=== PATIENT | female | born 1945 | race Caucasian/White ===

== ENCOUNTER 2021-02-27 12:56 | Inpatient (IN) | payer MEDICARE, OTHER, SELFPAY ==
[2021-02-27] VITALS (8 sets, daily range): BP systolic 103–145; BP diastolic 57–72; PULSE 82–118; RESP 15–20; TEMP 36.3; O2SAT 97–100; BMI 23.6
--- NOTE | 2021-02-27 14:06 | XRR_ITS ---
PROCEDURE INFORMATION: Exam: XR Chest Exam date and time: 02/27/2021 2:06 PM Age: 75 years old Clinical indication: Shortness of breath; Additional info: Weakness/sob TECHNIQUE: Imaging protocol: XR of the chest. Views: 1 view. COMPARISON: No relevant prior studies available. FINDINGS: Lungs: Unremarkable. No consolidation. Pleural spaces: Unremarkable. No pleural effusion. No pneumothorax. Heart/Mediastinum: Unremarkable. No cardiomegaly. Bones/joints: Suture anchor in the left humeral head consistent with rotator cuff repair. XR/XR chest 1V portable [id number] IMPRESSION: No acute findings.
--- NOTE | 2021-02-27 14:09 | ECG_ITS ---
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 Measurements Intervals [place] Rate: 110 P: 37 CT: 147 QRS: 69 QRSD: 99 T: 47 QT: 328 QTc: 444 Interpretive Statements SINUS TACHYCARDIA LOW QRS VOLTAGE IN PRECORDIAL LEADS [QRS DEFLECTION < 1.0 mV IN CHEST LEADS] NONSPECIFIC T-WAVE ABNORMALITY No previous ECG available for comparison Electronically Signed On 02-27-2021 18:05:35 CDT by Diamond Duffy M.D. [id number]
--- NOTE | 2021-02-27 14:10 | ED_ITS ---
HPI - Female Genitourinary General: Chief complaint: Urogenital-Female Stated complaint: N/V Time Seen by Provider: 02/27/21 13:43 Source: patient and family (daughter) Mode of arrival: wheelchair History of Present Illness: HPI Narrative: 75 yo f p/w one week of symptoms. It started with loss of appetite last Sunday and then she developed nausea, vomiting, and diarrhea. She's had generalized weakness, intermittent confusion and troubles with concentration. She went to PCP on Sunday and was found to have UTI. She was put on ciprofloxacin and took 5 doses without improvement. Her rapid COVID was negative at that time. Daughter reports she's familiar with c diff and it does NOT smell or look like c diff. She denies recent abx beyond the ciprofloxacin since Sun. She does have a history of colon cancer. Associated symptoms: Reports abdominal pain and nausea; Deny headache(s) or syncope Review of Systems General: Reports: 10 or more systems reviewed and unremarkable except in HPI and below Const: Reports: body aches, change in appetite, fatigue and malaise; Denies: fever(s) Eyes: Denies: change in vision or blurry vision ENMT: Denies: throat pain Card: Reports: lightheadedness; Denies: chest pain, palpitations, edema, swelling of feet/ankles or syncope Resp: Denies: dyspnea or productive cough GI: Reports: abdominal pain, nausea, vomiting, diarrhea, GI cramping, change in stool character and mucus in stool; Denies: hematemesis, coffee ground emesis, rectal pain or hematochezia : Denies: difficulty voiding, dysuria, urinary frequency or urinary urgency Skin/Breast: Denies: rash or erythema Neuro: Reports: weakness in extremities, dizziness and confusion (intermittent, not currently); Denies: headache(s), Slurred speech present or involuntary movements Endo: Denies: polyuria All/Imm: Denies: throat swelling or tongue swelling Physical Exam Const: COMMON NORMALS: no limitations and alert EXAM LIMITATIONS: no altered mental status GENERAL APPEARANCE: cooperative, well developed, in distress (mild, holding emesis basin), ill appearing and frail appearing NUTRITIONAL APPEARANCE: thin ORIENTATION/CONSCIOUSNESS: Yes awake, Yes oriented to person, Yes oriented to place and Yes oriented to time; not confused HENMT: COMMON NORMALS: normocephalic, atraumatic and external ears normal HEAD & SCALP: normal to inspection, normocephalic and atraumatic EXTERNAL EAR: Yes external ears normal MOUTH: lip normal; no muffled voice Eye: COMMON NORMALS: EOMs intact bilaterally and conjunctivae normal GENERAL EYE: appearance normal, both eyes and all related structures CONJUNCTIVA: Yes conjunctivae normal Neck/C-Spine: COMMON NORMALS: no JVD GENERAL: Yes normal visual inspection and Yes trachea midline Chest: COMMONS NORMALS: normal inspection of the chest Resp: COMMON NORMALS: normal respiratory effort, No use of accessory muscles and clear to auscultation bilaterally EFFORT & INSPECTION: Yes able to speak in complete sentences and Yes symmetric chest movement AUSCULTATION: clear to auscultation bilaterally Cardio: COMMON NORMALS: no JVD and regular rhythm RATE: tachycardic RHYTHM: regular rhythm PERIPHERAL PULSES: radial pulses present GI: COMMON NORMALS: Soft to palpation INSPECTION: Yes normal to inspection PALPATION: Yes Soft to palpation, Yes Tenderness to palpation present (GI) Details: LLQ, RLQ and other (suprapubic) and No Guarding due to palpation present (GI) PERCUSSION: dullness to percussion RECTAL EXAM: deferred Back/Pelvis: COMMON NORMALS: thoraco-lumbar ROM normal Extremity: COMMON NORMALS: normal to inspection GENERAL: Yes normal exam except as noted Neuro: COMMON NORMALS: moves all extremities, no focal motor deficits and no sensory deficits noted SENSORIUM/ORIENTATION: Yes alert, Yes oriented to person, Yes oriented to place and Yes oriented to time Psych: COMMON NORMALS: mental status grossly normal, Normal thought process present, cooperative, normal affect and speech normal SPEECH: Yes normal speech THOUGHT PROCESS: Normal thought process present Skin: COMMON NORMALS: no rashes or lesions noted, turgor normal and no jaundice GENERAL SKIN EXAM: no rashes or lesions noted and turgor normal Course ED course: 1645: Patient has DKA. Insulin drip protocol started. Given total of 2L of NS. Lipase elevated. Patient has had weight loss (abnormal) for last 5 months. Patient hasn't had colonoscopy for 15 years and hx of colon cancer. CT abd/pelv w/ contrast pending. Discussed with Dr Amaro to admit as long as CT abd/pelv doesn't show anything precluding admission to this facility. 1730: CT findings: ascending and proximal transverse colitis + 3.5 right sided adrenal nodule. Patient results discussed with Dr Amaro. Consider urgent colonoscopy. He has suggested stool studies and empiric cipro/flagyl until further eval of colitis can be done. Vital Signs: Vital signs: Vital Signs Temperature 97.4 F L 02/27/21 13:18 Pulse Rate 109 H 02/27/21 15:37 Respiratory Rate 15 02/27/21 15:37 Blood Pressure 116/57 02/27/21 15:37 Pulse Oximetry 100 02/27/21 15:37 MDM - Female MDM Narrative: Medical decision making narrative: ddx: infectious or inflammatory gastroenteritis, diverticulitis, focal colitis, UTI, medication side effect, dehydration, renal failure, electrolyte abnormalities, colon cancer, partial obstruction, cipro side effects could be complicating situation, other. Discussed with family. Will proceed with IVF, labs, UA, CT abd/pelv, ekg, cxr, COVID PCR. Lab Data: Labs: Lab Results 02/27/21 02/27/21 02/27/21 Range/Units 14:05 14:19 14:19 WBC 15.5 H (4.0-10.0) 10^3/ uL RBC 5.13 (4.1-5.3) 10^6/u L Hgb 16.0 H (11.5-15.3) g/dL Hct 52.0 H (37.0-47.0) % MCV 101.4 H (81-99) fL MCH 31.2 (28.0-34.0) pg MCHC 30.8 (30.0-36.0) g/dL RDW 14.6 (12.1-15.1) % Plt Count 253 (130-400) 10^3/c mm MPV 11.1 H (7.4-10.4) fL Neut % (Auto) 82.1 % Lymph % (Auto) 9.5 % [place] % (Auto) 6.2 % Eos % (Auto) 0.0 % Baso % (Auto) 0.3 % Neut # (Auto) 12.77 H (1.8-7.7) 10^3/u L Lymph # (Auto) 1.5 (0.8-4.8) 10^3/u L [place] # (Auto) 1.0 H (0.2-0.9) 10^3/u L Eos # (Auto) 0.0 (0.0-0.8) 10^3/u L Baso # (Auto) 0.0 (0.0-0.1) 10^3/u L Nucleated RBC % (a uto) 0 % Nucleated RBCs # 0.0 /100WBC Specimen Type Sample Site Nikolai Test VBG pH (7.32-7.42) VBG pCO2 (41-51) mmHg VBG pO2 (25-40) mmHg VBG HCO3 (24-28) mmol/L VBG Base Excess (-3.0-3.0) mmol/ L VBG Hematocrit (37-47) % O2 Delivery Device Python Java Developer ID Sodium (136-145) mmol/L Potassium (3.5-5.1) mmol/L Chloride (98-107) mmol/L Carbon Dioxide (22-29) mmol/L Anion Gap (5-19) BUN (8-23) mg/dL Creatinine (0.5-0.9) mg/dL GFR Calculation Glucose (65-115) mg/dL POC Glucose (70-110) mg/dL Calculated Osmolal ity (285-295) mOsm/k g Calcium (8.5-10.5) mg/dL Magnesium 2.3 (1.7-2.3) mg/dL Total Bilirubin (0.15-1.2) mg/dL AST (0-32) U/L ALT (0-33) U/L Alkaline Phosphata se (35-105) IU/L Troponin T Baselin e (0-10) ng/L Troponin T 120 Min velma (0-10) ng/L Delta Troponin T (0-10) ABS# NT-Pro-B Natriuret Pep 154 (0-450) pg/mL Total Protein (6.6-8.7) g/dL Albumin (3.5-5.2) g/dL Globulin (1.3-4.6) g/dL Lipase 467 H (13-60) U/L Urine Color Yellow (Yellow) Urine Appearance Clear (CLEAR) Urine pH 5 (5-7) Ur Specific Gravit y 1.015 (1.005-1.030) Urine Protein Neg (Negative) Urine Glucose (UA) 4+ H (Normal) Urine Ketones 2+ H (Negative) Urine Blood Neg (Negative) Urine Nitrate Negative (Negative) Urine Bilirubin Neg (Negative) Urine Urobilinogen Norm (Negative) mg/dL Ur Leukocyte Nilsa ase Negative (Negative) 02/27/21 02/27/21 02/27/21 Range/Units 14:19 14:19 15:26 WBC (4.0-10.0) 10^3/ uL RBC (4.1-5.3) 10^6/u L Hgb (11.5-15.3) g/dL Hct (37.0-47.0) % MCV (81-99) fL MCH (28.0-34.0) pg MCHC (30.0-36.0) g/dL RDW (12.1-15.1) % Plt Count (130-400) 10^3/c mm MPV (7.4-10.4) fL Neut % (Auto) % Lymph % (Auto) % [place] % (Auto) % Eos % (Auto) % Baso % (Auto) % Neut # (Auto) (1.8-7.7) 10^3/u L Lymph # (Auto) (0.8-4.8) 10^3/u L [place] # (Auto) (0.2-0.9) 10^3/u L Eos # (Auto) (0.0-0.8) 10^3/u L Baso # (Auto) (0.0-0.1) 10^3/u L Nucleated RBC % (a uto) % Nucleated RBCs # /100WBC Specimen Type Sample Site Nikolai Test VBG pH (7.32-7.42) VBG pCO2 (41-51) mmHg VBG pO2 (25-40) mmHg VBG HCO3 (24-28) mmol/L VBG Base Excess (-3.0-3.0) mmol/ L VBG Hematocrit (37-47) % O2 Delivery Device Python Java Developer ID Sodium 125 L (136-145) mmol/L Potassium 4.9 (3.5-5.1) mmol/L Chloride 89 L (98-107) mmol/L Carbon Dioxide 8 L* (22-29) mmol/L Anion Gap 32.9 H (5-19) BUN 42 H (8-23) mg/dL Creatinine 1.1 H (0.5-0.9) mg/dL GFR Calculation Not Reportable Glucose 539 H* (65-115) mg/dL POC Glucose 488 H (70-110) mg/dL Calculated Osmolal ity 295 (285-295) mOsm/k g Calcium 9.9 (8.5-10.5) mg/dL Magnesium (1.7-2.3) mg/dL Total Bilirubin 0.4 (0.15-1.2) mg/dL AST 7 (0-32) U/L ALT 10 (0-33) U/L Alkaline Phosphata se 65 (35-105) IU/L Troponin T Baselin e 20 H (0-10) ng/L Troponin T 120 Min velma (0-10) ng/L Delta Troponin T (0-10) ABS# NT-Pro-B Natriuret Pep (0-450) pg/mL Total Protein 6.9 (6.6-8.7) g/dL Albumin 3.6 (3.5-5.2) g/dL Globulin 3.3 (1.3-4.6) g/dL Lipase (13-60) U/L Urine Color (Yellow) Urine Appearance (CLEAR) Urine pH (5-7) Ur Specific Gravit y (1.005-1.030) Urine Protein (Negative) Urine Glucose (UA) (Normal) Urine Ketones (Negative) Urine Blood (Negative) Urine Nitrate (Negative) Urine Bilirubin (Negative) Urine Urobilinogen (Negative) mg/dL Ur Leukocyte Nilsa ase (Negative) 02/27/21 02/27/21 Range/Units 15:54 17:00 WBC (4.0-10.0) 10^3/ uL RBC (4.1-5.3) 10^6/u L Hgb (11.5-15.3) g/dL Hct (37.0-47.0) % MCV (81-99) fL MCH (28.0-34.0) pg MCHC (30.0-36.0) g/dL RDW (12.1-15.1) % Plt Count (130-400) 10^3/c mm MPV (7.4-10.4) fL Neut % (Auto) % Lymph % (Auto) % [place] % (Auto) % Eos % (Auto) % Baso % (Auto) % Neut # (Auto) (1.8-7.7) 10^3/u L Lymph # (Auto) (0.8-4.8) 10^3/u L [place] # (Auto) (0.2-0.9) 10^3/u L Eos # (Auto) (0.0-0.8) 10^3/u L Baso # (Auto) (0.0-0.1) 10^3/u L Nucleated RBC % (a uto) % Nucleated RBCs # /100WBC Specimen Type Venous Sample Site Venous Nikolai Test N/a VBG pH 7.12 L* (7.32-7.42) VBG pCO2 33.2 L (41-51) mmHg VBG pO2 46.2 H (25-40) mmHg VBG HCO3 10.7 L (24-28) mmol/L VBG Base Excess -17.6 L (-3.0-3.0) mmol/ L VBG Hematocrit 41.6 (37-47) % O2 Delivery Device N/funeral greeter ID Amh Sodium (136-145) mmol/L Potassium (3.5-5.1) mmol/L Chloride (98-107) mmol/L Carbon Dioxide (22-29) mmol/L Anion Gap (5-19) BUN (8-23) mg/dL Creatinine (0.5-0.9) mg/dL GFR Calculation Glucose (65-115) mg/dL POC Glucose (70-110) mg/dL Calculated Osmolal ity (285-295) mOsm/k g Calcium (8.5-10.5) mg/dL Magnesium (1.7-2.3) mg/dL Total Bilirubin (0.15-1.2) mg/dL AST (0-32) U/L ALT (0-33) U/L Alkaline Phosphata se (35-105) IU/L Troponin T Baselin e (0-10) ng/L Troponin T 120 Min velma 19.35 H (0-10) ng/L Delta Troponin T -0.65 L (0-10) ABS# NT-Pro-B Natriuret Pep (0-450) pg/mL Total Protein (6.6-8.7) g/dL Albumin (3.5-5.2) g/dL Globulin (1.3-4.6) g/dL Lipase (13-60) U/L Urine Color (Yellow) Urine Appearance (CLEAR) Urine pH (5-7) Ur Specific Gravit y (1.005-1.030) Urine Protein (Negative) Urine Glucose (UA) (Normal) Urine Ketones (Negative) Urine Blood (Negative) Urine Nitrate (Negative) Urine Bilirubin (Negative) Urine Urobilinogen (Negative) mg/dL Ur Leukocyte Nilsa ase (Negative) Discharge Plan Discharge Patient Disposition: Admitted As Inpatient Clinical Impression: Nausea vomiting and diarrhea, Elevated lipase, Abnormal loss of weight, Colitis DKA, type 2 Qualifiers: Diabetes mellitus complication detail: without coma Qualified Code(s): E11.10 - Type 2 diabetes mellitus with ketoacidosis without coma Condition: Stable Coding Level of Care Code ED Education Paraprofessional for g Fwd Exam Comprehensive
[2021-02-27 14:29] LABS: Add Urine Microscopic? NO; Charge for UA Resulting for Rev
[2021-02-27 14:39] LABS: Bilirubin Urine Neg (Negative); Blood Urine Neg (Negative); Glucose Urine UA 4+ (Normal); Ketones Urine 2+ (Negative); Leukocyte Esterase Urine Negative (Negative); Nitrate Urine Negative (Negative); Protein Urine Neg (Negative); Specific Gravity, Urine 1.015 (1.005-1.030); Urine Appearance Clear (CLEAR); Urine Color Yellow (Yellow); Urobilinogen Urine Norm (Negative); pH Urine 5 (5-7)
--- NOTE | 2021-02-27 14:41 | CTR_ITS ---
PROCEDURE INFORMATION: Exam: CT Abdomen And Pelvis With Contrast Exam date and time: 02/27/2021 2:41 PM Age: 75 years old Clinical indication: Nausea and vomiting; Abdominal pain; Generalized; Prior surgery; Surgery date: 6+ months; Surgery type: Hyst, colon resection; Patient HX: HX of colon CA C/O abd pain w n/v/d x 1 week; Additional info: Abd pain, n/v/d, one week TECHNIQUE: Imaging protocol: Computed tomography of the abdomen and pelvis with contrast. Radiation optimization: All CT scans at this facility use at least one of these dose optimization techniques: automated exposure control; mA and/or kV adjustment per patient size (includes targeted exams where dose is matched to clinical indication); or iterative reconstruction. Contrast material: VISI 320; Contrast volume: 95 ml; Contrast route: INTRAVENOUS (IV); COMPARISON: CR (CHEST, ) 02/27/2021 2:18 PM RADIATION DOSE METRICS: Total DLP (mGy-cm): 1060.45 FINDINGS: Liver: Normal. No mass. Gallbladder and bile ducts: Normal. No calcified stones. No ductal dilation. Pancreas: Normal. No ductal dilation. Spleen: Normal. No splenomegaly. Adrenal glands: There is a 3.5 cm right adrenal nodule which is considered indeterminate on this single post-contrast phase study. Kidneys and ureters: Scattered simple cysts in the kidneys. Stomach and bowel: Colonic wall thickening with hyperemia and pericolonic stranding of the cecum/ascending colon and proximal aspect of the transverse colon. Appendix: No evidence of appendicitis. Intraperitoneal space: Unremarkable. No free air. No significant fluid collection. Vasculature: Unremarkable. No abdominal aortic aneurysm. Lymph nodes: Unremarkable. No enlarged lymph nodes. Urinary bladder: Unremarkable as visualized. Reproductive: Hysterectomy changes. Bones/joints: Generalized osseous demineralization. No acute fracture. 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 Soft tissues: Small fat containing bilateral inguinal hernias. CT/CT abdomen pelvis w con* [id number] IMPRESSION: 1. Colonic wall thickening with hyperemia and pericolonic inflammation surrounding the cecum/ascending colon and proximal transverse colon suggestive of colitis. 2. Indeterminate 3.5 cm right adrenal nodule. This can be further evaluated with dedicated adrenal protocol CT/MRI. COMMENTS: Consistent with the [employer] [employer]'s Incidental Findings Committee white paper (J Am Palmer Radiol 2018): Any incidental renal lesion less than 1 cm or classified as too small to characterize, or any incidental cystic renal lesion characterized as simple-appearing, is likely benign. No follow-up imaging is recommended for these lesions per consensus recommendations based on imaging criteria. Radiation Dose CTDIVOL = (mGy): DLP = 1060.45 (mGy-cm)
[2021-02-27 14:45] LABS: Basophils % 0.3 %; Lymphocytes # 1.5 10^3/uL (0.8-4.8); Lymphocytes % 9.5 %; Mean Corpuscular HGB Conc 30.8 g/dL (30.0-36.0); Mean Corpuscular Hemoglobin 31.2 pg (28.0-34.0); Mean Corpuscular Volume 101.4 fL (81-99); Mean Platelet Volume 11.1 fL (7.4-10.4); Monocytes % 6.2 %; Neutrophils # 12.77 10^3/uL (1.8-7.7); Neutrophils % 82.1 %; Nucleated Red Blood Cells % 0 %; Platelet Count 253 10^3/cmm (130-400); Red Blood Count 5.13 10^6/uL (4.1-5.3); Red Cell Distribution Width 14.6 % (12.1-15.1); White Blood Count 15.5 10^3/uL (4.0-10.0)
[2021-02-27] MEDS: sodium chloride 0.9% 1,000 ML 999 ML IV ×2 (14:48→17:55)
[2021-02-27] MEDS: ondansetron 2 mg/ML SDV 2 mL 4 MG IVP (14:50)
[2021-02-27] MEDS: fentaNYL 50 mcg/mL INJ 2mL IVP (14:51)
[2021-02-27 15:07] LABS: Troponin(5th) Baseline 20 ng/L (0-10)
[2021-02-27 15:16] LABS: Magnesium 2.3 mg/dL (1.7-2.3); NT Pro B Type Natriuretic Pept 154 pg/mL (0-450)
[2021-02-27 15:28] LABS: Lipase 467 U/L (13-60)
[2021-02-27 15:31] LABS: Glucose Point of Care 488 mg/dL (70-110)
[2021-02-27 16:05] LABS: Alanine Aminotransferase 10 U/L (0-33); Albumin Level 3.6 g/dL (3.5-5.2); Alkaline Phosphatase 65 IU/L (35-105); Anion Gap 32.9 (5-19); Aspartate Amino Transferase 7 U/L (0-32); Blood Urea Nitrogen 42 mg/dL (8-23); Calcium 9.9 mg/dL (8.5-10.5); Chloride 89 mmol/L (98-107); Globulin 3.3 g/dL (1.3-4.6); Osmolality Calculated 295 mOsm/kg (285-295); Potassium 4.9 mmol/L (3.5-5.1); Sodium 125 mmol/L (136-145); Total Bilirubin 0.4 mg/dL (0.15-1.2); Total Protein 6.9 g/dL (6.6-8.7)
[2021-02-27 16:20] LABS: Carbon Dioxide 8 mmol/L (22-29); Glucose 539 mg/dL (65-115)
[2021-02-27 16:21] LABS: Troponin 5 2HR 19.35 ng/L (0-10)
[2021-02-27 16:44] LABS: Troponin 5 2HR Delta -0.65 ABS# (0-10)
[2021-02-27] MEDS: iodixanol 320 mg/mL 100mL Btl IV (16:51)
[2021-02-27 17:11] LABS: Base Excess VBG -17.6 mmol/L (-3.0-3.0); Blood Gas Operator Identificat AMH; HCO3 VBG 10.7 mmol/L (24-28); PCO2 VBG 33.2 mmHg (41-51); PO2 VBG 46.2 mmHg (25-40); Venous Blood Gas Hematocrit 41.6 % (37-47); pH VBG 7.12 (7.32-7.42)
[2021-02-27 17:12] LABS: Blood Gas Sample Site VENOUS; Blood Gas Sample Type VENOUS
--- NOTE | 2021-02-27 17:49 | W.ED.FEMALGU ---
HPI - Female Genitourinary General: Chief complaint: Urogenital-Female Stated complaint: N/V Time Seen by Provider: 02/27/21 13:43 Source: patient and family (daughter) Mode of arrival: wheelchair History of Present Illness: HPI Narrative: Patient presents in a wheelchair with daughter reporting nausea and vomiting. [facility] ED PFSH: Medical History (Updated 03/25/21 @ 09:46 by Gianni Berg MD) History of colon cancer Hyperlipidemia Hypertension Urinary retention Surgical History (Updated 03/25/21 @ 09:46 by Gianni Berg MD) H/O: hysterectomy S/P colon resection Family History Mother , at age 87 Heart attack Father , at age 86 Cancer prostate Social History Alcohol intake: never Marital status: Current occupational status: retired History of recent travel: No Course Vital Signs: Vital signs: Vital Signs Temperature 97.0 F L 03/03/21 16:00 Pulse Rate 100 03/03/21 16:00 Respiratory Rate 18 03/03/21 16:00 Blood Pressure 120/76 03/03/21 16:00 Pulse Oximetry 94 03/03/21 16:00 MDM - Female Lab Data: Labs: Lab Results 02/27/21 02/27/21 02/27/21 Range/Units 14:05 14:19 14:19 WBC 15.5 H (4.0-10.0) 10^3/ uL RBC 5.13 (4.1-5.3) 10^6/u L Hgb 16.0 H (11.5-15.3) g/dL Hct 52.0 H (37.0-47.0) % MCV 101.4 H (81-99) fL MCH 31.2 (28.0-34.0) pg MCHC 30.8 (30.0-36.0) g/dL RDW 14.6 (12.1-15.1) % Plt Count 253 (130-400) 10^3/c mm MPV 11.1 H (7.4-10.4) fL Neut % (Auto) 82.1 % Lymph % (Auto) 9.5 % Walker % (Auto) 6.2 % Eos % (Auto) 0.0 % Baso % (Auto) 0.3 % Neut # (Auto) 12.77 H (1.8-7.7) 10^3/u L Lymph # (Auto) 1.5 (0.8-4.8) 10^3/u L Walker # (Auto) 1.0 H (0.2-0.9) 10^3/u L Eos # (Auto) 0.0 (0.0-0.8) 10^3/u L Baso # (Auto) 0.0 (0.0-0.1) 10^3/u L Nucleated RBC % (a uto) 0 % Nucleated RBCs # 0.0 /100WBC Specimen Type Sample Site Nikolai Test VBG pH (7.32-7.42) VBG pCO2 (41-51) mmHg VBG pO2 (25-40) mmHg VBG HCO3 (24-28) mmol/L VBG Base Excess (-3.0-3.0) mmol/ L VBG Hematocrit (37-47) % O2 Delivery Device Bander And Cellophaner Machine Helper ID Sodium (136-145) mmol/L Potassium (3.5-5.1) mmol/L Chloride (98-107) mmol/L Carbon Dioxide (22-29) mmol/L Anion Gap (5-19) BUN (8-23) mg/dL Creatinine (0.5-0.9) mg/dL GFR Calculation Glucose (65-115) mg/dL POC Glucose (70-110) mg/dL Calculated Osmolal ity (285-295) mOsm/k g Calcium (8.5-10.5) mg/dL Magnesium 2.3 (1.7-2.3) mg/dL Total Bilirubin (0.15-1.2) mg/dL AST (0-32) U/L ALT (0-33) U/L Alkaline Phosphata se (35-105) IU/L Troponin T Baselin e (0-10) ng/L Troponin T 120 Min [place] (0-10) ng/L Delta Troponin T (0-10) ABS# NT-Pro-B Natriuret Pep 154 (0-450) pg/mL Total Protein (6.6-8.7) g/dL Albumin (3.5-5.2) g/dL Globulin (1.3-4.6) g/dL Lipase 467 H (13-60) U/L Urine Color Yellow (Yellow) Urine Appearance Clear (CLEAR) Urine pH 5 (5-7) Ur Specific Gravit y 1.015 (1.005-1.030) Urine Protein Neg (Negative) Urine Glucose (UA) 4+ H (Normal) Urine Ketones 2+ H (Negative) Urine Blood Neg (Negative) Urine Nitrate Negative (Negative) Urine Bilirubin Neg (Negative) Urine Urobilinogen Norm (Negative) mg/dL Ur Leukocyte Nilsa ase Negative (Negative) Serum Ketones (Negative) Nasal/Oral COVID-1 9 PCR 02/27/21 02/27/21 02/27/21 Range/Units 14:19 14:19 14:19 WBC (4.0-10.0) 10^3/ uL RBC (4.1-5.3) 10^6/u L Hgb (11.5-15.3) g/dL Hct (37.0-47.0) % MCV (81-99) fL MCH (28.0-34.0) pg MCHC (30.0-36.0) g/dL RDW (12.1-15.1) % Plt Count (130-400) 10^3/c mm MPV (7.4-10.4) fL Neut % (Auto) % Lymph % (Auto) % Walker % (Auto) % Eos % (Auto) % Baso % (Auto) % Neut # (Auto) (1.8-7.7) 10^3/u L Lymph # (Auto) (0.8-4.8) 10^3/u L Walker # (Auto) (0.2-0.9) 10^3/u L Eos # (Auto) (0.0-0.8) 10^3/u L Baso # (Auto) (0.0-0.1) 10^3/u L Nucleated RBC % (a uto) % Nucleated RBCs # /100WBC Specimen Type Sample Site Nikolai Test VBG pH (7.32-7.42) VBG pCO2 (41-51) mmHg VBG pO2 (25-40) mmHg VBG HCO3 (24-28) mmol/L VBG Base Excess (-3.0-3.0) mmol/ L VBG Hematocrit (37-47) % O2 Delivery Device Bander And Cellophaner Machine Helper ID Sodium 125 L (136-145) mmol/L Potassium 4.9 (3.5-5.1) mmol/L Chloride 89 L (98-107) mmol/L Carbon Dioxide 8 L* (22-29) mmol/L Anion Gap 32.9 H (5-19) BUN 42 H (8-23) mg/dL Creatinine 1.1 H (0.5-0.9) mg/dL GFR Calculation Not Reportable Glucose 539 H* (65-115) mg/dL POC Glucose (70-110) mg/dL Calculated Osmolal ity 295 (285-295) mOsm/k g Calcium 9.9 (8.5-10.5) mg/dL Magnesium (1.7-2.3) mg/dL Total Bilirubin 0.4 (0.15-1.2) mg/dL AST 7 (0-32) U/L ALT 10 (0-33) U/L Alkaline Phosphata se 65 (35-105) IU/L Troponin T Baselin e 20 H (0-10) ng/L Troponin T 120 Min [place] (0-10) ng/L Delta Troponin T (0-10) ABS# NT-Pro-B Natriuret Pep (0-450) pg/mL Total Protein 6.9 (6.6-8.7) g/dL Albumin 3.6 (3.5-5.2) g/dL Globulin 3.3 (1.3-4.6) g/dL Lipase (13-60) U/L Urine Color (Yellow) Urine Appearance (CLEAR) Urine pH (5-7) Ur Specific Gravit y (1.005-1.030) Urine Protein (Negative) Urine Glucose (UA) (Normal) Urine Ketones (Negative) Urine Blood (Negative) Urine Nitrate (Negative) Urine Bilirubin (Negative) Urine Urobilinogen (Negative) mg/dL Ur Leukocyte Nilsa ase (Negative) Serum Ketones Positive H (Negative) Nasal/Oral COVID-1 9 PCR 02/27/21 02/27/21 02/27/21 Range/Units 14:58 15:26 15:54 WBC (4.0-10.0) 10^3/ uL RBC (4.1-5.3) 10^6/u L Hgb (11.5-15.3) g/dL Hct (37.0-47.0) % MCV (81-99) fL MCH (28.0-34.0) pg MCHC (30.0-36.0) g/dL RDW (12.1-15.1) % Plt Count (130-400) 10^3/c mm MPV (7.4-10.4) fL Neut % (Auto) % Lymph % (Auto) % Walker % (Auto) % Eos % (Auto) % Baso % (Auto) % Neut # (Auto) (1.8-7.7) 10^3/u L Lymph # (Auto) (0.8-4.8) 10^3/u L Walker # (Auto) (0.2-0.9) 10^3/u L Eos # (Auto) (0.0-0.8) 10^3/u L Baso # (Auto) (0.0-0.1) 10^3/u L Nucleated RBC % (a uto) % Nucleated RBCs # /100WBC Specimen Type Sample Site Nikolai Test VBG pH (7.32-7.42) VBG pCO2 (41-51) mmHg VBG pO2 (25-40) mmHg VBG HCO3 (24-28) mmol/L VBG Base Excess (-3.0-3.0) mmol/ L VBG Hematocrit (37-47) % O2 Delivery Device Bander And Cellophaner Machine Helper ID Sodium (136-145) mmol/L Potassium (3.5-5.1) mmol/L Chloride (98-107) mmol/L Carbon Dioxide (22-29) mmol/L Anion Gap (5-19) BUN (8-23) mg/dL Creatinine (0.5-0.9) mg/dL GFR Calculation Glucose (65-115) mg/dL POC Glucose 488 H (70-110) mg/dL Calculated Osmolal ity (285-295) mOsm/k g Calcium (8.5-10.5) mg/dL Magnesium (1.7-2.3) mg/dL Total Bilirubin (0.15-1.2) mg/dL AST (0-32) U/L ALT (0-33) U/L Alkaline Phosphata se (35-105) IU/L Troponin T Baselin e (0-10) ng/L Troponin T 120 Min [place] 19.35 H (0-10) ng/L Delta Troponin T -0.65 L (0-10) ABS# NT-Pro-B Natriuret Pep (0-450) pg/mL Total Protein (6.6-8.7) g/dL Albumin (3.5-5.2) g/dL Globulin (1.3-4.6) g/dL Lipase (13-60) U/L Urine Color (Yellow) Urine Appearance (CLEAR) Urine pH (5-7) Ur Specific Gravit y (1.005-1.030) Urine Protein (Negative) Urine Glucose (UA) (Normal) Urine Ketones (Negative) Urine Blood (Negative) Urine Nitrate (Negative) Urine Bilirubin (Negative) Urine Urobilinogen (Negative) mg/dL Ur Leukocyte Nilsa ase (Negative) Serum Ketones (Negative) Nasal/Oral COVID-1 9 PCR Not detected 02/27/21 02/27/21 02/27/21 Range/Units 17:00 18:19 20:26 WBC (4.0-10.0) 10^3/ uL RBC (4.1-5.3) 10^6/u L Hgb (11.5-15.3) g/dL Hct (37.0-47.0) % MCV (81-99) fL MCH (28.0-34.0) pg MCHC (30.0-36.0) g/dL RDW (12.1-15.1) % Plt Count (130-400) 10^3/c mm MPV (7.4-10.4) fL Neut % (Auto) % Lymph % (Auto) % Walker % (Auto) % Eos % (Auto) % Baso % (Auto) % Neut # (Auto) (1.8-7.7) 10^3/u L Lymph # (Auto) (0.8-4.8) 10^3/u L Walker # (Auto) (0.2-0.9) 10^3/u L Eos # (Auto) (0.0-0.8) 10^3/u L Baso # (Auto) (0.0-0.1) 10^3/u L Nucleated RBC % (a uto) % Nucleated RBCs # /100WBC Specimen Type Venous Sample Site Venous Nikolai Test N/a VBG pH 7.12 L* (7.32-7.42) VBG pCO2 33.2 L (41-51) mmHg VBG pO2 46.2 H (25-40) mmHg VBG HCO3 10.7 L (24-28) mmol/L VBG Base Excess -17.6 L (-3.0-3.0) mmol/ L VBG Hematocrit 41.6 (37-47) % O2 Delivery Device N/oil well directional surveyor ID Amh Sodium (136-145) mmol/L Potassium (3.5-5.1) mmol/L Chloride (98-107) mmol/L Carbon Dioxide (22-29) mmol/L Anion Gap (5-19) BUN (8-23) mg/dL Creatinine (0.5-0.9) mg/dL GFR Calculation Glucose (65-115) mg/dL POC Glucose 369 H 353 H (70-110) mg/dL Calculated Osmolal ity (285-295) mOsm/k g Calcium (8.5-10.5) mg/dL Magnesium (1.7-2.3) mg/dL Total Bilirubin (0.15-1.2) mg/dL AST (0-32) U/L ALT (0-33) U/L Alkaline Phosphata se (35-105) IU/L Troponin T Baselin e (0-10) ng/L Troponin T 120 Min [place] (0-10) ng/L Delta Troponin T (0-10) ABS# NT-Pro-B Natriuret Pep (0-450) pg/mL Total Protein (6.6-8.7) g/dL Albumin (3.5-5.2) g/dL Globulin (1.3-4.6) g/dL Lipase (13-60) U/L Urine Color (Yellow) Urine Appearance (CLEAR) Urine pH (5-7) Ur Specific Gravit y (1.005-1.030) Urine Protein (Negative) Urine Glucose (UA) (Normal) Urine Ketones (Negative) Urine Blood (Negative) Urine Nitrate (Negative) Urine Bilirubin (Negative) Urine Urobilinogen (Negative) mg/dL Ur Leukocyte Nilsa ase (Negative) Serum Ketones (Negative) Nasal/Oral COVID-1 9 PCR 07/25/21 Range/Units 23:33 WBC (4.0-10.0) 10^3/ uL RBC (4.1-5.3) 10^6/u L Hgb (11.5-15.3) g/dL Hct (37.0-47.0) % MCV (81-99) fL MCH (28.0-34.0) pg MCHC (30.0-36.0) g/dL RDW (12.1-15.1) % Plt Count (130-400) 10^3/c mm MPV (7.4-10.4) fL Neut % (Auto) % Lymph % (Auto) % Walker % (Auto) % Eos % (Auto) % Baso % (Auto) % Neut # (Auto) (1.8-7.7) 10^3/u L Lymph # (Auto) (0.8-4.8) 10^3/u L Walker # (Auto) (0.2-0.9) 10^3/u L Eos # (Auto) (0.0-0.8) 10^3/u L Baso # (Auto) (0.0-0.1) 10^3/u L Nucleated RBC % (a uto) % Nucleated RBCs # /100WBC Specimen Type Sample Site Nikolai Test VBG pH (7.32-7.42) VBG pCO2 (41-51) mmHg VBG pO2 (25-40) mmHg VBG HCO3 (24-28) mmol/L VBG Base Excess (-3.0-3.0) mmol/ L VBG Hematocrit (37-47) % O2 Delivery Device Bander And Cellophaner Machine Helper ID Sodium (136-145) mmol/L Potassium (3.5-5.1) mmol/L Chloride (98-107) mmol/L Carbon Dioxide (22-29) mmol/L Anion Gap (5-19) BUN (8-23) mg/dL Creatinine (0.5-0.9) mg/dL GFR Calculation Glucose (65-115) mg/dL POC Glucose 131 H (70-110) mg/dL Calculated Osmolal ity (285-295) mOsm/k g Calcium (8.5-10.5) mg/dL Magnesium (1.7-2.3) mg/dL Total Bilirubin (0.15-1.2) mg/dL AST (0-32) U/L ALT (0-33) U/L Alkaline Phosphata se (35-105) IU/L Troponin T Baselin e (0-10) ng/L Troponin T 120 Min [place] (0-10) ng/L Delta Troponin T (0-10) ABS# NT-Pro-B Natriuret Pep (0-450) pg/mL Total Protein (6.6-8.7) g/dL Albumin (3.5-5.2) g/dL Globulin (1.3-4.6) g/dL Lipase (13-60) U/L Urine Color (Yellow) Urine Appearance (CLEAR) Urine pH (5-7) Ur Specific Gravit y (1.005-1.030) Urine Protein (Negative) Urine Glucose (UA) (Normal) Urine Ketones (Negative) Urine Blood (Negative) Urine Nitrate (Negative) Urine Bilirubin (Negative) Urine Urobilinogen (Negative) mg/dL Ur Leukocyte Nilsa ase (Negative) Serum Ketones (Negative) Nasal/Oral COVID-1 9 PCR Discharge Plan Discharge Patient Disposition: Admitted As Inpatient Admit Provider: Ruddy Amaro Clinical Impression: Nausea vomiting and diarrhea, Elevated lipase, Abnormal loss of weight, Colitis DKA, type 2 Qualifiers: Diabetes mellitus complication detail: without coma Qualified Code(s): E11.10 - Type 2 diabetes mellitus with ketoacidosis without coma Condition: Stable Discharge Diet: Diabetic Discharge Activity: Increase activity as tolerated Coding Level of Care Code ED Flower Arranger for Trina Concepcion
[2021-02-27] MEDS: lactated ringers 1,000 ML 30 ML IV (18:11)
[2021-02-27 18:26] LABS: Glucose Point of Care 369 mg/dL (70-110)
[2021-02-27] MEDS: insulin regular-human 250 UNIT in sodium chloride 0.9% 250 ML 11 UNIT IV (18:46)
[2021-02-27 19:56] LABS: Ketone (Acetest) Serum Positive (Negative)
[2021-02-27 20:36] LABS: Glucose Point of Care 353 mg/dL (70-110)
[2021-02-27] MEDS: metroNIDAZOLE IV 500 MG/100 ML PREMIX 100 MG IV (23:17)
[2021-02-27 23:39] LABS: Glucose Point of Care 131 mg/dL (70-110)
[2021-02-28] VITALS (49 sets, daily range): BP systolic 103–175; BP diastolic 55–108; PULSE 78–117; RESP 0–25; TEMP 36.2–37.2; O2SAT 92–98
[2021-02-28] MEDS: dextrose 5%-sod chloride 0.45% 1,000 ML 125 ML IV ×2 (00:14→08:34)
[2021-02-28] MEDS: ciprofloxacin 400 MG/200 ML PREMIX 200 MG IV ×3 (00:36→18:23)
--- NOTE | 2021-02-28 00:57 | PC.NURSE ---
arrived from ED, AO x4, no c/o at this time, glucose 154, no insulin drip going,follows commands, answers questions
--- NOTE | 2021-02-28 01:06 | PC.NURSE ---
Insulin drip requested from Rx
[2021-02-28 01:38] LABS: Glucose Point of Care 151 mg/dL (70-110)
[2021-02-28] MEDS: insulin regular-human 250 UNIT in sodium chloride 0.9% 250 ML 11 UNIT IV (01:38)
[2021-02-28 02:02] LABS: Anion Gap 20.3 (5-19); Blood Urea Nitrogen 39 mg/dL (8-23); Carbon Dioxide 15 mmol/L (22-29); Chloride 108 mmol/L (98-107); Creatinine Clr Calc Pharmacy 49.7059; Glucose 170 mg/dL (65-115); Magnesium 1.9 mg/dL (1.7-2.3); Osmolality Calculated 301 mOsm/kg (285-295); Potassium 4.3 mmol/L (3.5-5.1); Sodium 139 mmol/L (136-145)
[2021-02-28 02:03] LABS: Glucose Point of Care 198 mg/dL (70-110)
[2021-02-28 03:09] LABS: Glucose Point of Care 182 mg/dL (70-110)
[2021-02-28] MEDS: metroNIDAZOLE IV 500 MG/100 ML PREMIX 100 MG IV ×3 (04:02→20:53)
--- NOTE | 2021-02-28 04:02 | PM.HP ---
Providers/Chief Complaint Admitting Physician: Ruddy Amaro Primary Care Provider: Jasmina Moreno DO Chief Complaint: N/V History of Present Illness Karina Ceballos is a 75 year old female With a past medical history significant for hypertension, hyperlipidemia, diabetes mellitus and colon cancer presented to the hospital with nausea, vomiting and diarrhea. Patient was recently diagnosed with urinary tract infection of which she completed 5 day course of ciprofloxacin. She continued to have abdominal discomfort.Laboratory workup on arrival showed a WBC of 18.5, hemoglobin of 16.0, hematocrit of 52.0 and a platelet count of 253. Sodium 125, potassium 4.9, chloride 89, bicarb 8, BUN 42 and a creatinine of 1.1. Glucose of 539. AST of 7, ALT of 10 and alkaline phosphatase of 65. Troponin T baseline of 20. Lipase of 467. Urinalysis showed 2+ ketones, negative for leukocyte esterase or nitrates. Serum ketones were positive. COVID-[address] abdomen pelvis was performed which showed colonic wall thickening with hyperemia and pericolonic inflammation surrounding the cecum/ascending colon and proximal transverse colon suggesting colitis. Indeterminate 3.5 cm right adrenal nodule was incidentally noted. Patient was started on insulin drip on DKA protocol. Review of Systems General: Reports: ROS unobtainable due to mental status Medications/Allergies Home Medications Medication Instructions Recorded Confirmed Last Taken Type allopurinol 300 mg PO DAILY 02/27/21 02/27/21 02/26/21 History ciprofloxacin HCl 500 mg PO BID 02/27/21 02/27/21 02/27/21 History glipizide 10 mg PO BID 02/27/21 02/27/21 02/27/21 History lisinopril 20 mg PO DAILY 02/27/21 02/27/21 02/27/21 History lovastatin 10 mg PO DAILY 02/27/21 02/27/21 02/27/21 History metformin 1,000 mg PO BID 02/27/21 02/27/21 02/27/21 History prochlorperazine maleate 5 mg PO Q6H PRN 02/27/21 02/27/21 02/27/21 History Allergies Allergy/AdvReac Type Severity Reaction Status Date / Time codeine Allergy ALGY-Anaphy Verified 02/27/21 13:18 laxis hydromorphone [From Dilaudid] Allergy ALGY-Anaphy Verified 02/27/21 13:18 laxis morphine Allergy ALGY-Anaphy Verified 02/27/21 13:18 laxis Vitals/I&O/Wt Last Vital Signs Temp 98.1 F 02/28/21 00:59 Pulse 87 02/28/21 05:30 Resp 14 02/28/21 05:30 BP 113/58 02/28/21 05:30 Pulse Ox 96 02/28/21 05:30 02/27/21 02/27/21 02/28/21 14:59 22:59 06:59 Intake Total 1000 / 1000 189.574 / 1189.574 Balance 1000 / 1000 189.574 / 1189.574 Weight last 48 hrs Weight 58.513 kg Physical Exam Narrative: EXAM NARRATIVE: Alert, awake, however and abdominal pain at the time of my evaluation. HEENT -grossly unremarkable new line CVS -regular rate rhythm Chest -clear to auscultation bilaterally abdomen- generalized tenderness Extremities + edema Data : 02/27/21 14:19 02/28/21 00:50 A&P Assessment and plan (1) Nausea vomiting and diarrhea: Zofran p.r.n. C diff sent IV fluids Procalcitonin a.m. Status: Acute (2) Colitis: Continue ciprofloxacin 400 mg IV b.i.d. Flagyl 500 mg IV q.8 Status: Acute (3) DKA, type 2: Insulin drip per protocol Q.1 hour blood sugar checks Q 6 hr bmp NPO Status: Acute Qualifiers: Diabetes mellitus complication detail: without coma Qualified Code(s): E11.10 - Type 2 diabetes mellitus with ketoacidosis without coma (4) Elevated lipase: no evidence of pancreatitis on radiographic imaging patient is NPO Can repeat lipase in a.m. Status: Acute Attestations Medical Necessity Statement*: Anticipate over 2 midnights stay in hospital for evaluation treatment of DKA, nausea vomiting, colitis on IV antibiotics Time Spent in Patient Care: Greater than 35 minutes (>than 50% of time spent in counselling and/or direct pt care on unit). Coding Level of Care Code Acute Director Of Human Resources for [facility] Fwd Diagnoses Nausea vomiting and diarrhea R11.2; R19.7 Colitis K52.9 DKA, type 2 E11.10 Diabetes mellitus complication detail: without coma Elevated lipase R74.8
[2021-02-28 04:09] LABS: Glucose Point of Care 203 mg/dL (70-110)
[2021-02-28 06:12] LABS: Glucose Point of Care 143 mg/dL (70-110)
[2021-02-28 07:31] LABS: Glucose Point of Care 128 mg/dL (70-110)
[2021-02-28 07:50] LABS: Blood Urea Nitrogen 33 mg/dL (8-23); Calcium 8.9 mg/dL (8.5-10.5); Carbon Dioxide 16 mmol/L (22-29); Chloride 110 mmol/L (98-107); Creatinine Clr Calc Pharmacy 49.7059; Glucose 122 mg/dL (65-115); Osmolality Calculated 293 mOsm/kg (285-295); Sodium 137 mmol/L (136-145)
[2021-02-28 07:52] LABS: Anion Gap 14.9 (5-19); Potassium 3.9 mmol/L (3.5-5.1)
[2021-02-28 08:43] LABS: Glucose Point of Care 120 mg/dL (70-110)
--- NOTE | 2021-02-28 09:00 | PM.PN ---
Subjective Subjective: Interval history: Karina reports she still has some nausea. A little bit of global abdominal discomfort. Recent history of UTI for which she was taking Cipro prior to admission. Medications: Reviewed: Yes Vitals/I&O/Wt Last Vital Signs Temp 98.9 F 02/28/21 08:00 Pulse 92 02/28/21 08:30 Resp 14 02/28/21 08:30 BP 148/70 02/28/21 08:30 Pulse Ox 97 02/28/21 06:30 02/27/21 02/28/21 02/28/21 22:59 06:59 14:59 Intake Total 1000 / 1000 207.124 / 5101.770 3755.667 / 2506.667 Balance 1000 / 1000 207.124 / 9691.922 8368.667 / 2506.667 Weight last 48 hrs Weight 58.513 kg Physical Exam Narrative: EXAM NARRATIVE: General exam no apparent distress Neck is supple no lymphadenopathy or thyromegaly Cardiovascular regular rate and rhythm without murmur Lungs clear Abdomen some generalized tenderness. Positive bowel sounds Extremities no cyanosis clubbing or edema Data : 02/27/21 14:19 02/28/21 07:25 A&P Assessment and plan (1) DKA, type 2: Insulin drip instituted on admission Anion gap is now closed Changes since his sliding scale insulin Clear liquid, consistent carb diet Status: Acute Qualifiers: Diabetes mellitus complication detail: without coma Qualified Code(s): E11.10 - Type 2 diabetes mellitus with ketoacidosis without coma (2) Colitis: Cipro, Flagyl Check C. difficile, stool culture CT demonstrated colitis, right side. Status: Acute (3) Elevated lipase: Repeat lipase today, order on blood in lab. Status: Acute Additional A&P Information Indeterminate right adrenal nodule. Consider follow-up as outpatient. Hypertension Hyperlipidemia History of gout Heparin for DVT prophylaxis Full code Covid PCR was obtained, and pending Possible transfer out of ICU later today. Attestations Medical Necessity Statement*: Needs continued hospital stay, for treatment of colitis with IV antibiotics, as well as completion of treatment of DKA. Coding Level of Care Code Acute High School Academic Coach for [facility] Fw Diagnoses DKA, type 2 E11.10 Diabetes mellitus complication detail: without coma Colitis K52.9 Elevated lipase R74.8
[2021-02-28 09:23] LABS: Glucose Point of Care 114 mg/dL (70-110)
[2021-02-28] MEDS: heparin 5,000 unit/mL INJ 1 mL 5000 UNIT SUBCUT ×2 (09:28→20:50)
[2021-02-28] MEDS: sodium chloride 0.9% 1,000 ML 100 ML IV (09:29)
[2021-02-28] MEDS: insulin glargine 100 units/1 mL 10 UNIT SUBCUT (09:56)
[2021-02-28 11:17] LABS: Lipase 177 U/L (13-60)
[2021-02-28 12:16] LABS: Glucose Point of Care 156 mg/dL (70-110)
[2021-02-28 13:20] LABS: Blood Urea Nitrogen 26 mg/dL (8-23); Calcium 8.7 mg/dL (8.5-10.5); Carbon Dioxide 12 mmol/L (22-29); Chloride 106 mmol/L (98-107); Creatinine Clr Calc Pharmacy 49.7059; Glucose 173 mg/dL (65-115); Osmolality Calculated 283 mOsm/kg (285-295); Sodium 132 mmol/L (136-145)
[2021-02-28 13:28] LABS: Anion Gap 18.2 (5-19); Potassium 4.2 mmol/L (3.5-5.1)
--- NOTE | 2021-02-28 13:42 | PC.CHAP ---
Pastoral Care Encounter/Spiritual Assessment Type of Contact [] Declined unhairing machine operator visit [] Patient/Family/Request visit [] Outpatient visit []x Follow-up visit [] Physician referral [] Code/Alert [] Routine visit [] Staff referral [] Actively dying [x] Patient sleeping [] Family support [] [] Out of room [] Palliative care [] [] Receiving care in room [] Pre-surgical visit [] Trauma [] Long length of stay [] ICU visit [] Other: Relational/Emotional Strength [] Patient feels connected with others/family/visitors/staff [] Distress [] Loneliness/isolation [] Abandonment Spirituality of Patient [] Person of Amanda [] Attends Rastafari of their Amanda [] Believes in Prayer [] Reads Bible or Church materials [] There are Spiritual issues to be addressed Scientific Database Curator Interventions [] Prayer [] Active listening [] Non-anxious presence [] Spiritual/emotional support [] Crisis/trauma care [] Spiritual counseling [] Bereavement support [] Provided bereavement packet [] Provided Bible/devotional materials [] Provided toy/stuffed animal, coloring book to patient or family member [] Provided Communion [] Anointing/[place] [] Salvation [] Completed spiritual assessment [] Other: Impact on Illness or Injury [] Angry [] Fearful [] Anxious [] Often cries [] Exhaustion [] Unable to work [] Unable to attend lutheran [] Unable to walk/stand [] Unable to read [] Unable to drive [] Unable to eat/drink [] Unable to sleep [] Unable to be with family [] Patient intubated [] Other: Summary Time spent with patient
[2021-02-28 14:03] LABS: Coronavirus Test Green County Not Detected
--- NOTE | 2021-02-28 15:17 | PC.NURSE ---
Patients hands and arms shake when getting on commode. Patient states that this is new to her and is due to weakness. Patient has difficulty standing up when getting on the commode.
[2021-02-28 17:06] LABS: Glucose Point of Care 184 mg/dL (70-110)
[2021-02-28] MEDS: calcium carbonate 500 mg Chew Tablet PO (17:22)
--- NOTE | 2021-02-28 18:12 | PC.NURSE ---
Patient stated that she has heartburn all day long. Rated it as a 8 out of 10 after eating dinner. Patient did receive prn calcium carbonate prior to getting dinner tray.
[2021-02-28 18:41] LABS: Blood Urea Nitrogen 25 mg/dL (8-23); Carbon Dioxide 13 mmol/L (22-29); Chloride 107 mmol/L (98-107); Creatinine Clr Calc Pharmacy 49.7059; Glucose 229 mg/dL (65-115); Osmolality Calculated 294 mOsm/kg (285-295); Sodium 136 mmol/L (136-145)
[2021-02-28 18:49] LABS: Anion Gap 20.2 (5-19); Potassium 4.2 mmol/L (3.5-5.1)
[2021-02-28 20:28] LABS: Glucose Point of Care 256 mg/dL (70-110)
[2021-02-28] MEDS: dextrose 5%-sod chloride 0.9% 1,000 ML 100 ML IV (20:38)
[2021-02-28] MEDS: insulin regular-human 250 UNIT in sodium chloride 0.9% 250 ML 6.06 UNIT IV (20:43)
[2021-02-28 21:39] LABS: Glucose Point of Care 250 mg/dL (70-110)
[2021-02-28 22:41] LABS: Glucose Point of Care 198 mg/dL (70-110)
[2021-02-28 23:43] LABS: Glucose Point of Care 143 mg/dL (70-110)
[2021-03-01] VITALS (43 sets, daily range): BP systolic 121–184; BP diastolic 72–113; PULSE 70–106; RESP 14–29; TEMP 36.6–37.1; O2SAT 93–99
[2021-03-01 00:34] LABS: Anion Gap 10.2 (5-19); Blood Urea Nitrogen 19 mg/dL (8-23); Calcium 8.8 mg/dL (8.5-10.5); Carbon Dioxide 19 mmol/L (22-29); Chloride 113 mmol/L (98-107); Creatinine Clr Calc Pharmacy 49.7059; Glucose 174 mg/dL (65-115); Osmolality Calculated 294 mOsm/kg (285-295); Potassium 3.2 mmol/L (3.5-5.1); Sodium 139 mmol/L (136-145)
[2021-03-01 00:48] LABS: Glucose Point of Care 141 mg/dL (70-110)
[2021-03-01 02:33] LABS: Glucose Point of Care 106 mg/dL (70-110)
--- NOTE | 2021-03-01 03:27 | PC.NURSE ---
Dr. Amaya notified of anion gap being closed and glucose 108 at 0230, v.o. for 4 units novolog subq now, then start Mod ss scale with breakfast turn off insulin drip and D5 1/2 NS one hour after one time insulin
[2021-03-01 03:54] LABS: Glucose Point of Care 119 mg/dL (70-110)
[2021-03-01 04:40] LABS: Basophils % 0.2 %; Hematocrit 45.2 % (37.0-47.0); Lymphocytes # 1.7 10^3/uL (0.8-4.8); Lymphocytes % 14.8 %; Mean Corpuscular Hemoglobin 30.2 pg (28.0-34.0); Mean Corpuscular Volume 97.4 fL (81-99); Mean Platelet Volume 10.5 fL (7.4-10.4); Monocytes # 1.4 10^3/uL (0.2-0.9); Neutrophils # 8.22 10^3/uL (1.8-7.7); Neutrophils % 72.5 %; Nucleated Red Blood Cells % 0 %; Platelet Count 177 10^3/cmm (130-400); Red Blood Count 4.64 10^6/uL (4.1-5.3); Red Cell Distribution Width 14.5 % (12.1-15.1); White Blood Count 11.3 10^3/uL (4.0-10.0)
[2021-03-01] MEDS: ciprofloxacin 400 MG/200 ML PREMIX 200 MG IV ×2 (06:03→19:18)
[2021-03-01] MEDS: metroNIDAZOLE IV 500 MG/100 ML PREMIX 100 MG IV ×3 (06:03→20:34)
[2021-03-01 06:04] LABS: Glucose Point of Care 133 mg/dL (70-110)
[2021-03-01 06:31] LABS: Glucose Point of Care 101 mg/dL (70-110)
[2021-03-01 07:54] LABS: Magnesium 1.7 mg/dL (1.7-2.3)
[2021-03-01] MEDS: ondansetron 2 mg/ML SDV 2 mL 4 MG IVP (08:02)
--- NOTE | 2021-03-01 08:02 | XR_ITS ---
WS: [id number] XR abdomen 1V* 26420 REASON FOR EXAM: pain FINDINGS: No free air or retroperitoneal air. Bowel gas pattern is unremarkable. No urinary tract calculi are identified. No mass identified. XR/XR abdomen 1V* 51202 IMPRESSION: No acute abdominal abnormality.
[2021-03-01 08:13] LABS: Glucose Point of Care 152 mg/dL (70-110)
[2021-03-01] MEDS: insulin glargine 100 units/1 mL 10 UNIT SUBCUT ×2 (08:31→21:06)
--- NOTE | 2021-03-01 08:31 | PC.NURSE ---
Hard documented Lantus. Was unable to scan 0800 Lantus 10 units. Mar prompted that the Lantus dose was the 2100 dose.
[2021-03-01] MEDS: heparin 5,000 unit/mL INJ 1 mL 5000 UNIT SUBCUT ×2 (08:51→20:34)
[2021-03-01] MEDS: calcium carbonate 500 mg Chew Tablet PO ×2 (08:58→17:53)
[2021-03-01] MEDS: potassium chloride ER 20 mEq Tablet 40 MEQ PO ×2 (08:58→11:40)
--- NOTE | 2021-03-01 10:09 | PC.CHAP ---
Pastoral Care Encounter/Spiritual Assessment Type of Contact [] Declined business development professional visit [] Patient/Family/Request visit [] Outpatient visit [] Follow-up visit [] Physician referral [] Code/Alert [x] Routine visit [] Staff referral [] Actively dying [] Patient sleeping [] Family support [] [] Out of room [] Palliative care [] [x] Receiving care in room [] Pre-surgical visit [] Trauma [] Long length of stay [x] ICU visit [] Other: Relational/Emotional Strength [] Patient feels connected with others/family/visitors/staff [] Distress [] Loneliness/isolation [] Abandonment Spirituality of Patient [] Person of Amanda [] Attends Gnosticism of their Amanda [] Believes in Prayer [] Reads Bible or Latter-Day materials [] There are Spiritual issues to be addressed International Trade Manager Interventions [x] Prayer [] Active listening [] Non-anxious presence [] Spiritual/emotional support [] Crisis/trauma care [] Spiritual counseling [] Bereavement support [] Provided bereavement packet [] Provided Bible/devotional materials [] Provided toy/stuffed animal, coloring book to patient or family member [] Provided Communion [] Anointing/[place] [] Salvation [x] Completed spiritual assessment [] Other: Impact on Illness or Injury [] Angry [] Fearful [] Anxious [] Often cries [] Exhaustion [] Unable to work [] Unable to attend yarsanism [] Unable to walk/stand [] Unable to read [] Unable to drive [] Unable to eat/drink [] Unable to sleep [] Unable to be with family [] Patient intubated [] Other: Summary Time spent with patient
[2021-03-01 11:21] LABS: Glucose Point of Care 159 mg/dL (70-110)
--- NOTE | 2021-03-01 13:41 | P.PN_ITS ---
Subjective Subjective: Interval history: Karina reports she feels a little bit better. Had some nausea this morning. Abdomen still hurts some. Having some reflux according to daughter. Medications: Reviewed: Yes Vitals/I&O/Wt Last Vital Signs Temp 98.3 F 03/01/21 12:30 Pulse 85 03/01/21 12:30 Resp 20 H 03/01/21 12:30 BP 137/75 03/01/21 12:30 Pulse Ox 96 03/01/21 12:30 02/28/21 03/01/21 03/01/21 22:59 06:59 14:59 Intake Total 413.938 / 3654.855 871.381 / 4526.236 418 / 418 Balance 413.938 / 3654.855 871.381 / 4526.236 418 / 418 Physical Exam Narrative: EXAM NARRATIVE: General exam no apparent distress Neck is supple no lymphadenopathy or thyromegaly Cardiovascular regular rate and rhythm without murmur Lungs clear Abdomen some generalized tenderness. Positive bowel sounds Extremities no cyanosis clubbing or edema Data : 03/01/21 04:25 03/01/21 00:00 A&P Assessment and plan (1) DKA, type 2: Insulin drip instituted on admission Anion gap is now closed again Changed to long-acting insulin, sliding scale Advance diet to full liquid Status: Acute Qualifiers: Diabetes mellitus complication detail: without coma Qualified Code(s): E11.10 - Type 2 diabetes mellitus with ketoacidosis without coma (2) Colitis: Continue Cipro, Flagyl Await check C. difficile, stool culture CT demonstrated colitis, right side. Discussed with patient and daughter follow-up with colonoscopy, as well as follow-up of adrenal abnormality Repeat abdominal x-ray this morning demonstrated no free air, no evidence of obstruction Status: Acute (3) Elevated lipase: Repeat lipase was improved. No evidence for acute pancreatitis. Status: Acute Additional A&P Information Indeterminate right adrenal nodule. Consider follow-up as outpatient. GERD. Start Protonix. Hypokalemia, supplement Hypertension Hyperlipidemia History of gout Heparin for DVT prophylaxis Full code Covid PCR was obtained, and negative Transfer out of ICU Attestations Medical Necessity Statement*: Needs continued hospitalization secondary to close monitoring for recurrence of DKA, treatment of colitis. Coding Level of Care Code Acute Arts Manager for [facility] Diagnoses DKA, type 2 E11.10 Diabetes mellitus complication detail: without coma Colitis K52.9 Elevated lipase R74.8
[2021-03-01 17:42] LABS: Glucose Point of Care 220 mg/dL (70-110)
[2021-03-01] MEDS: pantoprazole DR 40 mg Tablet PO (17:53)
[2021-03-01 20:17] LABS: Glucose Point of Care 293 mg/dL (70-110)
[2021-03-02] VITALS (25 sets, daily range): BP systolic 97–179; BP diastolic 54–104; PULSE 75–113; RESP 14–29; TEMP 36.8–36.9; O2SAT 88–98
[2021-03-02 05:23] LABS: Basophils % 0.2 %; Hematocrit 43.4 % (37.0-47.0); Hemoglobin 13.7 g/dL (11.5-15.3); Lymphocytes # 1.5 10^3/uL (0.8-4.8); Lymphocytes % 16.8 %; Mean Corpuscular HGB Conc 31.6 g/dL (30.0-36.0); Mean Platelet Volume 11.2 fL (7.4-10.4); Monocytes # 1.1 10^3/uL (0.2-0.9); Monocytes % 12.8 %; Neutrophils # 6.14 10^3/uL (1.8-7.7); Neutrophils % 69.7 %; Nucleated Red Blood Cells % 0 %; Platelet Count 147 10^3/cmm (130-400); Red Blood Count 4.57 10^6/uL (4.1-5.3); Red Cell Distribution Width 14.7 % (12.1-15.1); White Blood Count 8.8 10^3/uL (4.0-10.0)
[2021-03-02] MEDS: metroNIDAZOLE IV 500 MG/100 ML PREMIX 100 MG IV ×3 (05:51→22:09)
[2021-03-02 05:52] LABS: Blood Urea Nitrogen 19 mg/dL (8-23); Calcium 9.1 mg/dL (8.5-10.5); Carbon Dioxide 21 mmol/L (22-29); Chloride 113 mmol/L (98-107); Glucose 267 mg/dL (65-115); Osmolality Calculated 300 mOsm/kg (285-295); Sodium 139 mmol/L (136-145)
[2021-03-02 05:55] LABS: Anion Gap 9.6 (5-19); Creatinine Clr Calc Pharmacy 49.7059; Potassium 4.6 mmol/L (3.5-5.1)
[2021-03-02] MEDS: ciprofloxacin 400 MG/200 ML PREMIX 200 MG IV ×2 (06:51→17:28)
--- NOTE | 2021-03-02 07:32 | PC.NURSE ---
recd. sleeping. awakened easily. knows place and president. not year or month. oriented to such. no c/o.
--- NOTE | 2021-03-02 09:10 | PC.CHAP ---
Pastoral Care Encounter/Spiritual Assessment Type of Contact [] Declined adjunct professor of english visit [] Patient/Family/Request visit [] Outpatient visit [] Follow-up visit [] Physician referral [] Code/Alert [x] Routine visit [] Staff referral [] Actively dying [] Patient sleeping [] Family support [] [] Out of room [] Palliative care [] [x] Receiving care in room [] Pre-surgical visit [] Trauma [] Long length of stay [x] ICU visit [] Other: Relational/Emotional Strength [] Patient feels connected with others/family/visitors/staff [] Distress [] Loneliness/isolation [] Abandonment Spirituality of Patient [] Person of Amanda [] Attends Episcopalian of their Amanda [] Believes in Prayer [] Reads Bible or Church materials [] There are Spiritual issues to be addressed Diesel Trailer Mechanic Interventions [x] Prayer [] Active listening [] Non-anxious presence [] Spiritual/emotional support [] Crisis/trauma care [] Spiritual counseling [] Bereavement support [] Provided bereavement packet [] Provided Bible/devotional materials [] Provided toy/stuffed animal, coloring book to patient or family member [] Provided Communion [] Anointing/Edwards [] Salvation [x] Completed spiritual assessment [] Other: Impact on Illness or Injury [] Angry [] Fearful [] Anxious [] Often cries [] Exhaustion [] Unable to work [] Unable to attend jew [] Unable to walk/stand [] Unable to read [] Unable to drive [] Unable to eat/drink [] Unable to sleep [] Unable to be with family [] Patient intubated [] Other: Summary Time spent with patient
[2021-03-02 09:29] LABS: Glucose Point of Care 229 mg/dL (70-110)
[2021-03-02] MEDS: pantoprazole DR 40 mg Tablet PO ×2 (09:45→17:28)
[2021-03-02] MEDS: heparin 5,000 unit/mL INJ 1 mL 5000 UNIT SUBCUT ×2 (09:45→22:21)
[2021-03-02 11:31] LABS: Glucose Point of Care 354 mg/dL (70-110)
[2021-03-02 11:31] LABS: Glucose Point of Care 367 mg/dL (70-110)
--- NOTE | 2021-03-02 12:00 | P.PN_ITS ---
Subjective Subjective: Interval history: Karina reports that she feels a little better. Some heartburn. Abdomen still hurts a little bit but she is hungry. Medications: Reviewed: Yes Vitals/I&O/Wt Last Vital Signs Temp 98.3 F 03/01/21 18:00 Pulse 113 H 03/02/21 10:00 Resp 17 03/02/21 10:00 BP 108/75 03/02/21 10:00 Pulse Ox 88 L 03/02/21 10:00 03/01/21 03/02/21 03/02/21 22:59 06:59 14:59 Intake Total 418 / 936 760 / 760 Output Total 700 / 700 150 / 850 300 / 300 Balance -282 / 236 -150 / 86 460 / 460 Physical Exam Narrative: EXAM NARRATIVE: General exam no apparent distress Neck is supple no lymphadenopathy or thyromegaly Cardiovascular regular rate and rhythm without murmur Lungs clear Abdomen some generalized tenderness. Positive bowel sounds Extremities no cyanosis clubbing or edema Data : 03/02/21 04:40 03/02/21 04:40 A&P Assessment and plan (1) DKA, type 2: Insulin drip instituted on admission Anion gap is now closed again Increase Lantus, sliding scale. 20 units of Lantus now Advance diet further Status: Acute Qualifiers: Diabetes mellitus complication detail: without coma Qualified Code(s): E11.10 - Type 2 diabetes mellitus with ketoacidosis without coma (2) Colitis: Continue Cipro, Flagyl Await check C. difficile, stool culture CT demonstrated colitis, right side. Discussed with patient and daughter follow-up with colonoscopy, as well as follow-up of adrenal abnormality Repeat abdominal x-ray on 03/01 demonstrated no free air, no evidence of obstru ction Status: Acute (3) Elevated lipase: Repeat lipase was improved. No evidence for acute pancreatitis. Status: Acute Additional A&P Information Indeterminate right adrenal nodule. Consider follow-up as outpatient. GERD. Start Protonix. Hypokalemia, supplement Hypertension Hyperlipidemia History of gout Heparin for DVT prophylaxis Full code Covid PCR was obtained, and negative Transfer out of ICU Attestations Medical Necessity Statement*: Needs continued hospitalization for IV antibiotics secondary to colitis. Coding Level of Care Code Acute [employer] for [facility] Diagnoses DKA, type 2 E11.10 Diabetes mellitus complication detail: without coma Colitis K52.9 Elevated lipase R74.8
[2021-03-02] MEDS: insulin glargine 100 units/1 mL 20 UNIT SUBCUT ×2 (12:42→22:20)
--- NOTE | 2021-03-02 13:08 | PC.NURSE ---
up to side of bed with much assist. some dyspnea. heart rate one teens, full liq dt in.
--- NOTE | 2021-03-02 13:10 | PC.NURSE ---
up to wheel chair with edward warner. states she is in bed most of time at home, but when on floor stated nails dirty because she had been working in garden. appears to be afraid she is going to fall.
[2021-03-02] MEDS: allopurinol 300 mg Tablet PO (13:30)
[2021-03-02 17:16] LABS: Glucose Point of Care 225 mg/dL (70-110)
[2021-03-02 20:36] LABS: Glucose Point of Care 208 mg/dL (70-110)
[2021-03-02] MEDS: tamsulosin 0.4 mg Capsule PO (22:16)
[2021-03-03 00:05] VITALS: BP 134/69; PULSE 90; RESP 18; TEMP 36.7; O2SAT 95
[2021-03-03] MEDS: ondansetron 2 mg/ML SDV 2 mL 4 MG IVP (00:15)
[2021-03-03 03:35] VITALS: BP 102/63; PULSE 107; RESP 16; TEMP 36.7; O2SAT 94
[2021-03-03] MEDS: metroNIDAZOLE IV 500 MG/100 ML PREMIX 100 MG IV (04:25)
[2021-03-03 06:00] VITALS: PULSE 102
[2021-03-03] MEDS: ciprofloxacin 400 MG/200 ML PREMIX 200 MG IV (06:02)
[2021-03-03 06:08] LABS: Anion Gap 9.1 (5-19); Blood Urea Nitrogen 20 mg/dL (8-23); Calcium 8.7 mg/dL (8.5-10.5); Carbon Dioxide 22 mmol/L (22-29); Chloride 110 mmol/L (98-107); Glucose 158 mg/dL (65-115); Osmolality Calculated 290 mOsm/kg (285-295); Potassium 4.1 mmol/L (3.5-5.1); Sodium 137 mmol/L (136-145)
[2021-03-03 06:09] LABS: Creatinine Clr Calc Pharmacy 49.7059
[2021-03-03 06:41] LABS: Glucose Point of Care 153 mg/dL (70-110)
[2021-03-03 08:00] VITALS: BP 106/69; PULSE 101; RESP 16; TEMP 35.8; O2SAT 94
[2021-03-03] MEDS: allopurinol 300 mg Tablet PO (08:03)
[2021-03-03] MEDS: heparin 5,000 unit/mL INJ 1 mL 5000 UNIT SUBCUT (08:04)
[2021-03-03] MEDS: pantoprazole DR 40 mg Tablet PO (08:04)
[2021-03-03 10:27] LABS: Glucose Point of Care 259 mg/dL (70-110)
[2021-03-03 12:00] VITALS: BP 106/69; PULSE 99; RESP 16; TEMP 36.6; O2SAT 94
--- NOTE | 2021-03-03 15:08 | P.DS_ITS ---
Discharge Providers Date of Admission: 02/28/21 00:00 Date of Discharge: March 03, 2021 Attending Provider at Admission: Ruddy Amaro Attending Provider at Discharge: Nathaniel Alberto MD Primary Care Provider: Jasmina Moreno DO Diagnoses at Discharge Discharge Diagnosis (1) DKA, type 2: Status: Acute Qualifiers: Diabetes mellitus complication detail: without coma Qualified Code(s): E11.10 - Type 2 diabetes mellitus with ketoacidosis without coma (2) Colitis: Status: Acute (3) Elevated lipase: Status: Acute Reason for Visit Reason for Visit: N/V Hospital Course Hospital Course Karina presented to the hospital with nausea and vomiting as well as diarrhea. She was found to be in DKA. CT abdomen pelvis demonstrated likely right-sided colitis. She was placed on Cipro and Flagyl. Insulin drip was started. Lipase was also slightly high, but CT scan demonstrated no evidence of pancreatitis. With this treatment anion gap eventually subsided. Stool culture and C. difficile toxin were not able to be obtained as patient had no further diarrhea. On 03/02 it was noticed that she had some retention of urine as well so Varghese was placed. 900 cc of urine drained. She was placed on Flomax. No evidence of UTI was present on admission. By 03/03 she was doing better, and it was thought she could transition to home with home health and home physical therapy. Anion gap was closed, blood sugars under fair control. She will follow-up with her primary care provider. Varghese will be left in at discharge, and she will follow- up with urology in 1 week. She will get some lab work and follow-up with her primary. I will also defer to her primary care provider an incidental finding of a 3.5 cm right adrenal nodule. This could be further evaluated with CT, MRI dedicated adrenal protocol in the near future. I also discussed with the patien t that a colonoscopy could be considered in 4 to 6 weeks after she recovers from her episode of colitis. Physical Exam Narrative: EXAM NARRATIVE: General exam no apparent distress Neck is supple no lymphadenopathy or thyromegaly Cardiovascular regular rate and rhythm without murmur Lungs clear Abdomen is soft positive bowel sounds without tenderness Extremities no cyanosis clubbing or edema Urinary Catheter Management^: Varghese: Cath Placed During This Visit: yes Reason for Continuing Indwelling Catheter: Acute Urinary Retention or Obstruction Urinary Catheter Date of Insertion: 03/02/21 Urinary Catheter Time of Insertion: 15:02 Discharge Data Data Completed and Pending: Completed Studies During Hospitalization Category Date Time Status CT abdomen pelvis w con* [id number] Stat Cat Scan 02/27/21 14:41 Completed XR abdomen 1V* [id number] Routine Exams 03/01/21 08:02 Completed XR chest 1V patrice ble [id number] Urgent Exams 02/27/21 14:06 Completed Pending at discharge Category Date Time Status Clostridioides Di fficile PCR Routin e Lab 02/27/21 21:06 Ordered Enteric Bacterial Panel by PCR Rout ine Lab 02/27/21 21:06 Ordered Labs from last 24 hours 03/03/21 03/03/21 03/03/21 10:14 06:34 05:33 Sodium 137 Potassium 4.1 Chloride 110 H Carbon Dioxide 22 Anion Gap 9.1 BUN 20 Creatinine 0.4 L GFR Calculation Not Reportable Glucose 158 H POC Glucose 259 H 153 H Calculated Osmolal ity 290 Calcium 8.7 03/02/21 03/02/21 20:26 17:13 Sodium Potassium Chloride Carbon Dioxide Anion Gap BUN Creatinine GFR Calculation Glucose POC Glucose 208 H 225 H Calculated Osmolal ity Calcium Vitals: Last Vital Signs Temp 97.8 F 03/03/21 12:00 Pulse 99 03/03/21 12:00 Resp 16 03/03/21 12:00 BP 106/69 03/03/21 12:00 Pulse Ox 94 03/03/21 12:00 Discharge Plan Discharge Patient Disposition: Home Health Service Condition: Stable Prescriptions: New pantoprazole 40 mg Tablet,Delayed Release (Dr/Ec) 40 mg PO BID Qty: 60 RF: 0 insulin aspart U-100 [Novolog Flexpen U-100 Insulin] 100 unit/mL (3 mL) insulin pen 8 unit SUBCUT TID Qty: 15 RF: 0 tamsulosin 0.4 mg Capsule 0.4 mg PO BEDTIME Qty: 30 RF: 0 nystatin 100,000 unit/mL Suspension 500,000 unit PO QID Qty: 200 RF: 0 ciprofloxacin HCl [Cipro] 500 mg tablet 500 mg PO BID Qty: 10 RF: 0 Lantus Solostar U-100 Insulin 100 unit/mL (3 mL) insulin pen 20 unit SUBCUT QPM Qty: 15 RF: 0 metronidazole [Flagyl] 500 mg tablet 500 mg PO TID Qty: 15 RF: 0 Continued prochlorperazine maleate 5 mg tablet 5 mg PO Q6H PRN (Reason: NAUSEA/VOMITING) RF: 0 allopurinol 300 mg tablet 300 mg PO DAILY RF: 0 lovastatin 20 mg tablet 10 mg PO DAILY RF: 0 Discontinued lisinopril 20 mg tablet 20 mg PO DAILY RF: 0 glipizide 10 mg tablet 10 mg PO BID RF: 0 ciprofloxacin HCl 500 mg tablet 500 mg PO BID RF: 0 metformin 1,000 mg tablet 1,000 mg PO BID RF: 0 Discharge Orders: Discharge Order (Routine); Ordered 03/03/21 Ordered By: Nathaniel Alberto Referrals: Gianni Berg MD [Physician] - 7-10 days (Urinary retention, patient sent home with Varghese) Jasmina Moreno DO [Primary Care Provider] - 4-7 days (CBC and BMP on follow-up. Consider colonoscopy 4 to 6 weeks) Discharge Diet: Diabetic Discharge Activity: Increase activity as tolerated Patient Instructions: Opioid Safety Activity Restrictions/Additional Instructions: Take all medicine as prescribed Check your blood sugar before meals and at bedtime and report to your primary care provider Return for any concerns Please discharge patient with Vargehse. Discharge Attestations Time Spent in Discharge Care*: greater than 30 min Quality Metrics Clinical Quality Measures During this hospital stay, did patient experience: None Coding Level of Care Code Acute [facility] note Diagnoses DKA, type 2 E11.10 Diabetes mellitus complication detail: without coma Colitis K52.9 Elevated lipase R74.8
[2021-03-03 16:00] VITALS: BP 120/76; PULSE 100; RESP 18; TEMP 36.1; O2SAT 94
[2021-03-03 16:48] LABS: Glucose Point of Care 242 mg/dL (70-110)
== END 2021-03-03 17:48 | disposition home health service (06) | DRG 639 ==
LOC: ER 17:01 → ICU 02-28 00:02 → MEDSURG 03-02 12:59
PROVIDERS: Family Medicine; Hospitalist; Nurse Practitioner Family; Admitting Provider Internal Medicine; Emergency Provider Emergency Medicine; PCP Family Medicine; Visit Provider Internal Medicine
DX: E11.10 Type 2 diabetes mellitus with ketoacidosis without coma (principal); K52.9 Noninfective gastroenteritis and colitis, unspecified; I10 Essential (primary) hypertension; E78.5 Hyperlipidemia, unspecified; Z85.038 Personal history of other malignant neoplasm of large intestine; Z87.440 Personal history of urinary (tract) infections; E27.9 Disorder of adrenal gland, unspecified; M10.9 Gout, unspecified; K21.9 Gastro-esophageal reflux disease without esophagitis; E87.6 Hypokalemia; R33.9 Retention of urine, unspecified
CPT/HCPCS: 36415; 36416; 51702; 71045; 74018; 74177; 80048; 80053; 81003; 82009; 82803; 82962; 83690; 83735; 83880; 84484; 85025; 87635; 93005; 96361; 96372; 96374; 96375; 97110; 97116; 97161; 99285; J0744; J1644; J1815 ×2; J2405; J3010; J7030; J7050; J7799; Q9967; S0030

== ENCOUNTER 2021-03-07 13:14 | Emergency (ER) | payer MEDICARE, OTHER, SELFPAY ==
[2021-03-07 14:30] VITALS: BP 112/64; PULSE 69; RESP 17; TEMP 37; O2SAT 98; BMI 23.6
[2021-03-07 14:42] LABS: Glucose Point of Care 341 mg/dL (70-110)
[2021-03-07 17:06] LABS: Basophils # 0.1 10^3/uL (0.0-0.1); Basophils % 0.6 %; Eosinophils # 0.1 10^3/uL (0.0-0.8); Eosinophils % 0.5 %; Hematocrit 47.1 % (37.0-47.0); Lymphocytes # 1.8 10^3/uL (0.8-4.8); Lymphocytes % 18.1 %; Mean Corpuscular HGB Conc 29.7 g/dL (30.0-36.0); Mean Corpuscular Hemoglobin 30.5 pg (28.0-34.0); Mean Corpuscular Volume 102.6 fL (81-99); Mean Platelet Volume 11.2 fL (7.4-10.4); Monocytes # 1.1 10^3/uL (0.2-0.9); Monocytes % 11.4 %; Neutrophils # 6.54 10^3/uL (1.8-7.7); Nucleated Red Blood Cells % 0 %; Platelet Count 204 10^3/cmm (130-400); Red Blood Count 4.59 10^6/uL (4.1-5.3); Red Cell Distribution Width 15.7 % (12.1-15.1); White Blood Count 9.8 10^3/uL (4.0-10.0)
[2021-03-07 17:14] LABS: ABG PCO2 32.8 mmHg (35-45); ABG PH Result 7.46 (7.35-7.45); Alveolar-Arterial Oxygen Gradi 3.9 mmHg (5-10); Arterial Blood Gas Hematocrit 42.4 % (37-47); Base Excess ABG 0.1 mmol/L (-2.0-2.0); Blood Gas Sample Site Brachial, right; Blood Gas Sample Type Arterial; Carboxyhemoglobin < 0.0 %THgb (0.4-20.1); HCO3 ABG 23.3 mmol/L (22-26); HGB O2 Sat 94.4 % (95-100); Ionized Calcium Level - ABG 1.3 mmol/L (1.1-1.4); Methemoglobin 0.9 % (0.4-1.5); Oxygen Device ROOM AIR; Oxygen Saturation ABG 95.1; PO2 ABG 78.7 mmHg (80.0-100.0); Potassium Level - ABG 4.1 mmol/L (3.5-5.0); Total Hemoglobin 13.8 g/dL (12-16)
[2021-03-07 17:24] LABS: Ketone (Acetest) Serum Negative (Negative)
[2021-03-07 18:09] LABS: Albumin Level 2.3 g/dL (3.5-5.2); Anion Gap 12.2 (5-19); Blood Urea Nitrogen 13 mg/dL (8-23); Calcium 8.8 mg/dL (8.5-10.5); Carbon Dioxide 21 mmol/L (22-29); Chloride 103 mmol/L (98-107); Creatinine Clr Calc Pharmacy 49.7059; Globulin 3.4 g/dL (1.3-4.6); Glucose 294 mg/dL (65-115); Osmolality Calculated 283 mOsm/kg (285-295); Potassium 5.2 mmol/L (3.5-5.1); Sodium 131 mmol/L (136-145); Total Bilirubin 0.5 mg/dL (0.15-1.2); Total Protein 5.7 g/dL (6.6-8.7)
[2021-03-07 18:19] LABS: Urine Color Straw (Yellow)
[2021-03-07 18:20] LABS: Bilirubin Urine Neg (Negative); Blood Urine 2+ (Negative); Glucose Urine UA 4+ (Normal); Ketones Urine Negative (Negative); Leukocyte Esterase Urine Trace (Negative); Nitrate Urine Negative (Negative); Protein Urine Neg (Negative); Specific Gravity, Urine 1.015 (1.005-1.030); Sulfosalicylic Acid Urine Negative (Negative); Urine Appearance Clear (CLEAR); Urobilinogen Urine Norm (Negative); pH Urine 5 (5-7)
[2021-03-07 18:21] LABS: Add Urine Microscopic? YES
[2021-03-07 18:22] LABS: RBC Urine 0-4 /hpf (0-2)
[2021-03-07 18:23] LABS: Bacteria Urine TRACE /hpf; Mucus Urine TRACE /hpf; Renal Epithelial Cells Urine N /hpf; Transitional Epi Cells Urine RARE /hpf; WBC Urine 0-4 /hpf (0-5)
[2021-03-07 18:25] LABS: Add Urine Culture? Yes
[2021-03-07 18:50] LABS: Alanine Aminotransferase 16 U/L (0-33); Aspartate Amino Transferase 34 U/L (0-32)
[2021-03-07 18:51] LABS: Alkaline Phosphatase 79 IU/L (35-105)
[2021-03-07 20:57] VITALS: BP 143/70; PULSE 89; RESP 18; O2SAT 99
--- NOTE | 2021-03-07 20:58 | W.ED.WEAKNES ---
HPI - Weakness General: Chief complaint: Weakness Stated complaint: High BS, Nausea, Tingly pain in arm and legs Time Seen by Provider: 03/07/21 20:58 History of Present Illness: HPI Narrative: 75-year-old female comes in today for concerns of weakness and swelling to bilateral lower extremities. Daughter was concerned that patient may be going back into DKA. On exam patient was alert and oriented and feeling better. Patient appeared in no acute distress. We discussed patient's blood sugars running elevated and she suggested the insulin to 10 units 3 times a day and her Lantus to 22 units at bedtime. She is also noted some increased swelling to the lower extremities. Patient does maintain a urinary catheter due to retention. Daughter states patient's appetite has improved and she seems to be doing better than that but she has had some abdominal discomfort today. No changes in stools. Review of Systems General: Reports: 10 or more systems reviewed and unremarkable except in HPI and below GI: Reports: abdominal pain Endo: Reports: other (Blood sugar elevated) [facility] ED PFSH: Medical History (Updated 03/07/21 @ 21:11 by BRADY Villasenor) History of colon cancer Hyperlipidemia Hypertension Physical Exam Const: COMMON NORMALS: no acute distress and patient oriented x3 GENERAL APPEARANCE: cooperative HENMT: COMMON NORMALS: normocephalic and Normal external nose present HEAD & SCALP: normal to inspection and normocephalic NOSE: Normal external nose present MOUTH: Normal oral and palatal mucosa present Eye: GENERAL EYE: appearance normal, both eyes and all related structures Neck/C-Spine: COMMON NORMALS: full ROM Chest: COMMONS NORMALS: normal inspection of the chest Resp: COMMON NORMALS: normal respiratory effort EFFORT & INSPECTION: Yes able to speak in complete sentences Cardio: COMMON NORMALS: regular rate and regular rhythm RATE: regular rate RHYTHM: regular rhythm GI: COMMON NORMALS: Soft to palpation and non-tender PALPATION: Yes Soft to palpation : COMMON NORMALS: Yes no CVA tenderness BLADDER/KIDNEY EXAM: Yes no CVA tenderness Back/Pelvis: COMMON NORMALS: no CVA tenderness and thoracic and lumbar spine normal to inspection Extremity: COMMON NORMALS: normal to inspection Neuro: COMMON NORMALS: patient oriented x3 and moves all extremities Psych: COMMON NORMALS: mental status grossly normal and cooperative Skin: COMMON NORMALS: no rashes or lesions noted GENERAL SKIN EXAM: no rashes or lesions noted Course Vital Signs: Vital signs: Vital Signs Temperature 98.6 F 03/07/21 14:30 Pulse Rate 89 03/07/21 20:57 Respiratory Rate 18 03/07/21 20:57 Blood Pressure 143/70 03/07/21 20:57 Pulse Oximetry 99 03/07/21 20:57 MDM - Weakness MDM Narrative: Medical decision making narrative: Patient was brought in for evaluation due to elevated blood sugar and weakness. On exam patient's abdomen was soft and nontender. Bowel sounds were present. Skin was warm and dry. No CVA tenderness. Vital signs were normal. Patient did have +2 pitting edema to the lower extremities from the knees down. Pulses were intact bilaterally. Differential diagnosis includes but not limited to CHF, DKA. Hyperglycemia. Laboratory values were remarkable for slightly elevated potassium at 5.2, blood glucose was 294, sodium was 134 uncorrected, white blood cell count was 9.8. Urinalysis was clear. Believe the patient is continue to recover from her bout of colitis and DKA. I recommended continuing care with the Cipro and Flagyl for the next 3 days. We will give her 1 dose of Lasix in the emergency room for the increased swelling in the lower extremities otherwise recommend elevation of her extremities. Patient was adjusted for her insulin to help with better control of her blood glucose. Patient and daughter both reported understanding and agreed to plan. Lab Data: Labs: Lab Results 03/07/21 03/07/21 03/07/21 Range/Units 14:28 16:48 16:48 WBC 9.8 (4.0-10.0) 10^3/ uL RBC 4.59 (4.1-5.3) 10^6/u L Hgb 14.0 (11.5-15.3) g/dL Hct 47.1 H (37.0-47.0) % MCV 102.6 H (81-99) fL MCH 30.5 (28.0-34.0) pg MCHC 29.7 L (30.0-36.0) g/dL RDW 15.7 H (12.1-15.1) % Plt Count 204 (130-400) 10^3/c mm MPV 11.2 H (7.4-10.4) fL Neut % (Auto) 67.0 % Lymph % (Auto) 18.1 % [place] % (Auto) 11.4 % Eos % (Auto) 0.5 % Baso % (Auto) 0.6 % Neut # (Auto) 6.54 (1.8-7.7) 10^3/u L Lymph # (Auto) 1.8 (0.8-4.8) 10^3/u L [place] # (Auto) 1.1 H (0.2-0.9) 10^3/u L Eos # (Auto) 0.1 (0.0-0.8) 10^3/u L Baso # (Auto) 0.1 (0.0-0.1) 10^3/u L Nucleated RBC % (a uto) 0 % Nucleated RBCs # 0.0 /100WBC Specimen Type Sample Site ABG pH (7.35-7.45) ABG pCO2 (35-45) mmHg ABG pO2 (80.0-100.0) mmH g ABG HCO3 (22-26) mmol/L ABG O2 Saturation ABG Base Excess (-2.0-2.0) mmol/ L Nikolai Test A-a O2 Gradient (5-10) mmHg Hematocrit (37-47) % Hgb O2 Saturation (95-100) % Carboxyhemoglobin (0.4-20.1) %THgb Methemoglobin (0.4-1.5) % Total Hemoglobin (12-16) g/dL Ionized Calcium (1.1-1.4) mmol/L O2 Delivery Device FiO2 % Business Functional Analyst ID Sodium 131 L (136-145) mmol/L Potassium 5.2 H (3.5-5.1) mmol/L Chloride 103 (98-107) mmol/L Carbon Dioxide 21 L (22-29) mmol/L Anion Gap 12.2 (5-19) BUN 13 (8-23) mg/dL Creatinine 0.4 L (0.5-0.9) mg/dL GFR Calculation Not Reportable Glucose 294 H (65-115) mg/dL POC Glucose 341 H (70-110) mg/dL Calculated Osmolal ity 283 L (285-295) mOsm/k g Calcium 8.8 (8.5-10.5) mg/dL Total Bilirubin 0.5 (0.15-1.2) mg/dL AST 34 H (0-32) U/L ALT 16 (0-33) U/L Alkaline Phosphata se 79 (35-105) IU/L Total Protein 5.7 L (6.6-8.7) g/dL Albumin 2.3 L (3.5-5.2) g/dL Globulin 3.4 (1.3-4.6) g/dL Urine Color (Yellow) Urine Appearance (CLEAR) Urine pH (5-7) Ur Specific Gravit y (1.005-1.030) Urine Protein (Negative) Urine Glucose (UA) (Normal) Urine Ketones (Negative) Urine Blood (Negative) Urine Nitrate (Negative) Urine Bilirubin (Negative) Prot Sulfosalicyli c Acd (Negative) Urine Urobilinogen (Negative) mg/dL Ur Leukocyte Nilsa ase (Negative) Urine RBC (0-2) /hpf Urine WBC (0-5) /hpf Ur Squamous Epith Cells (0-5) /hpf Ur Transition Epit h Cell /hpf Ur Renal Epithelia l Cell /hpf Amorphous Sediment Urine Bacteria (NONE) /hpf Urine Mucus /hpf Urine Yeast /hpf Serum Ketones (Negative) 03/07/21 03/07/21 03/07/21 Range/Units 16:48 16:55 17:00 WBC (4.0-10.0) 10^3/ uL RBC (4.1-5.3) 10^6/u L Hgb (11.5-15.3) g/dL Hct (37.0-47.0) % MCV (81-99) fL MCH (28.0-34.0) pg MCHC (30.0-36.0) g/dL RDW (12.1-15.1) % Plt Count (130-400) 10^3/c mm MPV (7.4-10.4) fL Neut % (Auto) % Lymph % (Auto) % [place] % (Auto) % Eos % (Auto) % Baso % (Auto) % Neut # (Auto) (1.8-7.7) 10^3/u L Lymph # (Auto) (0.8-4.8) 10^3/u L [place] # (Auto) (0.2-0.9) 10^3/u L Eos # (Auto) (0.0-0.8) 10^3/u L Baso # (Auto) (0.0-0.1) 10^3/u L Nucleated RBC % (a uto) % Nucleated RBCs # /100WBC Specimen Type Arterial Sample Site Brachial, right ABG pH 7.46 H (7.35-7.45) ABG pCO2 32.8 L (35-45) mmHg ABG pO2 78.7 L (80.0-100.0) mmH g ABG HCO3 23.3 (22-26) mmol/L ABG O2 Saturation 95.1 ABG Base Excess 0.1 (-2.0-2.0) mmol/ L Nikolai Test N/a A-a O2 Gradient 3.9 L (5-10) mmHg Hematocrit 42.4 (37-47) % Hgb O2 Saturation 94.4 L (95-100) % Carboxyhemoglobin < 0.0 L (0.4-20.1) %THgb Methemoglobin 0.9 (0.4-1.5) % Total Hemoglobin 13.8 (12-16) g/dL Ionized Calcium 1.3 (1.1-1.4) mmol/L O2 Delivery Device Room air FiO2 21.0 % Business Functional Analyst ID Rieri Sodium 134.0 (136-145) mmol/L Potassium 4.1 (3.5-5.1) mmol/L Chloride (98-107) mmol/L Carbon Dioxide (22-29) mmol/L Anion Gap (5-19) BUN (8-23) mg/dL Creatinine (0.5-0.9) mg/dL GFR Calculation Glucose 334.0 H (65-115) mg/dL POC Glucose (70-110) mg/dL Calculated Osmolal ity (285-295) mOsm/k g Calcium (8.5-10.5) mg/dL Total Bilirubin (0.15-1.2) mg/dL AST (0-32) U/L ALT (0-33) U/L Alkaline Phosphata se (35-105) IU/L Total Protein (6.6-8.7) g/dL Albumin (3.5-5.2) g/dL Globulin (1.3-4.6) g/dL Urine Color Straw (Yellow) Urine Appearance Clear (CLEAR) Urine pH 5 (5-7) Ur Specific Gravit y 1.015 (1.005-1.030) Urine Protein Neg (Negative) Urine Glucose (UA) 4+ H (Normal) Urine Ketones Negative (Negative) Urine Blood 2+ H (Negative) Urine Nitrate Negative (Negative) Urine Bilirubin Neg (Negative) Prot Sulfosalicyli c Acd Negative (Negative) Urine Urobilinogen Norm (Negative) mg/dL Ur Leukocyte Nilsa ase Trace H (Negative) Urine RBC 0-4 H (0-2) /hpf Urine WBC 0-4 H (0-5) /hpf Ur Squamous Epith Cells None (0-5) /hpf Ur Transition Epit h Cell Rare /hpf Ur Renal Epithelia l Cell N /hpf Amorphous Sediment Not Reportable Urine Bacteria Trace (NONE) /hpf Urine Mucus Trace /hpf Urine Yeast 3+ H /hpf Serum Ketones Negative (Negative) Discharge Plan Discharge Patient Disposition: Home Clinical Impression: Edema, peripheral, Hyperglycemia, unspecified Condition: Stable Prescriptions: No Action prochlorperazine maleate 5 mg tablet 5 mg PO Q6H PRN (Reason: NAUSEA/VOMITING) RF: 0 allopurinol 300 mg tablet 300 mg PO DAILY RF: 0 lovastatin 20 mg tablet 20 mg PO DAILY RF: 0 nystatin 100,000 unit/mL Suspension 500,000 unit PO QID Qty: 200 RF: 0 tamsulosin 0.4 mg Capsule 0.4 mg PO BEDTIME Qty: 30 RF: 0 pantoprazole 40 mg Tablet,Delayed Release (Dr/Ec) 40 mg PO BID Qty: 60 RF: 0 ciprofloxacin HCl [Cipro] 500 mg tablet 500 mg PO BID Qty: 10 RF: 0 metronidazole [Flagyl] 500 mg tablet 500 mg PO TID Qty: 15 RF: 0 Novolog Flexpen U-100 Insulin 100 unit/mL (3 mL) insulin pen 8 unit SUBCUT TID RF: 0 Lantus Solostar U-100 Insulin 100 unit/mL (3 mL) insulin pen 22 unit SUBCUT BEDTIME RF: 0 Discharge Orders: Discharge ED (Routine); Ordered 03/07/21 Ordered By: Thaddeus Houston Referrals: Jasmina Moreno DO [Primary Care Provider] - Discharge Diet: Usual diet Discharge Activity: Increase activity as tolerated Patient Instructions: Leg Edema (ED), Opioid Safety Activity Restrictions/Additional Instructions: Continue with routine medication. Activity as tolerated. Elevate extremities as much as possible when sitting. Adjust NovoLog to 10 units 3 times a day, and Lantus to 25 units every a.m. Monitor blood sugar. Follow-up with primary care for further instruction. Return to the emergency room for high fever or worsening symptoms. Coding Level of Care Code ED Donation Worker for [facility]
[2021-03-07 21:24] LABS: Glucose Point of Care 344 mg/dL (70-110)
[2021-03-07] MEDS: FUROsemide 40 mg Tablet PO (21:34)
== END 2021-03-07 21:48 | disposition home or self-care (01) ==
PROVIDERS: Physician Assistant; Emergency Provider Nurse Practitioner Family; PCP Family Medicine
DX: R60.0 Localized edema (principal); R73.9 Hyperglycemia, unspecified; Z79.4 Long term (current) use of insulin; E78.5 Hyperlipidemia, unspecified; I10 Essential (primary) hypertension; Z85.038 Personal history of other malignant neoplasm of large intestine
CPT/HCPCS: 36416; 36600; 80051; 80053; 81001; 82009; 82330; 82805; 82962; 85025; 87086; 96372; 99283; J1815

== ENCOUNTER → 2021-03-25 09:20 | Outpatient (BNVA) | payer MEDICARE, OTHER, SELFPAY | PROVIDERS: PCP Family Medicine; Visit Provider Urology | DX: R33.9 Retention of urine, unspecified (principal); R35.8 Other polyuria | CPT/HCPCS: 81003 ==

== ENCOUNTER → 2021-05-20 09:23 | Outpatient (BNVA) | payer MEDICARE, OTHER, SELFPAY | PROVIDERS: PCP Family Medicine; Referring Provider Family Medicine; Visit Provider Internal Medicine | DX: E11.10 Type 2 diabetes mellitus with ketoacidosis without coma (principal); Z79.4 Long term (current) use of insulin; Z87.891 Personal history of nicotine dependence | CPT/HCPCS: 36415; 83519; 83525; 86337; 99204 ==

== ENCOUNTER 2021-05-20 10:36 | Outpatient (CLI) | payer MEDICARE, OTHER, SELFPAY | END 2021-05-20 10:37 | disposition home or self-care (01) | PROVIDERS: PCP Family Medicine; Visit Provider Internal Medicine | DX: E11.10 Type 2 diabetes mellitus with ketoacidosis without coma (principal) | CPT/HCPCS: 36415; 83519; 83525; 86337 ==

== ENCOUNTER → 2021-05-27 09:51 | Outpatient (BNVA) | payer MEDICARE, OTHER, SELFPAY | PROVIDERS: PCP Family Medicine; Visit Provider Surgery | DX: Z11.52 Encounter for screening for COVID-19 (principal); Z20.822 Contact with and (suspected) exposure to COVID-19 | CPT/HCPCS: 87635 ==

== ENCOUNTER 2021-06-01 09:03 | Day surgery (SDC) | payer MEDICARE, OTHER, SELFPAY ==
[2021-05-26 13:40] VITALS: BMI 25.7
--- NOTE | 2021-06-01 09:29 | P.ANESASSM_ITS ---
Pre-Anesthetic Assessment Pre-Anesthetic Assessment: Height/Weight: Height 1.6 m Weight 65.771 kg Proposed Procedure: Operation Date: 06/01/21 10:30 Proposed Procedures p Colonoscopy 73502 Z85.038(Not Applicable) - Carlos Arita MD Was Beta Aristeo taken within 24 hours: N/A Was Clonidine taken within 24 hours: N/A Social: Social History: No alcohol and No tobacco Exam: Pre-Anes Outpt Exam: alert, oriented x 3, clear to auscultation bilaterally and regular rate & rhythm Airway: Submandibular: WNL Cervical ROM: WNL MP: 2 Dentition: False GI: GI: GERD Comments: colitis Metabolic: Metabolic: DM and Hyperlipidemia Neuropsych: Neuropsych: TIA Anesthetic Plan: ASA status: 3 Anesthesia: MAC Risk of > 500 ml blood loss (7ml/kg in children): No PFSH Anesthesia 2 PFSH: Medical History History of colon cancer Hyperlipidemia Hypertension Urinary retention Surgical History H/O: hysterectomy S/P colon resection Family History Mother , at age 87 Heart attack Father , at age 86 Cancer prostate Social History Smoking and tobacco status: former smoker Quit status (tobacco): has quit using tobacco Second hand smoke exposure: No Smoking risk assessment/counseling performed?: Yes Alcohol intake: never Desire information about alcohol rehabilitation?: No Counseling given: Yes Desire information about substance/drug rehabilitation?: No Counseling given: Yes Adopted: No Caregiver/support person: Yes Lives independently: Yes Household members: spouse Housing: House Marital status: Highest education level completed: Some College, No Degree service: No Current occupational status: retired History of recent travel: No Data Anesthesia Cardiac Studies: No Data to Display
[2021-06-01] MEDS: sodium chloride 0.9% 1,000 ML 30 ML IV (10:10)
--- NOTE | 2021-06-01 10:30 | P.HP_ITS ---
Same Day Surgery H&P Indication for Procedure/HPI DATE OF PROCEDURE: June 01, 2021 CHIEF COMPLAINT/INDICATIONFOR SURGICAL PROCEDURE: I am here for PREOP DIAGNOSIS: Abnormal weight loss and history of colon cancer PLANNED PROCEDRUE: Operation Date: 06/01/21 10:30 Proposed Procedures p Colonoscopy 80840 Z85.038(Not Applicable) - Carlos Arita MD 04/14/2021 This is a pleasant 75 years old female patient presents to my practice with history of abnormal weight loss and also gives history of colon cancer. Patient had sigmoid colon cancer about 10 years ago and she did receive chemotherapy. She denies bleeding per rectum and last colonoscopy was done about 5 to 6 years ago per her description and was reported as normal, she patient reports change in bowel habits in the form of chronic diarrhea without obvious explanation. Patient was recently hospitalized with history of nausea and vomiting in addition to diarrhea. And was diagnosed with diabetic ketoacidosis. At that time undergone a CT scan of the abdomen and pelvis that showed; 1. Colonic wall thickening with hyperemia and pericolonic inflammation surrounding the cecum/ascending colon and proximal transverse colon suggestive of colitis. 2. Indeterminate 3.5 cm right adrenal nodule. This can be further evaluated with dedicated adrenal protocol CT/MRI. Interim history 06/01/2021. Patient comes today for diagnostic colonoscopy ROS All systems have been reviewed negative except as per the above or per problem Medications/Allergies* Home Medications Medication Instructions Recorded Confirmed Type allopurinol 300 mg PO DAILY 02/27/21 06/01/21 History lovastatin 20 mg PO DAILY 02/27/21 06/01/21 History aspirin 81 mg tablet,delayed 81 mg PO DAILY 05/20/21 06/01/21 History release Allergies/Adverse Reactions Allergy/AdvReac Type Severity Reaction Status Date / Time codeine Allergy ALGY-Anaphy Verified 06/01/21 10:31 laxis hydromorphone [From Dilaudid] Allergy ALGY-Anaphy Verified 06/01/21 10:31 laxis morphine Allergy ALGY-Anaphy Verified 06/01/21 10:31 laxis Current Medications: Generic Name Dose Route Start Last Admin Trade Name Freq PRN Reason Stop Dose Admin Sodium Chloride 1,000 mls @ 30 mls/hr 06/01/21 10:00 06/01/21 10:10 Sodium Chloride 0.9% IV 30 mls/hr .Q24H ANN Administration Pertinent History/Comorbid Conditions* Medical History (Updated 04/16/21 @ 08:44 by Carlos Arita MD) History of colon cancer Hyperlipidemia Hypertension Urinary retention Surgical History (Updated 03/25/21 @ 09:46 by Gianni Berg MD) H/O: hysterectomy S/P colon resection Family History (Updated 03/16/21 @ 13:06 by Grace Joe LPN) Father, at age 86 Mother, at age 87 Heart attack Mother Cancer Father prostate Social History Smoking and tobacco status: former smoker Quit status (tobacco): has quit using tobacco Second hand smoke exposure: No Smoking risk assessment/counseling performed?: Yes Alcohol intake: never Desire information about alcohol rehabilitation?: No Counseling given: Yes Desire information about substance/drug rehabilitation?: No Counseling given: Yes Adopted: No Caregiver/support person: Yes Lives independently: Yes Household members: spouse Housing: House Marital status: Highest education level completed: Some College, No Degree service: No Current occupational status: retired History of recent travel: No Pertinent Exam Findings alert, oriented x 3, clear to auscultation bilaterally, regular rate & rhythm and procedure specific exam findings (Abdominal examination nontender nondistended soft) Recommendations Surgery/Procedure today (Colonoscopy with possible biopsy) Other Plans: Plan of care; After thorough history and physical examination and reviewing the chart, plan to perform diagnostic colonoscopy. I discussed with the patient in details the risks,benefits,alternatives and indications.The risk of aspiration, bleeding, soft tissue injury, perforation of the colon and other potential concomitant complications were explained to the patient in details,also the potential need for Laproscoy/Laparotomy to repair any related complications including but not limited to colectomy and or Closotomy.The patient understood this well and did agree to proceed. Rationale was carefully and clearly discussed with the patient.Appropriate informed consent have been reviewed and signed All questions have been answered and all concerns have been addressed to patie nt's satisfaction. Verbal and written Instructions were given to the patient for colonoscopy prep Coding Level of Care Code Acute Professional Development Instructor for Trina Concepcion
[2021-06-01 13:01] VITALS: BP 122/65; PULSE 82; RESP 18; TEMP 36.6; O2SAT 100
[2021-06-01 13:08] LABS: Basophils % 0.3 %; Eosinophils % 0.3 %; Hematocrit 36.1 % (37.0-47.0); Hemoglobin 11.2 g/dL (11.5-15.3); Lymphocytes # 2.6 10^3/uL (0.8-4.8); Lymphocytes % 22.3 %; Mean Corpuscular Hemoglobin 31.2 pg (28.0-34.0); Mean Corpuscular Volume 100.6 fl (81-99); Mean Platelet Volume 10.9 fL (7.4-10.4); Monocytes # 0.7 10^3/uL (0.2-0.9); Monocytes % 6.1 %; Neutrophils # 8.23 10^3/uL (1.8-7.7); Neutrophils % 70.7 %; Nucleated Red Blood Cells % 0 %; Platelet Count 207 10^3/cmm (130-400); Red Blood Count 3.59 10^6/uL (4.1-5.3); Red Cell Distribution Width 13.2 % (12.1-15.1); White Blood Count 11.6 10^3/uL (4.0-10.0)
[2021-06-01 13:12] LABS: Glucose Point of Care 177 mg/dL (70-110)
--- NOTE | 2021-06-01 13:29 | P.PCN_ITS ---
Documented by User: Thaddeus Ballard Jr DIABETES CLINICAL MANAGER 06/01/21 13:30 PACU note Post-Anesthesia Exam: awake and vital signs stable Disposition: admitted (Pt with GI bleed)
--- NOTE | 2021-06-01 13:29 | PM.PACU ---
Documented by User: Thaddeus Ballard Jr WOODWORKER HELPER 06/01/21 13:30 PACU note Post-Anesthesia Exam: awake and vital signs stable Disposition: admitted (Pt with GI bleed)
[2021-06-01 13:31] LABS: INR 1.11 (0.8-1.2)
[2021-06-01 13:32] LABS: Fibrinogen 364 mg/dL (174-498); Partial Thromboplastin Time 33.6 SECONDS (23.9-36.7)
[2021-06-01 13:35] VITALS: BP 115/65; PULSE 84; RESP 18; O2SAT 92
[2021-06-01 13:41] LABS: Alanine Aminotransferase 11 U/L (0-33); Albumin Level 3.3 g/dL (3.5-5.2); Alkaline Phosphatase 55 IU/L (35-105); Anion Gap 11.3 (5-19); Aspartate Amino Transferase 16 U/L (0-32); Blood Urea Nitrogen 17 mg/dL (8-23); Calcium 9.3 mg/dL (8.5-10.5); Carbon Dioxide 23 mmol/L (22-29); Chloride 107 mmol/L (98-107); Globulin 2.9 g/dL (1.3-4.6); Glucose 179 mg/dL (65-115); Osmolality Calculated 290 mOsm/kg (285-295); Potassium 4.3 mmol/L (3.5-5.1); Sodium 137 mmol/L (136-145); Total Bilirubin 0.9 mg/dL (0.15-1.2); Total Protein 6.2 g/dL (6.6-8.7)
[2021-06-01 13:43] LABS: Platelet Count 207 10^3/cmm (130-400)
--- NOTE | 2021-06-01 13:54 | PC.NURSE ---
Patient transferred to ER for further evaluation and treatment of GI bleed. IV 22g right forearm intact/patent. Patient a/o x4, report given to Nico MARINELLI.
== END 2021-06-01 13:46 ==
PROVIDERS: PCP Family Medicine; Visit Provider Surgery
PROC: 0DJD8ZZ Inspection of Lower Intestinal Tract, Via Natural or Artificial Opening Endoscopic (ICD-10-PCS; CPT 45378; principal; 2021-06-01 10:30)
DX: R63.4 Abnormal weight loss (principal); Z68.25 Body mass index [BMI] 25.0-25.9, adult; Z85.038 Personal history of other malignant neoplasm of large intestine; Z92.21 Personal history of antineoplastic chemotherapy; E78.5 Hyperlipidemia, unspecified; I10 Essential (primary) hypertension; Z87.891 Personal history of nicotine dependence; Z90.49 Acquired absence of other specified parts of digestive tract; Z82.49 Family history of ischemic heart disease and other diseases of the circulatory system; K57.31 Diverticulosis of large intestine without perforation or abscess with bleeding
CPT/HCPCS: 36416; 45330; 80053; 82962; 85025; 85049; 85384; 85610; 85730; 96360; 96361; J2370; J2704; J7030

== ENCOUNTER 2021-06-01 13:42 | Inpatient (IN) | payer MEDICARE, OTHER, SELFPAY ==
[2021-06-01 13:45] VITALS: BP 120/59; PULSE 95; RESP 18; TEMP 36.7; O2SAT 100; BMI 24.7
--- NOTE | 2021-06-01 13:51 | ED_ITS ---
HPI - GI Bleed General: Chief complaint: GI Bleed Stated complaint: rectal bleeding Time Seen by Provider: 06/01/21 13:48 History of Present Illness: HPI Narrative: 75-year-old female with a history of colon cancer and distal colitis started having GI bleeding at 1 AM this morning. She has had bright red blood per rectum about once per hour since then. Patient is not on any blood thinners beyond aspirin 81 mg daily. Patient had not had a colonoscopy in about 5 or 6 years and so was scheduled for a colonoscopy today. Dr. Ballard started the colonoscopy but was unable to get beyond the sigmoid region due to poor visibility because of bright red blood and also due to difficult anatomy. The patient was going to be direct admitted to the hospital for new onset of active GI bleeding but there were no beds available. Additionally, the patient had another bowel movement with bright red blood. Therefore patient was moved to the emergency department for evaluation and possible resuscitation and in anticipation that the patient will require admission. Dr. Ballard is available for consultation as needed. The patient does not have any abdominal pain. She does feel weak. Her hemoglobin today was 11.4 whereas it had typically been around 13 previously. The patient has no contraindications to tranexamic acid so this will be started in the emergency department. Coags and type and screen have already been performed. Associated symptoms: Denies abdominal pain, chills, easy bruising, fever(s), headache(s), nausea, rash, syncope or vomiting Review of Systems General: Reports: 10 or more systems reviewed and unremarkable except in HPI and below Const: Reports: fatigue and other (recent hx of weight loss); Denies: fever(s), chills or body aches Eyes: Denies: change in vision ENMT: Denies: throat pain Card: Denies: chest pain, edema or syncope Resp: Denies: dyspnea or productive cough GI: Reports: diarrhea and GI cramping; Denies: abdominal pain, nausea, vomiting, hematemesis or coffee ground emesis : Denies: flank pain, dysuria or urinary frequency Musc: Denies: neck pain, back pain, extremity pain or extremity swelling Skin/Breast: Denies: rash or erythema Neuro: Denies: headache(s), numbness in extremities, weakness in extremities, lack of coordination or difficulty walking Tee/Lymph: Denies: easy bruising, easy bleeding, petechiae or purpura PFSH ED PFSH: Medical History History of colon cancer Hyperlipidemia Hypertension Urinary retention Surgical History H/O: hysterectomy S/P colon resection Family History Mother , at age 87 Heart attack Father , at age 86 Cancer prostate Social History Smoking and tobacco status: former smoker Quit status (tobacco): has quit using tobacco Second hand smoke exposure: No Smoking risk assessment/counseling performed?: Yes Alcohol intake: never Desire information about alcohol rehabilitation?: No Counseling given: Yes Desire information about substance/drug rehabilitation?: No Counseling given: Yes Adopted: No Caregiver/support person: Yes Lives independently: Yes Household members: spouse Housing: House Marital status: Highest education level completed: Some College, No Degree service: No Current occupational status: retired History of recent travel: No Physical Exam Const: COMMON NORMALS: no limitations, alert and well nourished EXAM LIMITATIONS: no altered mental status GENERAL APPEARANCE: cooperative and well developed ORIENTATION/CONSCIOUSNESS: Yes awake; not confused HENMT: COMMON NORMALS: normocephalic, atraumatic, external ears normal and Normal external nose present HEAD & SCALP: normal to inspection, normocephalic and atraumatic FACE & SINUS: face symmetric NOSE: Normal e xternal nose present EXTERNAL EAR: Yes external ears normal MOUTH: lip normal; no muffled voice Eye: COMMON NORMALS: EOMs intact bilaterally and conjunctivae normal GENERAL EYE: appearance normal, both eyes and all related structures CONJUNCTIVA: Yes conjunctivae normal Neck/C-Spine: COMMON NORMALS: no JVD GENERAL: Yes normal visual inspection and Yes trachea midline Resp: COMMON NORMALS: normal respiratory effort, No use of accessory muscles and clear to auscultation bilaterally EFFORT & INSPECTION: Yes able to speak in complete sentences and Yes symmetric chest movement AUSCULTATION: clear to auscultation bilaterally Cardio: COMMON NORMALS: no JVD and regular rhythm RATE: Other (borderline tachycardia) RHYTHM: regular rhythm PERIPHERAL PULSES: radial pulses present GI: COMMON NORMALS: Soft to palpation and non-tender INSPECTION: Yes normal to inspection PALPATION: Yes Soft to palpation, No Tenderness to palpation present (GI) and No Guarding due to palpation present (GI) RECTAL EXAM: visual inspection abnormal (there is scant dried blood at anus) Back/Pelvis: COMMON NORMALS: thoraco-lumbar ROM normal Extremity: COMMON NORMALS: normal to inspection GENERAL: Yes normal exam except as noted Neuro: COMMON NORMALS: moves all extremities, no focal motor deficits and no sensory deficits noted SENSORIUM/ORIENTATION: Yes alert Psych: COMMON NORMALS: mental status grossly normal, Normal thought process present, cooperative, normal affect and speech normal SPEECH: Yes normal speech THOUGHT PROCESS: Normal thought process present Skin: COMMON NORMALS: no rashes or lesions noted, turgor normal and no jaundice GENERAL SKIN EXAM: no rashes or lesions noted and turgor normal Course Vital Signs: Vital signs: Vital Signs Temperature 98.0 F 06/01/21 13:45 Pulse Rate 72 06/01/21 14:57 Respiratory Rate 16 06/01/21 14:57 Blood Pressure 105/61 06/01/21 14:57 Pulse Oximetry 98 06/01/21 14:57 MDM - GI Bleed MDM Narrative: Medical decision making narrative: 75 yo f with acute BRBPR and a hx of colon cancer. She isn't anticoagulated. TXA will be given. Patient's hgb will be trended. Patient may require transfusion, will crossmatch 2 units as precautions. Currently borderline tachycardia and weak but otherwise asymptomatic. Colitis unlikely given absence of pain on exam. UPDATE: 1555: Patient has not had any BMs in the ER. Patient's hgb dropped less than 1g/dL on the 3pm H/H. This would suggest that the bleeding has stabilized, especially since she had IVF which could further dilute the H/H. I have placed consult to Dr Benton to discuss admission. Dr Benton has agreed to admit as the bleeding seems to have stabilized. She has requested CT abd/pelv w/ iv and oral contrast for further evauation and will admit with gen surg consultation as indicated. Lab Data: Labs: Lab Results 06/01/21 06/01/21 12:45 15:17 Hgb 10.6 g/dL L g/dL (11.5-15.3) Hct 34.1 % L % (37.0-47.0) Blood Type B Positive Rho(D) Type Positive Antibody Screen Negative Crossmatch See Detail Discharge Plan Discharge Patient Disposition: Admitted As Inpatient Clinical Impression: Acute lower gastrointestinal bleeding Condition: Stable Coding Level of Care Code ED Inspector Tool for Trina Concepcion Exam Comprehensive
[2021-06-01 14:57] VITALS: BP 105/61; PULSE 72; RESP 16; O2SAT 98
[2021-06-01 15:23] LABS: Hematocrit 34.1 % (37.0-47.0); Hemoglobin 10.6 g/dL (11.5-15.3)
--- NOTE | 2021-06-01 16:04 | PC.PHAR ---
pt states her daughter brittney takes care of her medications-pt states she takes care of her own insulin-pts daughter states the pt no longer takes glipizide,lisinopril or metformin-notes are made in the pharmacy comments
--- NOTE | 2021-06-01 16:42 | CTR_ITS ---
PROCEDURE INFORMATION: Exam: CT Abdomen And Pelvis With Contrast Exam date and time: 06/01/2021 4:42 PM Age: 75 years old Clinical indication: Other: Rectal bleeding; Abdominal pain; Localized; Lower; Prior surgery; Surgery type: Gb, appy, colon, hyst; Additional info: Lgib, HX of colonic malignancy; Recent colitis on CT TECHNIQUE: Imaging protocol: Computed tomography of the abdomen and pelvis with contrast. Total images: 228 Radiation optimization: All CT scans at this facility use at least one of these dose optimization techniques: automated exposure control; mA and/or kV adjustment per patient size (includes targeted exams where dose is matched to clinical indication); or iterative reconstruction. Contrast material: OMNI 300; Contrast volume: 95 ml; Contrast route: INTRAVENOUS (IV); Other contrast: Oral, OMNI 300, 25; COMPARISON: CT abdomen pelvis w con* [id number] 02/27/2021 4:37 PM RADIATION DOSE METRICS: Total DLP (mGy-cm): 1163.75 FINDINGS: Lungs: Limited assessment of the lung bases fails to reveal evidence for active cardiopulmonary process. Liver: No visible hepatic mass or cystic structure. Gallbladder and bile ducts: Unremarkable. No cholelithiasis. No visible intra or extrahepatic biliary ectasia. Pancreas: Assessment the pancreas reveals a 8.8 mm cyst midbody. No visible pancreatic ductal ectasia. No visible solid mass. Spleen: Spleen unremarkable. Adrenal glands: Again note of a right adrenal mass dimensions today 34 mm x 30 mm x 31 mm. No interval change since last evaluation. Left adrenal gland unremarkable. Kidneys and ureters: No hydronephrosis or perinephric fluid. No visible nephrolithiasis. Bilateral simple renal cortical cysts stable. No follow-up recommended. No visible ureterolithiasis bilaterally. Stomach and bowel: Extensive diverticulosis coli, primarily the sigmoid colon, but without visible evidence of acute diverticulitis. Nonobstructive bowel pattern. No visible adynamic or reactive ileus. Appendix: Status post appendectomy. Intraperitoneal space: No visible pneumoperitoneum or intraperitoneal ascites. Vasculature: Portal vein patent. The abdominal aorta is nonaneurysmal. Moderate arterial sclerotic disease. Lymph nodes: No current visible evidence of active mesenteric or retroperitoneal lymphadenopathy. No visible evidence of mesenteric lymphadenitis or active mesenteritis/panniculitis. Urinary bladder: Urinary bladder unremarkable. Reproductive: Status post hysterectomy. Bones/joints: No visible active or acute osseous pathology. Soft tissues: Bilateral small inguinal hernias containing fat only. CT/CT abdomen pelvis w con* [id number] IMPRESSION: 1. Currently no visible evidence for acute abdominal or pelvic pathologic process. 2. Again note of a stable right adrenal mass. Non-emergent adrenal CT is recommended. Non-emergent chemical shift MRI (CS-MR) may be considered. (Reference: Horace). 3. Extensive diverticulosis coli without evidence for acute diverticulitis. 4. Assessment pancreas reveals an 8.8 mm cyst at the midbody. Reimaging every 2 years for 10 years is recommended. (Reference: Torres, 2017). 5. Other nonurgent, nonemergent, chronic, postoperative, and age related findings as detailed in text above. REFERENCES: 1. Torres MAGUIRE, et al. Management of Incidental Pancreatic Cysts: A White Paper of the ACR Incidental Findings Committee. J Am Palmer Radiol. 2017;14(7):911-923. 2. Horace WEBER, et al. Management of Incidental Adrenal Masses: A White Paper of the ACR Incidental Findings Committee. J Am Palmer Radiol. 2017;14(8):3833-0990. Radiation Dose CTDIVOL = (mGy): DLP = 1163.75 (mGy-cm)
--- NOTE | 2021-06-01 17:19 | PC.NURSE ---
Per Dr. Verma, pts Blood Transfusion orders are on hold at this time until further notice.
--- NOTE | 2021-06-01 18:01 | P.HP_ITS ---
Providers/Chief Complaint Primary Care Provider: Jasmina Moreno DO Chief Complaint: rectal bleeding History of Present Illness Karina Ceballos is a 75 year old female with past medical history of diabetes mellitus with recent DKA on May 20, hypertension, hyperlipidemia, history of colon cancer presented to the outpatient GI lab today for diagnostic colonoscopy due to unintentional weight loss in the recent months. She follows with Dr. Nolasco as outpatient. She stated that she has been having bloody diarrhea that started last night and she has been going to the bathroom every 1 hour. This morning colonoscopy was performed and there was mariaa hematochezia noted. The procedure was aborted at the flex sig level due to blood in the colon. Stat CBC CMP was done along with 2 units type and cross and patient was sent to the ER for further work-up and admission to medicine with Dr. Arita on consult. Patient remained in the ER for a few hours while her hemoglobin was being monitored. Her baseline hemoglobin is 13 she dropped to 11 today and subsequently to 10 within few hours. She did not have any more bloody bowel movements while her stay in the ER. She was also given tranexamic acid x1 by ER physician. Her vitals have been stable while in the hospital today. Hospitalist was called for admission for lower GI bleed. Most recently in February she did have a CT abdomen pelvis which showed colonic wall thickening with hyperemia and pericolic inflammation surrounding cecum and ascending colon and proximal transverse colon suggestive of colitis. Indeterminate 2.5 cm right adrenal nodule also found. When seen by medicine hospitalist today patient is resting comfortably in bed. She has not had any more bloody bowel movements. She tells me she has had unintentional weight loss in the recent months. She came in for colonoscopy today but was unable to complete it. She feels well when seen. Denies eating out at restaurant recently. Has been on bowel prep. Does eat runny eggs, drinks well water[place] Daughter present at bedside who is an RN. Denies chest pain, sob, abdominal pain, any other symptoms at this time. Chart review for diabetes: She recently saw endocrinology in May 20. Patient is on Lantus 25 to 30 units daily along with 10 units of Humalog 3 times daily with meals. She has been advised to cut down her Humalog in half if she skips a meal. And she did have recent diabetic ketoacidosis. Patient has had hypoglycemic episodes as well. Review of Systems General: Reports: 10 or more systems reviewed and unremarkable except in HPI and below Medications/Allergies Home Medications Medication Instructions Recorded Confirmed Last Taken Type allopurinol 300 mg PO BEDTIME 02/27/21 06/01/21 2 Days Ago History ~05/30/21 lovastatin 20 mg PO BEDTIME 02/27/21 06/01/21 2 Days Ago History ~05/30/21 pantoprazole 40 mg PO BID #60 tab 03/03/21 06/01/21 2 Days Ago Rx ~05/30/21 tamsulosin 0.4 mg PO BEDTIME #30 cap 03/03/21 06/01/21 2 Days Ago Rx ~05/30/21 aspirin 81 mg tablet,delayed 81 mg PO QAM 05/20/21 06/01/21 2 Days Ago History release ~05/30/21 Humalog KwikPen Insulin 10 - 15 unit SUBCUT TID 06/01/21 06/01/21 Unknown History furosemide 20 mg PO DAILY PRN 06/01/21 06/01/21 Unknown History insulin glargine [Lantus Solostar 25 - 30 unit SUBCUT BEDTIME 06/01/21 06/01/21 05/31/21 History U-100 Insulin] 12.5 units naproxen sodium [Aleve] 440 mg PO Q12H PRN 06/01/21 06/01/21 Unknown History tramadol [Ultram] 50 - 100 mg PO Q6H PRN 06/01/21 06/01/21 Unknown History Allergies Allergy/AdvReac Type Severity Reaction Status Date / Time codeine Allergy ALGY-Anaphy Verified 06/01/21 13:47 laxis hydromorphone [From Dilaudid] Allergy ALGY-Anaphy Verified 06/01/21 13:47 laxis morphine Allergy ALGY-Anaphy Verified 06/01/21 13:47 laxis PFSH Acute 2 PFSH: Medical History (Updated 06/01/21 @ 18:08 by Rosalia Benton MD) History of colon cancer Hyperlipidemia Hypertension Urinary retention Surgical History H/O: hysterectomy S/P colon resection Family History Mother , at age 87 Heart attack Father , at age 86 Cancer prostate Social History Smoking and tobacco status: former smoker Quit status (tobacco): has quit using tobacco Second hand smoke exposure: No Smoking risk assessment/counseling performed?: Yes Alcohol intake: never Desire information about alcohol rehabilitation?: No Counseling given: Yes Desire information about substance/drug rehabilitation?: No Counseling given: Yes Adopted: No Caregiver/support person: Yes Lives independently: Yes Household members: spouse Housing: House Marital status: Highest education level completed: Some College, No Degree service: No Current occupational status: retired History of recent travel: No Vitals/I&O/Wt Last Vital Signs Temp 98.0 F 06/01/21 13:45 Pulse 72 06/01/21 14:57 Resp 16 06/01/21 14:57 BP 105/61 06/01/21 14:57 Pulse Ox 98 06/01/21 14:57 Weight last 48 hrs Weight 63.503 kg Physical Exam Narrative: EXAM NARRATIVE: General: Alert oriented x3, patient seen laying in bed appearing comfortable HEENT: Normocephalic, atraumatic, EOMI, breathing breathing room air Cardio: Regular rate rhythm, normal S1-S2, no murmurs rubs gallops, Respiratory: Good bilateral air entry, no wheezes no rhonchi appreciated GI: Abdomen soft, nontender, nondistended, bowel sounds +, rectal exam deferred. There is evidence of hematochezia. Surgeon did not appreciate any hemorrhoids or diverticuli on flex sig today. Scant dried blood seen at the anus. Behavior: Appropriate and cooperative Extremities: Pulses 2+, no edema, no cyanosis Data : 06/01/21 18:36 A&P Assessment and plan (1) Acute lower gastrointestinal bleeding: Status: Acute (2) History of colon cancer: Status: Acute (3) DKA, type 2: Status: Acute Qualifiers: Diabetes mellitus complication detail: without coma Qualified Code(s): E11.10 - Type 2 diabetes mellitus with ketoacidosis without coma Additional A&P Information #Acute lower GI bleed, history of colon cancer Plan is to admit the patient We will check H&H every 6 hours Due to history of colitis we will check sed rate CRP lactoferrin. For bloody diarrhea/hematochezia we will check stool for ova parasite, bacterial culture. We will hold off on antibiotics We will check procalcitonin General surgery consulted. Dr. [facility] Once able to mostly colonoscopy will be performed. Patient will be kept n.p.o. except meds and ice chips I will hold her home medications at this point. Hold aspirin, lovastatin, naproxen sodium. We will continue pantoprazole IV We will hold diuretic Lasix due to potentially soft blood pressures We will check CT abdomen pelvis with contrast. Type and cross 3 units in case of need of transfusion. Yet has confirmed with blood bank. Threshold to transfuse hemoglobin less than 7. Will check B12 folate as MCV is high. #Diabetes: Patient is n.p.o., will not put premeal insulin. Have not started lantus either since patient hasnt eaten all day and has been on bowel prep for last few days. She was a bit hypoglycemic. I will hold off on lantus. Will cover with sliding scale for tonight. Will check q6 hours. #Hypertension: We will hold Lasix. It seems patient is not on any medications for hypertension at this time. Will monitor blood pressures Fluids: Normal saline 100 cc/h Electrolyte: Replete as needed Nutrition: N.p.o. for now Activity: Out of bed to chair as tolerated DVT prophylaxis: We will use SCDs. We will avoid pharmacological prophylaxis due to active bleed. Attestations Medical Necessity Statement*: Requires greater than 48 hours inpatient stay Coding Level of Care Code Acute Cutter Tender for [facility] Diagnoses Acute lower gastrointestinal bleeding K92.2 History of colon cancer Z85.038 DKA, type 2 E11.10 Diabetes mellitus complication detail: without coma
--- NOTE | 2021-06-01 18:24 | PC.NURSE ---
Hayder called to floor, given to ISIS Alvarado.
[2021-06-01 18:53] LABS: Hematocrit 33.8 % (37.0-47.0); Hemoglobin 10.3 g/dL (11.5-15.3)
[2021-06-01] MEDS: iohexol 300 mg/mL 100 mL Btl IV (18:55)
[2021-06-01] MEDS: iohexol 300 mg/mL 50 mL Btl PO (18:56)
[2021-06-01 19:35] LABS: C Reactive Protein 2.7 mg/L (0.0-4.9); Folate Level 15.2 ng/mL (4.8-37.3)
[2021-06-01 19:36] LABS: Vitamin B12 159 pg/mL (232-1245)
--- NOTE | 2021-06-01 19:41 | PC.NURSE ---
ADMIT NOTE Received to floor from ER. Is alert and oriented. Pleasant. Denies pain or discomfort. Says she was doing prep for Colonoscopy when started passing bright red stools. Abdomen is soft. Had a spot of minimal tenderness in RLQ. NPO except ice chips. IV fluids at 75ml/hr rate. Up to bathroom with assist and did pass dark clots. Urine mixed with stool. Denies any dizziness when up. Says is just a little weak. Oriented to room. Call light in reach. Daughter at bedside.
[2021-06-01 19:51] VITALS: BMI 24.7
[2021-06-01 20:00] VITALS: BP 100/60; PULSE 79; RESP 18; TEMP 36.8; O2SAT 97
[2021-06-01 20:29] VITALS: RESP 18
[2021-06-01 21:20] LABS: Glucose Point of Care 173 mg/dL (70-110)
[2021-06-01] MEDS: insulin lispro 100 unit/1 mL SUBCUT (21:45)
[2021-06-01] MEDS: pantoprazole 40 mg SDV IVP (21:59)
[2021-06-01] MEDS: sodium chloride 0.9% 1,000 ML 75 ML IV (22:48)
[2021-06-01 23:46] LABS: Hematocrit 29.4 % (37.0-47.0)
[2021-06-02] VITALS (7 sets, daily range): BP systolic 100–120; BP diastolic 52–72; PULSE 70–87; RESP 15–19; TEMP 36.4–37.1; O2SAT 95–97
--- NOTE | 2021-06-02 05:46 | PC.NURSE ---
SHIFT SUMMARY Has rested well tonight without c/o. IV fluids infusing without difficulty. As of this time has had one more bloody stool that was red liquid. Mixes with urine even when trying to keep separate for specimens. Remains NPO except ice chips. No c/o nausea. Last Hmg was 9.0. Waiting result of morning one. Cont with q6h H/H draws
[2021-06-02 06:00] LABS: Basophils % 0.1 %; Eosinophils # 0.1 10^3/uL (0.0-0.8); Eosinophils % 0.9 %; Hematocrit 28.3 % (37.0-47.0); Hemoglobin 8.6 g/dL (11.5-15.3); Lymphocytes # 2.8 10^3/uL (0.8-4.8); Lymphocytes % 37.3 %; Mean Corpuscular HGB Conc 30.4 g/dL (30.0-36.0); Mean Corpuscular Hemoglobin 30.9 pg (28.0-34.0); Mean Corpuscular Volume 101.8 fl (81-99); Mean Platelet Volume 10.9 fL (7.4-10.4); Monocytes # 0.6 10^3/uL (0.2-0.9); Monocytes % 8.4 %; Nucleated Red Blood Cells % 0 %; Platelet Count 170 10^3/cmm (130-400); Red Blood Count 2.78 10^6/uL (4.1-5.3); Red Cell Distribution Width 13.2 % (12.1-15.1); White Blood Count 7.5 10^3/uL (4.0-10.0)
[2021-06-02 06:29] LABS: Procalcitonin 0.05 ng/mL (0-0.5)
[2021-06-02 06:36] LABS: Glucose Point of Care 139 mg/dL (70-110)
[2021-06-02 06:57] LABS: Alanine Aminotransferase 9 U/L (0-33); Albumin Level 3.1 g/dL (3.5-5.2); Alkaline Phosphatase 45 IU/L (35-105); Anion Gap 11.3 (5-19); Aspartate Amino Transferase 13 U/L (0-32); Blood Urea Nitrogen 20 mg/dL (8-23); Calcium 9.2 mg/dL (8.5-10.5); Carbon Dioxide 22 mmol/L (22-29); Chloride 110 mmol/L (98-107); Globulin 2.2 g/dL (1.3-4.6); Glucose 110 mg/dL (65-115); Magnesium 1.7 mg/dL (1.7-2.3); Osmolality Calculated 291 mOsm/kg (285-295); Phosphorus 3.2 mg/dL (2.5-4.5); Potassium 4.3 mmol/L (3.5-5.1); Sodium 139 mmol/L (136-145); Thyroid Stimulating Hormone 0.82 uIU/mL (0.27-4.20); Total Bilirubin 0.8 mg/dL (0.15-1.2); Total Protein 5.3 g/dL (6.6-8.7)
[2021-06-02] MEDS: sodium chloride 0.9% 1,000 ML 75 ML IV ×2 (08:25→20:36)
[2021-06-02] MEDS: pantoprazole 40 mg SDV IVP ×2 (08:42→17:26)
--- NOTE | 2021-06-02 10:59 | PC.CHAP ---
Pastoral Care Encounter/Spiritual Assessment Type of Contact [] Declined truck sales representative visit [] Patient/Family/Request visit [] Outpatient visit [] Follow-up visit [] Physician referral [] Code/Alert [x] Routine visit [] Staff referral [] Actively dying [] Patient sleeping [] Family support [] [] Out of room [] Palliative care [] [] Receiving care in room [] Pre-surgical visit [] Trauma [x] Long length of stay [] ICU visit [] Other: Relational/Emotional Strength [x] Patient feels connected with others/family/visitors/staff [] Distress [] Loneliness/isolation [] Abandonment Spirituality of Patient [x] Person of Amanda [] Attends Adventism of their Amanda [x] Believes in Prayer [] Reads Bible or Samaritan materials [] There are Spiritual issues to be addressed Placement Specialist Interventions [x] Prayer [x] Active listening [x] Non-anxious presence [x] Spiritual/emotional support [] Crisis/trauma care [x] Spiritual counseling [] Bereavement support [] Provided bereavement packet [] Provided Bible/devotional materials [] Provided toy/stuffed animal, coloring book to patient or family member [] Provided Communion [] Anointing/[place] [] Salvation [x] Completed spiritual assessment [] Other: Impact on Illness or Injury [] Angry [x] Fearful [] Anxious [] Often cries [] Exhaustion [x] Unable to work [] Unable to attend taoist [] Unable to walk/stand [] Unable to read [] Unable to drive [] Unable to eat/drink [] Unable to sleep [] Unable to be with family [] Patient intubated [] Other: Summary wants to home +1 was there to help help make decisions about her health negative respouns, wants waiting on doctors report about her health Time spent with patient
--- NOTE | 2021-06-02 12:08 | P.PN_ITS ---
Subjective Subjective: Interval history: Seen this morning. Patient is in very good spirits. She states she feels well. She had 1 bloody bowel movement last night and had another one around 5 this a.m. The bowel movement at 5 in the morning had no blood in it. However she did notice blood when she wiped. She is no longer having abdominal cramping. She is hungry and would like to eat. He moglobin has dropped to 8.6. CT scan was reviewed. Vitals/I&O/Wt Last Vital Signs Temp 98.0 F 06/02/21 07:26 Pulse 87 06/02/21 07:26 Resp 17 06/02/21 07:26 BP 109/52 06/02/21 07:26 Pulse Ox 97 06/02/21 07:26 06/01/21 06/02/21 06/02/21 22:59 06:59 14:59 Intake Total 721.25 / 721.25 Output Total 250 / 250 Balance -250 / -250 721.25 / 721.25 Weight last 48 hrs Weight 63.503 kg Weight 63.503 kg Physical Exam Narrative: EXAM NARRATIVE: General: Alert oriented x3, patient seen laying in bed appearing comfortable HEENT: Normocephalic, atraumatic, EOMI, breathing breathing room air Cardio: Regular rate rhythm, normal S1-S2, no murmurs rubs gallops, Respiratory: Good bilateral air entry, no wheezes no rhonchi appreciated GI: Abdomen soft, nontender, nondistended, bowel sounds +, Behavior: Appropriate and cooperative Extremities: no edema, no cyanosis Data : 06/02/21 05:46 06/02/21 05:46 A&P Assessment and plan (1) Acute lower gastrointestinal bleeding: Status: Acute (2) History of colon cancer: Status: Acute (3) DKA, type 2: Status: Acute Qualifiers: Diabetes mellitus complication detail: without coma Qualified Code(s): E11.10 - Type 2 diabetes mellitus with ketoacidosis without coma Additional A&P Information #Acute lower GI bleed, history of colon cancer most likely etiology diverticular bleed. Hemoglobin 8.6 today. Continue to check H&H every 6 hours. Due to history of colitis we will check sed rate CRP lactoferrin. For bloody diarrhea/hematochezia we will check stool for ova parasite, bacterial culture. Sample has not been obtained yet. We will hold off on antibiotics Procalcitonin negative. General surgery consulted. Dr. Arita will follow the patient while inpatient. Correction to my history physical note. There were several diverticuli noted in the sigmoid colon. We will advance patient to clear liquids today. I will hold her home medications at this point. Hold aspirin, lovastatin, naproxen sodium. We will continue pantoprazole IV Continue to hold Lasix. CT abdomen pelvis reviewed. No gross pathology noted. Threshold to transfuse hemoglobin less than 7. Will check B12 folate as MCV is high. Patient not tachycardic and vitals are stable. We will hold off on transfusing her yet. If hemoglobin continues to drop by noon today I will give her [address] Melton this morning and he is on board with the plan. Further recommendations to follow from him. #Diabetes: Patient is n.p.o., will not put premeal insulin. Lantus was not started admission due to patient being n.p.o. Not the clear liquids are sta rting we will cover her with sliding scale for now. We will be cautious with starting Lantus due to patient's history of hypoglycemic episodes. Her blood sugar has been stable without Lantus or Humalog so far. #Hypertension: We will hold Lasix. It seems patient is not on any medications for hypertension at this time. Will monitor blood pressures Fluids: Normal saline 100 cc/h Electrolyte: Replete as needed Nutrition: Start clear liquids. Activity: Out of bed to chair as tolerated DVT prophylaxis: We will use SCDs. We will avoid pharmacological prophylaxis due to active bleed. I updated the daughter in person today. was also present at bedside and updated. Attestations Medical Necessity Statement*: Needs continuous monitoring in hospital for another 24 hours. Hemoglobin not stable. Time Spent in Patient Care: 16 - 35 minutes Coding Level of Care Code Acute Software Engineering Project Manager for [facility] Diagnoses Acute lower gastrointestinal bleeding K92.2 History of colon cancer Z85.038 DKA, type 2 E11.10 Diabetes mellitus complication detail: without coma
[2021-06-02 12:15] LABS: Glucose Point of Care 125 mg/dL (70-110)
[2021-06-02 13:05] LABS: Hematocrit 27.5 % (37.0-47.0); Hemoglobin 8.3 g/dL (11.5-15.3)
--- NOTE | 2021-06-02 13:32 | PM.PN ---
Subjective Subjective: Interval history: Overall patient feels well. Less bloody bowel movement. Adequate urine output and stable vital signs Medications: Reviewed: Yes Vitals/I&O/Wt Last Vital Signs Temp 97.6 F 06/02/21 12:00 Pulse 80 06/02/21 12:00 Resp 17 06/02/21 12:00 BP 115/72 06/02/21 12:00 Pulse Ox 96 06/02/21 12:00 06/01/21 06/02/21 06/02/21 22:59 06:59 14:59 Intake Total 721.25 / 721.25 Output Total 250 / 250 Balance -250 / -250 721.25 / 721.25 Weight last 48 hrs Weight 140 lb Weight 140 lb Physical Exam Narrative: EXAM NARRATIVE: Patient is conscious alert oriented X3 BMI 25 Head and neck examination PERRLA no masses no cervical lymphadenopathy no jaundice Abdomen nontender nondistended soft no organomegaly guarding or rigidity/no signs of peritonitis Data : 06/02/21 11:45 06/02/21 05:46 A&P Assessment and plan (1) Acute lower gastrointestinal bleeding: Assessment 75 years old female patient status post flex sigmoidoscopy 06/02/2021 with history of acute lower GI bleeding, patient was found to have sigmoid colon diverticulosis. CT scan of the abdomen and pelvis was done and showed Extensive diverticulosis coli without evidence for acute diverticulitis. Plan of care I did discuss over the phone with Nazia patient's daughter and in the presence of nursing staff Christiano, with the current status for Ms. Ceballos and the findings on the CT scan of the abdomen and pelvis. From surgical standpoint of view I do not see a ortiz to repeat or attempt to perform a colonoscopy, most likely the patient had a lower GI bleed from one of the diverticulosis. And most likely the colonoscopy will not be able to past narrowed Colon. Particularly in the light of the CT scan of the abdomen and pelvis with my personal interpretation of the images and the extensive nature of the diverticuli of the sigmoid colon. As I do not see any neoplastic component on the current study. Continue the patient on telemetry Clear liquid diet for now Repeat H&H and blood transfusion per protocol Likely the patient would benefit from barium enema down the road. Assurance and education All questions have been answered and all concerns have been addressed to patient's satisfaction. Status: Acute Attestations Medical Necessity Statement*: Per admitting service Time Spent in Patient Care: 16 - 35 minutes (>than 50% of time spent in counselling and/or direct pt care on unit). Coding Level of Care Code Acute Retail Service Technician for [facility] Diagnoses Acute lower gastrointestinal bleeding K92.2
[2021-06-02 18:01] LABS: Glucose Point of Care 201 mg/dL (70-110)
[2021-06-02] MEDS: insulin lispro 100 unit/1 mL SUBCUT ×2 (18:23→20:36)
[2021-06-02] MEDS: insulin glargine 100 units/1 mL 20 UNIT SUBCUT (20:36)
[2021-06-02 21:30] LABS: Glucose Point of Care 311 mg/dL (70-110)
[2021-06-02 23:48] LABS: Add Urine Microscopic? YES; Bilirubin Urine Neg (Negative); Blood Urine 3+ (Negative); Glucose Urine UA 4+ (Normal); Ketones Urine Negative (Negative); Leukocyte Esterase Urine Negative (Negative); Nitrate Urine Negative (Negative); Protein Urine Neg (Negative); Urine Appearance Clear (CLEAR); Urine Color Yellow (Yellow); Urobilinogen Urine Norm (Negative); pH Urine 5 (5-7)
[2021-06-02 23:49] LABS: RBC Urine 0-4 /hpf (0-2); WBC Urine 0-4 /hpf (0-5)
[2021-06-02 23:50] LABS: Add Urine Culture? No; Bacteria Urine TRACE /hpf
[2021-06-03] VITALS (12 sets, daily range): BP systolic 110–144; BP diastolic 57–70; PULSE 74–103; RESP 16–18; TEMP 36.6–37.3; O2SAT 95–100
--- NOTE | 2021-06-03 | CT_ITS ---
WS: [id number] CT ANGIOGRAM CEREBRAL AND CAROTID ARTERIES HISTORY: POSSIBLE STROKE SLURRED SPEECH TECHNIQUE: CT angiogram is performed of the carotid and cerebral arteries. During arterial injection imaging is obtained from the skull vertex to the aortic arch in 1.25 mm imaging. Coronal and sagittal reformats are submitted. Additional multi planar reformats of the carotid and cerebral arteries are submitted, MIP imaging also reviewed. NASCET criteria utilized. [facility] at least one of these dose optimization techniques: automated exposure control; mA and/or kV adjust ment per patient size (includes targeted exams where dose is matched to clinical indication); or iter ative reconstruction. CONTRAST: Omnipaque 350; 95 mL IV. DLP: 2093.19 mGy-cm. COMPARISON: None available. Carotid Angiogram: Right carotid: Common carotid artery: Arises normally from the innominate artery. No significant plaque or stenosis. Internal carotid artery: Moderate calcified plaque at the bifurcation. Less than 50% stenosis ICA. He katrin calcified plaque at the origin of the external carotid artery. External carotid artery: Moderate stenosis due to calcified plaque. Left carotid: Common carotid artery: Mild intimal thickening. No stenosis. Internal carotid artery: Mild calcified plaque and intimal thickening at the bifurcation. No high-gra de stenosis. External carotid artery: Patent. Right vertebral artery: Unremarkable. Left vertebral artery: Unremarkable. Arises normally from the subclavian artery. Subclavian arteries: Intimal thickening and calcified plaque at the origin of the LEFT subclavian. Le ss than 50% narrowing. Moderate stenosis of 70% involving the proximal RIGHT subclavian artery. Upper thorax: Normal. Thyroid gland: Normal. Osseous structures: Unremarkable. CEREBRAL ANGIOGRAM: Intracranial vertebral arteries: Normal with no significant atherosclerosis. Basilar artery: Proximal fenestration. No high-grade stenosis or occlusion. Intracranial Internal carotid arteries: Mild calcified plaque through the cavernous sinuses and supra clinoid carotid arteries. Bilateral stenoses near 50%. Middle cerebral arteries: Mild narrowing of the proximal RIGHT M1 segment but no thrombus or occlusio n. Anterior cerebral arteries and ACOM: Normal. Posterior cerebral arteries and PCOM's: Normal. Dural venous sinuses are normally enhancing. Mastoid air cells: Normal. Paranasal sinuses: Normal. Calvarium: Normal. CT/CT angio headneck* [id number] IMPRESSION: 1. Less than 50% stenosis bilateral cervical carotid arteries. 2. Mild stenosis proximal RIGHT M1 segment. 3. 50% stenosis intracranial carotid arteries to the cavernous sinuses. 4. Proximal RIGHT subclavian artery stenosis 70%.
[2021-06-03 05:48] LABS: Glucose Point of Care 196 mg/dL (70-110)
[2021-06-03 06:56] LABS: Glucose Point of Care 192 mg/dL (70-110)
[2021-06-03] MEDS: insulin lispro 100 unit/1 mL SUBCUT (08:04)
[2021-06-03] MEDS: pantoprazole 40 mg SDV IVP ×2 (08:04→17:58)
[2021-06-03 10:20] LABS: Basophils % 0.1 %; Eosinophils % 0.3 %; Hematocrit 23.8 % (37.0-47.0); Hemoglobin 7.3 g/dL (11.5-15.3); Lymphocytes % 27.1 %; Mean Corpuscular HGB Conc 30.7 g/dL (30.0-36.0); Mean Corpuscular Hemoglobin 31.2 pg (28.0-34.0); Mean Corpuscular Volume 101.7 fl (81-99); Monocytes # 0.6 10^3/uL (0.2-0.9); Monocytes % 7.6 %; Neutrophils # 4.64 10^3/uL (1.8-7.7); Neutrophils % 64.6 %; Nucleated Red Blood Cells % 0 %; Platelet Count 150 10^3/cmm (130-400); Red Blood Count 2.34 10^6/uL (4.1-5.3); Red Cell Distribution Width 13.1 % (12.1-15.1); White Blood Count 7.2 10^3/uL (4.0-10.0)
[2021-06-03 10:39] LABS: Anion Gap 11.8 (5-19); Blood Urea Nitrogen 14 mg/dL (8-23); Calcium 8.8 mg/dL (8.5-10.5); Carbon Dioxide 21 mmol/L (22-29); Chloride 112 mmol/L (98-107); Glucose 226 mg/dL (65-115); Osmolality Calculated 300 mOsm/kg (285-295); Potassium 3.8 mmol/L (3.5-5.1); Sodium 141 mmol/L (136-145)
[2021-06-03 11:04] LABS: Glucose Point of Care 247 mg/dL (70-110)
--- NOTE | 2021-06-03 11:21 | CT_ITS ---
WS: [id number] CT HEAD NONCONTRAST HISTORY: Stroke like s/s TECHNIQUE: Contiguous axial imaging performed through the brain in 2.5 mm imaging. Bone and soft tiss ue windows. Sagittal and coronal reformats reviewed. All CT scans at [facility] use at least one of these dose optimization techniques: automated exposure control; mA and/or kV adjustment per pa tient size (includes targeted exams where dose is matched to clinical indication); or iterative recon struction. DLP: 916.88 mGy.cm COMPARISON: None available. No acute intracranial hemorrhage, midline shift or mass effect. Review. Areas of decreased attenuation periventricular white matter chronic ischemic disease. Lacuna r infarct in the anterior limb of the RIGHT internal capsule. Ventricles: Normal size with no hydrocephalus. Paranasal sinuses: As visualized are clear. Mastoid air cells: Well pneumatized. Calvarium and scalp: Skull is intact with no soft tissue edema or swelling. CT/CT head wo con* [id number] IMPRESSION: 1. No acute intracranial hemorrhage or edema. 2. 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
--- NOTE | 2021-06-03 11:44 | PC.NURSE ---
Lab called to report two units of packed red blood cells was ready. This nurse went in to explain the blood transfusion to the patient and at bedside. Patient stated understanding. At time of explanation of blood transfusion, patient's speech was WNL and patient was holding a news paper. Upon leaving the room to get the consent signed by the patient, patient stated her right fingers were starting to go numb. Returned after obtaining the blood consent and patient went to sign it. Patient looked confused upon trying to sign the consent. Patient's right hand was drooping while trying to sign the consent. This nurse then did a NIH assessment on the patient. Score was 4, with the deficits being in the right finger to nose test, and patient was slurring some words. Stroke alert was called and while the alert was being done, patient's deficits slowly resolved on their own. Patient began to feel her fingers again and her speech cleared up, Patient's finger to nose test improved as well.
[2021-06-03] MEDS: iodixanol 320 mg/mL 100mL Btl IV (12:03)
[2021-06-03] MEDS: sodium chloride 0.9% 100 mL Bag 50 ML IV (12:26)
[2021-06-03 13:31] LABS: Glucose Point of Care 218 mg/dL (70-110)
--- NOTE | 2021-06-03 14:30 | P.PN_ITS ---
Subjective Subjective: Interval history: Seen and examined this morning. Patient had 4 large bloody bowel movements overnight. Patient had ordered hemoglobin hematocrit every 6 hours since yesterday. I order was somehow canceled through the system and I was not notified about it. We did not have any hemoglobin on her since yesterday 12 noon. This morning when seen stat CBC was ordered. He moglobin was 7.3. She was given order to transfuse 2 units of packed RBC. Vitals were stable. As nurse went to get consent for blood transfusion patient developed slurred speech and numbness in her right hand pinky finger. She appeared slightly confused. Stroke alert was called I went to bedside with the patient right away. NIH done by nurse prior to my arrival was 4. When I saw the patient NIH was 1. Patient symptoms had return back to normal except slight slurring of speech. Stat head CT was done which did not show any bleed or evidence of ischemia, stat CTA head and neck was also done which did not show any active embolus. Case was discussed with neurologist on-call over the phone who reviewed the image. Patient is not a candidate for TPA or aspirin at this time due to her active lower GI bleed. Symptoms have also resolved. After I got back to the room patient's and the patient stated that she has had similar episodes like these at home as well with the most recent one being 5 or 6 weeks ago. She has never had a work-up done for this. When we seen patient speech had normalized. I also called [facility], [facility], [facility] and [facility] and I was told they do not have a bed on [facility] available. Surgery has recommended to transfer the patient to a higher level of care so that she can have an enteroscopy or possible IR angioembolization if she continues to bleed. I also discussed the possibility of transferring her to an ICU bed at the above hospitals but I was told she does not meet criteria at this time. Currently 2 units of blood are being transfused we will check postinfusion CBC. Medications: Reviewed: Yes Vitals/I&O/Wt Last Vital Signs Temp 98.4 F 06/03/21 12:20 Pulse 87 06/03/21 13:15 Resp 16 06/03/21 13:15 BP 110/57 06/03/21 13:15 Pulse Ox 100 10/29/21 10:34 06/02/21 06/03/21 06/03/21 22:59 06:59 14:59 Intake Total 1273.75 / 1995.00 120 / 120 Output Total 200 / 800 500 / 1300 Balance 1073.75 / 1195.00 -500 / 695.00 120 / 120 Weight last 48 hrs Weight 63.503 kg Physical Exam Narrative: EXAM NARRATIVE: General: Alert oriented x3, patient seen laying in bed appearing comfortable HEENT: Normocephalic, atraumatic, EOMI, breathing breathing room air Cardio: Regular rate rhythm, normal S1-S2, no murmurs rubs gallops, Respiratory: Good bilateral air entry, no wheezes no rhonchi appreciated GI: Abdomen soft, nontender, nondistended, bowel sounds +, Behavior: Appropriate and cooperative Extremities: no edema, no cyanosis Neuro: Cranial nerves II to XII intact, [id number] normal, [id number] normal, mild lower extremity weakness bilaterally which seems to be at her baseline. Patient is appearing sharp alert and talking. No longer having that slight slurred speech. Blood sugar also checked 212. Completely normal physical exam Data : 06/03/21 15:08 06/03/21 09:52 Micro: Microbiology 06/02/21 19:07 Stool Lactoferrin - Final Stool - Stool Aspirate A&P Assessment and plan (1) Acute lower gastrointestinal bleeding: Status: Acute (2) History of colon cancer: Status: Acute (3) DKA, type 2: Status: Acute Qualifiers: Diabetes mellitus complication detail: without coma Qualified Code(s): E11.10 - Type 2 diabetes mellitus with ketoacidosis without coma Additional A&P Information #Acute lower GI bleed, history of colon cancer most likely etiology diverticular bleed. Hemoglobin 8.6 today. Continue to check H&H every 6 hours. Due to history of colitis we will check sed rate CRP lactoferrin. For bloody diarrhea/hematochezia we will check stool for ova parasite, bacterial culture. Sample has not been obtained yet. We will hold off on antibiotics Procalcitonin negative. General surgery consulted. Dr. Arita will follow the patient while inpa tient. Correction to my history physical note. There were several diverticuli noted in the sigmoid colon. I will hold her home medications at this point. Hold aspirin, lovastatin, naproxen sodium. We will continue pantoprazole IV Continue to hold Lasix. CT abdomen pelvis reviewed. No gross pathology noted. Threshold to transfuse hemoglobin less than 7. Will check B12 folate as MCV is high. Patient not tachycardic and vitals are stable. Continues to have bloody bowel movements. Will transfuse 2 units and check H&H status post transfusion. We will continue to keep the patient n.p.o. I also called [facility], [facility], [facility] and I was told they do not have a bed on [facility] available. Surgery has recommended to transfer the patient to a higher level of care so that she can have an enteroscopy or possible IR angioembolization if she continues to bleed. I also discussed the possibility of transferring her to an ICU bed at the above hospitals but I was told she does not meet criteria at this time. Dr. Melton updated. #Slurred speech As nurse went to get consent for blood transfusion patient developed slurred s peech and numbness in her right hand pinky finger. She appeared slightly confused. Stroke alert was called I went to bedside with the patient right away. NIH done by nurse prior to my arrival was 4. When I saw the patient NIH was 1. Patient symptoms had return back to normal except slight slurring of speech. Stat head CT was done which did not show any bleed or evidence of ischemia, stat CTA head and neck was also done which did not show any active embolus. Case was discussed with neurologist on-call over the phone who reviewed the image. Patient is not a candidate for TPA or aspirin at this time due to her active lower GI bleed. Symptoms have also resolved. After I got back to the room patient's and the patient stated that she has had similar episodes like these at home as well with the most recent one being 5 or 6 weeks ago. She has never had a work-up done for this. When we seen patient speech had normalized. Dr. Elizabeth has recommended neurology follow-up outpatient after discharge. I also discussed with her the possibility of doing an MRI brain but it was not recommended at this time. 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 #Diabetes: Patient is n.p.o., will not put premeal insulin. Lantus was not started admission due to patient being n.p.o. Not the clear liquids are starting we will cover her with sliding scale for now. We will be cautious with starting Lantus due to patient's history of hypoglycemic episodes. Her blood sugar has been stable without Lantus or Humalog so far. #Hypertension: We will hold Lasix. It seems patient is not on any medications for hypertension at this time. Will monitor blood pressures Fluids: Normal saline 100 cc/h Electrolyte: Replete as needed Nutrition: N.p.o. Activity: Out of bed to chair as tolerated DVT prophylaxis: We will use SCDs. We will avoid pharmacological prophylaxis due to active bleed. I updated the daughter in person today. was also present at bedside and updated. Attestations Medical Necessity Statement*: active lower GI bleed. needs > 48 hours inpt stay Time Spent in Patient Care: Greater than 35 minutes (>than 50% of time spent in counselling and/or direct pt care on unit) . Coding Level of Care Code Acute Pallet Rectifier for Trina Concepcion Diagnoses Acute lower gastrointestinal bleeding K92.2 History of colon cancer Z85.038 DKA, type 2 E11.10 Diabetes mellitus complication detail: without coma
[2021-06-03 15:18] LABS: Hematocrit 27.4 % (37.0-47.0); Hemoglobin 8.7 g/dL (11.5-15.3)
--- NOTE | 2021-06-03 15:59 | P.PN_ITS ---
Subjective Subjective: Interval history: Patient overall shows stable clinical picture yet she did have some changes today that led to stroke alert. And patient undergone a CT scan of the head that showed no acute intracranial hemorrhage or edema, only chronic changes of ischemia. And a CTA neck showed below: 1. Less than 50% stenosis bilateral cervical carotid arteries. 2. Mild stenosis proximal RIGHT M1 segment. 3. 50% stenosis intracranial carotid arteries to the cavernous sinuses. 4. Proximal RIGHT subclavian artery stenosis 70%. Yet patient continues to have some episodes of bleeding per rectum not as aggressive as she had and 2 units of packed RBCs have been transfused, last hemoglobin checked was 8.7 at 1508 today Vitals/I&O/Wt Last Vital Signs Temp 99.2 F 06/03/21 15:52 Pulse 79 06/03/21 15:52 Resp 18 06/03/21 15:52 BP 112/61 06/03/21 15:52 Pulse Ox 96 06/03/21 15:52 06/03/21 06/03/21 06/03/21 06:59 14:59 22:59 Intake Total 420 / 420 Output Total 500 / 1300 Balance -500 / 695.00 420 / 420 Weight last 48 hrs Weight 140 lb Physical Exam Narrative: EXAM NARRATIVE: Patient is conscious alert oriented X3 no apparent distress BMI 25 Head and neck examination PERRLA no masses no cervical lymphadenopathy no jaundice Abdomen nontender nondistended soft no organomegaly guarding or rigidity/no signs of peritonitis Data : 06/03/21 15:08 06/03/21 09:52 Micro: Microbiology 06/02/21 19:07 Stool Lactoferrin - Final Stool - Stool Aspirate A&P Assessment and plan (1) Acute lower gastrointestinal bleeding: Assessment 75 years old female patient status post flex sigmoidoscopy 06/02/2021 with history of acute lower GI bleeding, patient was found to have sigmoid colon diverticulosis. CT scan of the abdomen and pelvis was done and showed Extensive diverticulosis coli without evidence for acute diverticulitis. The acute episode of hematochezia started at the GI lab before taking the patient back for endoscopy Plan of care At this point since the patient continues to have episodes of hematochezia I would recommend that the patient would benefit from a completion colonoscopy yet using an enteroscopy with a smaller diameter to reach the proximal part of the colon which unfortunately we do not carry it in our facility, also the patient would benefit from diagnostic EGD. Angioembolization would be a potential option if patient continues to bleed which again is not available in this facility. Dr. Benton have been working to transfer the patient to a facility for higher care, yet she is not successful at the moment. Meanwhile will Continue the patient on telemetry We will keep the patient n.p.o. for now Repeat H&H and blood transfusion per protocol I did update Ms. Mandujano patient's daughter and she did express her interest to be transferred to [place] if possible. Assurance and education All questions have been answered and all concerns have been addressed to patient's satisfaction. Status: Acute Attestations Medical Necessity Statement*: Per admitting service Time Spent in Patient Care: 16 - 35 minutes (>than 50% of time spent in counselling and/or direct pt care on unit) . Coding Level of Care Code Acute Supervisor [employer] for Trina Concepcion Diagnoses Acute lower gastrointestinal bleeding K92.2
[2021-06-03 17:10] LABS: Glucose Point of Care 189 mg/dL (70-110)
[2021-06-03] MEDS: sodium chloride 0.9% 1,000 ML 75 ML IV ×2 (17:58→23:04)
[2021-06-03 20:54] LABS: Glucose Point of Care 183 mg/dL (70-110)
[2021-06-03 21:57] LABS: Hematocrit 26.5 % (37.0-47.0); Hemoglobin 8.5 g/dL (11.5-15.3)
[2021-06-04] VITALS: BP 120/56; PULSE 89; RESP 18; TEMP 36.9; O2SAT 98
[2021-06-04 04:00] VITALS: BP 117/67; PULSE 76; RESP 17; TEMP 36.9; O2SAT 97
[2021-06-04 05:22] LABS: Basophils % 0.2 %; Eosinophils # 0.1 10^3/uL (0.0-0.8); Hematocrit 26.3 % (37.0-47.0); Hemoglobin 8.4 g/dL (11.5-15.3); Lymphocytes # 2.3 10^3/uL (0.8-4.8); Lymphocytes % 39.8 %; Mean Corpuscular HGB Conc 31.9 g/dL (30.0-36.0); Mean Corpuscular Hemoglobin 31.5 pg (28.0-34.0); Mean Corpuscular Volume 98.5 fl (81-99); Mean Platelet Volume 11.2 fL (7.4-10.4); Monocytes # 0.7 10^3/uL (0.2-0.9); Monocytes % 11.4 %; Neutrophils # 2.76 10^3/uL (1.8-7.7); Neutrophils % 47.4 %; Nucleated Red Blood Cells % 0 %; Platelet Count 129 10^3/cmm (130-400); Red Blood Count 2.67 10^6/uL (4.1-5.3); Red Cell Distribution Width 14.2 % (12.1-15.1); White Blood Count 5.8 10^3/uL (4.0-10.0)
[2021-06-04 05:44] LABS: Anion Gap 10.6 (5-19); Blood Urea Nitrogen 11 mg/dL (8-23); Calcium 8.7 mg/dL (8.5-10.5); Carbon Dioxide 21 mmol/L (22-29); Chloride 112 mmol/L (98-107); Glucose 153 mg/dL (65-115); Osmolality Calculated 292 mOsm/kg (285-295); Potassium 3.6 mmol/L (3.5-5.1); Sodium 140 mmol/L (136-145)
[2021-06-04 05:47] VITALS: PULSE 68
[2021-06-04 06:46] LABS: Glucose Point of Care 175 mg/dL (70-110)
[2021-06-04 07:59] VITALS: BP 118/70; PULSE 78; RESP 16; TEMP 36.7; O2SAT 98
[2021-06-04] MEDS: insulin lispro 100 unit/1 mL SUBCUT (08:10)
[2021-06-04] MEDS: pantoprazole 40 mg SDV IVP (08:21)
[2021-06-04] MEDS: sodium chloride 0.9% 1,000 ML 75 ML IV (08:24)
[2021-06-04 10:17] LABS: Hematocrit 26.5 % (37.0-47.0); Hemoglobin 8.6 g/dL (11.5-15.3)
--- NOTE | 2021-06-04 10:38 | P.PN_ITS ---
Subjective Subjective: Interval history: Patient continues to be reasonably doing well and no more episodes of bleeding per rectum. Hemoglobin of 8.6 g/dL today otherwise no acute events overnight Medications: Reviewed: Yes Vitals/I&O/Wt Last Vital Signs Temp 98.1 F 06/04/21 07:59 Pulse 78 06/04/21 07:59 Resp 16 06/04/21 07:59 BP 118/70 06/04/21 07:59 Pulse Ox 98 06/04/21 07:59 06/03/21 06/04/21 06/04/21 22:59 06:59 14:59 Intake Total 502.5 / 1922.5 1000 / 1000 Output Total 650 / 650 240 / 890 Balance -650 / 770 262.5 / 1032.5 1000 / 1000 Physical Exam Narrative: EXAM NARRATIVE: Patient is conscious alert oriented X3 no apparent distress BMI 25 Head and neck examination PERRLA no masses no cervical lymphadenopathy no jaundice Abdomen nontender nondistended soft no organomegaly guarding or rigidity/no signs of peritonitis Data : 06/04/21 09:53 06/04/21 04:06 Micro: Microbiology 06/02/21 19:07 Parasite Antigen Panel - Final Stool - Stool Aspirate 06/02/21 19:07 Enteric Pathogens (PCR) - Final Stool - Stool Aspirate 06/02/21 19:07 Stool Lactoferrin - Final Stool - Stool Aspirate A&P Assessment and plan (1) Acute lower gastrointestinal bleeding: Assessment 75 years old female patient status post flex sigmoidoscopy 06/02/2021 with history of acute lower GI bleeding, patient was found to have sigmoid colon diverticulosis. CT scan of the abdomen and pelvis was done and showed Extensive diverticulosis coli without evidence for acute diverticulitis. The acute episode of hematochezia started at the GI lab before taking the patient back for endoscopy Plan of care We will start the patient slowly on clear liquid diet Observe for another 24 hours and check H&H every 8 or so If patient's performance continue to do well and stable without further episodes of bleeding, we can make the argument about potential discharge home tomorrow and follow-up with GI as an outpatient, if she develops another episode of bleeding she will be transferred to higher level of care for potential intervention. The plan of care has been discussed with the patient her spouse and her daughter and all agreed on that We will continue coordinating care with Dr. Serenity Assurance and education All questions have been answered and all concerns have been addressed to patient's satisfaction. Status: Acute Attestations Medical Necessity Statement*: Per admitting service Time Spent in Patient Care: (>than 50% of time spent in counselling and/or direct pt care on unit) . Coding Level of Care Code Acute Pneumatic Tool Operator for Sallyg Fwd Diagnoses Acute lower gastrointestinal bleeding K92.2
[2021-06-04 11:53] VITALS: BP 121/68; PULSE 67; RESP 14; TEMP 36.8; O2SAT 95
--- NOTE | 2021-06-04 11:56 | P.TS_ITS ---
Transfer Summary Providers Date of Admission: 06/01/21 18:13 Date of Discharge: 06/04/21 Attending Provider at Admission: Rosalia Benton MD Attending Provider at Transfer: Rosalia Benton MD Primary Care Provider: Jasmina Moreno DO Anticipated Date of Transfer: Anticipated date of transfer: 06/04/21 Receiving Facility & Provider: Receiving Provider: [Dr. Michelle] Receiving facility: [[facility] [place]] Diagnoses at Discharge Discharge Diagnosis (1) Acute lower gastrointestinal bleeding: Status: Acute Reason for Visit Reason for Visit: rectal bleeding Hospital Course Hospital Course Karina Ceballos is a 75 year old female with past medical history of diabetes mellitus with recent DKA on May 20, hypertension, hyperlipidemia, history of colon cancer presented to the outpatient GI lab today for diagnostic colonoscopy due to unintentional weight loss in the recent months. She follows with Dr. Nolasco as outpatient. She stated that she has been having bloody diarrhea that started last night and she has been going to the bathroom every 1 hour. This morning colonoscopy was performed and there was mariaa hematochezia noted. The procedure was aborted at the flex sig level due to blood in the colon. Stat CBC CMP was done along with 2 units type and cross and patient was sent to the ER for further work-up and admission to medicine with Dr. Arita on consult. Dipesh garcia remained in the ER for a few hours while her hemoglobin was being monitored. Her baseline hemoglobin is 13 she dropped to 11 today and subsequently to 10 within few hours. She did not have any more bloody bowel movements while her stay in the ER. She was also given tranexamic acid x1 by ER physician. Her vitals have been stable while in the hospital today. Hospitalist was called for admission for lower GI bleed. Most recently in February she did have a CT abdomen pelvis which showed colonic wall thickening with hyperemia and pericolic inflammation surrounding cecum and ascending colon and proximal transverse colon suggestive of colitis. Indeterminate 2.5 cm right adrenal nodule also found. When seen by medicine hospitalist today patient is resting comfortably in bed. She has not had any more bloody bowel movements. She tells me she has had unintentional weight loss in the recent months. She came in for colonoscopy today but was unable to complete it. She feels well when seen. Denies eating out at restaurant recently. Has been on bowel prep. Does eat runny eggs, drinks well water[place] Daughter present at bedside who is an RN. Denies chest pain, sob, abdominal pain, any other symptoms at this time. Chart review for diabetes: She recently saw endocrinology in May 20. Patient is on Lantus 25 to 30 units daily along with 10 units of Humalog 3 times daily with meals. She has been advised to cut down her Humalog in half if she skips a meal. And she did have recent diabetic ketoacidosis. Patient has had hypoglycemic episodes as well. Course: First night of admission patient did have bloody bowel movements which cleared by the morning. Stool was brown with no more blood. Diet was advanced to clear liquid diet and by the evening she was given a one-time GI soft diet. Overnight she started to have red bloody bowel movements again which increase in quantity. Patient was again made n.p.o. right away. Hemoglobin hematocrit was checked ev rotiz 6 hours. She was slowly dropping down. She was ordered 2 units packed RBC stat. Vitals were stable. As nurse went to get consent for blood transfusion patient developed slurred speech and numbness in her right hand pinky finger. She appeared slightly confused. Stroke alert was called I went to bedside with the patient right away. NIH done by nurse prior to my arrival was 4. When I saw the patient NIH was 1. Patient symptoms had return back to normal except slight slurring of speech. Stat head CT was done which did not show any bleed or evidence of ischemia, stat CTA head and neck was also done which did not show any active embolus. Case was discussed with neurologist on-call over the phone who reviewed the image. Patient is not a candidate for TPA or aspirin at this time due to her active lower GI bleed. Symptoms have also resolved. After I got back to the room patient's and the patient stated that she has had similar episodes like these at home as well with the most recent one being 5 or 6 weeks ago. She has never had a work-up done for this. When we seen patient speech had normalized. I discussed with neurology in detail. It does not appear that the patient had a stroke. Since she has had these episodes previously at home as well. 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 CTA head and neck showed a 70% stenosis in the carotid artery. After patient's GI bleed is taken care of she will need to follow-up with neurology outpatient to see if there is any further work-up required. I also discussed with neurologist if an MRI brain was needed and it was not recommended at this time. Patient had an unremarkable neurological exam. I have discussed this whole scenario with patient's daughter that she will have to take her for follow-up with neurology as an outpatient after GI bleed resolves. Patient was seen by general surgery. Her rectal bleeding has slowed down at this point but the hemoglobin is slowly decreasing once again. Patient will need to have an enteroscopy done With a smaller diameter to reach proximal part of the colon which unfortunately we do not carry in our facility. Patient was also benefit from a diagnostic EGD. If patient continues to bleed and embolization would be a potential option. This is also not available at our facility. Family was updated who expressed interest to be transferred to [place] if possible. [facility] was called. Case was discussed with hospitalist and warp coiler. They have accepted the patient for transfer. Patient will be transferred today in a very stable condition. During patient's entire admission here her vitals were always stable and she did not have a single episode of hypotension or tachycardia. Physical Exam Narrative: EXAM NARRATIVE: General: Alert oriented x3, patient seen laying in bed appearing comfortable HEENT: Normocephalic, atraumatic, EOMI, breathing breathing room air Cardio: Regular rate rhythm, normal S1-S2, no murmurs rubs gallops, Respiratory: Good bilateral air entry, no wheezes no rhonchi appreciated GI: Abdomen soft, nontender, nondistended, bowel sounds +, Behavior: Appropriate and cooperative Extremities: no edema, no cyanosis Neuro: Unremarkable TS Data Data Completed and Pending: Completed Studies During Hospitalization Category Date Time Status CT abdomen pelvis w con* [id number] Urge nt Cat Scan 06/01/21 16:[address] angio headneck * [id number] Rout ine Cat Scan 06/03/[address] head wo con* [id number] Stat Cat Scan 06/03/21 11:21 Completed Pending at discharge Category Date Time Status Leukocyte Reduced RBC Routine Lab 06/01/21 12:45 Results Type and Screen R outine Lab 06/01/21 12:45 Results Labs from last 24 hours 06/04/21 06/04/21 06/04/21 09:53 06:38 04:06 WBC RBC Hgb 8.6 L Hct 26.5 L MCV MCH MCHC RDW Plt Count MPV Neut % (Auto) Lymph % (Auto) [place] % (Auto) Eos % (Auto) Baso % (Auto) Neut # (Auto) Lymph # (Auto) [place] # (Auto) Eos # (Auto) Baso # (Auto) Nucleated RBC % (a uto) Nucleated RBCs # Sodium 140 Potassium 3.6 Chloride 112 H Carbon Dioxide 21 L Anion Gap 10.6 BUN 11 Creatinine 0.5 GFR Calculation Not Reportable Glucose 153 H POC Glucose 175 H Calculated Osmolal ity 292 Calcium 8.7 Blood Type Rho(D) Type Antibody Screen Crossmatch 06/04/21 06/03/21 06/03/21 04:06 21:50 20:48 WBC 5.8 RBC 2.67 L Hgb 8.4 L 8.5 L Hct 26.3 L 26.5 L MCV 98.5 MCH 31.5 MCHC 31.9 RDW 14.2 Plt Count 129 L MPV 11.2 H Neut % (Auto) 47.4 Lymph % (Auto) 39.8 [place] % (Auto) 11.4 Eos % (Auto) 1.0 Baso % (Auto) 0.2 Neut # (Auto) 2.76 Lymph # (Auto) 2.3 [place] # (Auto) 0.7 Eos # (Auto) 0.1 Baso # (Auto) 0.0 Nucleated RBC % (a uto) 0 Nucleated RBCs # 0.0 Sodium Potassium Chloride Carbon Dioxide Anion Gap BUN Creatinine GFR Calculation Glucose POC Glucose 183 H Calculated Osmolal ity Calcium Blood Type Rho(D) Type Antibody Screen Crossmatch 06/03/21 06/03/21 06/03/21 16:55 15:08 13:08 WBC RBC Hgb 8.7 L Hct 27.4 L MCV MCH MCHC RDW Plt Count MPV Neut % (Auto) Lymph % (Auto) [place] % (Auto) Eos % (Auto) Baso % (Auto) Neut # (Auto) Lymph # (Auto) [place] # (Auto) Eos # (Auto) Baso # (Auto) Nucleated RBC % (a uto) Nucleated RBCs # Sodium Potassium Chloride Carbon Dioxide Anion Gap BUN Creatinine GFR Calculation Glucose POC Glucose 189 H 218 H Calculated Osmolal ity Calcium Blood Type Rho(D) Type Antibody Screen Crossmatch 06/01/21 12:45 WBC RBC Hgb Hct MCV MCH MCHC RDW Plt Count MPV Neut % (Auto) Lymph % (Auto) [place] % (Auto) Eos % (Auto) Baso % (Auto) Neut # (Auto) Lymph # (Auto) [place] # (Auto) Eos # (Auto) Baso # (Auto) Nucleated RBC % (a uto) Nucleated RBCs # Sodium Potassium Chloride Carbon Dioxide Anion Gap BUN Creatinine GFR Calculation Glucose POC Glucose Calculated Osmolal ity Calcium Blood Type B Positive Rho(D) Type Positive Antibody Screen Negative Crossmatch See Detail Vitals: Last Vital Signs Temp 98.2 F 06/04/21 11:53 Pulse 67 06/04/21 11:53 Resp 14 06/04/21 11:53 BP 121/68 06/04/21 11:53 Pulse Ox 95 06/04/21 11:53 TS Medications Medications Home Medications allopurinol 300 mg PO BEDTIME 02/27/21 [History Confirmed 06/01/21] lovastatin 20 mg PO BEDTIME 02/27/21 [History Confirmed 06/01/21] pantoprazole 40 mg PO BID #60 tab 03/03/21 [Rx Confirmed 06/01/21] tamsulosin 0.4 mg PO BEDTIME #30 cap 03/03/21 [Rx Confirmed 06/01/21] aspirin 81 mg tablet,delayed release 81 mg PO QAM 05/20/21 [History Confirmed 06/01/21] Humalog KwikPen Insulin 10 - 15 unit SUBCUT TID 06/01/21 [History Confirmed 06/01/21] furosemide 20 mg PO DAILY PRN 06/01/21 [History Confirmed 06/01/21] insulin glargine [Lantus Solostar U-100 Insulin] 25 - 30 unit SUBCUT BEDTIME 06/01/21 [History Confirmed 06/01/21] naproxen sodium [Aleve] 440 mg PO Q12H PRN 06/01/21 [History Confirmed 06/01/21] tramadol [Ultram] 50 - 100 mg PO Q6H PRN 06/01/21 [History Confirmed 06/01/21] Active Medications Dextrose (Dextrose 50% Syringe 50 Ml) 25 ml IVP ONCE PRN; Protocol PRN Reason: hypoglycemia protocol Dextrose (Dextrose 50% Syringe 50 Ml) 50 ml IVP PRN PRN; Protocol PRN Reason: hypoglycemia protocol Dextrose (Dextrose 50% Syringe 50 Ml) 25 ml IVP ONCE PRN; Protocol PRN Reason: hypoglycemia protocol Dextrose (Dextrose 50% Syringe 50 Ml) 50 ml IVP PRN PRN; Protocol PRN Reason: hypoglycemia protocol Glucagon (Glucagon 1 Mg/Ml Inj 1 Ml) 1 mg IM ONCE PRN; Protocol PRN Reason: Adult Acute Hypoglycemia Prot. Glucagon (Glucagon 1 Mg/Ml Inj 1 Ml) 1 mg IM ONCE PRN; Protocol PRN Reason: Adult Acute Hypoglycemia Prot. Tranexamic Acid 1,000 mg/ (Sodium Chloride) 110 mls @ 330 mls/hr IV Q30M PRN PRN Reason: BLEEDING Sodium Chloride (Sodium Chloride 0.9%) 1,000 mls @ 75 mls/hr IV .[id number] REPLACED BY [facility] Last Admin: 06/04/21 08:24 Dose: 75 mls/hr Documented by: Dextrose (D5w) 500 mls @ 100 mls/hr IV ONCE PRN; Protocol PRN Reason: Adult Acute Hypoglycemia Prot Dextrose (D5w) 500 mls @ 100 mls/hr IV ONCE PRN; Protocol PRN Reason: Adult Acute Hypoglycemia Prot Insulin Glargine (Insulin Glargine 100 Units/1 Ml) 20 unit SUBCUT BEDTIME REPLACED BY [facility] Last Admin: 06/02/21 20:36 Dose: 20 unit Documented by: Insulin Human Lispro (Insulin Lispro 100 Unit/1 Ml) 0 unit SUBCUT WM&BEDTIME ANN; Protocol Last Admin: 06/04/21 08:10 Dose: 4 unit Documented by: Ondansetron HCl (Ondansetron 2 Mg/Ml Sdv 2 Ml) 4 mg IVP Q8H PRN PRN Reason: vomiting, or N/V if npo Pantoprazole Sodium (Pantoprazole 40 Mg Sdv) 40 mg IVP BID REPLACED BY [facility] Last Admin: 06/04/21 08:21 Dose: 40 mg Documented by: Discharge Plan Discharge Patient Disposition: Xfer Short-Term Hosp Condition: Stable Prescriptions: No Action aspirin [Adult Aspirin Regimen] 81 mg tablet,delayed release (DR/EC) 81 mg PO QAM RF: 0 allopurinol 300 mg tablet 300 mg PO BEDTIME RF: 0 lovastatin 20 mg tablet 20 mg PO BEDTIME RF: 0 tamsulosin 0.4 mg Capsule 0.4 mg PO BEDTIME Qty: 30 RF: 0 pantoprazole 40 mg Tablet,Delayed Release (Dr/Ec) 40 mg PO BID Qty: 60 RF: 0 tramadol [Ultram] 50 mg Tablet 50 - 100 mg PO Q6H PRN (Reason: Pain) RF: 0 Aleve 220 mg Tablet 440 mg PO Q12H PRN (Reason: Pain) RF: 0 furosemide 20 mg tablet 20 mg PO DAILY PRN (Reason: Edema) RF: 0 Humalog KwikPen Insulin 100 unit/mL insulin pen 10 - 15 unit SUBCUT TID RF: 0 Lantus Solostar U-100 Insulin 100 unit/mL (3 mL) insulin pen 25 - 30 unit SUBCUT BEDTIME RF: 0 Discharge Orders: Transfer Out of Facility (Order); Ordered 06/04/21 Ordered By: Rosalia Benton Referrals: Jasmina Moreno DO [Primary Care Provider] - Patient Instructions: Opioid Safety Transfer Attestations Time Spent in Transfer Care*: greater than 30 min Specific Discharge Activities: Specific discharge activities: educating patient, educating and/or supporting family/caregiver, discussing with pcp/other providers, documenting/other paperwork and evaluating patient/reviewing data Quality Metrics Clinical Quality Measures: During this hospital stay, did patient experience: None Coding Level of Care Code Acute Senior Enlisted Advisor for Trina Concepcion Diagnoses Acute lower gastrointestinal bleeding K92.2
[2021-06-04 11:58] LABS: Glucose Point of Care 111 mg/dL (70-110)
--- NOTE | 2021-06-04 13:25 | PC.SOCIAL ---
IMM Update: pg 2 of IMM updated and reviewed w/ patient and copy provided.
== END 2021-06-04 15:06 | disposition short-term general hospital (02) | DRG 379 ==
LOC: ER 16:45 → MEDSURG 18:15
PROVIDERS: Admitting Provider Internal Medicine; Emergency Provider Emergency Medicine; PCP Family Medicine; Visit Provider Internal Medicine
DX: K92.1 Melena (principal); K57.31 Diverticulosis of large intestine without perforation or abscess with bleeding; R63.4 Abnormal weight loss; R47.81 Slurred speech; R20.0 Anesthesia of skin; E78.5 Hyperlipidemia, unspecified; I10 Essential (primary) hypertension; I77.1 Stricture of artery; I65.23 Occlusion and stenosis of bilateral carotid arteries; R19.7 Diarrhea, unspecified; E11.9 Type 2 diabetes mellitus without complications; Z68.24 Body mass index [BMI] 24.0-24.9, adult; Z79.82 Long term (current) use of aspirin; Z79.4 Long term (current) use of insulin; Z85.038 Personal history of other malignant neoplasm of large intestine; Z90.49 Acquired absence of other specified parts of digestive tract; Z90.710 Acquired absence of both cervix and uterus; Z87.891 Personal history of nicotine dependence
CPT/HCPCS: 36415; 36416; 36430; 45330; 70450; 70496; 70498; 74177; 80048; 80053; 81001; 82607; 82746; 82962; 83630; 83735; 84100; 84145; 84443; 85014; 85018; 85025; 85049; 85384; 85610; 85730; 86140; 86850; 86900; 86920; 87506; 96360; 96361; 96372; 96374; 96375; 99285; C9113; J1815 ×2; J2370; J2704; J7030; P9016; Q9967

== ENCOUNTER → 2021-08-16 10:47 | Outpatient (BNVA) | payer MEDICARE, OTHER, SELFPAY | PROVIDERS: PCP Family Medicine; Visit Provider Internal Medicine | DX: E11.10 Type 2 diabetes mellitus with ketoacidosis without coma (principal); M81.0 Age-related osteoporosis without current pathological fracture; S72.90XA Unspecified fracture of unspecified femur, initial encounter for closed fracture; E21.3 Hyperparathyroidism, unspecified; K21.9 Gastro-esophageal reflux disease without esophagitis; Z87.891 Personal history of nicotine dependence; Z79.4 Long term (current) use of insulin; X58.XXXA Exposure to other specified factors, initial encounter | CPT/HCPCS: 82306; 82310; 83036; 83970; 84439; 84443; 99214 ==

== ENCOUNTER 2021-08-16 11:42 | Outpatient (CLI) | payer MEDICARE, OTHER, SELFPAY ==
[2021-08-16 13:12] LABS: Calcium 11.1 mg/dL (8.5-10.5)
[2021-08-16 13:18] LABS: 25 Hydroxy Vitamin D 20 ng/mL (30-100)
[2021-08-16 13:19] LABS: Parathyroid Hormone 46.5 pg/mL (15-65)
[2021-08-16 13:51] LABS: Free T4 Free Thyroxine 1.22 ng/dL (0.82-1.77)
[2021-08-16 14:06] LABS: Estmated Average Glucose 137; Hemoglobin A1C 6.4 % (4.0-6.0)
== END 2021-08-16 11:43 | disposition home or self-care (01) ==
LOC: LAB 11:50
PROVIDERS: PCP Family Medicine; Visit Provider Internal Medicine
DX: M81.0 Age-related osteoporosis without current pathological fracture (principal); E11.10 Type 2 diabetes mellitus with ketoacidosis without coma
CPT/HCPCS: 82306; 82310; 83036; 83970; 84439; 84443

== ENCOUNTER 2021-09-21 20:02 | Observation (INO) | payer MEDICARE, OTHER, SELFPAY ==
[2021-09-21 20:15] VITALS: BP 180/89; PULSE 90; RESP 18; TEMP 36.6; O2SAT 95; BMI 25.8
--- NOTE | 2021-09-21 20:32 | W.ED.AMS ---
HPI - Altered Mental Status General: Chief Complaint: Altered Mental Status Stated Complaint: very confused Time Seen by Provider: 09/21/21 20:32 Limitations: altered mental status History of Present Illness: Ms. Ceballos is a 76-year-old lady with significant past medical history of hypertension, hyperlipidemia, type 2 diabetes on insulin, and reported history of TIAs who presents emerged department due to altered mental status. As of yesterday the patient was at her baseline health without significant known changes however this morning she woke up with somewhat slurred and garbled speech. Initially symptoms were mild however is progressed throughout the day and now the patient has generalized confusion. She has had difficulty with ambulation and generalized weakness without known focality. Denies associated trauma or specific infectious symptoms. Intensity symptoms is moderate to severe. She has had similar episodes in past. No other specific known exacerbating, alleviating, or provoking factors identified. No recent changes in medication. History is provided by the patient's daughter at bedside as the patient has altered mental status and cannot provide meaningful history. Onset (ago): hour(s) Timing confirmed by: family member Severity: severe Consistency of symptoms: Getting Worse Context: history of similar presentation Associated symptoms: Reports no associated symptoms Review of Systems General: Reports: ROS unobtainable due to mental status (10 point review of systems was obtained from daughter and otherwise negativ) PFSH ED PFSH: Medical History (Updated 09/22/21 @ 01:14 by Nathaniel Alberto MD) Femur fracture right History of colon cancer Hyperlipidemia Hypertension Mini stroke Skin cancer Type 2 diabetes mellitus Urinary retention Surgical History H/O: hysterectomy S/P colon resection Family History Mother , at age 87 Heart attack Father , at age 86 Cancer prostate Social History Quit status (tobacco): has quit using tobacco Second hand smoke exposure: No Smoking risk assessment/counseling performed?: Yes Alcohol intake: never Desire information about alcohol rehabilitation?: No Counseling given: Yes Desire information about substance/drug rehabilitation?: No Counseling given: Yes Adopted: No Caregiver/support person: Yes Lives independently: Yes Household members: spouse Housing: House Marital status: Highest education level completed: Some College, No Degree service: No Current occupational status: retired History of recent travel: No Physical Exam Const: COMMON NORMALS: alert GENERAL APPEARANCE: well developed and ill appearing (Mildly, chronic) HENMT: COMMON NORMALS: normocephalic and atraumatic HEAD & SCALP: normocephalic and atraumatic Eye: COMMON NORMALS: conjunctivae normal CONJUNCTIVA: Yes conjunctivae normal SCLERA: sclerae normal Neck/C-Spine: COMMON NORMALS: supple and no meningeal signs GENERAL: Yes trachea midline Resp: COMMON NORMALS: normal respiratory effort and clear to auscultation bilaterally AUSCULTATION: clear to auscultation bilaterally Cardio: COMMON NORMALS: regular rate and regular rhythm RATE: regular rate RHYTHM: regular rhythm GI: COMMON NORMALS: Soft to palpation PALPATION: Yes Soft to palpation and No Tenderness to palpation present (GI) Extremity: GENERAL: Yes normal exam except as noted and No edema Neuro: COMMON NORMALS: moves all extremities SENSORIUM/ORIENTATION: Yes alert, Yes Orientation impaired and Yes somnolent MENINGEAL SIGNS: Yes no meningeal signs OTHER: The patient has no gross focal neurologic deficits however very limited testing. The patient cannot meaningfully participate in cranial nerve exam as she does not follow commands, she appears to comprehend the requests however unable to transition from comprehension to movements. No obvious facial droop or disturbance in EOMs. Psych: MEMORY/COGNITION: Yes memory grossly impaired and Yes cognition grossly impaired Course ED course: - Patient was seen and evaluated by me at bedside - Patient placed on cardiac monitors, IV access obtained - Initial evaluation notable for exam as above. Given onset of symptoms greater than 4.5 hours from ED presentation patient is not a candidate for TPA. - Labs notable for no leukocytosis. Metabolic panel without acute derangement to explain symptoms. ABG without evidence of hypercapnia. Urinalysis without evidence of urinary tract infection. - Imaging notable for no lobar consolidation on chest x-ray. CT head negative for intracranial hemorrhage or mass. CTA similar to prior without evidence of LVO. - Upon serial reexamination after treatment the patient was similar. She did become mildly agitated and was complaining bilateral hip pain which is chronic for the patient. 1 mg of Haldol and patient's baseline tramadol ordered. No evidence of rigidity or tremor. - Based on patient history, evaluation, labs, and imaging as interpreted the most likely cause of the patient's condition is encephalopathy of unclear etiology - The results of ED evaluation were discussed with the patient including plan for admission due to requirement for level of care not available if discharged to prevent significant worsening/deterioration. - Admitting service was contacted and Dr Alberto with the hospitalist service agreed to admit the patient - Patient was admitted without further deterioration or significant events. Note: Click bubbles or prepopulated avina in note writing are used for assistance with data collection and billing and are inherently more limited than narrative and other text portions of this note. Please use narrative for additional clinical history and defer to narrative/free test for any case of contradictory information. If information appears in only free text or click bubble it should be considered present or absent as reported. Please contact note sql report writer for clarifications of clinical information or contradictory information. MDM is a brief summary, contradictory or erroneous seeming information should be clarified and full note should be reviewed. Vital Signs: Vital signs: Vital Signs Temperature 97.4 F L 09/22/21 04:02 Pulse Rate 91 09/22/21 04:02 Respiratory Rate 18 09/22/21 04:02 Blood Pressure 171/83 09/22/21 04:02 Pulse Oximetry 93 09/22/21 04:02 MDM - Altered Mental Status Medical Decision Making 76-year-old lady presenting with acute alteration in mental status starting with wake-up symptoms. Patient is not a TPA candidate. No focality however patient is grossly encephalopathic which is markedly different from baseline per daughter's report. No obvious etiology identified on imaging or labs. Patient has had similar presentation previously. Will be admitted for further definitive management and further investigation. Medical Records I reviewed the patient's medical records. Lab Data I reviewed the patient's lab results. : 09/21/21 20:44 09/21/21 20:44 Radiology Impressions Chest X-Ray 09/21/21 20:47 IMPRESSION: No acute findings. Head CT 09/21/21 20:47 IMPRESSION: 1. Atrophy and chronic ischemic changes. 2. No acute intracranial finding. 3. No significant change compared with 06/03/2021. Head/Neck CTA 09/21/21 20:47 IMPRESSION: There is no major intracranial vascular occlusion. Findings not significantly changed from previous. IMPRESSION: No significant stenosis or occlusion in the carotid or vertebral arteries on either side of the neck. REFERENCES: NASCET CRITERIA. The degree of internal carotid artery stenosis is based on NASCET criteria. Normal is no stenosis. Mild is less than 50% stenosis. Moderate is 50-69% stenosis. Severe is 70% to 99% stenosis. Total occlusion is no detectable patent lumen. Laboratory Results WBC 7.5 10^3/uL (4.0-10.0) 09/21/21 20:44 RBC 4.07 10^6/uL (4.1-5.3) L 09/21/21 20:44 Hgb 11.7 g/dL (11.5-15.3) 09/21/21 20:44 Hct 38.9 % (37.0-47.0) 09/21/21 20:44 MCV 95.6 fl (81-99) 09/21/21 20:44 MCH 28.7 pg (28.0-34.0) 09/21/21 20:44 MCHC 30.1 g/dL (30.0-36.0) 09/21/21 20:44 RDW 14.9 % (12.1-15.1) 09/21/21 20:44 Plt Count 213 10^3/cmm (130-400) 09/21/21 20:44 MPV 11.2 fL (7.4-10.4) H 09/21/21 20:44 Neut % (Auto) 57.5 % 09/21/21 20:44 Lymph % (Auto) 29.9 % 09/21/21 20:44 [place] % (Auto) 9.9 % 09/21/21 20:44 Eos % (Auto) 2.3 % 09/21/21 20:44 Baso % (Auto) 0.3 % 09/21/21:44 Neut # (Auto) 4.29 10^3/uL (1.8-7.7) 09/21/21 20:44 Lymph # (Auto) 2.2 10^3/uL (0.8-4.8) 09/21/21 20:44 [place] # (Auto) 0.7 10^3/uL (0.2-0.9) 09/21/21 20:44 Eos # (Auto) 0.2 10^3/uL (0.0-0.8) 09/21/21 20:44 Baso # (Auto) 0.0 10^3/uL (0.0-0.1) 09/21/21 20:44 Nucleated RBC % (auto) 0 % 09/21/21 20: Nucleated RBCs # 0.0 /100WBC 09/21/21 20:44 ESR 25 mm/hr (0-15) H 09/21/21 20:44 Specimen Type Arterial 09/21/21 20:56 Sample Site Radial, left 09/21/21 20:56 ABG pH 7.44 (7.35-7.45) 09/21/21 20:56 ABG pCO2 37.4 mmHg (35-45) 09/21/21 20:56 ABG pO2 77.9 mmHg (80.0-100.0) L 09/21/21 20:56 ABG HCO3 25.5 mmol/L (22-26) 09/21/21 20: ABG Base Excess 1.4 mmol/L (-2.0-2.0) 09/21/21 20:56 Nikolai Test Pos 09/21/21 20:56 Hematocrit 35.9 % (37-47) L 09/21/21 20:56 O2 Delivery Device None 09/21/21 20:56 Calender Let Off Helper ID Hensa 09/21/21 20:56 Sodium 139 mmol/L (136-145) 09/21/21 20:44 Potassium 4.3 mmol/L (3.5-5.1) 09/21/21 20:44 Chloride 103 mmol/L (98-107) 09/21/21 20:44 Carbon Dioxide 26 mmol/L (22-29) 09/21/21 20:44 Anion Gap 14.3 (5-19) 09/21/21 20:44 BUN 16 mg/dL (8-23) 09/21/21 20:44 Creatinine 0.6 mg/dL (0.5-0.9) 09/21/21 20:44 GFR Calculation Not Reportable 09/21/21 20:44 Glucose 198 mg/dL (65-115) H 09/21/21 20:44 Calculated Osmolality 295 mOsm/kg (285-295) 09/21/21 20:44 Calcium 10.5 mg/dL (8.5-10.5) 09/21/21 20:44 Total Bilirubin 0.6 mg/dL (0.15-1.2) 09/21/21 20:44 AST 17 U/L (0-32) 09/21/21:44 ALT 15 U/L (0-33) 09/21/21:44 Alkaline Phosphatase 101 IU/L (35-105) 09/21/21:44 Troponin T Baseline 18 ng/L (0-10) H 09/21/21: Troponin T 120 Minute 18.39 ng/L (0-10) H 09/21/21 23:04 Delta Troponin T 0.39 ABS# (0-10) 09/21/21 23:04 C-Reactive Protein 3.0 mg/L (0.0-4.9) 09/21/21 23:04 NT-Pro-B Natriuret Pep 242 pg/mL (0-450) 09/21/21: Total Protein 7.5 g/dL (6.6-8.7) 09/21/21: Albumin 4.3 g/dL (3.5-5.2) 09/21/21: Globulin 3.2 g/dL (1.3-4.6) 09/21/21: Vitamin B12 202 pg/mL (232-1245) L 09/21/21 23:04 Procalcitonin 0.05 ng/mL (0-0.5) 09/21/21: TSH 2.40 uIU/mL (0.27-4.20) 09/21/21:44 Urine Color Colorless (Yellow) 09/21/21:45 Urine Appearance Clear (CLEAR) 09/21/21:45 Urine pH 7 (5-7) 09/21/21:45 Ur Specific Lee 1.005 (1.005-1.030) 09/21/21:45 Urine Protein 2+ (Negative) H 09/21/21:45 Urine Glucose (UA) 2+ (Normal) H 09/21/21:45 Urine Ketones 1+ (Negative) H 09/21/21:45 Urine Blood Neg (Negative) 02/16/22 22:45 Urine Nitrate Negative (Negative) 09/21/21 22:45 Urine Bilirubin Neg (Negative) 09/21/21 22:45 Urine Urobilinogen Norm mg/dL (Negative) 09/21/21 22:45 Ur Leukocyte Esterase Negative (Negative) 09/21/21 22:45 Urine RBC 0-4 /hpf (0-2) H 02 22:45 Urine WBC 0-4 /hpf (0-5) H 09/21/21 22:45 Ur Squamous Epith Cells 0-4 /hpf (0-5) H 09/21/21 22:45 Amorphous Sediment Not Reportable 09/21/21 22:45 Urine Bacteria Trace /hpf (NONE) 09/21/21 22:45 Urine Opiates Screen Negative ng/mL (Negative) 09/21/21 22:45 Ur Barbiturates Screen Negative ng/mL (Negative) 09/21/21 22:45 Ur Phencyclidine Scrn Negative ng/mL (Negative) 09/21/21 22:45 Ur Amphetamines Screen Negative ng/mL (Negative) 09/21/21 22:45 U Benzodiazepines Scrn Negative ng/mL (Negative) 09/21/21 22:45 Urine Cocaine Screen Negative ng/mL (Negative) 09/21/21 22:45 U Marijuana (THC) Screen Negative ng/mL (Negative) 09/21/21 22:45 Serum Ketones Negative (Negative) 09/21/21 20:44 SARS-CoV-2 Ag (Rapid) Negative (Negative) 09/21/21 22:45 EKG Data EKG 1: I personally reviewed and interpreted this EKG as follows: EKG interpretation date: 09/21/21 EKG interpretation time: 21:21 Interpretation: Twelve-lead EKG shows a regular rhythm at a rate of 76. CO interval 129, QRS 84, QTc 398 Normal axis Interpretation: Sinus rhythm. EKG 2: I personally reviewed and interpreted this EKG as follows: EKG interpretation date: 09/21/21 EKG interpretation time: 23:50 Interpretation: Twelve-lead EKG shows a regular rhythm at a rate of 90. CO interval 139, QRS duration 85, QTc 389. Normal axis. Interpretation: Sinus rhythm. Discharge Plan Discharge Patient Disposition: Placed in Observation Admit Provider: Nathaniel Alberto Clinical Impression: Altered mental status Coding Level of Care Code ED Contract Analyst for Chg Fwd Exam Comprehensive
--- NOTE | 2021-09-21 20:47 | CTR_ITS ---
PROCEDURE INFORMATION: Exam: CT Angiography Head With Contrast, Arteriography Exam date and time: 09/21/2021 8:47 PM Age: 76 years old Clinical indication: Speech disturbance; Patient HX: Stroke like symptoms, slurred speech, confusion TECHNIQUE: Imaging protocol: Computed tomography angiography of the head with contrast. Exam focused on the arteries. 3D rendering (Not supervised by radiologist): MIP and/or 3D reconstructed images were created by the technologist. Radiation optimization: All CT scans at this facility use at least one of these dose optimization techniques: automated exposure control; mA and/or kV adjustment per patient size (includes targeted exams where dose is matched to clinical indication); or iterative reconstruction. Contrast material: OMNI 350; Contrast volume: 74 ml; Contrast route: INTRAVENOUS (IV); COMPARISON: CT angio headneck* [id number] 06/03/2021 11:43 AM RADIATION DOSE METRICS: Total DLP (mGy-cm): 1429.63 FINDINGS: ANTERIOR CIRCULATION: Right internal carotid artery: There is atherosclerotic calcification and mild stenosis in the right cavernous carotid artery not significantly changed from previous. Right middle cerebral artery: There is mild narrowing of the right M1 middle cerebral artery not significantly changed. Right anterior cerebral artery: Unremarkable. No occlusion or significant stenosis. No aneurysm. Left internal carotid artery: There is atherosclerotic calcification and mild stenosis in the left cavernous carotid artery not significantly changed from previous. Left middle cerebral artery: Unremarkable. No occlusion or significant stenosis. No aneurysm. Left anterior cerebral artery: Unremarkable. No occlusion or significant stenosis. No aneurysm. POSTERIOR CIRCULATION: Right vertebral artery: Unremarkable. No occlusion or significant stenosis. No aneurysm. Left vertebral artery: Unremarkable. No occlusion or significant stenosis. No aneurysm. 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 Right posterior cerebral artery: Unremarkable. No occlusion or significant stenosis. No aneurysm. Left posterior cerebral artery: Unremarkable. No occlusion or significant stenosis. No aneurysm. Brain: No definite mass, mass effect, or midline shift. Cerebral ventricles: No ventriculomegaly. Bones/joints: Unremarkable. No acute fracture. Soft tissues: Unremarkable. PROCEDURE INFORMATION: Exam: CT Angiography Neck With Contrast Exam date and time: 09/21/2021 8:47 PM Age: 76 years old Clinical indication: Speech disturbance; Patient HX: Stroke like symptoms, slurred speech, confusion TECHNIQUE: Imaging protocol: Computed tomography angiography of the neck with contrast. 3D rendering (Not supervised by radiologist): MIP and/or 3D reconstructed images were created by the technologist. Radiation optimization: All CT scans at this facility use at least one of these dose optimization techniques: automated exposure control; mA and/or kV adjustment per patient size (includes targeted exams where dose is matched to clinical indication); or iterative reconstruction. Contrast material: OMNI 350; Contrast volume: 74 ml; Contrast route: INTRAVENOUS (IV); COMPARISON: CT angio headneck* [id number] 06/03/2021 11:43 AM RADIATION DOSE METRICS: Total DLP (mGy-cm): 1429.63 FINDINGS: Right common carotid artery: No stenosis. No dissection or occlusion. Right internal carotid artery: There is atherosclerotic plaque at the right carotid bifurcation with no significant stenosis in the right internal carotid artery is measured according to the NASCET criteria. Right external carotid artery: There is moderate stenosis at the origin of the right external carotid artery not changed from previous. Left common carotid artery: No stenosis. No dissection or occlusion. Left internal carotid artery: No stenosis of the extracranial segment. No dissection or occlusion. Left external carotid artery: There is some atherosclerotic calcification at the origin of the left external carotid artery with moderate stenosis not changed from previous. Right vertebral artery: No stenosis. No dissection or occlusion. Left vertebral artery: No stenosis. No dissection or occlusion. Soft tissues: Normal. No significant soft tissue swelling. Bones/joints: No acute fracture. CT/CT angio [facility]* [id number] IMPRESSION: There is no major intracranial vascular occlusion. Findings not significantly changed from previous. IMPRESSION: No significant stenosis or occlusion in the carotid or vertebral arteries on either side of the neck. REFERENCES: NASCET CRITERIA. The degree of internal carotid artery stenosis is based on NASCET criteria. Normal is no stenosis. Mild is less than 50% stenosis. Moderate is 50-69% stenosis. Severe is 70% to 99% stenosis. Total occlusion is no detectable patent lumen.
--- NOTE | 2021-09-21 20:47 | CTR_ITS ---
PROCEDURE INFORMATION: Exam: CT Head Without Contrast Exam date and time: 09/21/2021 8:47 PM Age: 76 years old Clinical indication: Speech disturbance; Patient HX: Stroke like symptoms, slurred speech, confusion TECHNIQUE: Imaging protocol: Computed tomography of the head without contrast. Radiation optimization: All CT scans at this facility use at least one of these dose optimization techniques: automated exposure control; mA and/or kV adjustment per patient size (includes targeted exams where dose is matched to clinical indication); or iterative reconstruction. COMPARISON: CT head wo con* [id number] 06/03/2021 11:40 AM RADIATION DOSE METRICS: Total DLP (mGy-cm): 1425.44 FINDINGS: Brain: There is moderate cortical atrophy. Low-density changes in the white matter are consistent with nonspecific small vessel chronic ischemic change. There is no intracranial mass, hemorrhage or edema. Cerebral ventricles: No ventriculomegaly. Paranasal sinuses: Visualized sinuses are unremarkable. No fluid levels. Mastoid air cells: Visualized mastoid air cells are well aerated. Bones/joints: Unremarkable. No acute fracture. Soft tissues: Unremarkable. CT/CT head wo con* [id number] IMPRESSION: 1. Atrophy and chronic ischemic changes. 2. No acute intracranial finding. 3. No significant change compared with 06/03/2021.
--- NOTE | 2021-09-21 20:47 | XRR_ITS ---
PROCEDURE INFORMATION: Exam: XR Chest Exam date and time: 09/21/2021 8:47 PM Age: 76 years old Clinical indication: Other: AMS TECHNIQUE: Imaging protocol: XR of the chest. Views: 1 view. COMPARISON: CR XR chest 1V portable [id number] 02/27/2021 2:18 PM FINDINGS: Lungs: Unremarkable. No consolidation. Pleural spaces: Unremarkable. No pleural effusion. No pneumothorax. Heart/Mediastinum: Unremarkable. No cardiomegaly. Bones/joints: Unremarkable. XR/XR chest 1V portable [id number] IMPRESSION: No acute findings.
--- NOTE | 2021-09-21 20:48 | ECG_ITS ---
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 Measurements Intervals [place] Rate: 76 P: -30 VT: 129 QRS: 123 QRSD: 84 T: 114 QT: 368 QTc: 414 Interpretive Statements SINUS RHYTHM POSSIBLE RIGHT VENTRICULAR HYPERTROPHY [SOME/ALL OF: PROMINENT R IN V1, LATE TRANSITION, RAD, BARI, SSS] Compared to ECG 02/27/2021 15:19:17 Sinus tachycardia no longer present T-wave abnormality no longer present Electronically Signed On 09-21-2021 21:19:37 AIRLINE PILOT by Diamond Duffy M.D. [id number]
--- NOTE | 2021-09-21 20:49 | PC.NURSE ---
patient received with AMS that was noted this morning by , daughter states getting worse as the day progresses. states was normal yesterday.
[2021-09-21 21:11] LABS: ABG PCO2 37.4 mmHg (35-45); ABG PH Result 7.44 (7.35-7.45); Arterial Blood Gas Hematocrit 35.9 % (37-47); Base Excess ABG 1.4 mmol/L (-2.0-2.0); Blood Gas Allen Test Pos; Blood Gas Sample Site Radial, left; Blood Gas Sample Type Arterial; HCO3 ABG 25.5 mmol/L (22-26); PO2 ABG 77.9 mmHg (80.0-100.0)
[2021-09-21 21:19] LABS: Basophils % 0.3 %; Eosinophils # 0.2 10^3/uL (0.0-0.8); Eosinophils % 2.3 %; Hematocrit 38.9 % (37.0-47.0); Hemoglobin 11.7 g/dL (11.5-15.3); Lymphocytes # 2.2 10^3/uL (0.8-4.8); Lymphocytes % 29.9 %; Mean Corpuscular HGB Conc 30.1 g/dL (30.0-36.0); Mean Corpuscular Hemoglobin 28.7 pg (28.0-34.0); Mean Corpuscular Volume 95.6 fl (81-99); Mean Platelet Volume 11.2 fL (7.4-10.4); Monocytes # 0.7 10^3/uL (0.2-0.9); Monocytes % 9.9 %; Neutrophils # 4.29 10^3/uL (1.8-7.7); Neutrophils % 57.5 %; Nucleated Red Blood Cells % 0 %; Platelet Count 213 10^3/cmm (130-400); Red Blood Count 4.07 10^6/uL (4.1-5.3); Red Cell Distribution Width 14.9 % (12.1-15.1); White Blood Count 7.5 10^3/uL (4.0-10.0)
[2021-09-21 21:24] LABS: Troponin(5th) Baseline 18 ng/L (0-10)
[2021-09-21 21:27] LABS: Ketone (Acetest) Serum Negative (Negative)
[2021-09-21 21:32] LABS: NT Pro B Type Natriuretic Pept 242 pg/mL (0-450); Procalcitonin 0.05 ng/mL (0-0.5)
[2021-09-21 21:44] LABS: Alanine Aminotransferase 15 U/L (0-33); Albumin Level 4.3 g/dL (3.5-5.2); Alkaline Phosphatase 101 IU/L (35-105); Anion Gap 14.3 (5-19); Aspartate Amino Transferase 17 U/L (0-32); Blood Urea Nitrogen 16 mg/dL (8-23); Calcium 10.5 mg/dL (8.5-10.5); Carbon Dioxide 26 mmol/L (22-29); Chloride 103 mmol/L (98-107); Globulin 3.2 g/dL (1.3-4.6); Glucose 198 mg/dL (65-115); Osmolality Calculated 295 mOsm/kg (285-295); Potassium 4.3 mmol/L (3.5-5.1); Sodium 139 mmol/L (136-145); Total Bilirubin 0.6 mg/dL (0.15-1.2); Total Protein 7.5 g/dL (6.6-8.7)
[2021-09-21] MEDS: iohexol 350 mg/mL 100 mL Btl IV (22:19)
--- NOTE | 2021-09-21 22:48 | ECG_ITS ---
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 Measurements Intervals [place] Rate: 90 P: 53 PA: 139 QRS: 61 QRSD: 85 T: 48 QT: 341 QTc: 418 Interpretive Statements SINUS RHYTHM Compared to ECG 09/21/2021 21:14:00 Atrial abnormality no longer present Electronically Signed On 09-22-2021 20:53:38 DATABASES COMPUTER CONSULTANT by Paul Brown M.D. [id number]
[2021-09-21] MEDS: TRAMadol 50 mg Tablet 100 MG PO (23:25)
[2021-09-21] MEDS: ondansetron 2 mg/ML SDV 2 mL 4 MG IVP (23:25)
[2021-09-21] MEDS: haloperidol inj 5 mg/mL INJ 1 mL 1 MG IVP (23:25)
[2021-09-21 23:33] LABS: Troponin 5 2HR 18.39 ng/L (0-10)
[2021-09-21 23:41] LABS: SARS Covid-2 Antigen Negative (Negative)
[2021-09-21 23:46] LABS: Troponin 5 2HR Delta 0.39 ABS# (0-10)
[2021-09-21 23:55] LABS: Add Urine Culture? No; Add Urine Microscopic? YES; Bacteria Urine TRACE /hpf; Bilirubin Urine Neg (Negative); Blood Urine Neg (Negative); Glucose Urine UA 2+ (Normal); Ketones Urine 1+ (Negative); Leukocyte Esterase Urine Negative (Negative); Nitrate Urine Negative (Negative); Protein Urine 2+ (Negative); RBC Urine 0-4 /hpf (0-2); Specific Gravity, Urine 1.005 (1.005-1.030); Squamous Epithelial Cell Urine 0-4 /hpf (0-5); Urine Appearance Clear (CLEAR); Urine Color Colorless (Yellow); Urobilinogen Urine Norm (Negative); WBC Urine 0-4 /hpf (0-5); pH Urine 7 (5-7)
--- NOTE | 2021-09-22 00:56 | P.HP_ITS ---
Providers/Chief Complaint Admitting Physician: Nathaniel Alberto MD Primary Care Provider: Jasmina Moreno DO Chief Complaint: very confused History of Present Illness Karina Ceballos is a 76 year old female who presents to the emergency department with confusion. Daughter reports confusion has been going on since around this morning, perhaps 7 or 8 AM. She reports it has been somewhat progressive since then. When she went to check on her at noon she reoriented to her. Now it is difficult for her to get an appropriate response. She said she could not see on several occasions, although she appears to. She fidgets constantly. She has no focal deficits although earlier in the day when daughter tried to walk her she seemed to walk more going to 1 side. She has not really noticed any facial droop. They really have not been any new medications. She had recurrent s lurred speech, and even a facial droop in May which was evaluated in [place] as well as here. She did not receive an MRI. CT head showed no acute changes. CTA of neck demonstrated moderate stenosis and no thrombus. I [place] she apparently received an EEG which was normal, and symptoms resolved. She is not on any sedative medication other than tramadol that she takes about 100 mg at night and rarely during the day. Daughter does not believe that she is taken any more of this than usual. She has had no fever, nausea, vomiting. Daughter has checked her blood sugar and has not been low. Review of Systems General: Reports: ROS unobtainable due to mental status (patient confused) Medications/Allergies Home Medications Medication Instructions Recorded Confirmed Last Taken Type allopurinol 300 mg tablet 300 mg PO BEDTIME 02/27/21 08/16/21 2 Days Ago History ~05/30/21 lovastatin 20 mg tablet 20 mg PO BEDTIME 02/27/21 08/16/21 2 Days Ago History ~05/30/21 pantoprazole 40 mg tablet,delayed 40 mg PO BID #60 tab 03/03/21 08/16/21 2 Days Ago Rx release ~05/30/21 tamsulosin 0.4 mg capsule 0.4 mg PO BEDTIME #30 cap 03/03/21 08/16/21 2 Days Ago Rx ~05/30/21 aspirin 81 mg tablet,delayed 81 mg PO QAM 05/20/21 08/16/21 2 Days Ago History release (Adult Aspirin Regimen) ~05/30/21 furosemide 20 mg tablet 20 mg PO DAILY PRN 06/01/21 08/16/21 Unknown History insulin glargine 100 unit/mL (3 25 - 30 unit SUBCUT BEDTIME 06/01/21 08/16/21 05/31/21 History mL) subcutaneous pen (Lantus 12.5 units Solostar U-100 Insulin) insulin lispro 100 unit/mL 10 - 15 unit SUBCUT TID 06/01/21 08/16/21 Unknown History subcutaneous pen (Humalog KwikPen (U-100) Insulin) naproxen sodium 220 mg tablet 440 mg PO Q12H PRN 06/01/21 08/16/21 Unknown History (Aleve) tramadol 50 mg tablet (Ultram) 50 - 100 mg PO Q6H PRN 06/01/21 08/16/21 Unknown History Allergies Allergy/AdvReac Type Severity Reaction Status Date / Time codeine Allergy ALGY-Anaphy Verified 08/16/21 10:56 laxis hydromorphone [From Dilaudid] Allergy ALGY-Anaphy Verified 08/16/21 10:56 laxis morphine Allergy ALGY-Anaphy Verified 08/16/21 10:56 laxis PFSH Acute PFSH: Medical History (Updated 09/22/21 @ 01:14 by Nathaniel Alberto MD) Femur fracture right History of colon cancer Hyperlipidemia Hypertension Mini stroke Skin cancer Type 2 diabetes mellitus Urinary retention Surgical History H/O: hysterectomy S/P colon resection Family History Mother , at age 87 Heart attack Father , at age 86 Cancer prostate Social History Quit status (tobacco): has quit using tobacco Second hand smoke exposure: No Smoking risk assessment/counseling performed?: Yes Alcohol intake: never Desire information about alcohol rehabilitation?: No Counseling given: Yes Desire information about substance/drug rehabilitation?: No Counseling given: Yes Adopted: No Caregiver/support person: Yes Lives independently: Yes Household members: spouse Housing: House Marital status: Highest education level completed: Some College, No Degree service: No Current occupational status: retired History of recent travel: No Vitals/I&O/Wt Last Vital Signs Temp 98 F 09/21/21 20:15 Pulse 90 09/21/21 20:15 Resp 18 09/21/21 20:15 BP 180/89 09/21/21 20:15 Pulse Ox 95 09/21/21 20:15 Weight last 48 hrs Weight 66.224 kg Physical Exam Narrative: General exam is a female, who appears to have difficulty getting comfortable. She shifts in bed constantly. When told open her eyes she will open them slightly, and occasionally try to respond where a few words are intelligible but speech is slurred. Neuro: See above. No specific focal deficits. HEENT: Pupils equally round. Oropharynx clear. Neck is supple no lymphadenopathy thyromegaly Cardiovascular regular rate and rhythm, no murmur Lungs clear no wheezing or crackles Abdomen is soft nontender positive bowel sounds. No obvious organomegaly. deferred Extremities no cyanosis clubbing or edema, cap refill brisk Skin no rash Data : 09/21/21 20:44 09/21/21 20:44 Micro: Microbiology 09/21/21 23:50 Blood Culture - Preliminary Blood SPECIMEN COLLECTED 09/21/21 23:55 Blood Culture - Preliminary Blood SPECIMEN COLLECTED Other data: CTA of neck demonstrates moderate stenosis, no occlusion or clot. 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 Chest x-ray no infiltrate Blood cultures were drawn EKG sinus rhythm, right axis deviation, no acute changes ABG pH 7.44, PCO2 37, PO2 78. Carbon monoxide level on review was undetectable LFTs normal Troponin XVIII with repeat of 18 Calcium 10.5 TSH normal Urinalysis negative Serum ketones negative Rapid Covid negative A&P Assessment and plan (1) Altered mental status: Patient significantly confused when she came in. Haldol called her somewhat. She did get a dose of tramadol as well. Etiology is difficult to determine currently. There is a possibility this is a CVA. She does have an abnormal appearance to her basilar artery. Aspirin given, statin MRI tomorrow If evidence of CVA consider addition of Plavix Allow permissive hypertension Hydration Other etiology considered. This could be a medication effect. Will hold tramadol. TSH and B12 have been checked. Carbon monoxide level undetectable. Monitor vital signs and further work-up as indicated. Check urine drug screen. Doubt polymyalgia rheumatica but will check CRP, sedimentation rate. We will also check ammonia level. Therapy consultations. Telemetry Check echo Status: Acute (2) Hyperparathyroidism: Calcium level upper limits of normal on laboratory. Doubt this is playing affect. Status: Acute (3) Hypertension: Allow permissive hypertension Status: Acute (4) Type 2 diabetes mellitus: Sliding scale insulin Status: Acute Plan Multiple other medical problems as outlined in past medical history Full code Lovenox for DVT prophylaxis Attestations Medical Necessity Statement*: Will need less than 2 midnight stay for evaluation and treatment of confusion, altered mental status, possible CVA at this point. Coding Level of Care Code Acute Waste Reclaimer for Trina Concepcion Diagnoses Altered mental status R41.82 Hyperparathyroidism E21.3 Hypertension I10 Type 2 diabetes mellitus E11.9
[2021-09-22] MEDS: aspirin 325 mg Tablet PO (01:09)
[2021-09-22] MEDS: atorvastatin 40 mg Tablet 80 MG PO (01:09)
[2021-09-22 01:19] LABS: Erythrocyte Sedimentation Rate 25 mm/hr (0-15)
[2021-09-22 01:40] LABS: Vitamin B12 202 pg/mL (232-1245)
[2021-09-22] MEDS: sodium chloride 0.9% 1,000 ML 100 ML IV ×3 (02:01→20:46)
[2021-09-22 02:13] LABS: Troponin 5 6HR 27.83 ng/L (0-10)
[2021-09-22 02:15] LABS: Troponin 5 6HR Delta 9.83 ng/L (0-12)
[2021-09-22 02:16] LABS: Ammonia 17 umol/L (11-51)
--- NOTE | 2021-09-22 02:48 | ECG_ITS ---
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 Measurements Intervals [place] Rate: 105 P: 60 ME: 155 QRS: 65 QRSD: 79 T: 56 QT: 344 QTc: 456 Interpretive Statements SINUS TACHYCARDIA MODERATE ST DEPRESSION [0.05+ mV ST DEPRESSION] Compared to ECG 09/21/2021 23:44:40 ST (T wave) deviation now present Sinus rhythm no longer present Electronically Signed On 09-22-2021 20:53:20 ADMINISTRATIVE ASSISTANT OFFICE MANAGER by Paul Brown M.D. [email or web address]
[2021-09-22] MEDS: enoxaparin 40 mg/0.4 mL Syringe SUBCUT (03:38)
[2021-09-22] MEDS: cyanocobalamin 1,000 mcg/mL SDV 1000 MCG IM (03:38)
[2021-09-22] MEDS: haloperidol inj 5 mg/mL INJ 1 mL 2 MG IM (03:58)
[2021-09-22 04:02] VITALS: BP 171/83; PULSE 91; RESP 18; TEMP 36.3; O2SAT 93
[2021-09-22 04:08] LABS: Amphetamines Screen Urine Negative (Negative); Barbiturates Screen Urine Negative (Negative); Benzodiazepines Screen Urine Negative (Negative); Cocaine Screen Urine Negative (Negative); Opiate Screen Urine Negative (Negative); PCP Screen Urine Negative (Negative); THC Screen Urine Negative (Negative)
[2021-09-22 06:17] LABS: Basophils % 0.1 %; Hematocrit 41.5 % (37.0-47.0); Hemoglobin 12.4 g/dL (11.5-15.3); Lymphocytes # 1.8 10^3/uL (0.8-4.8); Lymphocytes % 15.2 %; Mean Corpuscular HGB Conc 29.9 g/dL (30.0-36.0); Mean Corpuscular Hemoglobin 29.5 pg (28.0-34.0); Mean Corpuscular Volume 98.6 fl (81-99); Mean Platelet Volume 10.9 fL (7.4-10.4); Monocytes # 0.5 10^3/uL (0.2-0.9); Monocytes % 4.4 %; Neutrophils # 9.18 10^3/uL (1.8-7.7); Nucleated Red Blood Cells % 0 %; Platelet Count 204 10^3/cmm (130-400); Red Blood Count 4.21 10^6/uL (4.1-5.3); White Blood Count 11.5 10^3/uL (4.0-10.0)
[2021-09-22 06:30] LABS: Chol HDL Ratio 3.71 mg/dL (0.0-4.40); Cholesterol 204 mg/dL (0-200); HDL Cholesterol 55 mg/dL (60-100); LDL Cholesterol Calculated 127 mg/dL (50-129); LDL HDL Ratio 2.31 RATIO (0.00-3.22); Triglycerides 111 mg/dL (0-150)
[2021-09-22 06:47] LABS: Alanine Aminotransferase 14 U/L (0-33); Albumin Level 4.1 g/dL (3.5-5.2); Alkaline Phosphatase 102 IU/L (35-105); Anion Gap 20.4 (5-19); Aspartate Amino Transferase 19 U/L (0-32); Blood Urea Nitrogen 14 mg/dL (8-23); Calcium 10.3 mg/dL (8.5-10.5); Carbon Dioxide 19 mmol/L (22-29); Chloride 98 mmol/L (98-107); Globulin 3.4 g/dL (1.3-4.6); Glucose 270 mg/dL (65-115); Osmolality Calculated 286 mOsm/kg (285-295); Potassium 4.4 mmol/L (3.5-5.1); Sodium 133 mmol/L (136-145); Total Bilirubin 0.8 mg/dL (0.15-1.2); Total Protein 7.5 g/dL (6.6-8.7)
[2021-09-22 07:54] VITALS: BP 140/68; PULSE 102; RESP 15; O2SAT 94
[2021-09-22] MEDS: pantoprazole DR 40 mg Tablet PO (07:54)
[2021-09-22] MEDS: insulin lispro 100 unit/1 mL SUBCUT ×4 (08:05→21:11)
[2021-09-22 08:12] LABS: Glucose Point of Care 281 mg/dL (70-110)
[2021-09-22 08:32] VITALS: BP 140/68; PULSE 102; RESP 15
--- NOTE | 2021-09-22 08:48 | PC.PHAR ---
PT HAD LOVENOX 40MG/0.4 ML FILLED ON 08/05/21 X 14 DAYS, AND GLIPIZIDE 10MG BID ON 05/09/21 X 90 DAYS
--- NOTE | 2021-09-22 09:49 | XR_ITS ---
WS: [id number] KUB, AP supine portable, 09/22/2021 Clinical Data: Vomiting, worry for obstruction Comparison: KUB, 03/01/2021. Findings: No abnormal intraabdominal masses or calcifications are seen. There is no dilatated small bowel or ev idence of obstruction. There is fecal material in the rectum. There is contrast material filling the bladder from a CT of the head and neck. There are surgical cli ps in the left side of the abdomen. There is a right hip nail in good position. XR/XR KUB [id number] Impression: 1. Full bladder. 2. Fecal material in the rectum but no evidence of obstruction.
--- NOTE | 2021-09-22 10:15 | MRR_ITS ---
PROCEDURE INFORMATION: Exam: MR Head Without Contrast Exam date and time: 09/22/2021 10:15 AM Age: 76 years old Clinical indication: Altered mental status/memory loss; Additional info: CVA TECHNIQUE: Imaging protocol: MR of the head without contrast. COMPARISON: CT head wo con* [id number] 09/21/2021 10:14 PM FINDINGS: Limitations: Motion artifact on multiple sequences that can limit evaluation. Brain: Symmetric areas of decreased signal intensity in the right and left basal ganglia on the gradient echo sequence. Findings suggest mineral deposition. No acute intracranial hemorrhage. Two tiny areas of restricted diffusion in the villanueva matter of the anterior left frontal lobe and subcortical white matter of the posterior left frontal lobe. No cerebral edema. No mass effect. No midline shift. No intra-axial or extra-axial masses. No extra-axial fluid collections. Villanueva-white matter differentiation is unremarkable. Stable mild atrophy of the brain parenchyma. Multiple areas of increased signal intensity on T2 and FLAIR in the deep white matter, consistent with moderate microangiopathic change. Normal flow voids are present. Seventh and eighth cranial nerve complexes are unremarkable. No evidence for mesial temporal sclerosis. No evidence for Chiari 1 malformation. Cerebral ventricles: No hydrocephalus. Bones/joints: No acute fracture. Paranasal sinuses: Paranasal sinuses are clear. Mastoid air cells: Mastoid air cells are clear bilaterally. Orbital cavity: Globes and lenses, extraocular muscles, and optic nerves are intact bilaterally. No acute intraorbital abnormality. Soft tissues: No acute abnormality of the extracranial soft tissues. MR/MR head wo con* [id number] IMPRESSION: 1. Two tiny acute infarcts in the villanueva matter of the anterior left frontal lobe and subcortical white matter of the posterior left frontal lobe. No cerebral edema. No mass effect. No midline shift. 2. Stable mild atrophy of the brain parenchyma. 3. Moderate white matter microangiopathic change. 4. Incidental/nonacute findings are listed in the report.
--- NOTE | 2021-09-22 10:35 | PC.CHAP ---
Pastoral Care Encounter/Spiritual Assessment Type of Contact [] Declined munitions handler visit [] Patient/Family/Request visit [] Outpatient visit [] Follow-up visit [] Physician referral [] Code/Alert [] Routine visit [] Staff referral [] Actively dying [] Patient sleeping [] Family support [] [] Out of room [] Palliative care [] [] Receiving care in room [] Pre-surgical visit [] Trauma [] Long length of stay [] ICU visit [x] Other: staff care Relational/Emotional Strength [] Patient feels connected with others/family/visitors/staff [] Distress [] Loneliness/isolation [] Abandonment Spirituality of Patient [] Person of Amanda [] Attends Restorationist of their Amanda [] Believes in Prayer [] Reads Bible or Spiritism materials [] There are Spiritual issues to be addressed Yard Crane Operator Interventions [] Prayer [] Active listening [] Non-anxious presence [] Spiritual/emotional support [] Crisis/trauma care [] Spiritual counseling [] Bereavement support [] Provided bereavement packet [] Provided Bible/devotional materials [] Provided toy/stuffed animal, coloring book to patient or family member [] Provided Communion [] Anointing/[place] [] Salvation [] Completed spiritual assessment [] Other: Impact on Illness or Injury [] Angry [] Fearful [] Anxious [] Often cries [] Exhaustion [] Unable to work [] Unable to attend baptism [] Unable to walk/stand [] Unable to read [] Unable to drive [] Unable to eat/drink [] Unable to sleep [] Unable to be with family [] Patient intubated [] Other: Summary staff care Time spent with patient 5 mins
--- NOTE | 2021-09-22 11:10 | PC.OT ---
OT EVALUATION ATTEMPTED. PATIENT CURRENTLY AT MRI AND PER S.T. UNABLE TO STAY AWAKE FOR S.T. EVAL
[2021-09-22] MEDS: ondansetron 2 mg/ML SDV 2 mL 4 MG IVP ×2 (12:10→16:46)
--- NOTE | 2021-09-22 12:19 | XR_ITS ---
WS: [id number] KUB, AP portable supine, 09/22/2021, 1253 hours Clinical Data: NG placement Comparison: KUB, 09/22/2021, 1005 hours Findings: No abnormal intraabdominal masses are seen. There is no dilatated small bowel or evidence of obstruct ion. The nasogastric tube appears to end in the fundus of the stomach. There are surgical clips on the lef t side of the abdomen. There are calcifications to the right of the L4 vertebral body which may be in the mesentery. The contrast in the bladder is no longer present. XR/XR KUB portable [id number] Impression: Negative KUB.
--- NOTE | 2021-09-22 12:42 | PM.MISC ---
Miscellaneous Note Note: This morning when evaluated the patient patient was keeping her eyes closed, at the bedside, she experienced an episode of emesis, about 1 to 2 mL of bilious content came out I requested stat KUB, she was scheduled for MRI at 10 AM I called her daughter who is a nurse She told me that she had two episodes of emesis yesterday and this will be her third, we discussed the possibility of posterior circulation stroke KUB requested to rule out bowel obstruction, it did show bladder distention, requested Varghese catheter placement Patient was sent for the MRI and received 1 mg of Ativan, this was canceled because of her emesis during MRI I asked nurse to put an NG to avoid aspiration, keep Zofran for as needed basis Patient is keeping her eyes closed She is moving her both arms She seems to have right-sided neglect Gait was not tested Not responding to my questions, She seems confused and agitated Mild facial droop Currently on room air Dehydrated Repeat MRI, place Varghese catheter, concern for posterior circulation CVA She is afebrile, I do not suspect meningitis at this point Normal UA Chest x-ray unremarkable Right now patient is not able to follow commands, she will not be able to take any aspirin or Plavix or atorvastatin Frequent neurochecks High risk for intubation if mentation worsens and she keeps vomiting Vitamin B12 extremely low Normal procalcitonin Normal TSH Discussed goals of care with the and her daughter, in case of any acute emergencies they want us to try intubating her and do chest compression but they do want her to be put on a ventilator for prolonged period of time if she is no meaningful recovery
[2021-09-22 13:28] LABS: Glucose Point of Care 238 mg/dL (70-110)
[2021-09-22] MEDS: Fleet Enema 133 mL Enema PR (14:17)
[2021-09-22] MEDS: piperacillin-tazobactam 3.375 GM in sodium chloride 0.9% (plus) 50 ML IV ×2 (14:18→20:46)
[2021-09-22] MEDS: acetaminophen 325 mg Tablet 650 MG PO ×2 (14:18→21:11)
[2021-09-22 15:58] VITALS: BP 158/76; PULSE 99; RESP 14; TEMP 37.8; O2SAT 95
[2021-09-22] MEDS: LORazepam 2 mg/mL INJ 1 mL 0.5 MG IVP (16:46)
--- NOTE | 2021-09-22 17:57 | PC.NURSE ---
Patient has been nonverbal and not following commands all day, due to that Stroke Scale was not done. Patient had multiple episodes of emesis earlier today, NG placed and zofran given twice. NG is placed on intermittent suction only putting out 50 mls this shift. Patient had wilson place, having an output of 1300 mls right after placement. Patient had bowel movement after enema given. Patient went down for MRI, premedicated with ativan and zofran due to failed attempt earlier today. Patient had a fever of 100.1, Nafisa stated. Otherwise vitals stable. Will continue to monitor and give report to night nurse.
[2021-09-22 20:00] VITALS: BP 157/78; PULSE 98; RESP 16; TEMP 37.6; O2SAT 96
[2021-09-22 21:11] LABS: Glucose Point of Care 220 mg/dL (70-110)
[2021-09-22 21:19] LABS: Glucose Point of Care 236 mg/dL (70-110)
[2021-09-23] VITALS (13 sets, daily range): BP systolic 127–168; BP diastolic 61–84; PULSE 81–96; RESP 14–24; TEMP 36.4–37.6; O2SAT 91–100
--- NOTE | 2021-09-23 | USCV_ITS ---
Transthoracic Echo Karina Ceballos Age: 76 Gender: F : 1945 Exam Date: 09/23/2021 02:00 Ordering Phys: Nathaniel Alberto MD Technologist: LESLIE [place]am [place] [facility] [place]ication: CVA BP: / HR: 93 Rhythm: Sinus Technical Quality: Adequate MEASUREMENTS (Male / Female) Normal Values 2D ECHO LV Diastolic Diameter PLAX 3.1 cm 4.2 - 5.9 / 3.9 - 5.3 cm LV Systolic Diameter PLAX 2.1 cm IVS Diastolic Thickness 1.3 cm 0.6 - 1.0 / 0.6 - 0.9 cm IVS Systolic Thickness 1.3 cm LVPW Diastolic Thickness 1.1 cm 0.6 - 1.0 / 0.6 - 0.9 cm LVPW Systolic Thickness 1.1 cm LVOT Diameter 1.7 cm LV Ejection Fraction 2D Teich 63.2 % LV Ejection Fraction MOD 2C 39.8 % LV Ejection Fraction 2C AL 50.6 % LA Diameter 3.0 cm LA Width 3.6 cm LA Height 5.1 cm RA Width 3.8 cm RA Height 3.8 cm Aorta at Sinotubular Diameter 2.2 cm M-MODE Aortic Annulus Diameter 2.2 cm LA Ao Ratio MM 1.4 DOPPLER AV Peak Velocity 163.0 cm/s LVOT Peak Velocity 112.0 cm/s AV Area Cont Eq vti 1.5 cm squared AV Area Cont Eq pk 1.6 cm squared MV Peak Velocity 91.0 cm/s MV Area PHT 7.6 cm squared Mitral E to A Ratio 1.0 MV E' Velocity 51.5 cm/s Mitral E to MV E' Ratio 9.9 Mitral E to LV E' Lateral Ratio 7.5 Mitral E to LV E' Septal Ratio 14.5 TR Peak Velocity 248.2 cm/s TR Peak Gradient 24.6 mmHg TR Mean Velocity 178.4 cm/s TR Mean Gradient 15.0 mmHg TR Velocity Time Integral 70.6 cm TV Peak E Velocity 79.0 cm/s Right Atrial Pressure 3.0 mmHg Pulmonary Artery Systolic Pressu 27.6 mmHg PV Peak Velocity 125.0 cm/s RV Acceleration Time 0.1 s RV Ejection Time 0.4 s RV AcT/ET 0.3 FINDINGS Left Ventricle Normal left ventricular size, systolic function and wall thickness, with no regional wall motion abnormalities. Left ventricular ejection fraction is estimated at 60 %. Normal diastolic function. Right Ventricle Normal right ventricular size and systolic function. Right ventricular systolic pressure 18 mmHg. Right Atrium Normal right atrial size. Left Atrium Normal left atrial size. Mitral Valve Structurally normal mitral valve. No mitral valve stenosis. Trace mitral valve regurgitation. Aortic Valve Structurally normal trileaflet aortic valve. No aortic valve stenosis. No aortic valve regurgitation. Tricuspid Valve Structurally normal tricuspid valve. No tricuspid valve stenosis. Mild tricuspid valve regurgitation. Pulmonic Valve Structurally normal pulmonic valve. No pulmonary valve stenosis. No pulmonary valve regurgitation. Pericardium No pericardial effusion. Aorta Normal size aortic root and proximal ascending aorta. Normal- sized inferior vena cava. CONCLUSIONS 1. Normal left ventricular size, systolic function and wall thickness, with no regional wall motion abnormalities. Left ventricular ejection fraction is estimated at 60 %. Normal diastolic function. 2. Normal right ventricular size and systolic function. 3. Mild tricuspid valve regurgitation. 4. Normal pulmonary artery pressure. 5. No prior similar studies to compare. Diamond Duffy MD (Electronically Signed) Final Date: 23 September 2021 16:12 S
[2021-09-23] MEDS: enoxaparin 40 mg/0.4 mL Syringe SUBCUT (03:05)
[2021-09-23] MEDS: piperacillin-tazobactam 3.375 GM in sodium chloride 0.9% (plus) 50 ML IV ×3 (05:23→20:50)
[2021-09-23 06:46] LABS: Glucose Point of Care 177 mg/dL (70-110)
[2021-09-23] MEDS: sodium chloride 0.9% 1,000 ML 100 ML IV (07:29)
[2021-09-23 07:42] LABS: Basophils % 0.1 %; Hematocrit 40.7 % (37.0-47.0); Hemoglobin 12.6 g/dL (11.5-15.3); Lymphocytes % 17.4 %; Mean Corpuscular Hemoglobin 29.7 pg (28.0-34.0); Mean Platelet Volume 10.8 fL (7.4-10.4); Monocytes # 1.1 10^3/uL (0.2-0.9); Neutrophils # 8.18 10^3/uL (1.8-7.7); Neutrophils % 72.1 %; Nucleated Red Blood Cells % 0 %; Platelet Count 157 10^3/cmm (130-400); Red Blood Count 4.24 10^6/uL (4.1-5.3); White Blood Count 11.4 10^3/uL (4.0-10.0)
[2021-09-23] MEDS: aspirin 325 mg Tablet PO (08:15)
[2021-09-23] MEDS: cyanocobalamin 1,000 mcg/mL SDV 1000 MCG IM ×2 (08:15→17:39)
[2021-09-23] MEDS: clopidogrel 75 mg Tablet PO (08:15)
[2021-09-23] MEDS: pantoprazole DR 40 mg Tablet PO ×2 (08:15→18:49)
[2021-09-23] MEDS: insulin lispro 100 unit/1 mL SUBCUT ×3 (08:16→18:48)
[2021-09-23 08:57] LABS: Anion Gap 14.7 (5-19); Blood Urea Nitrogen 21 mg/dL (8-23); Calcium 9.8 mg/dL (8.5-10.5); Carbon Dioxide 22 mmol/L (22-29); Chloride 102 mmol/L (98-107); Glucose 199 mg/dL (65-115); Osmolality Calculated 289 mOsm/kg (285-295); Potassium 3.7 mmol/L (3.5-5.1); Sodium 135 mmol/L (136-145)
--- NOTE | 2021-09-23 09:13 | PC.CHAP ---
Pastoral Care Encounter/Spiritual Assessment Type of Contact [] Declined credit administration officer visit [] Patient/Family/Request visit [] Outpatient visit [] Follow-up visit [] Physician referral [] Code/Alert [x] Routine visit [] Staff referral [] Actively dying [] Patient sleeping [] Family support [] [] Out of room [] Palliative care [] [] Receiving care in room [] Pre-surgical visit [] Trauma [] Long length of stay [] ICU visit [] Other: Relational/Emotional Strength [x] Patient feels connected with others/family/visitors/staff [] Distress [] Loneliness/isolation [] Abandonment Spirituality of Patient [x] Person of Amanda [] Attends Mosque of their Amanda [] Believes in Prayer [] Reads Bible or Druze materials [] There are Spiritual issues to be addressed Industrial Psychology Teacher Interventions [] Prayer [] Active listening [] Non-anxious presence [] Spiritual/emotional support [] Crisis/trauma care [] Spiritual counseling [] Bereavement support [] Provided bereavement packet [] Provided Bible/devotional materials [] Provided toy/stuffed animal, coloring book to patient or family member [] Provided Communion [] Anointing/[place] [] Salvation [x] Completed spiritual assessment [] Other: Impact on Illness or Injury [] Angry [] Fearful [] Anxious [] Often cries [] Exhaustion [] Unable to work [] Unable to attend yazidi [] Unable to walk/stand [] Unable to read [] Unable to drive [] Unable to eat/drink [] Unable to sleep [] Unable to be with family [] Patient intubated [] Other: Summary Time spent with patient 10 bmin
[2021-09-23 11:32] LABS: Glucose Point of Care 227 mg/dL (70-110)
--- NOTE | 2021-09-23 14:30 | P.PN_ITS ---
Subjective Subjective: Hospital course, labs appreciated. Patient seen with family at bedside. No acute events overnight. Patient has remained hemodynamically stable and afebrile. NG tube in place. No further drainage. Patient remains somnolent but maintaining her airway. Vitals/I&O/Wt Last Vital Signs Temp 98.0 F 09/23/21 11:28 Pulse 96 09/23/21 11:28 Resp 16 09/23/21 11:28 BP 152/78 09/23/21 11:28 Pulse Ox 95 09/23/21 11:28 09/22/21 09/23/21 09/23/21 22:59 06:59 14:59 Intake Total 1050 / 1050 1050 / 2100 50 / 50 Output Total 400 / 1700 100 / 100 Balance 650 / -650 1050 / 400 -50 / -50 Weight last 48 hrs Weight 66.224 kg Physical Exam Narrative: General exam is a female, comfortable comfortable, no acute d istress, slurred speech Neuro: See above. No specific focal deficits. Pupils bilaterally equal and reactive HEENT: Pupils equally round. Oropharynx clear. Neck is supple no lymphadenopathy thyromegaly Cardiovascular regular rate and rhythm, no murmur Lungs clear no wheezing or crackles Abdomen is soft nontender positive bowel sounds. No obvious organomegaly. deferred Extremities no cyanosis clubbing or edema, cap refill brisk Skin no rash Urinary Catheter Management: fol: Cath Placed During This Visit: yes Reason for Continuing Indwelling Catheter: Acute Urinary Retention or Obstruction Urinary Catheter Date of Insertion: 09/22/21 Urinary Catheter Time of Insertion: 12:17 Data : 09/23/21 07:25 09/23/21 08:33 Micro: Microbiology 09/21/21 23:55 Blood Culture - Preliminary Blood Coagulase negativ staphylococc 09/21/21 23:50 Blood Culture - Preliminary Blood NEGATIVE TO DATE A&P Assessment and plan (1) Altered mental status: Most likely secondary to CVA as noticed on MRI brain. TSH, urine drug screen, COVID-19 antigen, procalcitonin negative. Ammonia levels, CRP appreciated Vitamin B12 slightly on the lower side. Will replace with one-time subcu shot. Continue Plavix, statin. Haldol as needed. Stop Ativan. Appreciate physical therapy/Occupational Therapy/speech therapy evaluation. Discussed in detail with the family. Family wants tube for short-term nutritional support to give her maximum chance to improve. If patient does not improve they will look for reversal as an outpatient. Surgery consulted. Echocardiogram results pending. Telemetry. Status: Acute (2) Aspiration pneumonia: Unlikely. Patient did have episode of vomiting yesterday. NG tube placed yesterday. Clamp NG tube. For now continue with Zosyn as patient will go for PEG tube within next 24 hours. We will stop post PEG tube placement. Status: Acute (3) Hypertension: Normal blood pressure We will start on amlodipine 10 mg daily. Status: Acute (4) Type 2 diabetes mellitus: Sliding scale insulin Status: Acute (5) Hyperparathyroidism: Calcium level upper limits of normal on laboratory. Doubt this is playing affect. Status: Acute Plan Multiple other medical problems as outlined in past medical history CODE STATUS: Discussed they are okay with chest compressions but do not want intubation. They are okay with PEG tube placement to give patient best possible chance to improve within next 3 to 6 months. If she does not improve over the next 6 months they will look for reversal as an outpatient as as per the patient would not want to live on artificial nutrition for long-term. Protonix for PUD prophylaxis. Lovenox for DVT prophylaxis Discharge planning: Discharge to home with home health after PEG tube placement for further rehabitation. Attestations Medical Necessity Statement*: Needs further hospitalization for management of acute stroke leading to severe altered mental status needing for PEG tube placement for long-term nutrition. Time Spent in Patient Care: Greater than 35 minutes Coding Level of Care Code Acute Apartment Maintenance Technician for Trina Concepcion Diagnoses Altered mental status R41.82 Hyperparathyroidism E21.3 Hypertension I10 Type 2 diabetes mellitus E11.9 Aspiration pneumonia J69.0
--- NOTE | 2021-09-23 14:30 | ANES.PREANE2 ---
Pre-Anesthetic Assessment Height/Weight: Height 1.6 m Weight 66.224 kg Temp Pulse Resp BP Pulse Ox 98.0 F 96 16 152/78 95 09/23/21 11:28 09/23/21 11:28 09/23/21 11:28 09/23/21 11:28 09/23/21 11:28 Preop Diagnosis: Abnormal weight loss and history of colon cancer Operation Date: 09/23/21 15:45 Proposed Procedures p EGD(Not Applicable) - Noe Godinez MD s PEG Tube Insertion(Not Applicable) - Noe Godinez MD Familial anesthetic complications: Hx from patient's . Per patient's no prior anesthesia complications Exam clear to auscultation bilaterally and regular rate & rhythm Airway Dentition: false Comments: Comments: Unable to cooperate with exam Pulmonary None reported CV/HEM Hypertension DLD Moderate ST depression on recent EKG noted 09/22/21 6 months ago per METS > 4 Hyponatremai GI Repeated emesis Hx of GI bleed. Metabolic Diabetes Mellitus Per patient's confusion and downhill trajectory with AMS started after episode of hyperglycemia with BG in 400s Neuropsych Cerebrovascular Accident and Transient Ischemic Attack AMS on admission CTA Head/Neck CT/CT angio headneck* [id number] IMPRESSION: There is no major intracranial vascular occlusion. Findings not significantly changed from previous. MRI Head 1. Two tiny acute infarcts in the greenberg matter of the anterior left frontal lobe and subcortical white matter of the posterior left frontal lobe. No cerebral edema. No mass effect. No midline shift. 2. Stable mild atrophy of the brain parenchyma. 3. Moderate white matter microangiopathic change. 4. Incidental/nonacute findings are listed in the report. Anesthetic Plan ASA status: 3 Anesthesia: Anesthesia Evaluation and General Other: With patient's I discussed risk and benefits of general anesthesia including PONV, sore throat (sometimes severe), corneal abrasion, positioning and peripheral nerve injuries, life threatening allergic reaction, post operative ICU admission requiring prolonged intubation, stroke, heart attack, , and rare incidences of recall. consents to proceed with general anesthesia. Risk of > 500 ml blood loss (7ml/kg in children): No Medications/Allergies Home Medications Medication Instructions Recorded Confirmed Last Taken Type allopurinol 300 mg tablet 300 mg PO BEDTIME 02/27/21 09/22/21 2 Days Ago History ~05/30/21 lovastatin 20 mg tablet 20 mg PO BEDTIME 02/27/21 09/22/21 2 Days Ago History ~05/30/21 pantoprazole 40 mg tablet,delayed 40 mg PO BID #60 tab 03/03/21 09/22/21 2 Days Ago Rx release ~05/30/21 tamsulosin 0.4 mg capsule 0.4 mg PO BEDTIME #30 cap 03/03/21 09/22/21 2 Days Ago Rx ~05/30/21 aspirin 81 mg tablet,delayed 81 mg PO QAM 05/20/21 09/22/21 2 Days Ago History release (Adult Aspirin Regimen) ~05/30/21 furosemide 20 mg tablet 20 mg PO DAILY PRN 06/01/21 09/22/21 Unknown History insulin glargine 100 unit/mL (3 25 - 30 unit SUBCUT BEDTIME 06/01/21 09/22/21 05/31/21 History mL) subcutaneous pen (Lantus 12.5 units Solostar U-100 Insulin) insulin lispro 100 unit/mL 10 - 15 unit SUBCUT TID 06/01/21 09/22/21 Unknown History subcutaneous pen (Humalog KwikPen (U-100) Insulin) naproxen sodium 220 mg tablet 440 mg PO Q12H PRN 06/01/21 09/22/21 Unknown History (Aleve) tramadol 50 mg tablet (Ultram) 50 - 100 mg PO Q6H PRN 06/01/21 09/22/21 Unknown History Allergies Allergy/AdvReac Type Severity Reaction Status Date / Time codeine Allergy ALGY-Anaphy Verified 08/16/21 10:56 laxis hydromorphone [From Dilaudid] Allergy ALGY-Anaphy Verified 08/16/21 10:56 laxis morphine Allergy ALGY-Anaphy Verified 08/16/21 10:56 laxis Current Medications Generic Name Dose Route Start Last Admin Trade Name Freq PRN Reason Stop Dose Admin Acetaminophen 650 mg 09/22/21 12:57 09/22/21 21:11 Acetaminophen 325 Mg Tablet PO 650 mg Q6H PRN Administration FEVER Aspirin 325 mg 09/22/21 09:00 09/23/21 08:15 Aspirin 325 Mg Tablet PO 325 mg DAILY ANN Administration Atorvastatin Calcium 40 mg 09/22/21 21:00 09/22/21 20:35 Atorvastatin 40 Mg Tablet PO Not Given BEDTIME ANN Clopidogrel Bisulfate 75 mg 09/23/21 09:00 09/23/21 08:15 Clopidogrel 75 Mg Tablet PO 75 mg DAILY ANN Administration Cyanocobalamin 1,000 mcg 09/22/21 09:00 09/23/21 09:43 Cyanocobalamin 1,000 Mcg Tablet PO Not Given DAILY ANN Enoxaparin Sodium 40 mg 09/22/21 03:02 09/23/21 03:05 Enoxaparin 40 Mg/0.4 Ml Syringe SUBCUT 40 mg Q24H ANN Administration Sodium Chloride 1,000 mls @ 100 mls/hr 09/22/21 01:15 09/23/21 07:29 Sodium Chloride 0.9% IV 100 mls/hr .Q10H ANN Administration Piperacillin Sod/Tazobactam 50 mls @ 12.5 mls/hr 09/22/21 13:30 09/23/21 12:26 Sod 3.375 gm/ Sodium Chloride IV 12.5 mls/hr Q8H ANN Administration Protocol Insulin Human Lispro 0 unit 09/22/21 08:00 09/23/21 12:26 Insulin Lispro 100 Unit/1 Ml SUBCUT 6 unit WM&BEDTIME ANN Administration Protocol Lorazepam 0.5 mg 09/22/21 12:50 09/22/21 16:46 Lorazepam 2 Mg/Ml Inj 1 Ml IVP 0.5 mg Q8H PRN Administration ANXIETY Ondansetron HCl 4 mg 09/22/21 09:50 09/22/21 16:46 Ondansetron 2 Mg/Ml Sdv 2 Ml IVP 4 mg Q4H PRN Administration NAUSEA AND VOMITING Pantoprazole Sodium 40 mg 09/22/21 09:00 09/23/21 08:[address] 40 Mg Tablet PO 40 mg BID ANN Administration PFSH Anesthesia Medical History Femur fracture right History of colon cancer Hyperlipidemia Hypertension Mini stroke Skin cancer Type 2 diabetes mellitus Urinary retention Surgical History H/O: hysterectomy S/P colon resection Family History Mother , at age 87 Heart attack Father , at age 86 Cancer prostate Social History Quit status (tobacco): has quit using tobacco Second hand smoke exposure: No Smoking risk assessment/counseling performed?: Yes Alcohol intake: never Desire information about alcohol rehabilitation?: No Counseling given: Yes Desire information about substance/drug rehabilitation?: No Counseling given: Yes Adopted: No Caregiver/support person: Yes Lives independently: Yes Household members: spouse Housing: House Marital status: Highest education level completed: Some College, No Degree service: No Current occupational status: retired History of recent travel: No Data Anesthesia : 09/23/21 07:25 09/23/21 08:33 Short CBC 09/21/21 09/22/21 09/23/21 Range/Units 20:44 06:00 07:25 WBC 7.5 11.5 H 11.4 H (4.0-10.0) 10^3/uL Hgb 11.7 12.4 12.6 (11.5-15.3) g/dL Hct 38.9 41.5 40.7 (37.0-47.0) % MCV 95.6 98.6 96.0 (81-99) fl Plt Count 213 204 157 (130-400) 10^3/cmm Neut % (Auto) 57.5 80.0 72.1 % Neut # (Auto) 4.29 9.18 H 8.18 H (1.8-7.7) 10^3/uL BMP 09/21/21 09/22/21 09/23/21 20:44 06:00 07:25 Sodium 139 133 L Cancelled Potassium 4.3 4.4 Cancelled Chloride 103 98 Cancelled Carbon Dioxide 26 19 L Cancelled BUN 16 14 Cancelled Creatinine 0.6 0.6 Cancelled Glucose 198 H 270 H Cancelled Calcium 10.5 10.3 Cancelled 09/23/21 08:33 Sodium 135 L Potassium 3.7 Chloride 102 Carbon Dioxide 22 BUN 21 Creatinine 0.5 Glucose 199 H Calcium 9.8 Cardiac Enzymes 09/21/21 09/21/21 09/21/21 Range/Units 20:44 20:44 23:04 Troponin T Baseline 18 H (0-10) ng/L Troponin T 120 Minute 18.39 H (0-10) ng/L Delta Troponin T 0.39 (0-10) ABS# Troponin T Hi Sens 6Hr (0-10) ng/L Troponin T Hi Sens 6Hr Delta (0-12) ng/L NT-Pro-B Natriuret Pep 242 (0-450) pg/mL 09/22/21 Range/Units 01:50 Troponin T Baseline (0-10) ng/L Troponin T 120 Minute (0-10) ng/L Delta Troponin T (0-10) ABS# Troponin T Hi Sens 6Hr 27.83 H (0-10) ng/L Troponin T Hi Sens 6Hr Delta 9.83 (0-12) ng/L NT-Pro-B Natriuret Pep (0-450) pg/mL Liver Function 09/21/21 09/22/21 Range/Units 20:44 06:00 Total Bilirubin 0.6 0.8 (0.15-1.2) mg/dL AST 17 19 (0-32) U/L ALT 15 14 (0-33) U/L Alkaline Phosphatase 101 102 (35-105) IU/L Albumin 4.3 4.1 (3.5-5.2) g/dL Urine 09/21/21 Range/Units 22:45 Urine Color Colorless (Yellow) Urine Appearance Clear (CLEAR) Urine pH 7 (5-7) Ur Specific [place] 1.005 (1.005-1.030) Urine Protein 2+ H (Negative) Urine Glucose (UA) 2+ H (Normal) Urine Ketones 1+ H (Negative) Urine Nitrate Negative (Negative) Urine Bilirubin Neg (Negative) Ur Leukocyte Esterase Negative (Negative) Urine RBC 0-4 H (0-2) /hpf Urine WBC 0-4 H (0-5) /hpf COVID Results 09/21/21 22:45 SARS-CoV-2 Ag (Rapid) Negative Coags 09/21/21 09/21/21 09/21/21 20:44 20:44 23:04 ESR 25 H C-Reactive Protein 3.0 3.0 ABG 09/21/21 20:56 Specimen Type Arterial Sample Site Radial, left ABG pH 7.44 ABG pCO2 37.4 ABG pO2 77.9 L ABG HCO3 25.5 ABG Base Excess 1.4 O2 Delivery Device None Microbiology 09/21/21 23:55 Blood Culture - Preliminary Blood Coagulase negativ staphylococc 09/21/21 23:50 Blood Culture - Preliminary Blood NEGATIVE TO DATE Cardiac Studies: No Data to Display
[2021-09-23] MEDS: sodium chloride 0.9% 1,000 ML 30 ML IV (16:04)
--- NOTE | 2021-09-23 16:16 | ANE.PACU2 ---
Inpatient post-anesthesia follow up: Airway intact: Yes Vital signs: Temperature 97.8 F Pulse Rate 87 Respiratory Rate 16 Blood Pressure 162/74 Pulse Oximetry 97 Oxygen Delivery Me thod Room Air Oxygen Flow Rate Fraction of Inspir ed Oxygen Hydration adequate: Yes Nausea and vomiting: No Pain level: 1 Mental status: Baseline
--- NOTE | 2021-09-23 16:33 | PM.CONSULT ---
Providers/Reason For Consult Consulting Physician/Specialty*: General Surgery Dr. Godinez Reason for Consult*: PEG placement Attending Physician: Mendel Garcia MD Primary Care Provider: Jasmina Moreno DO History of Present Illness History of Present Illness Karina Ceballos is a 76 year old female who was admitted on 09/21/2021 with altered mental status and was noted to have CVA. Patient has dysphagia and cannot take orally. As per she has not eaten for 4 days now. No prior gastric surgery or gastrostomy tube placement in the past Review of Systems General: Reports: ROS unobtainable due to mental status Medications/Allergies Home Medications Medication Instructions Recorded Confirmed Last Taken Type allopurinol 300 mg tablet 300 mg PO BEDTIME 02/27/21 09/22/21 2 Days Ago History ~05/30/21 lovastatin 20 mg tablet 20 mg PO BEDTIME 02/27/21 09/22/21 2 Days Ago History ~05/30/21 pantoprazole 40 mg tablet,delayed 40 mg PO BID #60 tab 03/03/21 09/22/21 2 Days Ago Rx release ~05/30/21 tamsulosin 0.4 mg capsule 0.4 mg PO BEDTIME #30 cap 03/03/21 09/22/21 2 Days Ago Rx ~05/30/21 aspirin 81 mg tablet,delayed 81 mg PO QAM 05/20/21 09/22/21 2 Days Ago History release (Adult Aspirin Regimen) ~05/30/21 furosemide 20 mg tablet 20 mg PO DAILY PRN 06/01/21 09/22/21 Unknown History insulin glargine 100 unit/mL (3 25 - 30 unit SUBCUT BEDTIME 06/01/21 09/22/21 05/31/21 History mL) subcutaneous pen (Lantus 12.5 units Solostar U-100 Insulin) insulin lispro 100 unit/mL 10 - 15 unit SUBCUT TID 06/01/21 09/22/21 Unknown History subcutaneous pen (Humalog KwikPen (U-100) Insulin) naproxen sodium 220 mg tablet 440 mg PO Q12H PRN 06/01/21 09/22/21 Unknown History (Aleve) tramadol 50 mg tablet (Ultram) 50 - 100 mg PO Q6H PRN 06/01/21 09/22/21 Unknown History Allergies Allergy/AdvReac Type Severity Reaction Status Date / Time codeine Allergy ALGY-Anaphy Verified 08/16/21 10:56 laxis hydromorphone [From Dilaudid] Allergy ALGY-Anaphy Verified 08/16/21 10:56 laxis morphine Allergy ALGY-Anaphy Verified 08/16/21 10:56 laxis Current Medications Generic Name Dose Route Start Last Admin Trade Name Freq PRN Reason Stop Dose Admin Acetaminophen 650 mg 09/22/21 12:57 09/22/21 21:11 Acetaminophen 325 Mg Tablet PO 650 mg Q6H PRN Administration FEVER Aspirin 325 mg 09/22/21 09:00 09/23/21 08:15 Aspirin 325 Mg Tablet PO 325 mg DAILY ANN Administration Atorvastatin Calcium 40 mg 09/22/21 21:00 09/22/21 20:35 Atorvastatin 40 Mg Tablet PO Not Given BEDTIME ANN Clopidogrel Bisulfate 75 mg 09/23/21 09:00 09/23/21 08:15 Clopidogrel 75 Mg Tablet PO 75 mg DAILY ANN Administration Cyanocobalamin 1,000 mcg 09/22/21 09:00 09/23/21 09:43 Cyanocobalamin 1,000 Mcg Tablet PO Not Given DAILY ANN Enoxaparin Sodium 40 mg 09/22/21 03:02 09/23/21 03:05 Enoxaparin 40 Mg/0.4 Ml Syringe SUBCUT 40 mg Q24H ANN Administration Sodium Chloride 1,000 mls @ 100 mls/hr 09/22/21 01:15 09/23/21 07:29 Sodium Chloride 0.9% IV 100 mls/hr .Q10H ANN Administration Piperacillin Sod/Tazobactam 50 mls @ 12.5 mls/hr 09/22/21 13:30 09/23/21 12:26 Sod 3.375 gm/ Sodium Chloride IV 12.5 mls/hr Q8H ANN Administration Protocol Sodium Chloride 1,000 mls @ 30 mls/hr 09/23/21 16:00 09/23/21 16:04 Sodium Chloride 0.9% IV 09/24/21 15:59 30 mls/hr .Q24H ANN Administration Insulin Human Lispro 0 unit 09/22/21 08:00 09/23/21 12:26 Insulin Lispro 100 Unit/1 Ml SUBCUT 6 unit WM&BEDTIME ANN Administration Protocol Lorazepam 0.5 mg 09/22/21 12:50 09/22/21 16:46 Lorazepam 2 Mg/Ml Inj 1 Ml IVP 0.5 mg Q8H PRN Administration ANXIETY Ondansetron HCl 4 mg 09/22/21 09:50 09/22/21 16:46 Ondansetron 2 Mg/Ml Sdv 2 Ml IVP 4 mg Q4H PRN Administration NAUSEA AND VOMITING Pantoprazole Sodium 40 mg 09/22/21 09:00 09/23/21 08:[address] 40 Mg Tablet PO 40 mg BID ANN Administration PFSH Acute PFSH: Medical History Femur fracture right History of colon cancer Hyperlipidemia Hypertension Mini stroke Skin cancer Type 2 diabetes mellitus Urinary retention Surgical History (Updated 09/23/21 @ 16:35 by Noe Godinez MD) H/O: hysterectomy S/P colon resection S/P percutaneous endoscopic gastrostomy (PEG) tube placement (09/23/21) Family History Mother , at age 87 Heart attack Father , at age 86 Cancer prostate Social History Quit status (tobacco): has quit using tobacco Second hand smoke exposure: No Smoking risk assessment/counseling performed?: Yes Alcohol intake: never Desire information about alcohol rehabilitation?: No Counseling given: Yes Desire information about substance/drug rehabilitation?: No Counseling given: Yes Adopted: No Caregiver/support person: Yes Lives independently: Yes Household members: spouse Housing: House Marital status: Highest education level completed: Some College, No Degree service: No Current occupational status: retired History of recent travel: No Vitals/I&O/Wt Last Vital Signs Temp 98.1 F 09/23/21 16:24 Pulse 88 09/23/21 16:24 Resp 24 H 09/23/21 16:24 BP 160/84 09/23/21 16:24 Pulse Ox 100 09/23/21 16:24 09/23/21 09/23/21 09/23/21 06:59 14:59 22:59 Intake Total 1050 / 2100 50 / 50 Output Total 100 / 100 Balance 1050 / 400 -50 / -50 Weight last 48 hrs Weight 146 lb Physical Exam Narrative: HEENT: Normocephalic Eye: Sclera /conjunctiva normal Abdomen: Soft to palpation well-healed midline infraumbilical laparotomy scar Neurological: Not arousable Skin: Intact, no lesions appreciated on gross exam Urinary Catheter Management: fol: Cath Placed During This Visit: yes Reason for Continuing Indwelling Catheter: Acute Urinary Retention or Obstruction Urinary Catheter Date of Insertion: 09/22/21 Urinary Catheter Time of Insertion: 12:17 Data : 09/23/21 07:25 09/23/21 08:33 Micro: Microbiology 09/21/21 23:50 Blood Culture - Preliminary Blood Gram positive tracy 09/21/21 23:55 Blood Culture - Preliminary Blood Coagulase negativ staphylococc A&P Assessment and plan (1) S/P percutaneous endoscopic gastrostomy (PEG) tube placement: 68-year-old female with inability to eat due to CVA who requires PEG placement. Procedure, risks, benefits and alternatives have been discussed with the patient's who wishes to proceed with surgery. Status: Acute Consult Attestations Medical Necessity Statement: As per attending physician Coding Level of Care Code Acute Community Relations Liaison for Chg Fwd Diagnoses S/P percutaneous endoscopic gastrostomy (PEG) tube placement Z93.1
--- NOTE | 2021-09-23 16:36 | PM.OP ---
Operative Report Date of procedure: September 23, 2021 Pre-op diagnosis: CVA requiring enteral access for nutrition Post-op diagnosis: Severe requiring enteral access for nutrition Normal EGD Procedure done: Percutaneous endoscopic placement of 20 [place] [employer] Enodvive gastrostomy tube using pull technique Pathology: none sent Surgeon: Noe Godinez Anesthesia: MAC Condition: stable Disposition: PACU Procedure: The patient was taken to the Operating Room and was placed under monitored anesthesia care after antibiotic had been administered. A bite block was placed and Olympus gastroscope was introduced and advanced up to the stomach and the first portion of the duodenum. There were no abnormalities noted in the esophagus, stomach and duodenum. The site for the planned PEG was confirmed in the left upper quadrant with transillumination using gastroscope noted through the abdominal wall and indentation of the abdominal wall noted on the gastroscope. This site was marked, and total of 5 milliliters of 1% lidocaine was infiltrated. An 11-blade was used to make a stab incision. An introducer needle was passed through the abdominal wall into the gastric lumen and the needle removed and the needle removed and the sheath left behind. A guidewire was passed through the introducer needle into the gastric lumen and grasped with a snare attached to the gastroscope. The gastroscope was withdrawn along with the guidewire, which was attached to the 20-[place] EndoVive PEG tube. The guidewire was then pulled through the abdominal wall along with the PEG through the mouth into the gastric lumen until the inner disc was noted to stand against the gastric wall. The gastroscope was reintroduced to confirm good position. The outer disc was then attached and the two way valve was fixed to the PEG tube. The outer disc was noted to be at 4 centimeters at the skin level. Sterile dressing and abdominal binder was placed. The patient was stable throughout the procedure.
[2021-09-23] MEDS: amlodipine 10 mg Tablet PO (17:40)
[2021-09-23 17:42] LABS: Glucose Point of Care 153 mg/dL (70-110)
[2021-09-23] MEDS: acetaminophen 325 mg Tablet 650 MG PO (18:48)
--- NOTE | 2021-09-23 19:33 | PC.NURSE ---
Patient did not have any output for me from NG tube, it was clamped at 1230, not nausea or vomiting noted. PEG tube ended up being placed, Glucerna is running at 10 ml/hr. Binder is in place, dressing changed at 1800. Blood pressure was running high, MD notified. [place] is intact and clean, adequate output. IV intact. Post procedure vital signs are actively being done and charter. Unable to do stroke assessment due to patient unable to answer questions or follow commands. Patient worked with PT and sat on side of the bed for about 10 minutes. Report given to night nurseRebekah.
[2021-09-23 20:30] LABS: Glucose Point of Care 125 mg/dL (70-110)
[2021-09-23] MEDS: atorvastatin 40 mg Tablet PO (20:49)
[2021-09-23] MEDS: tamsulosin 0.4 mg Capsule PO (20:49)
[2021-09-24 00:30] VITALS: BP 138/72; PULSE 92; RESP 16; TEMP 37.2; O2SAT 91
[2021-09-24] MEDS: enoxaparin 40 mg/0.4 mL Syringe SUBCUT (03:14)
[2021-09-24 04:00] VITALS: BP 125/66; PULSE 90; RESP 16; TEMP 37; O2SAT 94
[2021-09-24 05:09] LABS: Basophils % 0.2 %; Hematocrit 33.4 % (37.0-47.0); Hemoglobin 10.2 g/dL (11.5-15.3); Lymphocytes # 2.2 10^3/uL (0.8-4.8); Lymphocytes % 25.4 %; Mean Corpuscular HGB Conc 30.5 g/dL (30.0-36.0); Mean Corpuscular Volume 94.9 fl (81-99); Mean Platelet Volume 11.2 fL (7.4-10.4); Monocytes # 0.8 10^3/uL (0.2-0.9); Monocytes % 9.8 %; Neutrophils # 5.45 10^3/uL (1.8-7.7); Neutrophils % 64.2 %; Nucleated Red Blood Cells % 0 %; Platelet Count 162 10^3/cmm (130-400); Red Blood Count 3.52 10^6/uL (4.1-5.3); Red Cell Distribution Width 14.9 % (12.1-15.1); White Blood Count 8.5 10^3/uL (4.0-10.0)
[2021-09-24] MEDS: sodium chloride 0.9% 1,000 ML 100 ML IV (05:22)
[2021-09-24] MEDS: piperacillin-tazobactam 3.375 GM in sodium chloride 0.9% (plus) 50 ML IV ×2 (05:22→13:24)
[2021-09-24 05:40] LABS: Alanine Aminotransferase 10 U/L (0-33); Albumin Level 3.3 g/dL (3.5-5.2); Alkaline Phosphatase 73 IU/L (35-105); Aspartate Amino Transferase 14 U/L (0-32); Blood Urea Nitrogen 20 mg/dL (8-23); Calcium 9.7 mg/dL (8.5-10.5); Carbon Dioxide 22 mmol/L (22-29); Chloride 107 mmol/L (98-107); Glucose 193 mg/dL (65-115); Osmolality Calculated 294 mOsm/kg (285-295); Sodium 138 mmol/L (136-145); Total Protein 6.3 g/dL (6.6-8.7)
[2021-09-24 06:00] LABS: Anion Gap 12.7 (5-19); Potassium 3.7 mmol/L (3.5-5.1)
[2021-09-24 06:49] LABS: Glucose Point of Care 181 mg/dL (70-110)
[2021-09-24 08:00] VITALS: BP 136/67; PULSE 77; RESP 16; TEMP 36.8; O2SAT 93
[2021-09-24] MEDS: cyanocobalamin 1,000 mcg Tablet 1000 MCG PO (09:12)
[2021-09-24] MEDS: aspirin 325 mg Tablet PO (09:12)
[2021-09-24] MEDS: clopidogrel 75 mg Tablet PO (09:12)
[2021-09-24] MEDS: amlodipine 10 mg Tablet PO (09:12)
[2021-09-24] MEDS: pantoprazole DR 40 mg Tablet PO (09:12)
[2021-09-24] MEDS: acetaminophen 325 mg Tablet 650 MG PO (09:12)
[2021-09-24] MEDS: insulin lispro 100 unit/1 mL SUBCUT ×2 (10:08→11:40)
[2021-09-24 10:48] VITALS: BP 135/77; PULSE 82; RESP 16; TEMP 37; O2SAT 95
[2021-09-24 10:56] LABS: Glucose Point of Care 203 mg/dL (70-110)
--- NOTE | 2021-09-24 12:02 | P.DS_ITS ---
Discharge Providers Date of Admission: 09/22/21 00:15 Date of Discharge: September 24, 2021 Attending Provider at Admission: Nathaniel Alberto MD Attending Provider at Discharge: Mendel Garcia MD Consults: Surgery: Dr. Godinez Primary Care Provider: Jasmina Moreno DO Diagnoses at Discharge Discharge Diagnosis (1) S/P percutaneous endoscopic gastrostomy (PEG) tube placement: Status: Acute (2) Type 2 diabetes mellitus: Status: Acute (3) Altered mental status: Status: Acute (4) CVA (cerebral vascular accident): Status: Acute Reason for Visit Reason for Visit: very confused Brief History: History as per HPI: Karina Ceballos is a 76 year old female who presents to the emergency department with confusion.? Daughter reports confusion has been going on since around this morning, perhaps 7 or 8 AM.? She reports it has been somewhat progressive since then.? When she went to check on her at noon she reoriented to her.? Now it is difficult for her to get an appropriate response.? She said she could not see on several occasions, although she appears to.? She fidgets constantly.? She has no focal deficits although earlier in the day when daughter tried to walk her she seemed to walk more going to 1 side.? She has not really noticed any facial droop.? They really have not been any new medications.? She had recurrent slurred speech, and even a facial droop in May which was evaluated in [place] as well as here.? She did not receive an MRI.? CT head showed no acute changes.? CTA of neck demonstrated moderate stenosis and no thrombus.? I [place] she apparently received an EEG which was normal, and symptoms resolved.? She is not on any sedative medication other than tramadol that she takes about 100 mg at night and rarely during the day.? Daughter does not believe that she is taken any more of this than usual.? She has had no fever, nausea, vomiting.? Daughter has checked her blood sugar and has not been low. Hospital Course Hospital Course Patient went to the hospital for further evaluation and management of altered mental status. MRI brain was done which was consistent with in detail left frontal lobe infarct. Patient was seen by physical therapy and speech therapy. Patient had significant deficit in speech and swallow along with ambulation which seems to be improving gradually. Further goals of care discussions were done in detail with patient's family at bedside. We discussed regarding nutrition going forward while she undergoes physical therapy to give her the best possible chance for recovery. Options discussed or PEG tube placement for short-term nutrition while she gets a chance to improve with physical therapy. Family verbalized understanding was agreeable. Surgery was consulted and patient underwent PEG tube placement on 09/23. Further discharge planning were discussed in detail. Options discussed for SNF placement versus home with home health. Family wanted to take patient home with home health as she would have never wanted placement to SNF. By the day of discharge patient's mentation had improved. She is awake and alert sitting in chair able to have complete conversation though is having difficulty in finding words and making sentences along with slurred speech. Patient does have significant deficit currently. Worked with physical therapy. Dietitian was consulted. She was started on tube feeds accordingly. She is been discharged in hemodynamically stable condition to home with home health. Further treatment plan including initiation of aspirin Plavix and statin was discussed in detail with patient's family at bedside. We also discussed potential risk factors of diverticular bleed for which she was recently admitted to hospital in April 2021. Physical Exam Narrative: General exam is a female, sitting in chair, slurred speech, awake and alert x3, able to have complete conversation but finding it difficult to find words and make a sentence Neuro: See above. No specific focal deficits. Pupils bilaterally equal and reactive HEENT: Pupils equally round. Oropharynx clear. Neck is supple no lymphadenopathy thyromegaly Cardiovascular regular rate and rhythm, no murmur Lungs clear no wheezing or crackles Abdomen is soft nontender positive bowel sounds. No obvious organomegaly. deferred Extremities no cyanosis clubbing or edema, cap refill brisk Skin no rash Urinary Catheter Management: fol: Cath Placed During This Visit: yes Reason for Continuing Indwelling Catheter: Acute Urinary Retention or Obstruction Urinary Catheter Date of Insertion: 09/22/21 Urinary Catheter Time of Insertion: 12:17 Discharge Data Studies Completed and Pending Completed Studies During Hospitalization Category Date Time Status CT angio headneck* [id number] Urgent Cat Scan 09/21/21 20:[address] head wo con* [id number] Urgent Cat Scan 09/21/21 20:47 Completed XR KUB [id number] Stat Exams 09/22/21 09:49 Completed XR KUB portable [id number] Routine Exams 09/22/21 12:19 Completed XR chest 1V portable [id number] Urgent Exams 09/21/21 20:47 Completed MR head wo con* [id number] Routine MRI 09/22/21 10:15 Completed Pending at discharge Category Date Time Status Blood Culture Stat Lab 09/21/21 23:50 Results CV. echo complete* [id number] Routine Ultrasound 09/23/21 06:00 Taken Radiology Impressions Chest X-Ray 09/21/21 20:47 IMPRESSION: No acute findings. Head CT 09/21/21 20:47 IMPRESSION: 1. Atrophy and chronic ischemic changes. 2. No acute intracranial finding. 3. No significant change compared with 06/03/2021. Head/Neck CTA 09/21/21 20:47 IMPRESSION: There is no major intracranial vascular occlusion. Findings not significantly changed from previous. IMPRESSION: No significant stenosis or occlusion in the carotid or vertebral arteries on either side of the neck. REFERENCES: NASCET CRITERIA. The degree of internal carotid artery stenosis is based on NASCET criteria. Normal is no stenosis. Mild is less than 50% stenosis. Moderate is 50-69% stenosis. Severe is 70% to 99% stenosis. Total occlusionis no detectable patent lumen. Head MRI 09/22/21 10:15 IMPRESSION: 1. Two tiny acute infarcts in the greenberg matter of the anterior left frontal lobe and subcortical white matter of the posterior left frontal lobe. No cerebral edema. No mass effect. No midline shift. 2. Stable mild atrophy of the brain parenchyma. 3. Moderate white matter microangiopathic change. 4. Incidental/nonacute findings are listed in the report. ADDENDUM: 09/22/21 0405 THIS REPORT CONTAINS FINDINGS THAT MAY BE CRITICAL TO PATIENT CARE. The findings were verbally communicated via telephone conference with Dr. Little at 6:28 PM CREAM DUMPER on 09/22/2021. The findings were acknowledged and understood. KUB X-Ray 09/22/21 12:19 Impression: Negative KUB. Laboratory Results WBC 8.5 10^3/uL (4.0-10.0) 09/24/21 04:53 RBC 3.52 10^6/uL (4.1-5.3) L 09/24/21 04:53 Hgb 10.2 g/dL (11.5-15.3) L 09/24/21 04:53 Hct 33.4 % (37.0-47.0) L 09/24/21 04:53 MCV 94.9 fl (81-99) 09/24/21 04:53 MCH 29.0 pg (28.0-34.0) 09/24/21 04:53 MCHC 30.5 g/dL (30.0-36.0) 09/24/21 04:53 RDW 14.9 % (12.1-15.1) 09/24/21 04:53 Plt Count 162 10^3/cmm (130-400) 09/24/21 04:53 MPV 11.2 fL (7.4-10.4) H 09/24/21 04:53 Neut % (Auto) 64.2 % 09/24/21 04:53 Lymph % (Auto) 25.4 % 09/24/21 04:53 [place] % (Auto) 9.8 % 09/24/21 04:53 Eos % (Auto) 0.0 % 09/24/21 04:53 Baso % (Auto) 0.2 % 09/24/21 04:53 Neut # (Auto) 5.45 10^3/uL (1.8-7.7) 09/24/21 04:53 Lymph # (Auto) 2.2 10^3/uL (0.8-4.8) 09/24/21 04:53 [place] # (Auto) 0.8 10^3/uL (0.2-0.9) 09/24/21 04:53 Eos # (Auto) 0.0 10^3/uL (0.0-0.8) 09/24/21 04:53 Baso # (Auto) 0.0 10^3/uL (0.0-0.1) 09/24/21 04:53 Nucleated RBC % (auto) 0 % 09/24/21 04:53 Nucleated RBCs # 0.0 /100WBC 09/24/21 04:53 ESR 25 mm/hr (0-15) H 09/21/21 20:44 Specimen Type Arterial 09/21/21 20:56 Sample Site Radial, left 09/21/21 20:56 ABG pH 7.44 (7.35-7.45) 09/21/21 20:56 ABG pCO2 37.4 mmHg (35-45) 09/21/21 20:56 ABG pO2 77.9 mmHg (80.0-100.0) L 09/21/21 20:56 ABG HCO3 25.5 mmol/L (22-26) 09/21/21 20:56 ABG Base Excess 1.4 mmol/L (-2.0-2.0) 09/21/21 20:56 Nikolai Test Pos 09/21/21 20:56 Hematocrit 35.9 % (37-47) L 09/21/21 20:56 O2 Delivery Device None 09/21/21 20:56 Director Of Health Education ID Hensa 09/21/21 20:56 Sodium 138 mmol/L (136-145) 09/24/21 04:53 Potassium 3.7 mmol/L (3.5-5.1) 09/24/21 04:53 Chloride 107 mmol/L (98-107) 09/24/21 04:53 Carbon Dioxide 22 mmol/L (22-29) 09/24/21 04:53 Anion Gap 12.7 (5-19) 09/24/21 04:53 BUN 20 mg/dL (8-23) 09/24/21 04:53 Creatinine 0.4 mg/dL (0.5-0.9) L 09/24/21 04:53 GFR Calculation Not Reportable 09/24/21 04:53 Glucose 193 mg/dL (65-115) H 09/24/21 04:53 POC Glucose 203 mg/dL (70-110) H 09/24/21 10:45 Calculated Osmolality 294 mOsm/kg (285-295) 09/24/21 04:53 Calcium 9.7 mg/dL (8.5-10.5) 09/24/21 04:53 Total Bilirubin 1.0 mg/dL (0.15-1.2) 09/24/21 04:53 AST 14 U/L (0-32) 09/24/21 04:53 ALT 10 U/L (0-33) 09/24/21 04:53 Alkaline Phosphatase 73 IU/L (35-105) 09/24/21 04:53 Ammonia 17 umol/L (11-51) 09/22/21 01:50 Troponin T Baseline 18 ng/L (0-10) H 09/21/21 20:44 Troponin T 120 Minute 18.39 ng/L (0-10) H 09/21/21 23:04 Delta Troponin T 0.39 ABS# (0-10) 09/21/21 23:04 Troponin T Hi Sens 6Hr 27.83 ng/L (0-10) H 09/22/21 01:50 Troponin T Hi Sens 6Hr Delta 9.83 ng/L (0-12) 09/22/21 01:50 C-Reactive Protein 3.0 mg/L (0.0-4.9) 09/21/21 23:04 NT-Pro-B Natriuret Pep 242 pg/mL (0-450) 09/21/21 20:44 Total Protein 6.3 g/dL (6.6-8.7) L 09/24/21 04:53 Albumin 3.3 g/dL (3.5-5.2) L 09/24/21 04:53 Globulin 3.0 g/dL (1.3-4.6) 09/24/21 04:53 Triglycerides 111 mg/dL (0-150) 09/22/21 06:00 Cholesterol 204 mg/dL (0-200) H 09/22/21 06:00 LDL Cholesterol, Calc 127 mg/dL (50-129) 09/22/21 06:00 HDL Cholesterol 55 mg/dL (60-100) L 09/22/21 06:00 LDL/HDL Ratio 2.31 RATIO (0.00-3.22) 09/22/21 06:00 Cholesterol/HDL Ratio 3.71 mg/dL (0.0-4.40) 09/22/21 06:00 Vitamin B12 202 pg/mL (232-1245) L 09/21/21 23:04 Procalcitonin 0.05 ng/mL (0-0.5) 09/21/21 20:44 TSH 2.40 uIU/mL (0.27-4.20) 09/21/21 20:44 Urine Color Colorless (Yellow) 09/21/21 22:45 Urine Appearance Clear (CLEAR) 09/21/21 22:45 Urine pH 7 (5-7) 09/21/21 22:45 Ur Specific [place] 1.005 (1.005-1.030) 09/21/21 22:45 Urine Protein 2+ (Negative) H 09/21/21 22:45 Urine Glucose (UA) 2+ (Normal) H 09/21/21 22:45 Urine Ketones 1+ (Negative) H 09/21/21 22:45 Urine Blood Neg (Negative) 09/21/21 22:45 Urine Nitrate Negative (Negative) 09/21/21 22:45 Urine Bilirubin Neg (Negative) 09/21/21 22:45 Urine Urobilinogen Norm mg/dL (Negative) 09/21/21 22:45 Ur Leukocyte Esterase Negative (Negative) 09/21/21 22:45 Urine RBC 0-4 /hpf (0-2) H 09/21/21 22:45 Urine WBC 0-4 /hpf (0-5) H 09/21/21 22:45 Ur Squamous Epith Cells 0-4 /hpf (0-5) H 09/21/21 22:45 Amorphous Sediment Not Reportable 09/21/21 22:45 Urine Bacteria Trace /hpf (NONE) 09/21/21 22:45 Urine Opiates Screen Negative ng/mL (Negative) 09/21/21 22:45 Ur Barbiturates Screen Negative ng/mL (Negative) 09/21/21 22:45 Ur Phencyclidine Scrn Negative ng/mL (Negative) 09/21/21 22:45 Ur Amphetamines Screen Negative ng/mL (Negative) 09/21/21 22:45 U Benzodiazepines Scrn Negative ng/mL (Negative) 09/21/21 22:45 Urine Cocaine Screen Negative ng/mL (Negative) 09/21/21 22:45 U Marijuana (THC) Screen Negative ng/mL (Negative) 09/21/21 22:45 Serum Ketones Negative (Negative) 09/21/21 20:44 SARS-CoV-2 Ag (Rapid) Negative (Negative) 09/21/21 22:45 Vitals Last Vital Signs Temp 98.6 F 09/24/21 10:48 Pulse 82 09/24/21 10:48 Resp 16 09/24/21 10:48 BP 135/77 09/24/21 10:48 Pulse Ox 95 09/24/21 10:48 Discharge Plan Discharge Patient Disposition: Home Health Service Condition: Stable Prescriptions: New atorvastatin 40 mg Tablet 40 mg PO BEDTIME 30 Days Qty: 30 0RF clopidogrel 75 mg Tablet 75 mg PO DAILY Qty: 30 0RF amlodipine 10 mg Tablet 10 mg PO DAILY 30 Days Qty: 30 0RF Continued aspirin [Adult Aspirin Regimen] 81 mg tablet,delayed release (DR/EC) 81 mg PO QAM 0RF allopurinol 300 mg tablet 300 mg PO BEDTIME 0RF tamsulosin 0.4 mg Capsule 0.4 mg PO BEDTIME Qty: 30 0RF pantoprazole 40 mg Tablet,Delayed Release (Dr/Ec) 40 mg PO BID Qty: 60 0RF naproxen sodium [Aleve] 220 mg Tablet 440 mg PO Q12H PRN (Reason: Pain) 0RF furosemide 20 mg tablet 20 mg PO DAILY PRN (Reason: Edema) 0RF Lantus Solostar U-100 Insulin 100 unit/mL (3 mL) insulin pen 25 - 30 unit SUBCUT BEDTIME 0RF Changed tramadol [Ultram] 50 mg Tablet 50 mg PO Q6H PRN (Reason: Pain) Qty: 0 0RF insulin lispro [Humalog KwikPen Insulin] 100 unit/mL insulin pen 8 unit SUBCUT TID Qty: 0 0RF Rx Instructions: 15 minutes before meals. Discontinued lovastatin 20 mg tablet 20 mg PO BEDTIME 0RF Discharge Orders: Discharge Order (Routine); Ordered 09/24/21 Ordered By: Mendel Garcia Referrals: [facility] [Outside] Jasmina Moreno DO [Primary Care Provider] - 7-10 days Yumi Elizabeth MD [Physician] - 2 weeks Discharge Diet: Start new tube feeds as directed Discharge Activity: Resume usual activity Patient Instructions: GI Discharge Instructions, Opioid Safety Activity Restrictions/Additional Instructions: Continue doing physical therapy as described. Continue with PEG tube feeds as discussed in detail. Try and increase oral intake as per swallow evaluations going forward. Please follow-up with neurology within next 2 weeks and with cardiology on set appointment in 3 weeks. Discharge Attestations Time Spent in Discharge Care*: greater than 30 min Specific Discharge Activities: educating patient, educating and/or supporting family/caregiver, discussing with hospice case manager/social workers/dc planners, documenting/other paperwork and evaluating patient/reviewing data Status at Discharge: Cognitive status at discharge: cognitively intact , Behavioral status at discharge: cooperative , Functional status at discharge: uses cane/walker , Overall status at discharge: patient is progressing back to baseline Quality Metrics Clinical Quality Measures [ No reported AMI, CVA or VTE this stay] Coding Level of Care Code Acute Chg FW DC note Diagnoses S/P percutaneous endoscopic gastrostomy (PEG) tube placement Z93.1 Type 2 diabetes mellitus E11.9 Altered mental status R41.82 CVA (cerebral vascular accident) I63.9
[2021-09-24] MEDS: TRAMadol 50 mg Tablet PO (12:18)
--- NOTE | 2021-09-24 15:23 | PM.PN ---
Subjective Subjective: Patient is awake and alert, tolerating tube feeds at 10 cc/h Vitals/I&O/Wt Last Vital Signs Temp 98.6 F 09/24/21 10:48 Pulse 82 09/24/21 10:48 Resp 16 09/24/21 10:48 BP 135/77 09/24/21 10:48 Pulse Ox 95 09/24/21 10:48 09/24/21 09/24/21 09/24/21 06:59 14:59 22:59 Intake Total 50 / 2150 50 / 50 Output Total 400 / 2050 Balance -350 / 100 50 / 50 Physical Exam Narrative: Abdomen: Soft, PEG tube in the left upper quadrant, no guarding or rigidity Urinary Catheter Management: fol: Cath Placed During This Visit: yes Reason for Continuing Indwelling Catheter: Acute Urinary Retention or Obstruction Urinary Catheter Date of Insertion: 09/22/21 Urinary Catheter Time of Insertion: 12:17 Data : 09/24/21 04:53 09/24/21 04:53 Micro: Microbiology 09/21/21 23:50 Blood Culture - Preliminary Blood Corynebacterium species 09/21/21 23:55 Blood Culture - Preliminary Blood Coagulase negativ staphylococc A&P Assessment and plan (1) S/P percutaneous endoscopic gastrostomy (PEG) tube placement: Patient is more awake and alert today and is tolerating a mechanical soft diet. Discussed with the patient's daughter about returning to the clinic for removal of the PEG tube when she has been off tube feeds for at least 4 to 6 weeks. Recommend applying a single drain sponge under the disc as needed for dressing Status: Acute Attestations Medical Necessity Statement*: As per primary Coding Level of Care Code Acute Elevator Installer for Chg Fwd Diagnoses S/P percutaneous endoscopic gastrostomy (PEG) tube placement Z93.1
[2021-09-24 16:45] VITALS: BP 135/77; PULSE 82; RESP 16; TEMP 37; O2SAT 95
--- NOTE | 2021-09-24 16:47 | ANE.PACU2 ---
Inpatient post-anesthesia follow up: Airway intact: Yes Vital signs: Temperature 98.6 F Pulse Rate 82 Respiratory Rate 16 Blood Pressure 135/77 Pulse Oximetry 95 Oxygen Delivery Me thod Room Air Oxygen Flow Rate Fraction of Inspir ed Oxygen Hydration adequate: Yes Nausea and vomiting: No Pain level: 1 Mental status: Baseline
== END 2021-09-24 16:47 | disposition home health service (06) ==
LOC: ER 09-22 00:13 → MEDSURG 09-22 00:25
PROVIDERS: Internal Medicine; Surgery; Admitting Provider Internal Medicine; Emergency Provider Emergency Medicine; PCP Family Medicine; Visit Provider Student in an Organized Health Care Education/Training Program
PROC: 0DJ08ZZ Inspection of Upper Intestinal Tract, Via Natural or Artificial Opening Endoscopic (ICD-10-PCS; CPT 43235; principal; 2021-09-23 15:45)
PROC: 0DH63UZ Insertion of Feeding Device into Stomach, Percutaneous Approach (ICD-10-PCS; CPT 43246; 2021-09-23 15:45)
DX: I63.9 Cerebral infarction, unspecified (principal); E11.9 Type 2 diabetes mellitus without complications; Z79.4 Long term (current) use of insulin; Z79.82 Long term (current) use of aspirin; Z85.038 Personal history of other malignant neoplasm of large intestine; E78.5 Hyperlipidemia, unspecified; I10 Essential (primary) hypertension; Z90.49 Acquired absence of other specified parts of digestive tract; Z87.891 Personal history of nicotine dependence; E21.3 Hyperparathyroidism, unspecified; J69.0 Pneumonitis due to inhalation of food and vomit; M19.90 Unspecified osteoarthritis, unspecified site; Z82.49 Family history of ischemic heart disease and other diseases of the circulatory system
CPT/HCPCS: 43246; 36415; 36416; 36600; 51702; 70450; 70496; 70498; 70551; 71045; 74018; 80048; 80053; 80061; 80306; 81001; 82009; 82140; 82607; 82803; 82962; 83880; 84145; 84443; 84484; 85025; 85651; 86140; 87040; 87205; 87426; 92507; 92523; 92526; 92610; 93005; 93306; 96361; 96365; 96372; 96375; 97110; 97116; 97161; 97165; 97530; 97535; 99285; G0378; J1630; J1650; J1815; J2060; J2405; J2543; J2704; J3420; J7030; Q9967

== ENCOUNTER 2021-10-05 14:50 | Outpatient (CLI) | payer MEDICARE, OTHER, SELFPAY ==
--- NOTE | 2021-10-05 14:15 | XR_ITS ---
WS: [email or web address] SCREENING DEXA SCAN [employer] CLINICAL INFORMATION: checking bone density COMPARISON: None. FINDINGS: The L1-L4 bone mineral density measures 1.201 g/cm2. This corresponds to a T score score of 0.2 and Z score of 1.9. Left femoral neck bone mineral density measures 0.709 (g/cm2). This corresponds to a T score of -2.4 (no units) and Z score of -0.5 (no units). LEFT forearm bone mineral density 0.59 with a T score of -3.2 and Z score of -0.6 XR/XR DEXA axial skeleton* [id number] IMPRESSION: Osteopenia in the LEFT femoral neck approaching osteoporosis at the upper end o f the range. Osteoporosis in the LEFT forearm. Normal bone mineralization calculation in the lumbar spine although likely spur iously elevated due to endplate sclerosis Patient's FRAX calculated 10 year probability for major osteoporotic fracture i s 47.5 % and osteoporotic hip fracture is 33.2%.
== END 2021-10-05 14:51 | disposition home or self-care (01) ==
LOC: RAD 14:53
PROVIDERS: PCP Family Medicine; Visit Provider Internal Medicine
DX: M81.0 Age-related osteoporosis without current pathological fracture (principal); M85.88 Other specified disorders of bone density and structure, other site
CPT/HCPCS: 77080; 99214

== ENCOUNTER → 2021-10-20 10:14 | Outpatient (BNVA) | payer MEDICARE, OTHER, SELFPAY | PROVIDERS: PCP Family Medicine; Visit Provider Internal Medicine Cardiovascular Disease | DX: I65.23 Occlusion and stenosis of bilateral carotid arteries (principal); E78.5 Hyperlipidemia, unspecified; I10 Essential (primary) hypertension; E11.9 Type 2 diabetes mellitus without complications; I77.1 Stricture of artery; R94.31 Abnormal electrocardiogram [ECG] [EKG]; Z79.82 Long term (current) use of aspirin; Z79.4 Long term (current) use of insulin; Z87.891 Personal history of nicotine dependence | CPT/HCPCS: 99204; 99205; 99214; 99215 ==

== ENCOUNTER 2021-10-26 07:30 | Outpatient (CLI) | payer MEDICARE, OTHER, SELFPAY ==
--- NOTE | 2021-10-26 07:44 | NM_ITS ---
WS: [email or web address] NUCLEAR MEDICINE PARATHYROID SESTAMIBI INDICATION: Hyperparathyroidism. TECHNIQUE: 18.9 mCi technetium 99m sestamibi with anterior and oblique imaging with and without marke rs. Initial and two-hour delayed imaging. FINDINGS: Normal symmetric thyroid uptake bilaterally on the initial imaging with normal thyroid wash out on the 2 hour imaging. Faint foci of activity on the initial and delayed imaging just below the L EFT thyroid above the suprasternal notch suspicious for parathyroid adenoma. No other suspicious abno rmality . Normal salivary gland uptake bilaterally. No other significant findings. NM/NM parathyroid [id number] IMPRESSION: 1. Low-grade focus of initial uptake inferior to the LEFT thyroid lobe just ab ove the suprasternal notch with some retained activity on the delayed imaging s uspicious for parathyroid adenoma. This can be further evaluated with ultrasoun d. 2. Normal thyroid uptake and washout. 3. No other suspicious findings.
== END 2021-10-26 07:31 | disposition home or self-care (01) ==
LOC: RAD 07:32
PROVIDERS: PCP Family Medicine; Visit Provider Internal Medicine
DX: E11.10 Type 2 diabetes mellitus with ketoacidosis without coma (principal); R63.4 Abnormal weight loss
CPT/HCPCS: 78070; A9500

== ENCOUNTER 2021-11-07 08:51 | Outpatient (CLI) | payer MEDICARE, OTHER, SELFPAY ==
--- NOTE | 2021-11-07 09:00 | FL_ITS ---
WS: [email or web address] MODIFIED BARIUM SWALLOW HISTORY: Z93.1 - Gastrostomy status FLUOROSCOPY TIME: 1.2 minutes. # of spot films: 1 Modified barium swallow was performed by the speech pathologist. Fluoroscopy was provided with the pa tient in a lateral projection. Multiple food consistencies were provided. Patient swallowed all food consistencies without difficulty. No aspiration or laryngeal penetration. No significant coating. Patient swallowed the barium tablet without difficulty. FL/FL barium swallow modifd [id number] IMPRESSION: Unremarkable modified swallowing exam. No aspiration. Please see speech therapist report also for recommendations.
== END 2021-11-07 08:52 | disposition home or self-care (01) ==
LOC: RAD 08:53
PROVIDERS: PCP Family Medicine; Visit Provider Surgery
DX: Z93.1 Gastrostomy status (principal)
CPT/HCPCS: 74230; 92611

== ENCOUNTER 2021-11-24 10:57 | Outpatient (CLI) | payer MEDICARE, OTHER, SELFPAY ==
--- NOTE | 2021-11-24 11:15 | US_ITS ---
WS: [id number] THYROID ULTRASOUND HISTORY: Check adenoma COMPARISON: Parathyroid nuclear medicine evaluation 10/26/2021 Right lobe: 1.5 cm x 1.5 cm x 4.4 cm (w x ap x l). Volume: 5.3 cm3. Normal size thyroid. Cystic nodule with a few septations in the inferior pole. No dominant or suspici ous mass. There is an additional colloid cyst. Left lobe: 1.3 cm x 1.2 cm x 3.8 cm (w x ap x l). Volume: 3.1 cm3. Small caliber gland. No mass or nodule. No edema additional nodule posterior or inferior to the thyro id lobe. There are a few scattered benign cervical chain lymph nodes. Isthmus: 0.3 cm. US/US thyroid [id number] IMPRESSION: 1. No parathyroid adenoma identified inferior to the LEFT thyroid. 2. Benign-appearing RIGHT thyroid nodules.
== END 2021-11-24 10:58 | disposition home or self-care (01) ==
LOC: RAD 10:58
PROVIDERS: PCP Family Medicine; Visit Provider Internal Medicine
DX: D34 Benign neoplasm of thyroid gland (principal); E04.2 Nontoxic multinodular goiter
CPT/HCPCS: 76536

== ENCOUNTER → 2021-12-22 10:40 | Outpatient (BNVA) | payer MEDICARE, OTHER, SELFPAY | PROVIDERS: PCP Family Medicine; Visit Provider Internal Medicine Cardiovascular Disease | DX: I65.23 Occlusion and stenosis of bilateral carotid arteries (principal); M79.89 Other specified soft tissue disorders; I77.1 Stricture of artery; R94.31 Abnormal electrocardiogram [ECG] [EKG]; E78.5 Hyperlipidemia, unspecified; I13.0 Hypertensive heart and chronic kidney disease with heart failure and stage 1 through stage 4 chronic kidney disease, or unspecified chronic kidney disease; E11.22 Type 2 diabetes mellitus with diabetic chronic kidney disease; N18.9 Chronic kidney disease, unspecified; I50.33 Acute on chronic diastolic (congestive) heart failure; Z79.4 Long term (current) use of insulin; Z79.01 Long term (current) use of anticoagulants | CPT/HCPCS: 80048; 83880; 84443; 85025; 85378; 99214 ==

== ENCOUNTER 2022-03-24 13:00 | Outpatient (CLI) | payer MEDICARE, OTHER, SELFPAY ==
--- NOTE | 2022-03-24 13:30 | USCV_ITS ---
Karina Ceballos Age: 76 Gender: F : 1945 Exam Date: 03/24/2022 13:27 Ordering Phys: Norberto Kaur MD ([email or web address]) Technologist: HANNA Exam Location: [facility] [place] Indication: BLE PAIN AND SWELLING HISTORY: Lower extremity swelling. Lower extremity pain. Status post left hip replacement. PROCEDURES: Venous duplex imaging was performed in bilateral lower extremities. The following venous structures were evaluated: common femoral vein, profunda vein, proximal portion of the greater saphenous vein, superficial femoral vein, and the popliteal vein. In addition, the posterior tibial and peroneal trunk were evaluated. Serial compression, augmentation maneuvers, and spectral Doppler flow evaluation were performed. FINDINGS: No evidence of DVT seen in any vessel visualized at this time. Examination was technically limited due to body habitus. Left Cuellar's cyst seen CONCLUSIONS No evidence of right lower extremity DVT. No evidence of left lower extremity DVT. Left popliteal cyst 1.5 x 0.9 x 2.0cm Jorge Mendiola MD (Electronically Signed) Final Date: 24 March 2022 15:17 S
== END 2022-03-24 13:01 | disposition home or self-care (01) ==
PROVIDERS: PCP Family Medicine; Visit Provider Internal Medicine Cardiovascular Disease
DX: M79.89 Other specified soft tissue disorders; M79.604 Pain in right leg; M79.605 Pain in left leg; M71.22 Synovial cyst of popliteal space [Baker], left knee
CPT/HCPCS: 93970

== ENCOUNTER 2022-04-26 12:09 | Outpatient (CLI) | payer MEDICARE, OTHER, SELFPAY ==
[2022-04-26 13:19] LABS: Calcium 10.1 mg/dL (8.5-10.5)
[2022-04-26 13:26] LABS: Parathyroid Hormone 46.8 pg/mL (15-65)
[2022-04-26 13:38] LABS: 25 Hydroxy Vitamin D 43 ng/mL (30-100); Albumin Level 3.7 g/dL (3.5-5.2); Calcium 10.1 mg/dL (8.5-10.5)
== END 2022-04-26 12:10 | disposition home or self-care (01) ==
LOC: LAB 12:13
PROVIDERS: PCP Family Medicine; Visit Provider Internal Medicine
DX: E21.0 Primary hyperparathyroidism (principal); E55.9 Vitamin D deficiency, unspecified; M81.0 Age-related osteoporosis without current pathological fracture; Z79.899 Other long term (current) drug therapy
CPT/HCPCS: 36415; 82040; 82306; 82310; 82565; 83970

== ENCOUNTER 2022-05-25 12:03 | Outpatient (CLI) | payer MEDICARE, OTHER, SELFPAY ==
[2022-05-25 12:40] VITALS: BP 134/82; PULSE 93; RESP 18; TEMP 36.4; O2SAT 99
[2022-05-25] MEDS: denosumab 60 mg SDV SUBCUT (12:48)
[2022-05-25 12:57] VITALS: BP 145/84; PULSE 84; RESP 18; TEMP 36.6; O2SAT 97
[2022-05-25 13:16] LABS: 25 Hydroxy Vitamin D 31 ng/mL (30-100)
== END 2022-05-25 12:04 | disposition home or self-care (01) ==
LOC: ONCMED 12:07
PROVIDERS: PCP Family Medicine; Visit Provider Internal Medicine
DX: E21.0 Primary hyperparathyroidism (principal); E55.9 Vitamin D deficiency, unspecified; M81.0 Age-related osteoporosis without current pathological fracture
CPT/HCPCS: 36415; 82306; 96372; J0897

== ENCOUNTER → 2022-06-08 11:11 | Outpatient (BNVA) | payer MEDICARE, OTHER, SELFPAY | PROVIDERS: PCP Family Medicine; Visit Provider Internal Medicine Cardiovascular Disease | DX: I77.1 Stricture of artery (principal); I10 Essential (primary) hypertension; R94.31 Abnormal electrocardiogram [ECG] [EKG]; E78.5 Hyperlipidemia, unspecified; E11.9 Type 2 diabetes mellitus without complications; M79.89 Other specified soft tissue disorders; I65.23 Occlusion and stenosis of bilateral carotid arteries; Z79.4 Long term (current) use of insulin; Z87.891 Personal history of nicotine dependence; I45.10 Unspecified right bundle-branch block | CPT/HCPCS: 93005; 99214 ==

== ENCOUNTER → 2022-10-04 10:22 | Outpatient (BNVA) | payer MEDICARE, OTHER, SELFPAY | PROVIDERS: PCP Family Medicine; Visit Provider Internal Medicine | DX: E11.10 Type 2 diabetes mellitus with ketoacidosis without coma (principal); M81.0 Age-related osteoporosis without current pathological fracture; E21.0 Primary hyperparathyroidism; E55.9 Vitamin D deficiency, unspecified; Z79.4 Long term (current) use of insulin | CPT/HCPCS: 99214 ==

== ENCOUNTER → 2022-11-07 10:04 | Outpatient (BNVA) | payer MEDICARE, OTHER, SELFPAY | PROVIDERS: PCP Family Medicine; Visit Provider Podiatrist Foot & Ankle Surgery | DX: M21.611 Bunion of right foot (principal); M21.612 Bunion of left foot; Z79.4 Long term (current) use of insulin; E11.42 Type 2 diabetes mellitus with diabetic polyneuropathy; L60.3 Nail dystrophy | CPT/HCPCS: 11721; 99203 ==

== ENCOUNTER 2022-11-29 11:18 | Oncology outpatient (recurring) (ONCR) | payer MEDICARE, OTHER, SELFPAY ==
[2022-11-29 11:33] VITALS: BP 132/57; PULSE 79; RESP 16; TEMP 36.7; O2SAT 99
[2022-11-29] MEDS: denosumab 60 mg SDV SUBCUT (11:35)
== END 2022-12-03 23:59 | disposition home or self-care (01) ==
PROVIDERS: PCP Family Medicine; Visit Provider Internal Medicine
DX: M81.0 Age-related osteoporosis without current pathological fracture (principal)
CPT/HCPCS: 96372; J0897

== ENCOUNTER → 2022-12-21 11:25 | Outpatient (BNVA) | payer MEDICARE, OTHER, SELFPAY | PROVIDERS: PCP Family Medicine; Visit Provider Internal Medicine Cardiovascular Disease | DX: M79.89 Other specified soft tissue disorders (principal); I10 Essential (primary) hypertension; E78.5 Hyperlipidemia, unspecified; E11.9 Type 2 diabetes mellitus without complications; I65.23 Occlusion and stenosis of bilateral carotid arteries; R94.31 Abnormal electrocardiogram [ECG] [EKG]; I77.1 Stricture of artery; Z87.891 Personal history of nicotine dependence; Z79.4 Long term (current) use of insulin | CPT/HCPCS: 99214 ==

== ENCOUNTER → 2023-01-03 09:55 | Outpatient (BNVA) | payer MEDICARE, OTHER, SELFPAY | PROVIDERS: PCP Family Medicine; Visit Provider Internal Medicine | DX: E11.10 Type 2 diabetes mellitus with ketoacidosis without coma (principal); M81.0 Age-related osteoporosis without current pathological fracture; E21.0 Primary hyperparathyroidism; E55.9 Vitamin D deficiency, unspecified; R53.83 Other fatigue; Z79.4 Long term (current) use of insulin | CPT/HCPCS: 99214 ==

== ENCOUNTER → 2023-01-25 12:48 | Outpatient (BNVA) | payer MEDICARE, OTHER, SELFPAY | PROVIDERS: PCP Family Medicine; Visit Provider Internal Medicine | DX: E11.10 Type 2 diabetes mellitus with ketoacidosis without coma (principal); M81.0 Age-related osteoporosis without current pathological fracture; E21.0 Primary hyperparathyroidism; E55.9 Vitamin D deficiency, unspecified; R53.83 Other fatigue; E03.8 Other specified hypothyroidism; R94.31 Abnormal electrocardiogram [ECG] [EKG]; Z79.4 Long term (current) use of insulin | CPT/HCPCS: 99214 ==

== ENCOUNTER → 2023-01-25 13:42 | Outpatient (BNVA) | payer MEDICARE, OTHER, SELFPAY | PROVIDERS: PCP Family Medicine; Visit Provider Nurse Practitioner Family | DX: I10 Essential (primary) hypertension (principal); I65.23 Occlusion and stenosis of bilateral carotid arteries; R94.31 Abnormal electrocardiogram [ECG] [EKG]; Z87.891 Personal history of nicotine dependence; E78.5 Hyperlipidemia, unspecified | CPT/HCPCS: 36415; 80048; 83880; 84439; 84443; 85025; 99214 ==

== ENCOUNTER 2023-01-30 15:15 | Outpatient (CLI) | payer MEDICARE, OTHER, SELFPAY ==
--- NOTE | 2023-01-30 15:30 | CT_ITS ---
WS: [email or web address] CTA HEAD AND NECK TECHNIQUE: Contrast enhanced CTA of the head and neck with coronal and sagittal reformatted images an d maximum intensity projection (MIP) images. NASCET criteria utilized. CLINICAL INFORMATION: hx of CVA x2, new onset confusion COMPARISON: None. DLP: 1166.[address] scans at [facility] use at least one of these dose optimization techniques: automated e xposure control; mA and/or kV adjustment per patient size (includes targeted exams where dose is matc hed to clinical indication); or iterative reconstruction. FINDINGS: Moderate small vessel changes. Moderate parenchymal volume loss. Intracranial vascular calc ification. Paranasal sinuses are well aerated. Mild mucosal thickening LEFT mastoid air cells. Normal posterior nasopharynx. Normal parapharyngeal fat. RIGHT: RIGHT ICA stenosis measures 31%. LEFT: No significant LEFT ICA stenosis. Moderate stenosis LEFT ECA origin. LEFT ICA remains patent to the skull base. Cavernous carotid calcification. INTRACRANIAL CTA: Codominant and patent vertebral arteries bilaterally. Basilar artery is patent. Incidental normal jess iant fenestrated basilar artery. Normal distal basilar artery. Normal vascularity to the DIRECTOR OF REHABILITATION territor y bilaterally. Both ICAs are patent at the skull base. Moderate cavernous carotid calcification. Normal vascularity to the AJIT and MCA territories bilaterally. Patent anterior communicating artery. No evidence of prox imal flow limiting stenosis or aneurysm. Small RIGHT A1 segment. Mild narrowing of the RIGHT proximal M1 segment is unchanged. Small layering RIGHT pleural effusion. Moderate spondylitic changes cervical spine. Proximal RIGHT villa bclavian stenosis measuring 60-70% appears unchanged.40% LEFT subclavian stenosis CT/CT angio headneck* [id number] IMPRESSION: 1. RIGHT ICA stenosis measures 31%. Moderate calcified atheromatous plaque. 2. No significant LEFT ICA stenosis. Mild calcified atheromatous plaque. 3. Antegrade flow both vertebral arteries. 4. No evidence of proximal flow limiting stenosis. 5. Proximal RIGHT subclavian stenosis measuring 60-70% appears unchanged. 6. 40% LEFT subclavian stenosis
[2023-01-30] MEDS: iohexol 350 mg/mL 500 mL Btl (per mL) IV (15:56)
== END 2023-01-30 15:16 | disposition home or self-care (01) ==
LOC: RAD 15:18
PROVIDERS: PCP Family Medicine; Visit Provider Nurse Practitioner Family
DX: I65.21 Occlusion and stenosis of right carotid artery (principal); I70.8 Atherosclerosis of other arteries; Z86.73 Personal history of transient ischemic attack (TIA), and cerebral infarction without residual deficits
CPT/HCPCS: 70496; 70498; Q9967

== ENCOUNTER 2023-02-01 08:46 | Outpatient (CLI) | payer MEDICARE, OTHER, SELFPAY ==
[2023-02-01 09:19] VITALS: BMI 30.9
--- NOTE | 2023-02-01 09:21 | ECG_ITS ---
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 Interpretive Statements NAME OF STUDY: LEXISCAN SESTAMIBI STRESS TEST INDICATION: [Chest Pain] Procedure: At the baseline, the blood pressure was 131/59 mmHg with a heart rate of 61 bpm. The electrocardiogram showed normal sinus rhythm, right bundle branch block. The Lexiscan was infused over a period of 20 seconds. A total of 0.4 mg of Lexiscan was infused. The stress phase was continued for a total of 5 minutes. Heart rate was at the end of stress phase was 66 bpm and a blood pressure of 138/49 mmHg. The EKG at the peak infusion revealed normal sinus rhythm with no significant ST-T wave changes. Sestamibi was injected 20 seconds after the Lexiscan infusion. Blood pressure at the end of recovery phase was 123/50 mmHg with a heart rate of 73 bpm. Conclusion: 1. Normal EKG response to Lexiscan infusion 2. No Lexiscan induced chest pain or cardiac arrhythmia. 3. Normal blood pressure and heart rate response. 4. Sestamibi/sestamibi perfusion scan pending; see separate report. Electronically Signed On 02-03-2023 14:33:16 CDT by Paul Brown M.D. [email or web address]
--- NOTE | 2023-02-01 09:22 | NMCV_ITS ---
NM billy perf SPECT r/s* [id number] Karina Ceballos Age: 77 Gender: F : 1945 Exam Date: 02/01/2023 10:06 Ordering Phys: Grace Hobson Technologist: FABIEN Brian Exam Location: [facility] Indications: ATHEROSCLEROTIC HEART DISEASE, ABNORMAL EKG STRESS TEST Please see separate stress test report in [facility] for full findings IMAGE PROTOCOL Rest/Stress 1 Lexiscan Day Radiopharmaceutical Dose (mCi) Administration Site Administered by Rest: Tc-99m 10.6 IV FABIEN Yeboah Sestamibi Stress:Tc-99m 32.3 IV FABIEN Yeboah Sestamibi Rest: 01-Feb-2023 60 Discovery 630 Stress: 01-Feb-2023 30 Discovery 630 0.4mg Lexiscan. Supine position only as patient was unable to lay prone. SPECT RESULTS Technical Quality: Excellent Raw Data Analysis: Normal Image Corrections: No attenuation or motion correction applied Summed Stress Score: 0 Summed Rest Score: 2 Summed Difference Score: 0 PERFUSION FINDINGS SPECT images demonstrate homogeneous tracer distribution throughout the myocardium. FUNCTIONAL RESULTS (calculated via Gated SPECT) Stress Image LV EF (%): 87 Stress EDV (mL):85 TID: 1.02 Stress ESV (mL):11 FUNCTIONAL FINDINGS: There is normal left ventricular systolic function. IMPRESSIONS 1. Normal myocardial perfusion imaging with no evidence of ischemia 2. LV systolic function is normal Paul Brown MD (Electronically Signed) Final Date: 01 February 2023 12:10 S
[2023-02-01] MEDS: regadenoson 0.4 Mg/5 ml Syringe IVP (10:39)
[2023-02-01 10:58] VITALS: BP 128/72; PULSE 72
== END 2023-02-01 08:47 | disposition home or self-care (01) ==
LOC: CDL 08:48
PROVIDERS: PCP Family Medicine; Visit Provider Nurse Practitioner Family
DX: R07.9 Chest pain, unspecified (principal)
CPT/HCPCS: 36415; 78452; 93017; 96374; A9500; J2785

== ENCOUNTER 2023-02-02 09:15 | Outpatient (CLI) | payer MEDICARE, OTHER, SELFPAY ==
--- NOTE | 2023-02-02 08:45 | USCV_ITS ---
Karina Ceballos Age: 77 Gender: F : 1945 Exam Date: 02/02/2023 09:44 Ordering Phys: Grace Hobsno Technologist: CT Exam Location: [facility] Indication: Shortness of breath BP: 140 / 72 HR: 63 Rhythm: Sinus Technical Quality: Adequate MEASUREMENTS (Male / Female) Normal Values 2D ECHO LV Diastolic Diameter PLAX 5.0 cm 4.2 - 5.9 / 3.9 - 5.3 cm LV Systolic Diameter PLAX 3.6 cm IVS Diastolic Thickness 0.9 cm 0.6 - 1.0 / 0.6 - 0.9 cm IVS Systolic Thickness 1.3 cm LVPW Diastolic Thickness 1.2 cm 0.6 - 1.0 / 0.6 - 0.9 cm LVPW Systolic Thickness 2.0 cm LVOT Diameter 2.0 cm LV Ejection Fraction 2D Teich 54.1 % LV Ejection Fraction MOD 2C 67.6 % LV Ejection Fraction 2C AL 67.9 % LA Diameter 4.6 cm Aorta at Sinotubular Diameter 2.4 cm IVC Diameter 1.3 cm M-MODE Aortic Annulus Diameter 2.7 cm LA Ao Ratio MM 1.9 MV E Point Septal Separation 0.6 cm DOPPLER AV Peak Velocity 204.0 cm/s LVOT Peak Velocity 105.0 cm/s AV Area Cont Eq vti 1.6 cm squared AV Area Cont Eq pk 1.7 cm squared MV Peak Velocity 134.0 cm/s MV Area PHT 4.5 cm squared Mitral E to A Ratio 0.8 MV E' Velocity 45.0 cm/s Mitral E to MV E' Ratio 10.0 Mitral E to LV E' Lateral Ratio 7.7 Mitral E to LV E' Septal Ratio 14.9 TR Peak Velocity 247.4 cm/s TR Peak Gradient 24.5 mmHg TR Mean Velocity 176.4 cm/s TR Mean Gradient 14.9 mmHg TR Velocity Time Integral 58.8 cm TV Peak E Velocity 62.0 cm/s Right Atrial Pressure 3.0 mmHg Pulmonary Artery Systolic Pressu 27.5 mmHg PV Peak Velocity 125.0 cm/s FINDINGS Left Ventricle Normal left ventricular size, systolic function and wall thickness, with no regional wall motion abnormalities. Left ventricular ejection fraction is estimated at 60 %. Grade II diastolic dysfunction, moderately elevated filling pressures. Right Ventricle Normal right ventricular size and systolic function. Right ventricular systolic pressure 27.5 mmHg. Right Atrium Normal right atrial size. Left Atrium Mildly increased left atrial size. Mitral Valve Mildly thickened mitral valve. Mild mitral annular calcification. No mitral valve stenosis. Trace mitral valve regurgitation. Aortic Valve Structurally normal trileaflet aortic valve. No aortic valve stenosis. No aortic valve regurgitation. Tricuspid Valve Structurally normal tricuspid valve. No tricuspid valve stenosis. Trace to mild tricuspid valve regurgitation. Pulmonic Valve Structurally normal pulmonic valve. No pulmonary valve stenosis. Trace pulmonary valve regurgitation. Pericardium No pericardial effusion. Aorta Normal size aortic root and proximal ascending aorta. IVC Normal IVC dimension with >50% respiratory change of the inferior vena cava. CONCLUSIONS 1. Normal left ventricular size, systolic function and wall thickness, with no regional wall motion abnormalities. Left ventricular ejection fraction is estimated at 60 %. Grade II diastolic dysfunction, moderately elevated filling pressures. 2. Trace to mild tricuspid valve regurgitation. 3. No change when compared to study dated 09/23/21. Diamond Duffy MD (Electronically Signed) Final Date: 02 February 2023 23:20 S
== END 2023-02-02 09:16 | disposition home or self-care (01) ==
PROVIDERS: PCP Family Medicine; Visit Provider Nurse Practitioner Family
DX: R94.31 Abnormal electrocardiogram [ECG] [EKG] (principal); I65.23 Occlusion and stenosis of bilateral carotid arteries; I20.8 Other forms of angina pectoris; R06.02 Shortness of breath
CPT/HCPCS: 36415; 80048; 83880; 84439; 84443; 85025; 93306; 99214

== ENCOUNTER → 2023-02-13 10:37 | Outpatient (BNVA) | payer MEDICARE, OTHER, SELFPAY | PROVIDERS: PCP Family Medicine; Visit Provider Podiatrist Foot & Ankle Surgery | DX: E11.42 Type 2 diabetes mellitus with diabetic polyneuropathy (principal); L60.3 Nail dystrophy; M21.612 Bunion of left foot; M21.611 Bunion of right foot; Z79.4 Long term (current) use of insulin | CPT/HCPCS: 11721 ==

== ENCOUNTER → 2023-02-22 10:15 | Outpatient (BNVA) | payer MEDICARE, OTHER, SELFPAY | PROVIDERS: PCP Family Medicine; Visit Provider Nurse Practitioner Family | DX: I11.9 Hypertensive heart disease without heart failure (principal); Z87.891 Personal history of nicotine dependence | CPT/HCPCS: 99214 ==

== ENCOUNTER → 2023-04-06 11:09 | Outpatient (BNVA) | payer MEDICARE, OTHER, SELFPAY | PROVIDERS: PCP Family Medicine; Visit Provider Internal Medicine | DX: E11.10 Type 2 diabetes mellitus with ketoacidosis without coma (principal); E21.0 Primary hyperparathyroidism; M81.0 Age-related osteoporosis without current pathological fracture; E55.9 Vitamin D deficiency, unspecified; R53.83 Other fatigue; E03.8 Other specified hypothyroidism; Z79.4 Long term (current) use of insulin | CPT/HCPCS: 99214 ==

== ENCOUNTER → 2023-05-15 10:07 | Outpatient (BNVA) | payer MEDICARE, OTHER, SELFPAY | PROVIDERS: PCP Family Medicine; Visit Provider Podiatrist Foot & Ankle Surgery | DX: E11.42 Type 2 diabetes mellitus with diabetic polyneuropathy (principal); L60.3 Nail dystrophy; M21.611 Bunion of right foot; M21.612 Bunion of left foot; Z79.4 Long term (current) use of insulin | CPT/HCPCS: 11721 ==

== ENCOUNTER 2023-05-29 10:45 | Oncology outpatient (recurring) (ONCR) | payer MEDICARE, OTHER, SELFPAY ==
[2023-05-29 11:51] VITALS: BP 106/65; PULSE 73; RESP 18; TEMP 36.4; O2SAT 97
[2023-05-29] MEDS: denosumab 60 mg SDV SUBCUT (12:17)
[2023-05-29 12:20] LABS: Albumin Level 3.8 g/dL (3.5-5.2); Calcium 10.3 mg/dL (8.5-10.5)
[2023-05-29 12:37] LABS: 25 Hydroxy Vitamin D 23 ng/mL (30-100)
== END 2023-06-05 23:59 | disposition home or self-care (01) ==
LOC: ONCMED 10:45
PROVIDERS: PCP Family Medicine; Visit Provider Internal Medicine
DX: M81.0 Age-related osteoporosis without current pathological fracture (principal)
CPT/HCPCS: 82040; 82306; 82310; 82565; 96372; J0897

== ENCOUNTER → 2023-07-12 12:47 | Outpatient (BNVA) | payer MEDICARE, OTHER, SELFPAY | PROVIDERS: PCP Family Medicine; Visit Provider Internal Medicine Cardiovascular Disease | DX: R06.02 Shortness of breath (principal); E11.10 Type 2 diabetes mellitus with ketoacidosis without coma; E21.0 Primary hyperparathyroidism; M81.0 Age-related osteoporosis without current pathological fracture; E55.9 Vitamin D deficiency, unspecified; R53.83 Other fatigue; E03.8 Other specified hypothyroidism; I10 Essential (primary) hypertension; I50.32 Chronic diastolic (congestive) heart failure; I51.89 Other ill-defined heart diseases; I65.23 Occlusion and stenosis of bilateral carotid arteries; E78.2 Mixed hyperlipidemia | CPT/HCPCS: 36415; 80048; 80053; 80061; 82044; 83036; 83880; 99214 ==

== ENCOUNTER → 2023-07-25 09:53 | Outpatient (BNVA) | payer MEDICARE, OTHER, SELFPAY | PROVIDERS: PCP Family Medicine; Visit Provider Internal Medicine | DX: E11.9 Type 2 diabetes mellitus without complications (principal); M81.0 Age-related osteoporosis without current pathological fracture; E21.0 Primary hyperparathyroidism; E55.9 Vitamin D deficiency, unspecified; R53.83 Other fatigue; E03.8 Other specified hypothyroidism; Z79.4 Long term (current) use of insulin | CPT/HCPCS: 36415; 80053; 84681; 86337; 86341; 99214 ==

== ENCOUNTER → 2023-08-29 10:30 | Outpatient (BNVA) | payer MEDICARE, OTHER, SELFPAY | PROVIDERS: PCP Family Medicine; Visit Provider Internal Medicine | DX: E11.9 Type 2 diabetes mellitus without complications (principal); E21.0 Primary hyperparathyroidism; M81.0 Age-related osteoporosis without current pathological fracture; E55.9 Vitamin D deficiency, unspecified; R53.83 Other fatigue; E03.8 Other specified hypothyroidism; Z79.4 Long term (current) use of insulin | CPT/HCPCS: 99214 ==

== ENCOUNTER → 2023-11-16 07:56 | Outpatient (BNVA) | payer MEDICARE, OTHER, SELFPAY | PROVIDERS: PCP Family Medicine; Visit Provider Internal Medicine | DX: M81.0 Age-related osteoporosis without current pathological fracture (principal); E21.0 Primary hyperparathyroidism; E55.9 Vitamin D deficiency, unspecified; E03.8 Other specified hypothyroidism; E11.10 Type 2 diabetes mellitus with ketoacidosis without coma; E03.9 Hypothyroidism, unspecified; Z79.4 Long term (current) use of insulin | CPT/HCPCS: 80053; 80061; 82044; 82306; 82310; 83036; 83970; 84439; 84443; 99214 ==

== ENCOUNTER → 2024-01-10 11:16 | Outpatient (BNVA) | payer MEDICARE, OTHER, SELFPAY | PROVIDERS: PCP Family Medicine; Visit Provider Internal Medicine Cardiovascular Disease | DX: I11.0 Hypertensive heart disease with heart failure (principal); I50.32 Chronic diastolic (congestive) heart failure; E78.2 Mixed hyperlipidemia; I65.23 Occlusion and stenosis of bilateral carotid arteries; I77.1 Stricture of artery; Z87.891 Personal history of nicotine dependence | CPT/HCPCS: 99214 ==

== ENCOUNTER → 2024-05-19 07:52 | Outpatient (BNVA) | payer MEDICARE, OTHER, SELFPAY | PROVIDERS: PCP Family Medicine; Referring Provider Internal Medicine; Visit Provider Internal Medicine | DX: M81.0 Age-related osteoporosis without current pathological fracture (principal); E21.0 Primary hyperparathyroidism; E55.9 Vitamin D deficiency, unspecified; E03.8 Other specified hypothyroidism; E11.10 Type 2 diabetes mellitus with ketoacidosis without coma; Z79.4 Long term (current) use of insulin | CPT/HCPCS: 99214 ==

== ENCOUNTER 2024-05-28 14:51 | Oncology outpatient (recurring) (ONCR) | payer MEDICARE, SELFPAY ==
[2024-05-28] MEDS: denosumab 60 mg SDV SUBCUT (15:25)
[2024-05-28 15:34] LABS: Basophils % 0.2 %; Eosinophils # 0.1 10^3/uL (0.0-0.8); Eosinophils % 1.6 %; Hematocrit 38.9 % (36-47); Lymphocytes % 24.8 %; Mean Corpuscular HGB Conc 30.8 g/dL (30-55); Mean Corpuscular Hemoglobin 31.5 pg (27-33); Mean Corpuscular Volume 102.1 fl (85-98); Mean Platelet Volume 11.1 fL (7.4-10.4); Monocytes # 0.8 10^3/uL (0.2-0.9); Monocytes % 10.1 %; Neutrophils # 5.15 10^3/uL (1.8-7.7); Neutrophils % 62.8 %; Nucleated Red Blood Cells % 0 %; Platelet Count 165 10^3/cmm (157-399); Red Blood Count 3.81 10^6/uL (3.85-5.65); Red Cell Distribution Width 14.9 % (12.1-15.1); White Blood Count 8.21 10^3/uL (3.29-11.43)
[2024-05-28 16:12] LABS: 25 Hydroxy Vitamin D 34 ng/mL (30-100)
== END 2024-06-05 23:59 | disposition home or self-care (01) ==
PROVIDERS: PCP Family Medicine; Visit Provider Internal Medicine
DX: Z79.899 Other long term (current) drug therapy (principal); M81.0 Age-related osteoporosis without current pathological fracture
CPT/HCPCS: 82040; 82306; 82565; 85025; 96377; J0897

== ENCOUNTER 2024-06-30 09:16 | Outpatient (CLI) | payer MEDICARE, SELFPAY ==
[2024-06-30 10:19] LABS: Creatinine Urine, Random 86 mg/dL (28-217)
[2024-06-30 10:20] LABS: Chol HDL Ratio 3.89 mg/dL (0.0-4.40); Cholesterol 140 mg/dL (0-200); Free T4 Free Thyroxine 0.94 ng/dL (0.82-1.77); HDL Cholesterol 36 mg/dL (60-100); LDL Cholesterol Calculated 61 mg/dL (50-129); LDL HDL Ratio 1.69 RATIO (0.00-3.22); Thyroid Stimulating Hormone 3.23 uIU/mL (0.27-4.20); Triglycerides 214 mg/dL (0-150)
[2024-06-30 10:33] LABS: Microalbum Creatinine Ratio Ur 698 mg/dL (0-20); Microalbumin Random Urine 60 ug/dL (0-20)
[2024-06-30 11:32] LABS: Calcium 9.4 mg/dL (8.5-10.5); Estmated Average Glucose 217; Hemoglobin A1C 9.2 % (4.0-6.0)
[2024-06-30 11:39] LABS: Parathyroid Hormone 86.4 pg/mL (15-65)
== END 2024-06-30 09:17 ==
LOC: LAB 09:18
PROVIDERS: PCP Family Medicine; Visit Provider Internal Medicine
DX: M81.0 Age-related osteoporosis without current pathological fracture; E21.0 Primary hyperparathyroidism; E55.9 Vitamin D deficiency, unspecified; E03.8 Other specified hypothyroidism; E11.10 Type 2 diabetes mellitus with ketoacidosis without coma; E03.9 Hypothyroidism, unspecified; Z79.4 Long term (current) use of insulin
CPT/HCPCS: 36415; 80061; 82044; 82310; 83036; 83970; 84439; 84443; 99214

== ENCOUNTER → 2024-07-16 13:38 | Outpatient (BNVA) | payer MEDICARE, SELFPAY | PROVIDERS: PCP Family Medicine; Visit Provider Internal Medicine Cardiovascular Disease | DX: I11.0 Hypertensive heart disease with heart failure (principal); I50.32 Chronic diastolic (congestive) heart failure; E78.2 Mixed hyperlipidemia; I65.23 Occlusion and stenosis of bilateral carotid arteries; I77.1 Stricture of artery; E13.9 Other specified diabetes mellitus without complications; Z79.4 Long term (current) use of insulin | CPT/HCPCS: 99214 ==

== ENCOUNTER → 2025-01-16 10:58 | Outpatient (BNVA) | payer MEDICARE, OTHER, SELFPAY | PROVIDERS: PCP Family Medicine; Visit Provider Internal Medicine | DX: E13.9 Other specified diabetes mellitus without complications (principal); E03.8 Other specified hypothyroidism; E55.9 Vitamin D deficiency, unspecified; E21.0 Primary hyperparathyroidism; M81.0 Age-related osteoporosis without current pathological fracture | CPT/HCPCS: 99214 ==

== ENCOUNTER 2025-05-01 13:31 | Emergency (ER) | payer MEDICARE, OTHER, SELFPAY ==
[2025-05-01 13:32] VITALS: BP 145/75; PULSE 87; TEMP 37.1; O2SAT 90; BMI 33.1
--- OUTSIDE RECORDS SUMMARY | 2025-05-01 13:37 | XMS_ITS | Encounter Summary ---
Author Organization [facility] Address [address] [place] [address] Care Team Providers Care Corporate Coordinator Name Role Phone Jasmina Moreno DO Primary Care Provider Encounter Details Date Type Department Care Team (Late st Contact Info) Description 05/01/2013 Ancillary Orders [facility] [place] [address] [address] Jose M Long MD NO ADDRESS ON FILE Breast CA screening (Primary Dx) Social History Tobacco Use Types Packs/Day Years Used Date Smoking Tobacco: Never Smokeless Tobacco: Never Alcohol Use Standard Drinks/Week Comments No 0 (1 standard drink = 0.6 oz pur e alcohol) Comments No Sex and Gender Information Value Date Recorded Sex Assigned at Not on file Legal Sex Female 5:13 AM PATIENT CARE TECHNICIAN INSTRUCTOR Gender Identity Not on file Sexual Orientation Not on file Occupation Industry Job Start Date Job End Date Not on file Not on file Not on file Not on file documented as of this encounter Plan of Treatment Not on file documented as of this encounter Results * MAMMO DIGITIZED STUDY (07/10/2006 11:39 AM PATIENT CARE TECHNICIAN INSTRUCTOR) Narrative Phyllis Arevalo, RT - 05/01/2013 12:39 PM CDT Order information only. Exam was auto-finalized. Procedure Note Phyllis Arevalo, RT - 05/01/2013 Order information only. Exam was auto-finalized. [facility] Cornel Dixon MD DIAGNOSTIC IMAG ING ORDERABLES Final Result documented in this encounter Visit Diagnoses Diagnosis Breast CA screening- Primary Other screening mammogram Breast CA screening Other screening mammogram documented in this encounter Additional Health Concerns Infection Onset Date Last Indicated Resolved Time MRSA Comment:Rony 03/23/16 03/24/2016 03/24/2016 documented as of this encounter Care Teams Corporate Coordinator Relationship Specialty Start Date End Date Jasmina Moreno DO [address] [place] [phone] PCP - General Family Practice 12/17/13 documented as of this encounter
--- OUTSIDE RECORDS SUMMARY | 2025-05-01 13:37 | XMS_ITS | Encounter Summary ---
Author Organization [facility] Address [address] [place] [facility] [place] [address] Care Team Providers Care Tuft Machine Operator Name Role Phone Jasmina Moreno DO Primary Care Provider Encounter Details Date Type Department Care Team (Late st Contact Info) Description 07/10/2001 Outpatient Historical [facility] Thaddeus Upton MD [address] [facility] [address] [address] MALIG NEOPLASM SKIN FACE NEC (Primary Dx) Social History Tobacco Use Types Packs/Day Years Used Date Smoking Tobacco: Never Assessed Comments Unknown Sex and Gender Information Value Date Recorded Sex Assigned at Not on file Legal Sex Female 5:13 AM ONCOLOGY COORDINATOR Gender Identity Not on file Sexual Orientation Not on file documented as of this encounter Plan of Treatment Not on file documented as of this encounter Visit Diagnoses Diagnosis Other and unspecified malignant neoplasm of skin of other and unspecified parts of face- Primary documented in this encounter Additional Health Concerns Infection Onset Date Last Indicated Resolved Time MRSA Comment:Rony 03/23/16 03/24/2016 03/24/2016 documented as of this encounter Care Teams Tuft Machine Operator Relationship Specialty Start Date End Date Jasmina Moreno DO [address] [place] [address] PCP - General Family Practice 12/17/13 documented as of this encounter
--- OUTSIDE RECORDS SUMMARY | 2025-05-01 13:37 | XMS_ITS | Encounter Summary ---
Author Organization [facility] Address [address] [place] [address] Care Team Providers Care Merchandise Planner Name Role Phone Jasmina Moreno DO Primary Care Provider +1- [phone] Encounter Details Date Type Department Care Team (Latest Contact Info) Description 01/02/2003 Outpatient Historical [facility] Family Medicine [address] [address] Milind Shanks DO NO ADDRESS ON FILE ACUTE SEROUS OTITIS MEDIA (Primary Dx) Social History Tobacco Use Types Packs/Day Years Used Date Smoking Tobacco: Never Assessed Comments Unknown Sex and Gender Information Value Date Recorded Sex Assigned at Not on file Legal Sex Female 5:13 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 Gender Identity Not on file Sexual Orientation Not on file documented as of this encounter Plan of Treatment Not on file documented as of this encounter Visit Diagnoses Diagnosis Acute serous otitis media- Primary documented in this encounter Additional Health Concerns Infection Onset Date Last Indicated Resolved Time MRSA Comment:Rony 03/23/16 03/24/2016 03/24/2016 documented as of this encounter Care Teams Merchandise Planner Relationship Specialty Start Date End Date Jasmina Moreno DO [address] [place] [phone] PCP - General Family Practice 12/17/13 documented as of this encounter
--- OUTSIDE RECORDS SUMMARY | 2025-05-01 13:37 | XMS_ITS | Encounter Summary ---
Author Organization [facility] Address [address] [place] [facility] [address] Care Team Providers Care Service Learning Coordinator Name Role Phone Jasmina Moreno DO Primary Care Provider Encounter Details Date Type Department Care Team (Late st Contact Info) Description 06/21/2001 Outpatient Historical [facility] Thaddeus Upton MD [address] 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
--- OUTSIDE RECORDS SUMMARY | 2025-05-01 13:37 | XMS_ITS | Encounter Summary ---
Author Organization [facility] Address [address] [place] [address] Care Team Providers Care Pet Supplies Salesperson Name Role Phone Jasmina Moreno DO Primary Care Provider [phone]- [phone] Encounter Details Date Type Department Care Team (Latest Contact Info) Description 08/27/2002 Outpatient Historical [facility] Medicine [address] [address] Milind Shanks DO NO ADDRESS ON FILE DIABETES UNCOMPL ADULT-TYPE II (CMS/HCC) (Primary Dx) Social History Tobacco Use Types Packs/Day Years Used Date Smoking Tobacco: Never Assessed Comments Unknown Sex and Gender Information Value Date Recorded Sex Assigned at Not on file Legal Sex Female 5:13 AM COMPUTER REPAIR INSTRUCTOR Gender Identity Not on file Sexual Orientation Not on file documented as of this encounter Plan of Treatment Not on file documented as of this encounter Visit Diagnoses Diagnosis Type II or unspecified type diabetes mellitus without mention of complication, not stated as uncontrolled- Primary documented in this encounter Additional Health Concerns Infection Onset Date Last Indicated Resolved Time MRSA Comment:Rony 03/23/16 03/24/2016 03/24/2016 documented as of this encounter Care Teams Pet Supplies Salesperson Relationship Specialty Start Date End Date Jasmina Moreno DO [address] [place] [address] PCP - General Family Practice 12/17/13 documented as of this encounter
--- OUTSIDE RECORDS SUMMARY | 2025-05-01 13:37 | XMS_ITS | Encounter Summary ---
Author Organization [facility] Address [address] [place] [address] Care Team Providers Care Partition Assembler Name Role Phone Jasmina Moreno DO Primary Care Provider +1- [phone] Encounter Details Date Type Department Care Team (Latest Contact Info) Description 10/08/2002 Outpatient Historical [facility] Medicine [address] [address] Milind Shanks DO NO ADDRESS ON FILE ACUTE SINUSITIS NOS (Primary Dx); ACUTE BRONCHITIS Social History Tobacco Use Types Packs/Day Years Used Date Smoking Tobacco: Never Assessed Comments Unknown Sex and Gender Information Value Date Recorded Sex Assigned at Not on file Legal Sex Female 5:13 AM MANUFACTURING AREA MANAGER Gender Identity Not on file Sexual Orientation Not on file documented as of this encounter Plan of Treatment Not on file documented as of this encounter Visit Diagnoses Diagnosis Acute sinusitis, unspecified- Primary Acute bronchitis documented in this encounter Additional Health Concerns Infection Onset Date Last Indicated Resolved Time MRSA Comment:Rony 03/23/16 03/24/2016 03/24/2016 documented as of this encounter Care Teams Partition Assembler Relationship Specialty Start Date End Date Jasmina Moreno DO [address] [place] [phone] PCP - General Family Practice 12/17/13 documented as of this encounter
--- OUTSIDE RECORDS SUMMARY | 2025-05-01 13:37 | XMS_ITS | Encounter Summary ---
Author Organization [facility] Address [address] [place] [address] Care Team Providers Care A P Manager Name Role Phone Jasmina Moreno DO Primary Care Provider +1- [phone] Encounter Details Date Type Department Care Team (Latest Contact Info) Description 02/13/2002 Outpatient Historical [facility] Family Medicine [address] [address] Milind Shanks DO NO ADDRESS ON FILE ACUTE BRONCHITIS (Primary Dx) Social History Tobacco Use Types Packs/Day Years Used Date Smoking Tobacco: Never Assessed Comments Unknown Sex and Gender Information Value Date Recorded Sex Assigned at Not on file Legal Sex Female 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 STONE Gender Identity Not on file Sexual Orientation Not on file documented as of this encounter Plan of Treatment Not on file documented as of this encounter Visit Diagnoses Diagnosis Acute bronchitis- Primary documented in this encounter Additional Health Concerns Infection Onset Date Last Indicated Resolved Time MRSA Comment:Rony 03/23/16 03/24/2016 03/24/2016 documented as of this encounter Care Teams A P Manager Relationship Specialty Start Date End Date Jasmina Moreno DO [address] [place] [phone] PCP - General Family Practice 12/17/13 documented as of this encounter
--- OUTSIDE RECORDS SUMMARY | 2025-05-01 13:37 | XMS_ITS | Encounter Summary ---
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
--- OUTSIDE RECORDS SUMMARY | 2025-05-01 13:37 | XMS_ITS | Encounter Summary ---
Author Organization [facility] Address [address] [place] [address] Care Team Providers Care Acute Care Clinical Nurse Specialist Name Role Phone Jasmina Moreno DO Primary Care Provider [phone]- [phone] Encounter Details Date Type Department Care Team (Latest Contact Info) Description 04/15/2003 Outpatient Historical [facility] Medicine [address] [address] Milind Shanks DO NO ADDRESS ON FILE CYSTITIS NOS (Primary Dx); ACTINIC KERATOSIS Social History Tobacco Use Types Packs/Day Years Used Date Smoking Tobacco: Never Assessed Comments Unknown Sex and Gender Information Value Date Recorded Sex Assigned at Not on file Legal Sex Female 5:13 AM ED MANAGER Gender Identity Not on file Sexual Orientation Not on file documented as of this encounter Plan of Treatment Not on file documented as of this encounter Visit Diagnoses Diagnosis Cystitis, unspecified- Primary Actinic keratosis documented in this encounter Additional Health Concerns Infection Onset Date Last Indicated Resolved Time MRSA Comment:Rony 03/23/16 03/24/2016 03/24/2016 documented as of this encounter Care Teams Acute Care Clinical Nurse Specialist Relationship Specialty Start Date End Date Jasmina Moreno DO [address] [place] [phone] PCP - General Family Practice 12/17/13 documented as of this encounter
--- OUTSIDE RECORDS SUMMARY | 2025-05-01 13:37 | XMS_ITS | Encounter Summary ---
Author Organization [facility] Address [address] [place] [address] Care Team Providers Care Service Tester Name Role Phone Jasmina Moreno DO Primary Care Provider [phone]- [phone] Encounter Details Date Type Department Care Team (Latest Contact Info) Description 09/18/2002 Outpatient Historical [facility] Family Medicine [address] [address] Pretty Scales MD NO ADDRESS ON FILE ACUTE BRONCHITIS (Primary Dx) Social History Tobacco Use Types Packs/Day Years Used Date Smoking Tobacco: Never Assessed Comments Unknown Sex and Gender Information Value Date Recorded Sex Assigned at Not on file Legal Sex Female 5:13 AM 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
--- OUTSIDE RECORDS SUMMARY | 2025-05-01 13:37 | XMS_ITS | Encounter Summary ---
Author Organization [facility] Address [address] [place] [address] Care Team Providers Care Certified Adapted Physical Educator Name Role Phone Jasmina Moreno DO Primary Care Provider [phone]- [phone] Encounter Details Date Type Department Care Team (Latest Contact Info) Description 07/17/2001 Outpatient Historical [facility] Medicine [address] [address] Milind Shanks DO NO ADDRESS ON FILE POSTSURGICAL STATES NEC (Primary Dx) Social History Tobacco Use Types Packs/Day Years Used Date Smoking Tobacco: Never Assessed Comments Unknown Sex and Gender Information Value Date Recorded Sex Assigned at Not on file Legal Sex Female 5:13 AM PROCESS LINE OPERATOR Gender Identity Not on file Sexual Orientation Not on file documented as of this encounter Plan of Treatment Not on file documented as of this encounter Visit Diagnoses Diagnosis Other postprocedural status(V45.89)- Primary Other postprocedural status documented in this encounter Additional Health Concerns Infection Onset Date Last Indicated Resolved Time MRSA Comment:Rony 03/23/16 03/24/2016 03/24/2016 documented as of this encounter Care Teams Certified Adapted Physical Educator Relationship Specialty Start Date End Date Jasmina Moreno DO [address] [place] [phone] PCP - General Family Practice 12/17/13 documented as of this encounter
--- OUTSIDE RECORDS SUMMARY | 2025-05-01 13:37 | XMS_ITS | Encounter Summary ---
Author Organization [facility] Address [address] [place] [address] Care Team Providers Care Booth Cleaner Name Role Phone Jasmina Moreno DO Primary Care Provider +1- [phone] Encounter Details Date Type Department Care Team (Latest Contact Info) Description 01/04/2000 Outpatient Historical [facility] Medicine [address] [address] Milind Shanks DO NO ADDRESS ON FILE Abdominal pain, unspecified site (Primary Dx); Constipation Social History Tobacco Use Types Packs/Day Years Used Date Smoking Tobacco: Never Assessed Comments Unknown Sex and Gender Information Value Date Recorded Sex Assigned at Not on file Legal Sex Female 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 MSW Gender Identity Not on file Sexual Orientation Not on file documented as of this encounter Plan of Treatment Not on file documented as of this encounter Visit Diagnoses Diagnosis Abdominal pain, unspecified site- Primary Constipation documented in this encounter Additional Health Concerns Infection Onset Date Last Indicated Resolved Time MRSA Comment:Rony 03/23/16 03/24/2016 03/24/2016 documented as of this encounter Care Teams Booth Cleaner Relationship Specialty Start Date End Date Jasmina Moreno DO [address] [place] [phone] PCP - General Family Practice 12/17/13 documented as of this encounter
--- OUTSIDE RECORDS SUMMARY | 2025-05-01 13:37 | XMS_ITS | Encounter Summary ---
Author Organization [facility] Address [address] [place] [address] Care Team Providers Care Epic Cadence Specialists Name Role Phone Jasmina Moreno DO Primary Care Provider Encounter Details Date Type Department Care Team (Latest Contact Info) Description 08/25/2002 Outpatient Historical [facility] Medicine [address] [address] Chaitanya Padron MD Benign clotilde lg bowel (Primary Dx); PERS HX OF GI MALIGNANCY NOS Social History Tobacco Use Types Packs/Day Years Used Date Smoking Tobacco: Never Assessed Comments Unknown Sex and Gender Information Value Date Recorded Sex Assigned at Not on file Legal Sex Female 5:13 AM SYBASE DEVELOPER Gender Identity Not on file Sexual Orientation Not on file documented as of this encounter Plan of Treatment Not on file documented as of this encounter Visit Diagnoses Diagnosis Benign clotilde lg bowel- Primary Benign neoplasm of colon Personal history of malignant neoplasm of unspecified site in gastrointestinal tract documented in this encounter Additional Health Concerns Infection Onset Date Last Indicated Resolved Time MRSA Comment:Rony 03/23/16 03/24/2016 03/24/2016 documented as of this encounter Care Teams Epic Cadence Specialists Relationship Specialty Start Date End Date Jasmina Moreno DO [address] [place] [address] PCP - General Family Practice 12/17/13 documented as of this encounter
--- OUTSIDE RECORDS SUMMARY | 2025-05-01 13:37 | XMS_ITS | Encounter Summary ---
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
--- OUTSIDE RECORDS SUMMARY | 2025-05-01 13:37 | XMS_ITS | Encounter Summary ---
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 Exam was auto-finalized. Procedure Note Phyllis Arevalo, RT - 05/01/2013 Order information only. Exam was auto-finalized. [facility] Cornel Dixon MD DIAGNOSTIC IMAG ING ORDERABLES Final Result documented in this encounter Visit Diagnoses Diagnosis Breast CA screening- Primary Other screening mammogram Breast CA screening Other screening mammogram documented in this encounter Additional Health Concerns Infection Onset Date Last Indicated Resolved Time MRSA Comment:Rony 03/23/16 03/24/2016 03/24/2016 documented as of this encounter Care Teams It Project Coordinator Relationship Specialty Start Date End Date Jasmina Moreno DO [address] [place] [phone] PCP - General Family Practice 12/17/13 documented as of this encounter
--- OUTSIDE RECORDS SUMMARY | 2025-05-01 13:37 | XMS_ITS | Encounter Summary ---
Author Organization [facility] Address [address] [place] [address] Care Team Providers Care Brake Holder Name Role Phone Jasmina Moreno DO Primary Care Provider Encounter Details Date Type Department Care Team (Late st Contact Info) Description 05/01/[address] 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 Exam was auto-finalized. Procedure Note Phyllis Arevalo, RT - 05/01/2013 Order information only. Exam was auto-finalized. [facility] Cornel Dixon MD DIAGNOSTIC IMAG ING ORDERABLES Final Result documented in this encounter Visit Diagnoses Diagnosis Breast CA screening- Primary Other screening mammogram Breast CA screening Other screening mammogram documented in this encounter Additional Health Concerns Infection Onset Date Last Indicated Resolved Time MRSA Comment:Rony 03/23/16 03/24/2016 03/24/2016 documented as of this encounter Care Teams Brake Holder Relationship Specialty Start Date End Date Jasmina Moreno DO [address] [place] [phone] PCP - General Family Practice 12/17/13 documented as of this encounter
--- OUTSIDE RECORDS SUMMARY | 2025-05-01 13:37 | XMS_ITS | Encounter Summary ---
Author Organization [facility] Address [address] [facility] [place] [address] Care Team Providers Care Shell Reprint Operator Name Role Phone Jasmina Moreno DO Primary Care Provider Encounter Details Date Type Department Care Team (Late st Contact Info) Description 12/18/2002 Outpatient Historical [facility] Hugo Ray MD [address] 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
--- OUTSIDE RECORDS SUMMARY | 2025-05-01 13:37 | XMS_ITS | Encounter Summary ---
Author Organization [facility] Address [address] [place] [address] Care Team Providers Care Library Technician Name Role Phone Jasmina Moreno DO Primary Care Provider [phone] Encounter Details Date Type Department Care Team (Latest Contact Info) Description 01/09/2003 Outpatient Historical [facility] Family Medicine [address] [address] Milind Shanks DO NO ADDRESS ON FILE OTITIS MEDIA NOS (Primary Dx) Social History Tobacco Use Types Packs/Day Years Used Date Smoking Tobacco: Never Assessed Comments Unknown Sex and Gender Information Value Date Recorded Sex Assigned at Not on file 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
--- OUTSIDE RECORDS SUMMARY | 2025-05-01 13:37 | XMS_ITS | Encounter Summary ---
Author Organization [facility] Address [address] [place] [address] Care Team Providers Care Railroad Crane Operator Name Role Phone Jasmina Moreno Willy ARIAS Primary Care Provider Encounter Details Date Type Department Care Team (Late st Contact Info) Description 06/05/2001 Outpatient Historical [facility] Dermatology- 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 Gender Identity Not on file Sexual Orientation Not on file documented as of this encounter Plan of Treatment Not on file documented as of this encounter Visit Diagnoses Diagnosis Other and unspecified malignant neoplasm of skin of other and unspecified parts of face- Primary Inflamed seborr keratos Inflamed seborrheic keratosis documented in this encounter Additional Health Concerns Infection Onset Date Last Indicated Resolved Time MRSA Comment:Rony 03/23/16 03/24/2016 03/24/2016 documented as of this encounter Care Teams Railroad Crane Operator Relationship Specialty Start Date End Date Jasmina Moreno DO [address] [place] [address] PCP - General Family Practice 12/17/13 documented as of this encounter
--- OUTSIDE RECORDS SUMMARY | 2025-05-01 13:37 | XMS_ITS | Encounter Summary ---
Author Organization [facility] Address [address] [place] [address] Care Team Providers Care Sample Sawyer Name Role Phone Jasmina Moreno DO Primary Care Provider [phone] Encounter Details Date Type Department Care Team (Late st Contact Info) Description 06/21/2015 Ancillary Orders [facility] Medicine- [place] [address] [place] [address] Jasmina Moreno DO [address] [place] [address] Midline low back pain with left-sided sciatica (Primary Dx); Pain of both hip joints; Fall, subsequent encounter Social History Tobacco Use Types Packs/Day Years Used Date Smoking Tobacco: Never Smokeless Tobacco: Never Alcohol Use Standard Drinks/Week Comments No 0 (1 standard drink = 0.6 oz pur e alcohol) Comments No Sex and Gender Information Value Date Recorded Sex Assigned at Not on file Legal Sex Female 5:13 AM HUMAN 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 LEAD 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 MARKETING Gender Identity Not on file Sexual Orientation Not on file Occupation Industry Job Start Date Job End Date Not on file Not on file Not on file Not on file documented as of this encounter Plan of Treatment Not on file documented as of this encounter Results * XR HIPS BI 2 VW W AP PELVIS (06/21/2015 1:55 PM HUMAN INSIGHTS LEAD ADS MARKETING) Anatomical Region Laterality Modality Lower Extremity Computed Radiogr aphy 06/21/2015 1:42 PM HUMAN INSIGHTS LEAD ADS MARKETING Narrative 06/22/2015 9:09 AM HUMAN INSIGHTS LEAD ADS MARKETING PROCEDURE XR BILATERAL HIP, 4 views, 21 June 2015 DESCRIPTION AP and Cleave's view of each hip show no acute fracture, diastases, or deformity femoral head appears intact and no femoral neck fracture is seen. IMPRESSION normal bilateral hip study Procedure Note Marc Villalpando MD - 06/22/2015 PROCEDURE XR BILATERAL HIP, 4 views, 21 June 2015 DESCRIPTION AP and Cleave's view of each hip show no acute fracture, diastases, or deformity femoral head appears intact and no femoral neck fracture is seen. IMPRESSION normal bilateral hip study us Jasmina Moreno DO DIAGNOSTIC IMAGING ORDERABL ES Final Result documented in this encounter Visit Diagnoses Diagnosis Midline low back pain with left-sided sciatica Pain of both hip joints Fall, subsequent encounter Midline low back pain with left-sided sciatica- Primary Pain of both hip joints Fall, subsequent encounter documented in this encounter Additional Health Concerns Infection Onset Date Last Indicated Resolved Time MRSA Comment:Rony 03/23/16 03/24/2016 03/24/2016 documented as of this encounter Care Teams Sample Sawyer Relationship Specialty Start Date End Date Jasmina Moreno DO [address] [place] [address] PCP - General Family Practice 12/17/13 documented as of this encounter
--- OUTSIDE RECORDS SUMMARY | 2025-05-01 13:37 | XMS_ITS | Encounter Summary ---
Author Organization [facility] Address [address] [place] [address] Care Team Providers Care Radio Officer Name Role Phone Jasmina Moreno DO Primary Care Provider Encounter Details Date Type Department Care Team (Latest Contact Info) Description 09/30/2001 Outpatient Historical [facility] Urology- [address]tr[address], 3[address] [place] [address] Oleg Horta MD NO ADDRESS ON FILE URINARY FREQUENCY (Primary Dx) Social History Tobacco Use Types Packs/Day Years Used Date Smoking Tobacco: Never Assessed Comments Unknown Sex and Gender Information Value Date Recorded Sex Assigned at Not on file 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
--- OUTSIDE RECORDS SUMMARY | 2025-05-01 13:37 | XMS_ITS | Encounter Summary ---
Author Organization [facility] Address [address] [place] [address] Care Team Providers Care Online Retailer Name Role Phone Jasmina Moreno DO Primary Care Provider Encounter Details Date Type Department Care Team (Latest Contact Info) Description 09/03/2001 Outpatient Historical [facility] Medicine [address] [address] Milind Shanks DO NO ADDRESS ON FILE URIN TRACT INFECTION NOS (Primary Dx) Social History Tobacco Use Types Packs/Day Years Used Date Smoking Tobacco: Never Assessed Comments Unknown Sex and Gender Information Value Date Recorded Sex Assigned at Not on file Legal Sex Female 5:13 AM OUTPATIENT RECEPTIONIST Gender Identity Not on file Sexual Orientation Not on file documented as of this encounter Plan of Treatment Not on file documented as of this encounter Visit Diagnoses Diagnosis Urinary tract infection, site not specified- Primary documented in this encounter Additional Health Concerns Infection Onset Date Last Indicated Resolved Time MRSA Comment:Rony 03/23/16 03/24/2016 03/24/2016 documented as of this encounter Care Teams Online Retailer Relationship Specialty Start Date End Date Jasmina Moreno DO [address] [place] [address] PCP - General Family Practice 12/17/13 documented as of this encounter
--- OUTSIDE RECORDS SUMMARY | 2025-05-01 13:37 | XMS_ITS | Encounter Summary ---
Author Organization [facility] Address [address] [place] [address] Care Team Providers Care Exploration Geologist Name Role Phone Jasmina Moreno DO Primary Care Provider [phone]- [phone] Encounter Details Date Type Department Care Team (Latest Contact Info) Description 02/24/2002 Outpatient Historical [facility] Medicine [address] [address] Chaitanya Padron MD ABDOMINAL PAIN OTHER SPEC SITE (Primary Dx) Social History Tobacco Use Types Packs/Day Years Used Date Smoking Tobacco: Never Assessed Comments Unknown Sex and Gender Information Value Date Recorded Sex Assigned at Not on file 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 Gender Identity Not on file Sexual Orientation Not on file documented as of this encounter Plan of Treatment Not on file documented as of this encounter Visit Diagnoses Diagnosis Abdominal pain, other specified site- Primary documented in this encounter Additional Health Concerns Infection Onset Date Last Indicated Resolved Time MRSA Comment:Rony 03/23/16 03/24/2016 03/24/2016 documented as of this encounter Care Teams Exploration Geologist Relationship Specialty Start Date End Date Jasmina Moreno DO [address] [place] [phone] PCP - General Family Practice 12/17/13 documented as of this encounter
--- OUTSIDE RECORDS SUMMARY | 2025-05-01 13:37 | XMS_ITS | Encounter Summary ---
Author Organization [facility] Address [address] [place] [address] Care Team Providers Care It Sales Representative Name Role Phone Jasmina Moreno DO Primary Care Provider Encounter Details Date Type Department Care Team (Latest Contact Info) Description 06/10/2003 Outpatient Historical [facility] Medicine [address] [address] Milind Shanks DO NO ADDRESS ON FILE URIN TRACT INFECTION NOS (Primary Dx) Social History Tobacco Use Types Packs/Day Years Used Date Smoking Tobacco: Never Assessed Comments Unknown Sex and Gender Information Value Date Recorded Sex Assigned at Not on file Legal Sex Female 5:13 AM FOLLOW UP MANAGER Gender Identity Not on file Sexual [...] as of this encounter Care Teams It Sales Representative Relationship Specialty Start Date End Date Jasmina Moreno DO [address] [place] [phone] PCP - General Family Practice 12/17/13 documented as of this encounter
--- OUTSIDE RECORDS SUMMARY | 2025-05-01 13:37 | XMS_ITS | Encounter Summary ---
Author Organization [facility] Address [address] 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 Gender Identity Not on file Sexual Orientation Not on file documented as of this encounter Plan of Treatment Not on file documented as of this encounter Visit Diagnoses Not on filedocumented in this encounter Additional Health Concerns Infection Onset Date Last Indicated Resolved Time MRSA Comment:Rony 03/23/16 03/24/2016 03/24/2016 documented as of this encounter Care Teams Still Operator Batch Or Continuous Relationship Specialty Start Date End Date Jasmina Moreno DO [address] [facility] [place] [phone] PCP - General Family Practice 12/17/13 documented as of this encounter
--- OUTSIDE RECORDS SUMMARY | 2025-05-01 13:37 | XMS_ITS | Encounter Summary ---
Author Organization [facility] Address [address] [place] [address] Care Team Providers Care Sliver Former Name Role Phone Jasmina Moreno DO Primary Care Provider [phone]- [phone] Encounter Details Date Type Department Care Team (Latest Contact Info) Description 03/10/2002 Outpatient Historical [facility] Family Medicine [address] [address] Chaitanya Padron MD ABDOMINAL PAIN UNSPEC SITE (Primary Dx) Social History Tobacco Use Types Packs/Day Years Used Date Smoking Tobacco: Never Assessed Comments Unknown Sex and Gender Information Value Date Recorded Sex Assigned at Not on file Legal Sex Female 5:13 AM HIGH HEEL BUILDER Gender Identity Not on file Sexual Orientation Not on file documented as of this encounter Plan of Treatment Not on file documented as of this encounter Visit Diagnoses Diagnosis Abdominal pain, unspecified site- Primary documented in this encounter Additional Health Concerns Infection Onset Date Last Indicated Resolved Time MRSA Comment:Rony 03/23/16 03/24/2016 03/24/2016 documented as of this encounter Care Teams Sliver Former Relationship Specialty Start Date End Date Jasmina Moreno DO [address] [place] [phone] PCP - General Family Practice 12/17/13 documented as of this encounter
--- OUTSIDE RECORDS SUMMARY | 2025-05-01 13:37 | XMS_ITS | Encounter Summary ---
Author Organization [facility] Address [address] [place] [address] Care Team Providers Care Financial Rep Name Role Phone Jasmina Moreno DO Primary Care Provider [phone]- [phone] Encounter Details Date Type Department Care Team (Latest Contact Info) Description 08/05/2002 Outpatient Historical [facility] Medicine [address] [address] Chaitanya Padron MD Benign clotilde lg bowel (Primary Dx) Social History Tobacco Use Types Packs/Day Years Used Date Smoking Tobacco: Never Assessed Comments Unknown Sex and Gender Information Value Date Recorded Sex Assigned at Not on file Legal Sex Female 5:13 AM SPECIAL OFFICER AUTOMAT Gender Identity Not on file Sexual Orientation Not on file documented as of this encounter Plan of Treatment Not on file documented as of this encounter Visit Diagnoses Diagnosis Benign clotilde lg bowel- Primary Benign neoplasm of colon documented in this encounter Additional Health Concerns Infection Onset Date Last Indicated Resolved Time MRSA Comment:Rony 03/23/16 03/24/2016 03/24/2016 documented as of this encounter Care Teams Financial Rep Relationship Specialty Start Date End Date Jasmina Moreno DO [address] [place] [phone] PCP - General Family Practice 12/17/13 documented as of this encounter
--- OUTSIDE RECORDS SUMMARY | 2025-05-01 13:37 | XMS_ITS | Encounter Summary ---
Author Organization [facility] Address [address] [place] [address] Care Team Providers Care Drop Hammer Set Up Operator Name Role Phone Jasmina Moreno DO Primary Care Provider [phone]- [phone] Encounter Details Date Type Department Care Team (Latest Contact Info) Description 10/27/2002 Outpatient Historical [facility] Medicine [address] [address] Milind Shanks DO NO ADDRESS ON FILE ACUTE SEROUS OTITIS MEDIA (Primary Dx); ACUTE SINUSITIS NOS Social History Tobacco Use Types Packs/Day Years Used Date Smoking Tobacco: Never Assessed Comments Unknown Sex and Gender Information Value Date Recorded Sex Assigned at Not on file 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 Sex Female 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 Gender Identity Not on file Sexual Orientation Not on file documented as of this encounter Plan of Treatment Not on file documented as of this encounter Visit Diagnoses Diagnosis Acute serous otitis media- Primary Acute sinusitis, unspecified documented in this encounter Additional Health Concerns Infection Onset Date Last Indicated Resolved Time MRSA Comment:Rony 03/23/16 03/24/2016 03/24/2016 documented as of this encounter Care Teams Drop Hammer Set Up Operator Relationship Specialty Start Date End Date Jasmina Moreno DO [address] [place] [phone] PCP - General Family Practice 12/17/13 documented as of this encounter
--- OUTSIDE RECORDS SUMMARY | 2025-05-01 13:38 | XMS_ITS | Encounter Summary ---
Author Organization [facility] Address [address] [place] [address] Care Team Providers Care Tractor Trailer Driver Name Role Phone Jasmina Moreno DO Primary Care Provider [phone] Encounter Details Date Type Department Care Team (Latest Contact Info) Description 10/27/2005 Outpatient Historical [facility] Medicine [address] [address] Milind Shanks DO NO ADDRESS ON FILE Pain in Limb (Primary Dx); DM w/o Complication Type II (CMS/HCC) Social History Tobacco Use Types Packs/Day Years Used Date Smoking Tobacco: Never Assessed Comments Unknown Sex and Gender Information Value Date Recorded Sex Assigned at Not on file Legal Sex Female 5:13 AM INVENTORY TRANSCRIBER Gender Identity Not on file Sexual Orientation Not on file documented as of this encounter Plan of Treatment Not on file documented as of this encounter Visit Diagnoses Diagnosis Pain in limb- Primary Pain in soft tissues of limb Type II or unspecified type diabetes mellitus without mention of complication, not stated as uncontrolled documented in this encounter Additional Health Concerns Infection Onset Date Last Indicated Resolved Time MRSA Comment:Rony 03/23/16 03/24/2016 03/24/2016 documented as of this encounter Care Teams Tractor Trailer Driver Relationship Specialty Start Date End Date Jasmina Moreno DO [address] [place] [address] PCP - General Family Practice 12/17/13 documented as of this encounter
--- OUTSIDE RECORDS SUMMARY | 2025-05-01 13:38 | XMS_ITS | Encounter Summary ---
Author Organization [facility] Address [address] [place] [address] Care Team Providers Care Coil Inspector Name Role Phone Jasmina Moreno DO Primary Care Provider Encounter Details Date Type Department Care Team (Latest Contact Info) Description 04/15/2007 Outpatient Historical [facility] Medicine [address] [address] Milind Shanks DO NO ADDRESS ON FILE Superficial Injury NEC (Primary Dx); Contusion of Multiple Sites, not Elsewhere Classified Social History Tobacco Use Types Packs/Day Years Used Date Smoking Tobacco: Never Assessed Comments Unknown Sex and Gender Information Value Date Recorded Sex Assigned at Not on file Legal Sex Female 5:13 AM FIELD BROOMER Gender Identity Not on file Sexual Orientation Not on file documented as of this encounter Plan of Treatment Not on file documented as of this encounter Visit Diagnoses Diagnosis Other and unspecified superficial injury of other, multiple, and unspecified sites, without mention of infection- Primary Contusion of multiple sites, not elsewhere classified documented in this encounter Additional Health Concerns Infection Onset Date Last Indicated Resolved Time MRSA Comment:Rony 03/23/16 03/24/2016 03/24/2016 documented as of this encounter Care Teams Coil Inspector Relationship Specialty Start Date End Date Jasmina Moreno DO [address] [place] [address] PCP - General Family Practice 12/17/13 documented as of this encounter
--- OUTSIDE RECORDS SUMMARY | 2025-05-01 13:38 | XMS_ITS | Encounter Summary ---
Author Organization [facility] Address [address] [place] [address] Care Team Providers Care Larriman Name Role Phone Jasmina Moreno DO Primary Care Provider Encounter Details Date Type Department Care Team (Latest Contact Info) Description 09/21/1998 Outpatient Historical [facility] Family Medicine [address] [facility] [address] [place] [address] Richard Barney MD [address] [address] Acute sinusitis, unspecified (Primary Dx) Social History Tobacco Use Types Packs/Day Years Used Date Smoking Tobacco: Never Assessed Comments Unknown Sex and Gender Information Value Date Recorded Sex Assigned at Not on file 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
--- OUTSIDE RECORDS SUMMARY | 2025-05-01 13:38 | XMS_ITS | Encounter Summary ---
Author Organization [facility] Address [address] [place] [address] Care Team Providers Care Load Dispatcher Local Name Role Phone Jasmina Moreno DO Primary Care Provider Encounter Details Date Type Department Care Team (Latest Contact Info) Description 06/16/2004 Outpatient Historical [facility] Medicine [address] [address] Milind Shanks DO NO ADDRESS ON FILE DIABETES MELLITUS TYPE II-UNCOMPL (CMS/HCC) (Primary Dx); SEBACEOUS CYST; BONE/SKIN NEOPLASM NOS Social History Tobacco Use Types Packs/Day Years Used Date Smoking Tobacco: Never Assessed Comments Unknown Sex and Gender Information Value Date Recorded Sex Assigned at Not on file Legal Sex Female 5:13 AM BIT BENDER Gender Identity Not on file Sexual Orientation Not on file documented as of this encounter Plan of Treatment Not on file documented as of this encounter Visit Diagnoses Diagnosis Type II or unspecified type diabetes mellitus without mention of complication, not stated as uncontrolled- Primary Sebaceous cyst Neoplasm of unspecified nature of bone, soft tissue, and skin documented in this encounter Additional Health Concerns Infection Onset Date Last Indicated Resolved Time MRSA Comment:Rony 03/23/16 03/24/2016 03/24/2016 documented as of this encounter Care Teams Load Dispatcher Local Relationship Specialty Start Date End Date Jasmina Moreno DO [address] [place] [address] PCP - General Family Practice 12/17/13 documented as of this encounter
--- OUTSIDE RECORDS SUMMARY | 2025-05-01 13:38 | XMS_ITS | Encounter Summary ---
Author Organization [facility] Address [address] [facility] Attn: Epic Prelude ADT [place] [address] Care Team Providers Care Commercial Title Examiner Name Role Phone Jasmina Moreno DO Primary Care Provider Encounter Details Date Type Department Care Team (Late st Contact Info) Description 01/19/2000 Outpatient Historical Non-Staff, Physician NO ADDRESS ON FILE Social History Tobacco Use Types Packs/Day Years Used Date Smoking Tobacco: Never Assessed Comments Unknown Sex and Gender Information Value Date Recorded Sex Assigned at Not on file Legal Sex Female 5:13 AM 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
--- OUTSIDE RECORDS SUMMARY | 2025-05-01 13:38 | XMS_ITS | Encounter Summary ---
Author Organization [facility] Address [address] [place] [address] Care Team Providers Care Feed Mill Manager Name Role Phone Jasmina Moreno DO Primary Care Provider Encounter Details Date Type Department Care Team (Latest Contact Info) Description 04/01/2007 Outpatient Historical [facility] [place] [facility] Medicine [address] [address] Milind Shanks DO NO ADDRESS ON FILE Contusion of Multiple Sites, not Elsewhere Classified (Primary Dx); Abrasion NEC Social History Tobacco Use Types Packs/Day Years Used Date Smoking Tobacco: Never Assessed Comments Unknown Sex and Gender Information Value Date Recorded Sex Assigned at Not on file Legal Sex Female 5:13 AM SHANK SANDER Gender Identity Not on file Sexual Orientation Not on file documented as of this encounter Plan of Treatment Not on file documented as of this encounter Visit Diagnoses Diagnosis Contusion of multiple sites, not elsewhere classified- Primary Abrasion or friction burn of other, multiple, and unspecified sites, without mention of infection documented in this encounter Additional Health Concerns Infection Onset Date Last Indicated Resolved Time MRSA Comment:Rony 03/23/16 03/24/2016 03/24/2016 documented as of this encounter Care Teams Feed Mill Manager Relationship Specialty Start Date End Date Jasmina Moreno DO [address] [place] [address] PCP - General Family Practice 12/17/13 documented as of this encounter
--- OUTSIDE RECORDS SUMMARY | 2025-05-01 13:38 | XMS_ITS | Encounter Summary ---
Author Organization [facility] Address [address] [place] [address] Care Team Providers Care Business Services Administrator Name Role Phone Jasmina Moreno DO Primary Care Provider Encounter Details Date Type Department Care Team (Latest Contact Info) Description 2004 Outpatient Historical 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 MANAGER Gender Identity Not on file Sexual Orientation Not on file documented as of this encounter Plan of Treatment Not on file documented as of this encounter Visit Diagnoses Diagnosis Follow-up examination, following unspecified surgery- Primary documented in this encounter Additional Health Concerns Infection Onset Date Last Indicated Resolved Time MRSA Comment:Rony 03/23/16 03/24/2016 03/24/2016 documented as of this encounter Care Teams Business Services Administrator Relationship Specialty Start Date End Date Jasmina Moreno DO [address] [place] [address] PCP - General Family Practice 12/17/13 documented as of this encounter
--- OUTSIDE RECORDS SUMMARY | 2025-05-01 13:38 | XMS_ITS | Encounter Summary ---
Author Organization [facility] Address [address] [place] [address] Care Team Providers Care Load Builder Name Role Phone Jasmina Moreno DO Primary Care Provider [phone] Encounter Details Date Type Department Care Team (Latest Contact Info) Description 07/17/2003 Outpatient Historical [facility] Urology- [address]tr[address], 3[address] [place] [address] Oleg Horta MD NO ADDRESS ON FILE URIN TRACT INFECTION NOS (Primary Dx) Social History Tobacco Use Types Packs/Day Years Used Date Smoking Tobacco: Never Assessed Comments Unknown Sex and Gender Information Value Date Recorded Sex Assigned at Not on file Legal Sex Female 5:13 AM EDUCATION REVIEWER Gender Identity Not on file Sexual Orientation Not on file documented as of this encounter Plan of Treatment Not on file documented as of this encounter Visit Diagnoses Diagnosis Urinary tract infection, site not specified- Primary documented in this encounter Additional Health Concerns Infection Onset Date Last Indicated Resolved Time MRSA Comment:Rony 03/23/16 03/24/2016 03/24/2016 documented as of this encounter Care Teams Load Builder Relationship Specialty Start Date End Date Jasmina Moreno DO [address] [place] [address] PCP - General Family Practice 12/17/13 documented as of this encounter
--- OUTSIDE RECORDS SUMMARY | 2025-05-01 13:38 | XMS_ITS | Encounter Summary ---
Author Organization [facility] Address [address] [place] [address] Care Team Providers Care Fire Equipment Inspector Helper Name Role Phone Jasmina Moreno DO Primary Care Provider Encounter Details Date Type Department Care Team (Latest Contact Info) Description 10/11/2004 Outpatient Historical [facility] General Surgery [address] [address] [address] [place] [address] [place] [address] [facility] [address] [place] [address] SURGERY FOLLOWUP, UNSPEC (Primary Dx) Social History Tobacco Use Types Packs/Day Years Used Date Smoking Tobacco: Never Assessed Comments Unknown Sex and Gender Information Value Date Recorded Sex Assigned at Not on file 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 Gender Identity Not on file Sexual Orientation Not on file documented as of this encounter Plan of Treatment Not on file documented as of this encounter Visit Diagnoses Diagnosis Follow-up examination, following unspecified surgery- Primary documented in this encounter Additional Health Concerns Infection Onset Date Last Indicated Resolved Time MRSA Comment:Rony 03/23/16 03/24/2016 03/24/2016 documented as of this encounter Care Teams Fire Equipment Inspector Helper Relationship Specialty Start Date End Date Jasmina Moreno DO [address] [place] [address] PCP - General Family Practice 12/17/13 documented as of this encounter
--- OUTSIDE RECORDS SUMMARY | 2025-05-01 13:38 | XMS_ITS | Encounter Summary ---
Author Organization [facility] Address [address] [place] [address] Care Team Providers Care Yarn Examiner Name Role Phone Jasmina Moreno DO Primary Care Provider [phone] Encounter Details Date Type Department Care Team (Late st Contact Info) Description 08/25/2004 Outpatient Historical [facility] Devon Alvarado MD [address] [place] [address] Social History Tobacco Use Types Packs/Day Years Used Date Smoking Tobacco: Never Assessed Comments Unknown Sex and Gender Information Value Date Recorded Sex Assigned at Not on file Legal Sex Female 5:13 AM TECHNICAL CONSULTANT Gender Identity Not on file Sexual Orientation Not on file documented as of this encounter Plan of Treatment Not on file documented as of this encounter Procedures Procedure Name Priority Date/Time Associated Diagnosis Comments CEA Routine 08/25/2004 8:20 AM TECHNICAL CONSULTANT documented in this encounter Results * CEA (08/25/2004 8:20 AM TECHNICAL CONSULTANT) CEA .9 0.0 - 3.0 ng/mL INTERFACE SYSTEM Comment: Normal Ranges: Smokers 0-5.0 ng/ml Non-Smokers 0-3.0 ng/ml 08/25/2004 8:20 AM TECHNICAL CONSULTANT us Devon Alvarado MD CHEMISTRY ORDERABLES Final R esult INTERFACE SYSTEM Refer to clinic/hospital department documented in this encounter Visit Diagnoses Not on filedocumented in this encounter Additional Health Concerns Infection Onset Date Last Indicated Resolved Time MRSA Comment:Rony 03/23/16 03/24/2016 03/24/2016 documented as of this encounter Care Teams Yarn Examiner Relationship Specialty Start Date End Date Jasmina Moreno DO [address] [place] [address] PCP - General Family Practice 12/17/13 documented as of this encounter
--- OUTSIDE RECORDS SUMMARY | 2025-05-01 13:38 | XMS_ITS | Encounter Summary ---
Author Organization [facility] Address [address] [place] [address] Care Team Providers Care Lap Maker Name Role Phone Jasmina Moreno DO Primary Care Provider Encounter Details Date Type Department Care Team (Latest Contact Info) Description 07/06/2005 Outpatient Historical [facility] General Surgery [address] [address] [address] [place] [address] Devon Francois MD [address] [facility] [address] [place] [address] PERS HX OF COLONIC MALIGNANCY (Primary Dx) Social History Tobacco Use Types Packs/Day Years Used Date Smoking Tobacco: Never Assessed Comments Unknown Sex and Gender Information Value Date Recorded Sex Assigned at Not on file Legal Sex Female 5:13 AM SUPERVISOR 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 Gender Identity Not on file Sexual Orientation Not on file documented as of this encounter Plan of Treatment Not on file documented as of this encounter Visit Diagnoses Diagnosis Personal history of malignant neoplasm of large intestine- Primary documented in this encounter Additional Health Concerns Infection Onset Date Last Indicated Resolved Time MRSA Comment:Rony 03/23/16 03/24/2016 03/24/2016 documented as of this encounter Care Teams Lap Maker Relationship Specialty Start Date End Date Jasmina Moreno DO [address] [place] [address] PCP - General Family Practice 12/17/13 documented as of this encounter
--- OUTSIDE RECORDS SUMMARY | 2025-05-01 13:38 | XMS_ITS | Encounter Summary ---
Author Organization [facility] Address [address] [place] [address] Care Team Providers Care Prosthetics Assistant Name Role Phone Jasmina Moreno DO Primary Care Provider Encounter Details Date Type Department Care Team (Latest Contact Info) Description 09/04/2000 Outpatient Historical [facility] Medicine [address] [address] Chaitanya Padron MD Malig neo rectosigmoid jct (Primary Dx) Social History Tobacco Use Types Packs/Day Years Used Date Smoking Tobacco: Never Assessed Comments Unknown Sex and Gender Information Value Date Recorded Sex Assigned at Not on file 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 Sex Female 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 Gender Identity Not on file Sexual Orientation Not on file documented as of this encounter Plan of Treatment Not on file documented as of this encounter Visit Diagnoses Diagnosis 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
--- OUTSIDE RECORDS SUMMARY | 2025-05-01 13:38 | XMS_ITS | Encounter Summary ---
Author Organization [facility] Address [address] [place] [address] Care Team Providers Care Rn Procedure Name Role Phone Jasmina Moreno Primary Care Provider Encounter Details Date Type Department Care Team (Late st Contact Info) Description 07/08/2008 Outpatient Historical [facility] Endoscopy Niesha [address] [place] [address] Sai De La Paz MD [address] [facility] [address] [place] [address] Social History Tobacco Use Types Packs/Day Years Used Date Smoking Tobacco: Never Assessed Comments No Sex and Gender Information Value Date Recorded Sex Assigned at Not on file Legal Sex Female 5:13 AM PSYCHIATRIC AIDE Gender Identity Not on file Sexual Orientation Not on file documented as of this encounter Plan of Treatment Not on file documented as of this encounter Procedures Procedure Name Priority Date/Time Associated Diagnosis Comments PATHOLOGY Routine 07/24/2008 3:53 PM PSYCHIATRIC AIDE documented in this encounter Results * PATHOLOGY (07/24/2008 3:53 PM PSYCHIATRIC AIDE) PATHOLOGY/CYT OLOGY REPORT [facility]atomic Path[facility] Dept [address] [facility] [address] Patient: KARINA AREVALO Accn No: [id number] Collected: 07/24/2008 3:53:00 PM SURGICAL PATHOLOGY FINAL REPORT Diagnosis A. Colon, cecum, biopsy - adenomatous polyp(s), two fragments - benign colonic mucosa, one fragment. Lizzeth Chow M.D. (Electronicall y signed by) Verified: 07/27/08 FERNANDOW/ARIAN Clinical Information Polyps. Specimen Source AColon, CECUM Microscopic Description Microscopic examination was performed. Gross Description Part A. Submitted in a container of formalin labelled Tucker - #1 cecal colon polyp are three crawford tissue fragments ranging in size from 0.7 to 1 cm. The specimen is submitted entirely in A1. DLS/WLS INTERFACE SYSTEM 07/24/2008 3:53 PM PSYCHIATRIC AIDE us Sai De La Paz MD PATHOLOGY/CYTOLOGY ORDERABL ES Final Result INTERFACE SYSTEM Refer to clinic/hospital department documented in this encounter Visit Diagnoses Not on filedocumented in this encounter Additional Health Concerns Infection Onset Date Last Indicated Resolved Time MRSA Comment:Rony 03/23/16 03/24/2016 03/24/2016 documented as of this encounter Care Teams Rn Procedure Relationship Specialty Start Date End Date Jasmina Moreno DO [address] [place] [address] PCP - General Family Practice 12/17/13 documented as of this encounter
--- OUTSIDE RECORDS SUMMARY | 2025-05-01 13:38 | XMS_ITS | Encounter Summary ---
Author Organization [facility] Address [address] [place] [address] Care Team Providers Care Social Media Marketer Name Role Phone TiffanieJasmina calles Willy ARIAS Primary Care Provider Encounter Details Date Type Department Care Team (Latest Contact Info) Description 03/06/2006 Outpatient Historical [facility] Medicine [address] [address] Milind Shanks DO NO ADDRESS ON FILE Unspecified Backache (Primary Dx); Pain in Limb; Generalized Osteoarthrosis, Involving Multiple Sites; DM w/o Complication Type II (CMS/HCC) Social History Tobacco Use Types Packs/Day Years Used Date Smoking Tobacco: Never Assessed Comments Unknown Sex and Gender Information Value Date Recorded Sex Assigned at Not on file Legal Sex Female 5:13 AM MILL PLATFORM 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 Gender Identity Not on file Sexual Orientation Not on file documented as of this encounter Plan of Treatment Not on file documented as of this encounter Visit Diagnoses Diagnosis Backache, unspecified- Primary Pain in limb Pain in soft tissues of limb Generalized osteoarthrosis, involving multiple sites Type II or unspecified type diabetes mellitus without mention of complication, not stated as uncontrolled documented in this encounter Additional Health Concerns Infection Onset Date Last Indicated Resolved Time MRSA Comment:Rony 03/23/16 03/24/2016 03/24/2016 documented as of this encounter Care Teams Social Media Marketer Relationship Specialty Start Date End Date Jasmina Moreno DO [address] [place] [address] PCP - General Family Practice 12/17/13 documented as of this encounter
--- OUTSIDE RECORDS SUMMARY | 2025-05-01 13:38 | XMS_ITS | Encounter Summary ---
Author Organization [facility] Address [address] [place] [address] Care Team Providers Care Rubber Heel And Sole Press Tender Name Role Phone Jasmina Moreno DO Primary Care Provider Encounter Details Date Type Department Care Team (Latest Contact Info) Description 08/03/2004 Outpatient Historical [facility] General Surgery [address] [address] [address] [place] [address] [place] [address] [facility] [address] [place] [address] UNCERTAIN BEHAV NEOPL SKIN (Primary Dx); SEBACEOUS CYST Social History Tobacco Use Types Packs/Day Years Used Date Smoking Tobacco: Never Assessed Comments Unknown Sex and Gender Information Value Date Recorded Sex Assigned at Not on file Legal Sex Female 5:13 AM PASTRY DECORATOR Gender Identity Not on file Sexual Orientation Not on file documented as of this encounter Plan of Treatment Not on file documented as of this encounter Visit Diagnoses Diagnosis Neoplasm of uncertain behavior of skin- Primary Sebaceous cyst documented in this encounter Additional Health Concerns Infection Onset Date Last Indicated Resolved Time MRSA Comment:Rony 03/23/16 03/24/2016 03/24/2016 documented as of this encounter Care Teams Rubber Heel And Sole Press Tender Relationship Specialty Start Date End Date Jasmina Moreno DO [address] [place] [address] PCP - General Family Practice 12/17/13 documented as of this encounter
--- OUTSIDE RECORDS SUMMARY | 2025-05-01 13:38 | XMS_ITS | Encounter Summary ---
Author Organization [facility] Address [address] [place] [address] Care Team Providers Care Sealer Sander Name Role Phone Jasmina Moreno DO Primary Care Provider [phone] Encounter Details Date Type Department Care Team (Late st Contact Info) Description 08/03/2004 Outpatient Historical [facility] [address] [facility] [address] [place] [id number] Social History Tobacco Use Types Packs/Day Years Used Date Smoking Tobacco: Never Assessed Comments Unknown Sex and Gender Information Value Date Recorded Sex Assigned at Not on file 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
--- OUTSIDE RECORDS SUMMARY | 2025-05-01 13:38 | XMS_ITS | Encounter Summary ---
Author Organization [facility] Address [address] [facility] Attn: Epic Prelude ADT FADUMO ZIEGLER [address] Care Team Providers Care Ground Control Approach Technician Name Role Phone Jasmina Moreno DO Primary Care Provider Encounter Details Date Type Department Care Team (Late st Contact Info) Description 01/20/2000 Outpatient Historical Chaitanya Padron MD Social History Tobacco Use Types Packs/Day Years Used Date Smoking Tobacco: Never Assessed Comments Unknown Sex and Gender Information Value Date Recorded Sex Assigned at Not on file Legal Sex Female 5:13 AM FINANCIAL SALES ASSISTANT Gender Identity Not on file Sexual Orientation Not on file documented as of this encounter Plan of Treatment Not on file documented as of this encounter Visit Diagnoses Not on filedocumented in this encounter Additional Health Concerns Infection Onset Date Last Indicated Resolved Time MRSA Comment:Rony 03/23/16 03/24/2016 03/24/2016 documented as of this encounter Care Teams Ground Control Approach Technician Relationship Specialty Start Date End Date Jasmina Moreno DO [address] [facility] [place] [address] PCP - General Family Practice 12/17/13 documented as of this encounter
--- OUTSIDE RECORDS SUMMARY | 2025-05-01 13:38 | XMS_ITS | Encounter Summary ---
Author Organization [facility] Address [address] [facility] Attn: Epic Prelude ADT FADUMO ZIEGLER [address] Care Team Providers Care Practicing Dermatologist Name Role Phone Jasmina Moreno DO Primary Care Provider Encounter Details Date Type Department Care Team (Late st Contact Info) Description 06/05/2001 Outpatient Historical Jaxon Degroot MD [address] [place] [address] Social History Tobacco Use Types Packs/Day Years Used Date Smoking Tobacco: Never Assessed Comments Unknown Sex and Gender Information Value Date Recorded Sex Assigned at Not on file Legal Sex Female 5:13 AM DENTURE CONTOUR WIRE SPECIALIST Gender Identity Not on file Sexual Orientation Not on file documented as of this encounter Plan of Treatment Not on file documented as of this encounter Visit Diagnoses Not on filedocumented in this encounter Additional Health Concerns Infection Onset Date Last Indicated Resolved Time MRSA Comment:Rony 03/23/16 03/24/2016 03/24/2016 documented as of this encounter Care Teams Practicing Dermatologist Relationship Specialty Start Date End Date Jasmina Moreno DO [address] [place] [id number] PCP - General Family Practice 5/14/14 documented as of this encounter
--- OUTSIDE RECORDS SUMMARY | 2025-05-01 13:38 | XMS_ITS | Encounter Summary ---
Author Organization [facility] Address [address] [place] [address] Care Team Providers Care Steel Fabricating Supervisor Name Role Phone Jasmina Moreno DO Primary Care Provider [phone] Encounter Details Date Type Department Care Team (Latest Contact Info) Description 02/16/2004 Outpatient Historical [facility] [address] [address] Milind Shanks DO NO ADDRESS ON FILE DIABETES UNCOMPL ADULT-TYPE II (CMS/HCC) (Primary Dx) Social History Tobacco Use Types Packs/Day Years Used Date Smoking Tobacco: Never Assessed Comments Unknown Sex and Gender Information Value Date Recorded Sex Assigned at Not on file Legal Sex Female 5:13 AM HATCHERY ATTENDANT Gender Identity Not on file Sexual Orientation [...] documented as of this encounter Care Teams Steel Fabricating Supervisor Relationship Specialty Start Date End Date Jasmina Moreno DO [address] [place] [address] PCP - General Family Practice 12/17/13 documented as of this encounter
--- OUTSIDE RECORDS SUMMARY | 2025-05-01 13:38 | XMS_ITS | Clinical Summary ---
Author Organization [facility] Address [address] [place] [address] Care Team Providers Care Granulator Tender Name Role Phone Jasmina Moreno Willy ARIAS Primary Care Provider Allergies Active Allergy Reactions Criticality Noted Date Comments Codeine Confusion Low 06/05/2008 Hydromorphone (Bulk) Nausea and Vomiting Low 2013 Causes hallucinations, mental changes. Morphine Swelling Low 06/05/2008 Medications cholecalciferol, vitamin D3, 5,000 unit Take 400 Units by mouth daily. Active HumaLOG KwikPen Insulin 100 unit/mL pen syringe Inject 15 Units by subcutaneous injection 3 times daily with meals. 07/17/24 Taking 30 units at a time 10/17/19 23 Active traMADoL (ULTRAM) 50 mg tabletIndications:Cl osed displaced intertrochanteric fracture of right femur with routine healing Take 1 Tablet (50 mg) by mouth every 6 hours as needed for Pain. 60 Tablet 2 12/02/19 23 Active lisinopriL (PRINIVIL) 40 mg tablet Take 40 mg by mouth daily. 03/09/20 23 Active fluorouracil 5 % CreamIndications:Ski n cancer of anterior chest Apply to affected area 2 times daily. 30 Gram 3 05/10/20 23 Active nystatin (MYCOSTATIN) 100,000 unit/gram Cream Apply to affected area 2 times daily. 60 Gram 2 11/27/20 23 Active atorvastatin (LIPITOR) 40 mg tabletIndications:Mi xed hyperlipidemia Take 1 Tablet (40 mg) by mouth daily at bedtime. 90 Tablet 4 07/03/20 23 Active clopidogreL (PLAVIX) 75 mg TabletIndications:Ce rebrovascular accident (CVA), unspecified mechanism ([facility]) Take 1 Tablet (75 mg) by mouth daily. 90 Tablet 4 07/03/20 23 Active donepeziL (ARICEPT) 10 mg tablet Take 1 Tablet (10 mg) by mouth daily at bedtime. 90 Tablet 4 04/24/20 24 Active FreeStyle Paige 2 [place] MiscIndications:Type 2 diabetes mellitus with hyperglycemia, with long-term current use of insulin ([facility]) USE TO MONITOR GLUCOSE CONTINUOUSLY 1 Each 05/07/20 Active FreeStyle Paige 2 Sensor KitIndications:Type 2 diabetes mellitus with hyperglycemia, with long-term current use of insulin ([facility]) USE TO MONITOR GLUCOSE CONTINUOUSLY. REPLACE SENSOR EVERY 14 DAYS 6 Each 05/07/20 24 Active pantoprazole (PROTONIX) 40 mg Tablet, Delayed Release (E.C.) Take 1 Tablet (40 mg) by mouth 2 times daily. 180 Tablet 4 06/28/20 24 Active furosemide (LASIX) 40 mg tablet Take 1 Tablet (40 mg) by mouth daily. 30 Tablet 2 06/28/20 24 Active Additional Information Patient taking differently:40 mg Oral DAILY,As needed prn, Reported on 12/31/2024 escitalopram oxalate (LEXAPRO) 10 mg tablet Take 1 Tablet (10 mg) by mouth daily. 90 Tablet 4 06/28/20 24 Active allopurinoL (ZYLOPRIM) 300 mg tablet Take 1 tablet by mouth once daily 90 Tablet 2 11/05/19 25 Active insulin glargine (LANTUS) 100 unit/mL injection Inject 50 Units by subcutaneous injection daily at bedtime. Active traMADol (ULTRAM) 50 mg tabletIndications:Ob struction of pancreatic duct Take 1 Tablet (50 mg) by mouth every 6 hours as needed for Pain. 20 Tablet 12/18/19 25 Active LORazepam (ATIVAN) 0.5 mg tabletIndications:Pa gilmar attack Take 1 Tablet (0.5 mg) by mouth one time for 1 dose. Clarify: take 1 tablet 30 minutes prior to procedure. 1 Tablet 12/23/19 25 Active ferrous sulfate 325 mg (65 mg iron) tablet Take 1 Tablet (325 mg) by mouth every other day. 90 Tablet 3 01/07/20 25 Active Blood-Glucose Meter,Continuous (FreeStyle Paige 3 [place])Indications:T ype 2 diabetes mellitus with hyperglycemia, with long-term current use of insulin (CMS/[facility]),Type 2 diabetes mellitus with cardiac complication (CMS/[facility]) Use with sensor to monitor glucose continuously. 1 Each 04/14/20 25 Active Blood-Glucose Sensor (FreeStyle Paige 3 Sensor) DeviceIndications:Ty pe 2 diabetes mellitus with hyperglycemia, with long-term current use of insulin (CMS/HCC),Type 2 diabetes mellitus with cardiac complication (CMS/HCC) Use to monitor glucose continuously. Change every 14 days. 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, psychotic disturbance, mood disturbance, or anxiety 07/03/2023 Chronic anemia 04/15/2022 Closed displaced fracture of left femoral neck 0 02/24/2022 S/P IMN closed displaced int ertrochanteric fracture of right femur, 08/03/2021 08/02/2021 History of GI bleed 07/10/2021 History of colitis 04/03/2021 Recurrent UTI 04/03/2021 Bilateral lower extremity edema 04/03/2021 History of CVA with residual deficit 03/29/2021 Primary osteoarthritis of right knee 06/06/2018 Chronic midline low back pain with bilateral sci atica 04/12/2016 Personal history of colon cancer 03/28/2016 MRSA colonization 03/23/2016 Idiopathic chronic gout of multiple sites withou t tophus 03/11/2014 Osteopenia 05/20/2013 Rotator cuff tear, left 03/26/2012 Overview (12/02/2020): MRI: 03/17 Family history of breast cancer in sister 2011 Essential hypertension 09/04/2010 Mixed hyperlipidemia 06/02/2009 Overview (12/02/2020): LDL: 77 (2); 85 (02/14) HDL: 39 (2); 49 (3) T (2); 149 (02/14) 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 Lyons Basal cell carcinoma of nose Basal cell carcinoma of forehead Obstructive sleep apnea (adult) (pediatric) Overview (08/02/2021): No tx Hyperlipidemia Resolved Problems Problem Noted Date Diagnosed Date Resolved Date Breast CA screening 03/26/2012 12/03/19 14 Overview (12/01/2020): Mammo: 03/17; 09/15 Colon cancer screening 03/26/201212/02 Overview (12/01/2020): Colonoscopy: 07/13 (tubular adenoma x 1, repeat in 5 yrs) Encounters Date Type Department Care Team Description 04/21/2025 Medication Prior Auth Encounter [facility] Prescription Management Dept [address] [facility] [place] [address] Mar Taylor, PHARMACIST 02/12/2025 Patient Outreach [facility] [address] [place] [phone] Jasmina Moreno, DO Primary Care Outreach ([facility]) 02/04/2025 Telephone [facility] [address] [place] [facility] [place] [phone] Jasmina Moreno, DO Provider Call from Last 3 Months Immunizations Immunization Administration Dates Next Due (PNEUMOVAX 23)(50 YRS UP) PN EUMOCOCCAL POLYSACCHARIDE (PPV23) 0.5 ML, IM 08/20/2007 (SPIKEVAX) (12 YRS UP PRIMAR Y SERIES) COVID-19 VACCINE - MRNA-1273(PF) 100 MCG/0.5 ML IM SUSP 10/23/2020,09/25/2020 (TENIVAC)(7 YRS UP) TETANUS AND DIPHTHERIA TOXOIDS, ADSORBED (5 LF OF TETANUS TOXOID AND 2 LF OF DIPHTHERIA TOXOID), 0.5ML (PF), IM 03/28/2007 INFLUENZA VACCINE HIGH DOSE QUADRIVALENT 65 YR UP PF IM 07/02/2023,05/10/2023,08/01/2022,05/13,05/20/2020 INFLUENZA VACCINE HIGH DOSE TRIVALENT SPLIT VIRUS, (65 YR UP), 0.5ML (PF), IM 04/24/2024 Influenza Seasonal Unspecifi ed Formulation IM 05/29/2008,05/03/2007,05/06/2005 Influenza Vaccine High Dose 65+ Yrs IM 1 08/10/2018,05/02/2018,07/10/2017,07/04 Pneumococcal Polysaccharide Vacc 23-mayda IM SCHIP 08/20/2007 Family History Medical History Relation Name Comments Diabetes Brother 1 Diabetes Brother 2 Healthy Brother 3 Heart Disease Brother 4 Diabetes Brother 5 Diabetes Brother 6 Healthy Daughter 1 Healthy Daughter 2 Cancer Father prostate Diabetes Mother Healthy Sister 1 Diabetes Sister 2 Diabetes Sister 3 Other Sister 4 Breast Cancer Sister 5 BREAST CANCER Heart Disease Sister 6 Healthy Son 1 Healthy Son 2 Colon Cancer Neg Hx Relation Name Status Comments Brother 1 Alive Brother 2 Alive Brother 3 Alive Brother 4 Brother 5 Brother 6 Daughter 1 Alive Daughter 2 Alive Father Mother Sister 1 Alive Sister 2 Alive Sister 3 Alive Sister 4 Sister 5 Sister 6 Son 1 Alive Son 2 Alive Social History Tobacco Use Types Packs/Day Years Used Date Smoking Tobacco: Never Passive Smoke Exposure: Never Smokeless Tobacco: Never Tobacco Cessation:Counseling Given: No Alcohol Use Standard Drinks/Week Comments No 0 (1 standard drink = 0.6 oz pur e alcohol) Financial Resource Strain Answer Date R ecorded How hard is it for you to pa y for the very basics like food, housing, medical care, and heating? Not very hard 02/23/2022 Food Insecurity Answer Date Recorded In the past 12 months, have you worried that your food would run out before you had money to buy more? Never true 02/23/2022 In the past 12 months, did y ou run out of food and didn't have money to buy more? Never true 02/23/2022 Transportation Needs Answer Date Record ed In the past 12 months, has l ack of transportation kept you from medical appointments or from getting medications? No 02/23/2022 Lack of Transportation (Non-Medical) Not on file 02/23/2022 Feeling Safe Answer Date Recorded Are you in a relationship wi th someone who hurts you emotionally and/or physically? No 01/09/2025 Comments No Sex and Gender Information Value Date Recorded Sex Assigned at Not on file Legal Sex Female 5:07 PM LIDAR ANALYST Gender Identity Not on file Sexual Orientation Not on file Last Filed Vital Signs Vital Sign Reading Time Taken Comments Blood Pressure 165/67 01/09/2025 1:45 PM CDT Pulse 63 01/09/2025 1:45 PM CDT Temperature 36.7 C (98 F) 01/09/2025 11:56 AM CDT Respiratory Rate 20 01/09/2025 1:45 PM CDT Oxygen Saturation 100% 01/09/2025 1:45 PM CDT Inhaled Oxygen Concentration - - Weight 80.6 kg (177 lb 11.2 oz) 025 11:56 AM CDT Height 160 cm (5' 3 ) 01/09/2025 11:56 AM CDT Body Mass Index 31.48 01/09/2025 11:56 AM CDT Plan of Treatment Upcoming Encounters Date Type Department Care Team (Late st Contact Info) Description 06/04/2025 11:00 AM CDT Office Visit [facility] [place] [address] [address] Grace Mathis NP [address] [facility] [address] [place] [phone] 07/07/2025 9:20 AM LIDAR ANALYST Office Visit [facility] [place] [address] [place] [address] Jasmina Moreno, DO [address] [place] [phone] 07/08/2025 2:30 PM LIDAR ANALYST Office Visit [facility] [place] [address] [place] [address] Ivette Riley DO [address] [address] [place] [address] Health Maintenance Due Date Last Done Comments ZOSTER VACCINE (1 of 2) 1993 DTAP/TDAP/TD VACCINES (1 - Tdap) 03/29/2007 03/28/20 07 PNEUMOCOCCAL VACCINE 50+ YEA RS (2 of 2 - PCV) 08/20/2008 08/20/2007, 08/20/2007 RSV VACCINE (60+ or ) (1 - 1-dose 75+ series) 2018 DIABETES ANNUAL FOOT EXAM 07/02/20242022, 07/13/2021, 08/24/2020 INFLUENZA VACCINE (#1) 2025 4, 07/02/2023, 05/10/2023, Additional history exists COVID-19 Vaccine (4 - 2024-2 6 season) 2025 07/15/2021, 10/23/2020, 09/25/2020 DIABETES MICROALBUMIN ANNUAL SCREEN 04/24/2025 04/24/2024, 07/13/2021, 10/06/2016 DIABETES HBA1C Q 6 MONTHS 05/29/20252024, 04/24/2024, 11/26/2023, Additional history exists DIABETES ANNUAL RETINAL EXAM 10/15/202507/2025, 10/15/2024, 07/18/2024, Additional history exists LDL CHOLESTEROL ANNUAL 11/27/2025 5, 07/17/2024, 04/24/2024, Additional history exists COLORECTAL SCREENING 06/06/2026 06/06/2021, 06/06/2021, 08/08/2013, Additional history exists OSTEOPOROSIS SCREENING 10/05/2026 2, 05/08/2013, 05/08/2013 Medical Devices Implanted Type Area Instructor Of Education Device Identifier Shelf Expiration Date Model / Serial / Lot [place] Dax Bio Swvlck 4.75x24.5mm [id number] - Sna Implanted:Qty: 1 on 04/23/2012 [place] Left: Shoulder [employer] 03/05/2014 AR-2324BCM / NA / [id number] [place] Sut Bio Swvlck 4.75x24.5mm Ar-2324bcm - Sna Implanted:Qty: 2 on 04/23/2012 [place] Left: Shoulder [employer] 03/05/2014 AR-2324BCM / NA / [id number] Hemostatic Gelfoam Powder 1gm [id number] - Sna Implanted:Qty: 1 on 04/11/2016 by Edita Okeefe MD Hemostatic N/A: Spine Lumbar PFIZER- PHARM 09/05/2018 [id number] / NA / [id number] Stem Fem Actis Hi Colr Sz5 1010--050 - [id number] Implanted:Qty: 1 on 02/25/2022 by Dony Watts MD at [facility] Hip N/A: Hip J&J- [employer] [id number] 01/04/2032 1010-12-050 / / [id number] Head Bipolar Slf-Cntr 67l27fq 1035-47-000 - [id number] Implanted:Qty: 1 on 02/25/2022 by Dony Watts MD at [facility] Hip N/A: Hip J&J- [employer] [id number] 07/05/2026 1035-47-000 / / [id number] Head Fem Art/Enrique Cocr Sz28 1365-12-000 - [id number] Implanted:Qty: 1 on 02/25/2022 by Dony Watts MD at [facility] Hip N/A: Hip J[employer]J- [employer] [id number] 11/03/2026 1365-12-000 / / [id number] Nail Intertan 10s [id number] 130 9247-7222 - [id number] Implanted:Qty: 1 on 08/03/2021 by Kody Carrasco MD at [facility] Nail Right: Hip GUZMÁN NEPHEW ORTHO [id number] 12/20/2030 [id number] / / [id number] Screw Trgn Lp 5.0x32.5mm 9899-9829 - [id number] Implanted:Qty: 1 on 08/03/2021 by Kody Carrasco MD at [facility] Screw Right: Hip GU[employer]W [employer] [id number] / / Screw Lag/Comp 90/85 2519-2619 - [id number] Implanted:Qty: 1 on 08/03/2021 by Kody Carrasco MD at [facility] Screw Right: Hip GU[employer]PHEW [employer] [id number] 10/18/2030 [id number] / / [id number] [employer]ivell[employer]is, Biocomposite Implanted:Qty: 1 on 04/23/2012 Shoulder Left: Shoulder 01/03/2014 [id number] / NA / [id number] Procedures Procedure Name Priority Date/Time Associated Diagnosis Comments LIPID PANEL Routine 11/27/2024 2:52 PM CDT Type 2 diabetes mellitus with hyperglycemia, with long-term current use of insulin ([facility]) History of CVA with residual deficit Essential hypertension Chronic anemia 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 behavioral disturbance, psychotic disturbance, mood disturbance, or anxiety ([facility]/HCC) Type 2 diabetes mellitus with cardiac complication (CMS/HCC) Mixed hyperlipidemia Idiopathic chronic gout of multiple sites without tophus Recurrent UTI Panic attack Facial weakness HEMOGLOBIN A1C Routine 11/27/2024 2:52 PM CDT Type 2 diabetes mellitus with hyperglycemia, with long-term current use of insulin ([facility]/HCC) History of CVA with residual deficit Essential hypertension Chronic anemia 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 behavioral disturbance, psychotic disturbance, mood disturbance, or anxiety (CMS/HCC) Type 2 diabetes mellitus with cardiac complication (CMS/HCC) Mixed hyperlipidemia Idiopathic chronic gout of multiple sites without tophus Recurrent UTI Panic attack Facial weakness MICROALBUMIN/CREATI NINE RATIO, RANDOM UR Routine 04/24/2024 4:18 PM CDT Type 2 diabetes mellitus with hyperglycemia, with long-term current use of insulin (CMS/[facility]) HM DIABETES EYE EXAM Routine 06/22/2023 10:27 AM LIDAR ANALYST ENDOSCOPY, COLON, DIAGNOSTIC Routine 06/06/2021 XR DEXA BONE DENSITY AXIAL 1 OR MORE SITES Routine 05/08/2013 12:51 PM CDT Osteoporosis from Last 3 Months or Most Recently Relevant to Health Maintenance Results * (ABNORMAL) HEMOGLOBIN A1C (11/27/2024 2:52 PM CDT) Pathologist [facility] HEMOGLOBIN A1C 9.5(H) <5.7 % [facility] Comment: For someone without known diabetes, a hemoglobin A1c value of 6.5% or greater indicates that they may have diabetes and this should be confirmed with a follow-up test. For someone with known diabetes, a value <7% indicates that their diabetes is well controlled and a value greater than or equal to 7% indicates suboptimal control. A1c targets should be individualized based on duration of diabetes, age, comorbid conditions, and other considerations. Currently, no consensus exists regarding use of hemoglobin A1c for diagnosis of diabetes for children. ESTIMATED AVERAGE GLUCOSE (MG/DL) 226 mg/dL [facility] ESTIMATED AVERAGE GLUCOSE (MMOL/L) 12.5 mmol/L [facility] Comment: FASTING:UNKNOWN FASTING: UNKNOWN Test Performed at: [email or web address] [id number] [facility] [place] [address] Altagracia Mo MD Blood 11/27/2024 2:52 PM CDT 11/27/2024 2:52 PM CDT us Jasmina Moreno DO CHEMISTRY ORDERABLES Final Result [facility] [phone] [place] [address] [facility] [place] [address] * (ABNORMAL) LIPID PANEL (11/27/2024 2:52 PM CDT) Pathologist [facility] CHOLESTEROL 169 <200 mg/dL [facility] HDL 35(L) > OR = 50 mg/dL [facility] TRIGLYCERIDE 504(H) <150 mg/dL [facility] Comment: If a non-fasting specimen was collected, consider repeat triglyceride testing on a fasting specimen if clinically indicated. Justin et al. J. of Clin. Lipidol. 2015;9:129-169. There is increased risk of pancreatitis when the triglyceride concentration is very high (> or = 500 mg/dL, especially if > or = 1000 mg/dL). Justin et al. J. of Clin. Lipidol. 2015;9:129-169. LDL CALCULATED mg/dL (calc) [facility] Comment: LDL cholesterol not calculated. Triglyceride levels greater than 400 mg/dL invalidate calculated LDL results. Reference range: <100 Desirable range <100 mg/dL for primary prevention; <70 mg/dL for patients with CHD or diabetic patients with > or = 2 CHD risk factors. LDL-C is now calculated using the Omar calculation, which is a validated novel method providing better accuracy than the Friedewald equation in the estimation of LDL-C. Brandon ASHBY et al. CHALINO. 2013;310(19): 1729-5658 (http://education.Pili Pop/faq/ZMZ915) CHOL/HDL RATIO 4.8 <5.0 (calc) [facility] NON-HDL CHOLESTEROL 134(H) <130 mg/dL (calc) [facility] Comment: For patients with diabetes plus 1 major ASCVD risk factor, treating to a non-HDL-C goal of <100 mg/dL (LDL-C of <70 mg/dL) is considered a therapeutic option. Test Performed at: [email or web address] [address] [facility] [place] [address] Altagracia Mo MD Blood 11/27/2024 2:52 PM CDT 11/27/2024 2:52 PM CDT us Jasmina Moreno DO CHEMISTRY ORDERABLES Final Result [facility] [phone] [facility] [address] [facility] [place] [address] * (ABNORMAL) MICROALBUMIN/CREATININE RATIO, RANDOM UR (04/24/2024 4:18 PM CDT) Creatinine, Urine 46 20 - 275 mg/dL [facility] MICROALBUMIN, URINE 2.7 See Note: mg/dL [facility] Comment: Reference Range: Reference Range Not established MICROALBUMIN/CREAT RATIO, UR 59(H) <30 mg/g creat [facility] Comment: The ADA defines abnormalities in albumin excretion as follows: Albuminuria Category Result (mg/g creatinine) Normal to Mildly increased <30 Moderately increased 30-299 Severely increased > OR = 300 The ADA recommends that at least two of three specimens collected within a 3-6 month period be abnormal before considering a patient to be within a diagnostic category. Test Performed at: [email or web address] [id number] [place] [address] Altagracia Mo MD Urine URINE SPECIMEN OBTAINED BY CLEAN CATCH PROCEDURE / Unknown 04/24/2024 4:18 PM CDT 04/25/2024 6:49 AM CDT us Jasmina Moreno DO URINE ORDERABLES Final Resu lt [facility] [phone] [facility] [address] [place] [address] * DIABETES EYE EXAM (06/22/2023 10:27 AM LIDAR ANALYST) us Abstract Provider HEALTH MAINTENANCE Final Resul t * ENDOSCOPY, COLON, DIAGNOSTIC (06/06/2021) us Abstract Provider GI PROCEDURE ORDERABLES Final Result * XR DEXA BONE DENSITY AXIAL 1 OR MORE SITES (05/08/2013 12:51 PM CDT) Anatomical Region Laterality Modality Other Narrative 05/08/2013 1:01 PM CDT PROCEDURE DEXA BONE DENSITY, 08 May 2013 Bone mineral densitometry was assessed by DEXA of the lumbar spine and left hip. There are no previous studies for comparison. Total density measured in the lumbar spine is 0.969 g/sq cm for a T score of -0.7 The total bone density of the left hip measures 0.957 g/sq cm for a T score of +0.1. The femoral neck region measures 0.656 g/sq cm for a T score of -1.7. IMPRESSION osteopenia, with increased fracture risk Procedure Note Marc Villalpando MD - 10/07/2022 PROCEDURE DEXA BONE DENSITY, 08 May 2013 Bone mineral densitometry was assessed by DEXA of the lumbar spine and left hip. There are no previous studies for comparison. Total density measured in the lumbar spine is 0.969 g/sq cm for a T score of -0.7 The total bone density of the left hip measures 0.957 g/sq cm for a T score of +0.1. The femoral neck region measures 0.656 g/sq cm for a T score of -1.7. IMPRESSION osteopenia, with increased fracture risk Iraqi Cornel Dixon MD DIAGNOSTIC IMAG ING ORDERABLES Final Result from Last 3 Months or Most Recently Relevant to Health Maintenance Insurance MEDICARE PART A AND B [facility] [id number] RX [employer] RX Member Subscriber Plan / Payer (Ef fective 2019-Present) Name:Karina Ceballos Jluis Relation to Subscriber:Self Name:Karina Ceballos Payer ID:Not on file Group ID:[id number] Type:RX Commercial Address: [address] Advance Directives For more information, please contact: [phone] * Full Code (Latest Code Status on File) Date Activated Date Inactivated Comments 02/25/2022 9:23 AM 02/27/2022 4:53 PM * Full Code Date Activated Date Inactivated Comments 02/24/2022 12:37 AM 02/25/2022 9:22 AM * Default Full Code - Needs Discussion Date Activated Date Inactivated Comments 08/02/2021 5:18 PM 08/05/2021 4:46 PM Care Teams Granulator Tender Relationship Specialty Start Date End Date Jasmina Moreno DO [address] [place] [address] PCP - General Family Practice 12/17/13
--- OUTSIDE RECORDS SUMMARY | 2025-05-01 13:38 | XMS_ITS | Encounter Summary ---
Author Organization [facility] Address [address] [place] [address] Care Team Providers Care Green End Worker Name Role Phone Jasmina Moreno DO Primary Care Provider [phone] Encounter Details Date Type Department Care Team (Late st Contact Info) Description 08/20/2007 Outpatient Historical [facility] [address] [address] Milind Shanks DO NO ADDRESS ON FILE Social History Tobacco Use Types Packs/Day Years Used Date Smoking Tobacco: Never Assessed Comments Unknown Sex and Gender Information Value Date Recorded Sex Assigned at Not on file Legal Sex Female 5:13 AM CHEMIST INTERN Gender Identity Not on file Sexual Orientation Not on file documented as of this encounter Plan of Treatment Not on file documented as of this encounter Visit Diagnoses Not on filedocumented in this encounter Additional Health Concerns Infection Onset Date Last Indicated Resolved Time MRSA Comment:Rony 03/23/16 03/24/2016 03/24/2016 documented as of this encounter Care Teams Green End Worker Relationship Specialty Start Date End Date Jasmina Moreno DO [address] [place] [address] PCP - General Family Practice 12/17/13 documented as of this encounter
--- OUTSIDE RECORDS SUMMARY | 2025-05-01 13:38 | XMS_ITS | Encounter Summary ---
Author Organization [facility] Address [address] [place] [address] Care Team Providers Care Orange Peel Operator Name Role Phone Jasmina Moreno DO Primary Care Provider Encounter Details Date Type Department Care Team (Late st Contact Info) Description 10/01/2009 Ancillary Orders [facility] [place] [address] [address] Milind Shanks DO NO ADDRESS ON FILE Screening Mammogram Social History Tobacco Use Types Packs/Day Years Used Date Smoking Tobacco: Never Assessed Comments No Sex and Gender Information Value Date Recorded Sex Assigned at Not on file Legal Sex Female 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 This examination was reviewed with the aid of a computer-aided detection system(CAD). The breast tissue density is fatty. No significant new findings since the prior mammogram(s). Procedure Note Estephania Cuellar MD - 10/04/2009 Bilateral Mammogram Reason for Exam: Screening Comparison: Comparison is made with the prior exam(s) dated 07.25.05 Findings: Bilateral CC and MLO views were obtained. This examination was reviewed with the aid of a computer-aided detectionsystem(CAD). The breast tissue density is fatty. No significant new findings since the prior mammogram(s). Milind Shanks DO MAMMO ORDERABLES Final Result documented in this encounter Visit Diagnoses Diagnosis Screening mammogram Other screening mammogram documented in this encounter Additional Health Concerns Infection Onset Date Last Indicated Resolved Time MRSA Comment:Rony 03/23/16 03/24/2016 03/24/2016 documented as of this encounter Care Teams Orange Peel Operator Relationship Specialty Start Date End Date Jasmina Moreno DO [address] [place] [address] PCP - General Family Practice 12/17/13 documented as of this encounter
--- OUTSIDE RECORDS SUMMARY | 2025-05-01 13:38 | XMS_ITS | Encounter Summary ---
Author Organization [facility] Address [address] [place] [address] Care Team Providers Care Septic Tank Cleaner Name Role Phone Jasmina Moreno DO Primary Care Provider [phone] Encounter Details Date Type Department Care Team (Latest Contact Info) Description 05/31/2001 Outpatient Historical [facility] [address] [address] Milind Shanks DO NO ADDRESS ON FILE Chest pain, unspecified (Primary Dx) Social History Tobacco Use Types Packs/Day Years Used Date Smoking Tobacco: Never Assessed Comments Unknown Sex and Gender Information Value Date Recorded Sex Assigned at Not on file Legal Sex Female 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 Gender Identity Not on file Sexual Orientation Not on file documented as of this encounter Plan of Treatment Not on file documented as of this encounter Visit Diagnoses Diagnosis Chest pain, unspecified- Primary documented in this encounter Additional Health Concerns Infection Onset Date Last Indicated Resolved Time MRSA Comment:Rony 03/23/16 03/24/2016 03/24/2016 documented as of this encounter Care Teams Septic Tank Cleaner Relationship Specialty Start Date End Date Jasmina Moreno DO [address] [place] [phone] PCP - General Family Practice 5/14/14 documented as of this encounter
--- OUTSIDE RECORDS SUMMARY | 2025-05-01 13:38 | XMS_ITS | Encounter Summary ---
Author Organization [facility] Address [address] [place] [address] Care Team Providers Care Aurist Name Role Phone Jasmina Moreno DO Primary Care Provider [phone] Encounter Details Date Type Department Care Team (Latest Contact Info) Description 08/21/2007 Outpatient Historical [facility] Medicine [address] [address] Milind Shanks DO NO ADDRESS ON FILE Routine Gynecological Examination Social History Tobacco Use Types Packs/Day Years Used Date Smoking Tobacco: Never Assessed Comments Unknown Sex and Gender Information Value Date Recorded Sex Assigned at Not on file Legal Sex Female 5:[address]LECTIONS OFFICER Gender Identity Not on file Sexual Orientation Not on file documented as of this encounter Plan of Treatment Not on file documented as of this encounter Visit Diagnoses Diagnosis Routine gynecological examination documented in this encounter Additional Health Concerns Infection Onset Date Last Indicated Resolved Time MRSA Comment:Rony 03/23/16 03/24/2016 03/24/2016 documented as of this encounter Care Teams Aurist Relationship Specialty Start Date End Date Jasmina Moreno DO [address] [place] [address] PCP - General Family Practice 12/17/13 documented as of this encounter
--- OUTSIDE RECORDS SUMMARY | 2025-05-01 13:38 | XMS_ITS | Encounter Summary ---
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
--- OUTSIDE RECORDS SUMMARY | 2025-05-01 13:38 | XMS_ITS | Encounter Summary ---
Author Organization [facility] Address [address] [place] [address] Care Team Providers Care Crane Hooker Name Role Phone TiffanieJasmina tsang DO Primary Care Provider [phone] Reason for Referral * Outpatient Services (Routine) - Closed Specialty Diagnoses / Procedures Referred By Keila huntley Referred To Contact Radiology Diagnoses Other screening mammogram Family history of breast cancer in sister Procedures MAMMO DIGITIZED STUDY Aaron Simmons MD NO ADDRESS ON FILE [facility] [address] [address] Phone: tel: fax: Referral ID Status Reason Start Date Expiration Date Visits Re quested Visits Authorized [id number] Closed 03/27/2012 03/27/2013 1 1 Encounter Details Date Type Department Care Team (Late st Contact Info) Description 03/27/2012 Ancillary Orders [facility] [place] [address] [facility] [address] [place] [address] Aaron Simmons MD NO ADDRESS ON FILE Breast CA screening; Family history of breast cancer in sister Social History Tobacco Use Types Packs/Day Years Used Date Smoking Tobacco: Never Smokeless Tobacco: Never Alcohol Use Standard Drinks/Week Comments No 0 (1 standard drink = 0.6 oz pur e alcohol) Comments No Sex and Gender Information Value Date Recorded Sex Assigned at Not on file Legal Sex Female 5:13 AM NUTRITION MANAGER Gender Identity Not on file Sexual Orientation Not on file documented as of this encounter Plan of Treatment Not on file documented as of this encounter Results * MAMMO DIGITIZED STUDY (09/30/2009 1:03 PM NUTRITION MANAGER) Narrative Phyllis Arevalo, RT - 03/27/2012 1:03 PM CDT Order information only. Exam was auto-finalized. Procedure Note Phyllis Arevalo, RT - 03/27/2012 Order information only. Exam was auto-finalized. Aaron Simmons MD DIAGNOSTIC IMAGING ORDERAB LES Final Result documented in this encounter Visit Diagnoses Diagnosis Breast CA screening Other screening mammogram Family history of breast cancer in sister Family history of malignant neoplasm of breast Breast CA screening Other screening mammogram Family history of breast cancer in sister Family history of malignant neoplasm of breast documented in this encounter Additional Health Concerns Infection Onset Date Last Indicated Resolved Time MRSA Comment:Rony 03/23/16 03/24/2016 03/24/2016 documented as of this encounter Care Teams Crane Hooker Relationship Specialty Start Date End Date Jasmina Moreno DO [address] [place] [address] PCP - General Family Practice 12/17/13 documented as of this encounter
--- OUTSIDE RECORDS SUMMARY | 2025-05-01 13:38 | XMS_ITS | Clinical Summary ---
Author Organization [facility] tone Address [address] [place] [address] Care Team Providers Care Slab Stripper Name Role Phone Jasmina Moreno Willy ARIAS Primary Care Provider [phone] Allergies Active Allergy Reactions Criticality Noted Date Comments Codeine Confusion Low 06/05/2008 Hydromorphone (Bulk) Nausea and Vomiting Low 2013 Morphine Swelling Low 06/05/2008 Medications lancets (ONE TOUCH ULTRASOFT LANCETS) Misc Three times daily 100 Each 4 3 Active naproxen sodium (ALEVE) 220 mg Tablet Take 440 mg by mouth every 4 hours as needed for Pain, Moderate. Active colchicine (COLCRYS) 0.6 mg tabletIndications :Chronic gout of multiple sites, unspecified cause TAKE ONE TABLET BY MOUTH ONCE DAILY. TAKE TWO TABLETS BY MOUTH ONE TIME THEN ONE TABLET 1 HOUR LATER FOR ACUTE GOUT ATTACK.. 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 90 Tablet 2 0 Active glipiZIDE (GLUCOTROL) 10 mg tabletIndications :Type 2 diabetes mellitus with hyperglycemia, without long-term current use of insulin ([facility]) TAKE 1 TABLET BY MOUTH TWICE DAILY WITH MEALS 180 Tablet 4 0 Active allopurinoL (ZYLOPRIM) 300 mg tabletIndications :Chronic gout of multiple sites, unspecified cause Take 1 tablet by mouth once daily 90 Tablet 1 1 Active cannabidiol, CBD, product, for documentation purposes, Take by mouth. DAILY SUPPLEMENT Active lovastatin (MEVACOR) 20 mg tablet TAKE 1 TABLET BY MOUTH ONCE DAILY WITH SUPPER 90 Tablet 4 1 Active Glyxambi 25-5 mg tablet TAKE 1 TABLET BY MOUTH ONCE DAILY IN THE MORNING 90 Tablet 1 1 Active metFORMIN (GLUCOPHAGE) 1,000 mg tablet TAKE 1 TABLET BY MOUTH TWICE DAILY WITH MEALS 180 Tablet 4 1 Active blood sugar diagnostic (Floqq Ultra Blue Test Strip) Strip USE 1 STRIP TO CHECK GLUCOSE ONCE DAILY. 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 Lyons Basal cell carcinoma of nose Basal cell carcinoma of forehead Resolved Problems Problem Noted Date Diagnosed Date Resolved Date Breast CA screening 03/26/2012 12/03/19 14 Overview (04/09/2012): Mammo: 03/17; 09/15 Colon cancer screening 03/26/201212/02 Overview (09/24/2012): Colonoscopy: 07/13 (tubular adenoma x 1, repeat in 5 yrs) Immunizations Immunization Administration Dates Next Due (PNEUMOVAX [...] DOSE QUADRIVALENT 65 YR UP PF IM 05/20/2020 Influenza Seasonal Unspecifi ed Formulation IM 05/29/2008,05/03/2007,05/06/2005 Influenza Vaccine High Dose 65+ Yrs IM 1 08/10/2018,05/02/2018,07/10/2017,07/04 Family History Medical History Relation Name Comments Diabetes Brother 1 Diabetes Brother 2 Heart Disease Brother 3 Healthy Brother 4 Diabetes Brother 5 Diabetes Brother 6 Healthy Daughter 1 Healthy Daughter 2 Cancer Father prostate Diabetes Mother Heart Disease Sister 1 Breast Cancer Sister 2 BREAST CANCER Other Sister 3 Diabetes Sister 4 Diabetes Sister 5 Healthy Sister 6 Healthy Son 1 Healthy Son 2 Colon Cancer Neg Hx Relation Name Status Comments Brother 1 Brother 2 Brother 3 Brother 4 Alive Brother 5 Alive Brother 6 Alive Daughter 1 Alive Daughter 2 Alive Father Mother Sister 1 Sister 2 Sister 3 Sister 4 Alive Sister 5 Alive Sister 6 Alive Son 1 Alive Son 2 Alive Social History Tobacco Use Types Packs/Day Years Used Date Smoking Tobacco: Never Smokeless Tobacco: Never Alcohol Use Standard Drinks/Week Comments No 0 (1 standard drink = 0.6 oz pur e alcohol) Comments No Sex and Gender Information Value Date Recorded Sex Assigned at Not on file 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 Gender Identity Not on file Sexual Orientation Not on file Occupation Industry Job Start Date Job End Date Not on file Not on file Not on file Not on file Last Filed Vital Signs Vital Sign Reading Time Taken Comments Blood Pressure 128/76 11/23/2020 9:41 AM CDT Pulse 80 11/23/2020 9:41 AM CDT Temperature 36 C (96.8 F) 11/23/2020 9:41 AM CDT Respiratory Rate 18 11/23/2020 9:41 AM CDT Oxygen Saturation 96% 11/23/2020 9:41 AM CDT Inhaled Oxygen Concentration - - Weight 66.2 kg (146 lb) 11/23/2020 9:41 AM CDT Height 160 cm (5' 3 ) 11/23/2020 9:41 AM CDT Body Mass Index 25.86 11/23/2020 9:41 AM CDT Plan of Treatment Health Maintenance Due Date Last Done Comments ZOSTER VACCINE (1 of 2) 1993 DTAP/TDAP/TD VACCINES (1 - Tdap) 03/29/2007 03/28/20 07 PNEUMOCOCCAL VACCINE 50+ YEA RS (2 of 2 - PCV) 08/20/2008 08/20/2007 BREAST CANCER SCREENING 06/14/2015 06/14/20 14, 06/09/2014, 05/13/2013, Additional history exists DIABETES MICROALBUMIN ANNUAL SCREEN 10/06/2017 10/06/2016, 09/24/2012, 10/09/2011, Additional history exists OSTEOPOROSIS SCREENING 05/08/2018 05/08/2013 RSV VACCINE (60+ or ) (1 - 1-dose 75+ series) 2018 Traditional Medicare (ACO) A nnual Wellness Visit 05/21/2021 05/20/2020, 02/13/2014 DIABETES HBA1C Q 6 MONTHS 05/25/20212020, 08/24/2020, 05/20/2020, Additional history exists DIABETES ANNUAL FOOT EXAM 08/24/20212020, 10/09/2011, 06/02/2009 LDL CHOLESTEROL ANNUAL 11/23/2021 , 08/24/2020, 05/20/2020, Additional history exists DIABETES ANNUAL RETINAL EXAM 06/22/2024, 11/30/2021, 04/27/2021, Additional history exists INFLUENZA VACCINE (#1) 2025 0, 06/10/2019, 05/02/2018, Additional history exists COVID-19 Vaccine (2024- 6 season) 2025 10/23/2020, 09/25/2020 COLORECTAL SCREENING 06/06/2026 06/06/2021, 08/13/2013, 08/08/2013, Additional history exists Medical Devices Implanted Type Area Pump Installation And Servicer Device Identifier Shelf Expiration Date Model / Serial / Lot Dalbo Sut Bio Swvlck 4.75x24.5mm [id number] - Sna Implanted:Qty: 1 on 04/23/[address] [facility] Dalbo Left: Shoulder [employer] 03/05/2014 [id number] / NA / [id number] Dalbo Sut Bio Swvlck 4.75x24.5mm [id number] - Sna Implanted:Qty: 2 on 04/23/[address] [facility] Dalbo Left: Shoulder [employer] 03/05/2014 [id number] / NA / [id number] Hemostatic Gelfoam Powder 1gm [id number] - Sna Implanted:Qty: 1 on 04/11/2016 by Edita Okeefe MD at [facility] Hemostatic N/A: Spine Lumbar PFIZER- PHARM 09/05/2018 [id number] / NA / [id number] [employer]ell[employer], Biocomposite Implanted:Qty: 1 on 04/23/[address] [facility] Shoulder Left: Shoulder 01/03/2014 [id number] / NA / [id number] Procedures Procedure Name Priority Date/Time Associated Diagnosis Comments LIPID PANEL Routine 11/23/2020 10:37 AM CDT Type 2 diabetes mellitus with hyperglycemia, without long-term current use of insulin ([facility]) HEMOGLOBIN A1C Routine 11/23/2020 10:37 AM CDT Type 2 diabetes mellitus with hyperglycemia, without long-term current use of insulin ([facility]) DIABETES EYE EXAM Routine 05/12/2020 MICROALBUMIN/CREATIN INE RATIO, RANDOM UR Routine 10/06/2016 9:49 AM TRADE CLERK Type 2 diabetes mellitus with hyperglycemia, without long-term current use of insulin ([facility]) MAMMO SCREEN BILAT W OR WO CAD Routine 06/09/2014 12:03 PM TRADE CLERK Other screening mammogram XR DEXA BONE DENSITY AXIAL 1 OR MORE SITES Routine 05/08/2013 12:51 PM CDT Osteoporosis ENDOSCOPY, COLON, DIAGNOSTIC Routine 07/24/2008 Cancer, Colon ([facility]) from Last 3 Months or Most Recently Relevant to Health Maintenance Results * (ABNORMAL) HEMOGLOBIN A1C (11/23/2020 10:37 AM CDT) HEMOGLOBIN A1C 8.5(H) See Comment % 11/23/2020 8:50 PM CDT [facility] EST. AVG GLUCOSE, A1C 197 mg/dL 11/23/2020 8:50 PM CDT [facility] Blood Venipuncture / Unknown 11/23/2020 10:37 AM CDT 11/23/2020 8:23 PM CDT Narrative [facility] - 11/23/2020 8:50 PM CDT HGB A1C INTERPRETATION NORMAL: <5.7% PRE-DIABETES: 5.7 - 6.4% DIABETES: 6.5% OR GREATER Falsely low A1C measurements can occur when: 1. Anemia and/or hemolytic anemia is present. 2. Hemoglobin variants present. 3. Renal failure. 4. Transfusion of blood product in the last 120 days. We recommend ordering a fructosamine test([id number]) to more accurately assess glycemic status if any of the above conditions are present. Jasmina Moreno DO CHEMISTRY ORDERABLES Final Result Performing Organization Address [facility]/ZIP Co de Phone Number [facility] CLIA# [id number] [address] [place] [id number] * (ABNORMAL) LIPID PANEL (11/23/2020 10:37 AM CDT) CHOLESTEROL 162 <200 mg/dL 11/23/2020 9:20 PM CDT [facility] TRIGLYCERIDE 240(H) <150 mg/dL 11/23/2020 9:20 PM CDT [facility] HDL 42 40 - 59 mg/dL 11/23/2020 9:20 PM CDT [facility] LDL CALCULATED 72 <100 mg/dL 11/23/2020 9:20 PM CDT [facility] NON-HDL CHOLESTEROL 120 <130 mg/dL 11/23/2020 9:20 PM CDT [facility] Blood Venipuncture / Unknown 11/23/2020 10:37 AM CDT 11/23/2020 8:22 PM CDT Narrative [facility] - 11/23/2020 9:20 PM CDT TOTAL CHOLESTEROL mg/dL Desirable <200 Borderline high 200-239 High >=240 TRIGLYCERIDES mg/dL Normal <150 Borderline high 150-199 High 200-499 Very high >=500 HDL CHOLESTEROL mg/dL Low <40 Normal 40-59 Desirable >=60 NON HDL CHOLESTEROL mg/dL Optimal <130 Near Optimal 130-159 Borderline High 160-189 Very High >=190 CALCULATED LDL mg/dL LDL <70, OPTIMAL if have Atherosclerotic cardiovascular disease (ASCVD) or intermediate or higher (>7.5%) 10 year risk of ASCVD including most adults with diabetes. LDL <100, Optimal in adult patients with low (<7.5%) 10 year ASCVD risk LDL 100-160, Suboptimal LDL >160, High LDL >190, Very high ATPIII Guidelines Reference Ranges for Lipid Panels (NCEP/AMA) . Jasmina Moreno DO CHEMISTRY ORDERABLES Final Result [facility] CLIA# [id number] [place] [address] * DIABETES EYE EXAM (05/12/2020) Abstract Spg Provider HEALTH MAINTENANCE Final R esult * (ABNORMAL) MICROALBUMIN/CREATININE RATIO, RANDOM UR (10/06/2016 9:49 AM TRADE CLERK) MICROALBUMIN, URINE 3.4 No Reference Range mg/dL 10/06/2016 9:22 PM TRADE CLERK [facility] CREATININE, URINE 33.8 29.0 - 226.0 mg/dL 10/06/2016 9:22 PM [facility] Comment: Reference Range varies with fluid intake and diet. MICROALBUMIN/ CREAT RATIO, UR 100.6(H) <25.0 mg/g Creatinine 10/06/2016 9:22 PM [facility] Urine URINE SPECIMEN OBTAINED BY CLEAN CATCH PROCEDURE / Unknown Collection / Unknown 10/06/2016 9:49 AM TRADE CLERK 10/06/2016 8:39 PM TRADE CLERK Narrative [facility] - 10/06/2016 9:22 PM TRADE CLERK Condition Microalbumin/Creat ratio Normal Males <17 Normal Females <25 Microalbuminuria Males 17-299 Microalbuminuria Females 25-299 Overt proteinuria >=300 Jasmina Moreno DO URINE ORDERABLES Final Resu lt [facility] CLIA# [id number] [place] [address] * MAMMO DIGITAL SCREEN BILAT (06/09/2014 12:03 PM TRADE CLERK) Anatomical Region Laterality Modality Breast Bilateral Mammography Narrative 06/14/2014 3:51 PM TRADE CLERK Bilateral Mammogram Reason for Exam: Screening Comparison: Compared to: 04/02/2012 MAMMO DIGITAL SCREEN BILAT Findings: Bilateral CC and MLO views were obtained. This examination was reviewed with the aid of a computer-aided detection system(CAD). The breast tissue density is fatty. No significant new findings since the prior mammogram(s). Procedure Note Babar Meek MD - 06/14/2014 Bilateral Mammogram Reason for Exam: Screening Comparison: Compared to: 04/02/2012 MAMMO DIGITAL SCREEN BILAT Findings: Bilateral CC and MLO views were obtained. This examination was reviewed with the aid of a computer-aided detectionsystem(CAD). The breast tissue density is fatty. No significant new findings since the prior mammogram(s). us Jasmina Moreno DO MAMMO ORDERABLES Final Resu lt * XR DEXA BONE DENSITY AXIAL 1 OR MORE SITES (05/08/2013 12:51 PM CDT) Anatomical Region Laterality Modality Digital Radiogra phy 05/08/2013 12:3 1 PM CDT Narrative 05/08/2013 1:01 PM CDT PROCEDURE DEXA [...] risk Procedure Note Marc Villalpando MD - 05/08/2013 PROCEDURE DEXA BONE DENSITY, 08 May 2013 [...] -1.7. IMPRESSION osteopenia, with increased fracture risk Jose M Dixon MD DIAGNOSTIC IMAG ING ORDERABLES Final Result * ENDOSCOPY, COLON, DIAGNOSTIC (07/24/2008) Milind hSanks DO GI PROCEDURE ORDERABLES Final R esult from Last 3 Months or Most Recently Relevant to Health Maintenance Additional Health Concerns Infection Onset Date Last Indicated MRSA Comment:Rony 03/23/16 03/24/2016 03/24/2016 Insurance MEDICARE PART A AND B [employer] Advance Directives For more information, please contact: [phone] Documents on File Type Date Recorded Patient Tablet Machine Operator Expl anation Advance Directive POA 03/03/2014 9:15 AM A dvance Directive POA Advance Directive Living Will 03/03/2014 9:15 AM Advance Directive Living Will Advance Directive Living Will 01/06/2014 9:27 AM Advance Directive Living Will * Full Code (Latest Code Status on File) Date Activated Date Inactivated Comments 04/11/2016 1:40 PM 04/12/2016 1:10 PM * Full Code Date Activated Date Inactivated Comments 04/11/2016 6:21 AM 04/11/2016 1:40 PM * Full Code Date Activated Date Inactivated Comments 08/08/2013 8:50 AM 08/08/2013 12:53 PM * Full Code Date Activated Date Inactivated Comments 04/23/2012 6:56 AM 04/24/2012 2:01 AM * Full Code Date Activated Date Inactivated Comments 04/23/2012 6:47 AM 04/23/2012 6:56 AM Care Teams Slab Stripper Relationship Specialty Start Date End Date Jasmina Moreno DO [address] [place] [address] PCP - General Family Practice 12/17/13
--- OUTSIDE RECORDS SUMMARY | 2025-05-01 13:38 | XMS_ITS | Encounter Summary ---
Author Organization [facility] Address [address] [place] [address] Care Team Providers Care Shank Cutter Name Role Phone Jasmina Moreno DO Primary Care Provider [phone] Encounter Details Date Type Department Care Team (Latest Contact Info) Description 04/11/2001 Outpatient Historical [facility] Medicine [address] [address] Milind Shanks DO NO ADDRESS ON FILE Urinary tract infection, site not specified (Primary Dx); Hematuria Social History Tobacco Use Types Packs/Day Years Used Date Smoking Tobacco: Never Assessed Comments Unknown Sex and Gender Information Value Date Recorded Sex Assigned at Not on file 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 Sex 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 Gender Identity Not on file Sexual Orientation Not on file documented as of this encounter Plan of Treatment Not on file documented as of this encounter Visit Diagnoses Diagnosis Urinary tract infection, site not specified- Primary Hematuria documented in this encounter Additional Health Concerns Infection Onset Date Last Indicated Resolved Time MRSA Comment:Rony 03/23/16 03/24/2016 03/24/2016 documented as of this encounter Care Teams Shank Cutter Relationship Specialty Start Date End Date Jasmina Moreno DO [address] [place] [id number] PCP - General Family Practice 12/17/13 documented as of this encounter
--- OUTSIDE RECORDS SUMMARY | 2025-05-01 13:38 | XMS_ITS | Encounter Summary ---
Author Organization [facility] Address [address] [facility] [place] [address] Care Team Providers Care Visitor Services Associate Name Role Phone Jasmina Moreno DO Primary Care Provider Encounter Details Date Type Department Care Team (Late st Contact Info) Description 03/13/2006 Outpatient Historical [facility] Milind Shanks DO NO ADDRESS ON FILE Social History Tobacco Use Types Packs/Day Years Used Date Smoking Tobacco: Never Assessed Comments Unknown Sex and Gender Information Value Date Recorded Sex Assigned at Not on file Legal Sex Female 5:13 AM DORMITORY MAID Gender Identity Not on file Sexual Orientation Not on file documented as of this encounter Plan of Treatment Not on file documented as of this encounter Procedures Procedure Name Priority Date/Time Associated Diagnosis Comments MRI LUMBAR W WO CONTRAST Routine 03/13/2006 2:42 PM CDT documented in this encounter Results * MRI LUMBAR W WO CONTRAST (03/13/2006 2:42 PM CDT) Anatomical Region Laterality Modality Spine Other 03/13/2006 2:42 PM CDT Narrative 04/29/2009 8:32 AM CDT MRI LUMBAR SPINE WITH AND WITHOUT CONTRASTDate: 03/13/2006. History: 60-year-old female low back and left lower extremity pain. Technique: Multiplanar multisequence MR images were obtained through the lumbar spine prior to andfollowing intravenous gadolinium. Findings: Lumbar alignment is normal. Diffuse lumbar discogenic degeneration is present but which ismild for age. Marrow signal is normal. No evidence of infiltrative process, compression fracture orenhancing lesions. Conus appears normal. Axial images show mild annular bulging and facet arthropathy throughout without spinal stenosis overthe upper levels. At L3-L4, lateral predominate annular bulging results in mild to moderatebilateral neural foraminal narrowing. At L4-L5, moderate annular bulging and broad-based central disc protrusion flattens the ventral thecalsac and results in mild to moderate bilateral subarticular and neural foraminal crowding. At L5-S1, mild annular bulging and facet arthropathy are present without significant spinalstenosis. Nomenclature note is made in this patient of a lumbarized S1 segment and rudimentary S1-2 disc space. For the purposes of numbering, this lumbarized S1 segment was designated as L5. This results inconus termination dorsal to the L1 segment. IMPRESSION: Lumbar discogenic degeneration but which is mild for patient age and without a high-gradespinal stenosis or evidence of focal neural impingement. Annular bulging and facet arthropathy atL4-L5 and L5-S1 result in mild to moderate bilateral subarticular and neural foraminalnarrowing. - Dictated By: Srinivas Guerrero D.O. Electronically Signed By: Srinivas Guerrero D.O. Date Signed: 03/14/06 [facility] Procedure Note Provider, Historical - 06/24/2009 MRI LUMBAR SPINE WITH AND WITHOUT CONTRASTDate: 03/13/2006. History: 60-year-old female low back and left lower extremity pain. Technique: Multiplanar multisequence MR images were obtained through the lumbar spineprior to andfollowing intravenous gadolinium. Findings: Lumbar alignment is normal. Diffuse lumbar discogenic degeneration ispresent but which ismild for age. Marrow signal is normal. No evidence of infiltrative process, compressionfracture orenhancing lesions. Conus appears normal. Axial images show mild annular bulging and facet arthropathy throughoutwithout spinal stenosis overthe upper levels. At L3-L4, lateral predominate annular bulging results inmild to moderatebilateral neural foraminal narrowing. At L4-L5, moderate annular bulging and broad-based central disc protrusionflattens the ventral thecalsac and results in mild to moderate bilateral subarticular and neuralforaminal crowding. At L5-S1, mild annular bulging and facet arthropathy are present withoutsignificant spinalstenosis. Nomenclature note is made in this patient of a lumbarized S1 segment andrudimentary S1-2 disc space. For the purposes of numbering, this lumbarized S1 segment was designatedas L5. This results inconus termination dorsal to the L1 segment. IMPRESSION: Lumbar discogenic degeneration but which is mild for patient age andwithout a high-gradespinal stenosis or evidence of focal neural impingement. Annular bulging and facetarthropathy atL4-L5 and L5-S1 result in mild to moderate bilateral subarticular and neural foraminalnarrowing. - Dictated By: Srinivas Guerrero D.O. Electronically Signed By: Srinivas Guerrero D.O. Date Signed: 03/14/06 [facility] Milind Shanks DO MR ORDERABLES Final Result documented in this encounter Visit Diagnoses Not on filedocumented in this encounter Additional Health Concerns Infection Onset Date Last Indicated Resolved Time MRSA Comment:Rony 03/23/16 03/24/2016 03/24/2016 documented as of this encounter Care Teams Visitor Services Associate Relationship Specialty Start Date End Date Jasmina Moreno DO [address] [place] [address] PCP - General Family Practice 12/17/13 documented as of this encounter
--- OUTSIDE RECORDS SUMMARY | 2025-05-01 13:38 | XMS_ITS | Encounter Summary ---
Author Organization [facility] Address [address] [place] [address] Care Team Providers Care Bread Baker Name Role Phone Jasmina Moreno DO Primary Care Provider [phone] Encounter Details Date Type Department Care Team (Latest Contact Info) Description 02/18/2007 Outpatient Historical [facility] Medicine [address] [address] Milind Shanks DO NO ADDRESS ON FILE Actinic Keratosis (Primary Dx); Unspecified Hypertrophic and Atrophic Condition of Skin Social History Tobacco Use Types Packs/Day Years Used Date Smoking Tobacco: Never Assessed Comments Unknown Sex and Gender Information Value Date Recorded Sex Assigned at Not on file Legal Sex Female 5:13 AM 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 AND MAXILLOFACIAL SURGEON Gender Identity Not on file Sexual Orientation Not on file documented as of this encounter Plan of Treatment Not on file documented as of this encounter Visit Diagnoses Diagnosis Actinic keratosis- Primary Unspecified hypertrophic and atrophic condition of skin documented in this encounter Additional Health Concerns Infection Onset Date Last Indicated Resolved Time MRSA Comment:Rony 03/23/16 03/24/2016 03/24/2016 documented as of this encounter Care Teams Bread Baker Relationship Specialty Start Date End Date Jasmina Moreno DO [address] [place] [address] PCP - General Family Practice 12/17/13 documented as of this encounter
--- OUTSIDE RECORDS SUMMARY | 2025-05-01 13:38 | XMS_ITS | Encounter Summary ---
Author Organization [facility] Address [address] [place] [address] Care Team Providers Care Saw Feeder Name Role Phone Jasmina Moreno DO Primary Care Provider Encounter Details Date Type Department Care Team (Latest Contact Info) Description 03/28/2007 Outpatient Historical [facility] [address] [place] [address] AMBULANCE, [facility] Injury, Other and Unspecified, Hip and Thigh (Primary Dx) Social History Tobacco Use Types Packs/Day Years Used Date Smoking Tobacco: Never Assessed Comments Unknown Sex and Gender Information Value Date Recorded Sex Assigned at Not on file Legal Sex Female 5:13 AM ENDOSCOPY REGISTERED NURSE Gender Identity Not on file Sexual Orientation Not on file documented as of this encounter Plan of Treatment Not on file documented as of this encounter Visit Diagnoses Diagnosis Injury, other and unspecified, hip and thigh- Primary documented in this encounter Additional Health Concerns Infection Onset Date Last Indicated Resolved Time MRSA Comment:Rony 03/23/16 03/24/2016 03/24/2016 documented as of this encounter Care Teams Saw Feeder Relationship Specialty Start Date End Date Jasmina Moreno DO [address] [place] [id number] PCP - General Family Practice 12/17/13 documented as of this encounter
--- OUTSIDE RECORDS SUMMARY | 2025-05-01 13:38 | XMS_ITS | Encounter Summary ---
Author Organization [facility] Address [address] [place] [address] Care Team Providers Care Aws Architect Name Role Phone Jasmina Moreno DO Primary Care Provider [phone] Encounter Details Date Type Department Care Team (Late st Contact Info) Description 07/26/2005 Outpatient Historical [facility] Medicine [address] [address] Milind Shanks DO NO ADDRESS ON FILE Social History Tobacco Use Types Packs/Day Years Used Date Smoking Tobacco: Never Assessed Comments Unknown Sex and Gender Information Value Date Recorded Sex Assigned at Not on file Legal Sex Female 5:13 AM 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
--- OUTSIDE RECORDS SUMMARY | 2025-05-01 13:38 | XMS_ITS | Encounter Summary ---
Author Organization [facility] Address [address] [place] [address] Care Team Providers Care Medical Radiation Tech Name Role Phone Jasmina Moreno DO Primary Care Provider Encounter Details Date Type Department Care Team (Latest Contact Info) Description 01/24/2007 Outpatient Historical [facility] Medicine [address] [address] Milind Shanks DO NO ADDRESS ON FILE DM w/o Complication Type II (CMS/HCC) (Primary Dx); Other and Unspecified Hyperlipidemia; Unspecified Backache Social History Tobacco Use Types Packs/Day Years Used Date Smoking Tobacco: Never Assessed Comments Unknown Sex and Gender Information Value Date Recorded Sex Assigned at Not on file Legal Sex Female 5:13 AM LIBRARY HELPER Gender Identity Not on file Sexual Orientation Not on file documented as of this encounter Plan of Treatment Not on file documented as of this encounter Visit Diagnoses Diagnosis Type II or unspecified type diabetes mellitus without mention of complication, not stated as uncontrolled- Primary Other and unspecified hyperlipidemia Backache, unspecified documented in this encounter Additional Health Concerns Infection Onset Date Last Indicated Resolved Time MRSA Comment:Rony 03/23/16 03/24/2016 03/24/2016 documented as of this encounter Care Teams Medical Radiation Tech Relationship Specialty Start Date End Date Jasmina Moreno DO [address] [place] [address] PCP - General Family Practice 12/17/13 documented as of this encounter
--- OUTSIDE RECORDS SUMMARY | 2025-05-01 13:38 | XMS_ITS | Encounter Summary ---
Author Organization [facility] Address [address] [place] [address] Care Team Providers Care Global Project Manager Name Role Phone TiffanieJasmina tsang DO Primary Care Provider Reason for Referral * Outpatient Services (Routine) - Closed Specialty Diagnoses / Procedures Referred By Keila huntley Referred To Contact Radiology Diagnoses Other screening mammogram Family history of breast cancer in sister Procedures MAMMO DIGITIZED STUDY Aaron Simmons MD NO ADDRESS ON FILE [facility] [address] [address] Phone: tel: fax: Referral ID Status Reason Start Date Expiration Date Visits Re quested Visits Authorized [id number] Closed 03/27/2012 03/27/2013 1 1 Encounter Details Date Type Department Care Team (Late st Contact Info) Description 03/27/2012 Ancillary Orders [facility] [place] [address] [facility] [address] [place] [address] Aaron Simmons MD NO ADDRESS [...] on file Legal Sex Female 5:13 AM SITE FOREMAN Gender Identity Not on file Sexual Orientation Not on file documented as of this encounter Plan of Treatment Not on file documented as of this encounter Results * MAMMO DIGITIZED STUDY (07/16/2007 1:05 PM SITE FOREMAN) Narrative Phyllis Arevalo, RT - 03/27/2012 1:05 PM CDT Order information only. Exam was [...] documented as of this encounter Care Teams Global Project Manager Relationship Specialty Start Date End Date Jasmina Moreno DO [address] [place] [address] PCP - General Family Practice 12/17/13 documented as of this encounter
--- OUTSIDE RECORDS SUMMARY | 2025-05-01 13:38 | XMS_ITS | Encounter Summary ---
Author Organization [facility] Address [address] Attn: Epic Prelude ADT FADUMO ZIEGLER [address] Care Team Providers Care Dean Of Boys Name Role Phone Jasmina Moreno Primary Care Provider [phone] Encounter Details Date Type Department Care Team (Late st Contact Info) Description 08/23/2005 Outpatient Historical Devon Alvarado MD [address] [place] [address] Social History Tobacco Use Types Packs/Day Years Used Date Smoking Tobacco: Never Assessed Comments Unknown Sex and Gender Information Value Date Recorded Sex Assigned at Not on file Legal Sex Female 5:13 AM CUP MACHINE OPERATOR Gender Identity Not on file Sexual Orientation Not on file documented as of this encounter Plan of Treatment Not on file documented as of this encounter Procedures Procedure Name Priority Date/Time Associated Diagnosis Comments CEA Routine 08/23/2005 9:19 AM CUP MACHINE OPERATOR documented in this encounter Results * CEA (08/23/2005 9:19 AM CUP MACHINE OPERATOR) CEA .9 0.0 - 5.0 ng/mL INTERFACE SYSTEM Comment: As of 05 at 11:30 p.m. [facility] has changed the methodology for CEA, and with this change the reference range has changed from 0.0-3.0 to 0.0-5.0 ng/ml. 08/23/2005 9:19 AM CUP MACHINE OPERATOR us Devon Alvarado MD CHEMISTRY ORDERABLES Final R esult INTERFACE SYSTEM Refer to clinic/hospital department documented in this encounter Visit Diagnoses Not on filedocumented in this encounter Additional Health Concerns Infection Onset Date Last Indicated Resolved Time MRSA Comment:Rony 03/23/16 03/24/2016 03/24/2016 documented as of this encounter Care Teams Dean Of Boys Relationship Specialty Start Date End Date Jasmina Moreno DO [address] [place] [address] PCP - General Family Practice 12/17/13 documented as of this encounter
--- OUTSIDE RECORDS SUMMARY | 2025-05-01 13:38 | XMS_ITS | Encounter Summary ---
Author Organization [facility] Address [address] [place] [address] Care Team Providers Care Android Ios Developer Name Role Phone Jasmina Moreno DO Primary Care Provider Encounter Details Date Type Department Care Team (Latest Contact Info) Description 06/05/2005 Outpatient Historical [facility] Medicine [address] [address] Milind Shanks DO NO ADDRESS ON FILE DIABETES MELLITUS TYPE II-UNCOMPL (CMS/HCC) (Primary Dx); BUNION; HYPERLIPIDEMIA NEC/NOS Social History Tobacco Use Types Packs/Day Years Used Date Smoking Tobacco: Never Assessed Comments Unknown Sex and Gender Information Value Date Recorded Sex Assigned at Not on file Legal Sex Female 5:13 AM QM NURSE Gender Identity Not on file Sexual Orientation Not on file documented as of this encounter Plan of Treatment Not on file documented as of this encounter Visit Diagnoses Diagnosis Type II or unspecified type diabetes mellitus without mention of complication, not stated as uncontrolled- Primary Bunion Other and unspecified hyperlipidemia documented in this encounter Additional Health Concerns Infection Onset Date Last Indicated Resolved Time MRSA Comment:Rony 03/23/16 03/24/2016 03/24/2016 documented as of this encounter Care Teams Android Ios Developer Relationship Specialty Start Date End Date Jasmina Moreno DO [address] [place] [address] PCP - General Family Practice 12/17/13 documented as of this encounter
--- OUTSIDE RECORDS SUMMARY | 2025-05-01 13:38 | XMS_ITS ---
Author Organization [facility] Address [address] 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 Lyons Basal cell carcinoma of nose Basal cell carcinoma of forehead Obstructive sleep apnea (adult) (pediatric) Overview (08/02/2021): No tx Hyperlipidemia Current Treatment and Therapy Plans No current plan information found. Past Treatment and Therapy Plans No past plan information found. Lifetime Dose Tracking * Chemical Lifetime Dose Automatic Entry Manual Entr y Effective Dose 32.9 mSv 32.9 mSv 0 mSv Total DLP 4,637 DLP 4,637 DLP 0 DLP CTDIvol Max 284.4 mGy 284.4 mGy 0 mGy CTDIvol Min 247.8 mGy 247.8 mGy 0 mGy Resolved Problems Problem Noted Date Diagnosed Date Resolved Date Breast CA screening 03/26/2012 12/03/19 14 Overview (12/01/2020): Mammo: 03/17; 09/15 Colon cancer screening 03/26/201212/02 Overview (12/01/2020): Colonoscopy: 07/13 (tubular adenoma x 1, repeat in 5 yrs)
--- OUTSIDE RECORDS SUMMARY | 2025-05-01 13:38 | XMS_ITS | Encounter Summary ---
Author Organization [facility] Address [address] [place] [address] Care Team Providers Care Integration Solution Architect Name Role Phone Jasmina Moreno DO Primary Care Provider Encounter Details Date Type Department Care Team (Latest Contact Info) Description 07/24/2005 Outpatient Historical [facility] General Surgery [address] [address] [address] [place] [address] Devon Francois MD [address] [facility] [address] [place] [address] PERS HX OF COLONIC MALIGNANCY (Primary Dx) Social History Tobacco Use Types Packs/Day Years Used Date Smoking Tobacco: Never Assessed Comments Unknown Sex and Gender Information Value Date Recorded Sex Assigned at Not on file Legal Sex Female 5:13 AM HAT BLOCKING OPERATOR Gender Identity Not on file Sexual [...] documented as of this encounter Care Teams Integration Solution Architect Relationship Specialty Start Date End Date Jasmina Moreno DO [address] [place] [address] PCP - General Family Practice 12/17/13 documented as of this encounter
--- OUTSIDE RECORDS SUMMARY | 2025-05-01 13:38 | XMS_ITS | Encounter Summary ---
Author Organization [facility] Address [address] [place] [address] Care Team Providers Care Restaurant Team Member Name Role Phone Jasmina Moreno DO Primary Care Provider [phone] Encounter Details Date Type Department Care Team (Latest Contact Info) Description 05/31/1998 Outpatient Historical [facility] Medicine [address] [address] Milind Shanks DO NO ADDRESS ON FILE Pain in joint, site unspecified (Primary Dx) Social History Tobacco Use Types Packs/Day Years Used Date Smoking Tobacco: Never Assessed Comments Unknown Sex and Gender Information Value Date Recorded Sex Assigned at Not on file Legal Sex Female 5:13 AM HORSE RANCHER Gender Identity Not on file Sexual Orientation Not on file documented as of this encounter Plan of Treatment Not on file documented as of this encounter Visit Diagnoses Diagnosis Pain in joint, site unspecified- Primary documented in this encounter Additional Health Concerns Infection Onset Date Last Indicated Resolved Time MRSA Comment:Rony 03/23/16 03/24/2016 03/24/2016 documented as of this encounter Care Teams Restaurant Team Member Relationship Specialty Start Date End Date Jasmina Moreno DO [address] [place] [address] PCP - General Family Practice 12/17/13 documented as of this encounter
--- OUTSIDE RECORDS SUMMARY | 2025-05-01 13:38 | XMS_ITS | Encounter Summary ---
Author Organization [facility] Address [address] [place] [address] Care Team Providers Care Supervisor Type Photography Name Role Phone Jasmina Moreno DO Primary Care Provider Encounter Details Date Type Department Care Team (Latest Contact Info) Description 07/26/2005 Outpatient Historical [facility] Medicine [address] [address] Milind Shanks DO NO ADDRESS ON FILE ROUTINE DIGITAL MEDIA ANALYST EXAMINATION (Primary Dx); DIABETES MELLITUS TYPE II-UNCOMPL (CMS/HCC); HYPERLIPIDEMIA NEC/NOS Social History Tobacco Use Types Packs/Day Years Used Date Smoking Tobacco: Never Assessed Comments Unknown Sex and Gender Information Value Date Recorded Sex Assigned at Not on file Legal Sex Female 5:13 AM REVENUE COLLECTOR Gender Identity Not on file Sexual Orientation Not on file documented as of this encounter Plan of Treatment Not on file documented as of this encounter Visit Diagnoses Diagnosis Routine gynecological examination- Primary Type II or unspecified type diabetes mellitus without mention of complication, not stated as uncontrolled Other and unspecified hyperlipidemia documented in this encounter Additional Health Concerns Infection Onset Date Last Indicated Resolved Time MRSA Comment:Rony 03/23/16 03/24/2016 03/24/2016 documented as of this encounter Care Teams Supervisor Type Photography Relationship Specialty Start Date End Date Jasmina Moreno DO [address] [place] [address] PCP - General Family Practice 12/17/13 documented as of this encounter
--- OUTSIDE RECORDS SUMMARY | 2025-05-01 13:38 | XMS_ITS | Encounter Summary ---
Author Organization [facility] Address [address] [facility] [place] [address] Care Team Providers Care Shape Brick Molder Name Role Phone Jasmina Moreno DO Primary Care Provider [phone] Encounter Details Date Type Department Care Team (Late st Contact Info) Description 06/12/2003 Outpatient Historical [facility] FY06 Milind Shanks DO NO ADDRESS ON FILE Social History Tobacco Use Types Packs/Day Years Used Date Smoking Tobacco: Never Assessed Comments Unknown Sex and Gender Information Value Date Recorded Sex Assigned at Not on file Legal Sex Female 5:13 AM DRIVER'S LICENSE EXAMINER Gender Identity Not on file Sexual Orientation Not on file documented as of this encounter Plan of Treatment Not on file documented as of this encounter Visit Diagnoses Not on filedocumented in this encounter Additional Health Concerns Infection Onset Date Last Indicated Resolved Time MRSA Comment:Rony 03/23/16 03/24/2016 03/24/2016 documented as of this encounter Care Teams Shape Brick Molder Relationship Specialty Start Date End Date Jasmina Moreno DO [address] [place] [facility] [place] [address] PCP - General Family Practice 12/17/13 documented as of this encounter
--- NOTE | 2025-05-01 13:40 | XR_ITS ---
WS: [id number] Exam: XR chest 1V portable [id number] Date/Time of Exam: 05/01/2025 2:33 PM Reason For Exam: Weakness Comparison 09/21/2021. Lungs are fully inflated and clear. Normal cardiomediastinal silhouette. Bony structures are intact. XR/XR chest 1V portable [id number] IMPRESSION: 1. Negative chest.
--- NOTE | 2025-05-01 13:40 | CT_ITS ---
WS: [id number] CT HEAD TECHNIQUE: Noncontrast CT of the head obtained from the skullbase to the vertex. CLINICAL INFORMATION: Encephalopathy, altered mental status COMPARISON: CT 2021 DLP: 1097.[address] scans at [facility] use at least one of these dose optimization techniques: automated exposure control; mA and/or kV adjustment per patient size (includes targeted exams where dose is matched to clinical indication); or iterative reconstruction. FINDINGS: No evidence of intracranial hemorrhage or mass effect. Ventricular system and basal cisterns are patent. Moderate small vessel changes with moderate parenchymal volume loss. No extra-axial fluid collections. No evidence of mass or mass effect. Vascular calcification. Paranasal sinuses and mastoid air cells are well aerated. .Normal visualized soft tissues. CT/CT head wo con* [id number] IMPRESSION: 1. No evidence of intracranial hemorrhage or mass effect. 2. No acute intracranial findings.
--- NOTE | 2025-05-01 13:40 | CT_ITS ---
WS: [id number] CT LUMBAR SPINE TECHNIQUE: Noncontrast CT of the lumbar spine with coronal and sagittal reformatted images. CLINICAL INFORMATION: low back pain COMPARISON: None. DLP: 754.[address] scans at [facility] use at least one of these dose optimization techniques: automated exposure control; mA and/or kV adjustment per patient size (includes targeted exams where dose is matched to clinical indication); or iterative reconstruction. FINDINGS: Mild lumbar curve. No acute appearing compression fractures. L5 sacralized on the LEFT. Osteopenia. Tiny nondisplaced RIGHT L2 transverse process fracture. Vascular calcification. RIGHT adrenal mass measuring 2.8 x 2.9 cm stable since 2020 Disc base narrowing T12-L1 with endplate subchondral cystic changes. L1-L2: Normal. L2-L3: Mild annular bulging. Moderate facet arthropathy. Slight effacement of the ventral thecal sac. L3-L4: Mild disc osteophyte complex with mild central canal stenosis. Moderate facet arthropathy. Mild RIGHT foraminal narrowing. L4-L5: Disc osteophyte complex with mild central canal stenosis. Moderate facet arthropathy. Moderate RIGHT and mild LEFT foraminal narrowing. L5-S1: L5 is partially sacralized. Spinal canal is patent. Moderate facet arthropathy. Foramen are patent. CT/CT lumbar spine wo con* [id number] IMPRESSION: 1. Osteopenia. 2. Small nondisplaced RIGHT L2 transverse process fracture. 3. No acute appearing compression fractures. 4. Mild central canal stenosis L3-L4 and L4-L5. 5. Moderate RIGHT L4-5 foraminal narrowing.
--- NOTE | 2025-05-01 13:43 | W.ED.FALL ---
HPI - Fall General: Chief Complaint: Fall Stated Complaint: ams - back pain History of Present Illness: 79-year-old female with a history of dementia, TIA, obstructive sleep apnea, diabetes, diverticulosis, hypertension and hyperlipidemia who presents emergency room by ambulance from custodial with worsening confusion since a fall a few days back. She is complaining of low back pain. She does not remember the fall. Currently no other complaints. No nausea. No chest pain. No abdominal pain. No saddle numbness, no urinary retention or incontinence, no focal motor deficit, no sensory deficit. Related Data Home Medications ?Medication ?Instructions ?Recorded ?Confirmed allopurinol 300 mg tablet 300 mg PO QAM 02/27/21 05/01/25 naproxen sodium 220 mg tablet 440 mg PO Q12H PRN Pain 06/01/21 05/01/25 (Aleve) atorvastatin 40 mg tablet 40 mg PO QPM 12/22/21 05/01/25 clopidogrel 75 mg tablet 75 mg PO QAM 12/22/21 05/01/25 pantoprazole 40 mg tablet,delayed 40 mg PO BID 12/22/21 05/01/25 release sennosides 8.6 mg-docusate sodium 1 tab-cap PO DAILY PRN constipation 06/08/22 05/01/25 50 mg tablet (Stimulant Laxative Plus) cholecalciferol (vitamin D3) 50 50 mcg PO QAM 05/01/25 05/01/25 mcg (2,000 unit) capsule donepezil 10 mg tablet 10 mg PO BEDTIME 05/01/25 05/01/25 escitalopram oxalate 20 mg tablet 20 mg PO QAM 05/01/25 05/01/25 fentanyl 25 mcg/hr transdermal 1 patch topical .Q3DAYS 05/01/25 05/01/25 patch ferrous sulfate 325 mg (65 mg 325 mg PO .QOD 05/01/25 05/01/25 iron) tablet (FeroSul) insulin glargine 100 unit/mL (3 50 unit SUBCUT QPM 05/01/25 05/01/25 mL) subcutaneous pen (Lantus Solostar U-100 Insulin) insulin lispro 100 unit/mL 30 unit SUBCUT TID 05/01/25 05/01/25 subcutaneous pen (Humalog KwikPen (U-100) Insulin) lorazepam 0.5 mg tablet 0.5 mg PO DAILY PRN Anxiety 05/01/25 05/01/25 tramadol 50 mg tablet 50 mg PO QID PRN Pain 05/01/25 05/01/25 Previous Rx's ?Medication ?Instructions ?Recorded blood sugar diagnostic (Blood #50 ea 05/15/23 Glucose Test strips) furosemide 40 mg tablet (Lasix) 40 mg PO DAILY PRN edema 30 days 07/12/23 #90 tabs lisinopril 40 mg tablet 40 mg PO DAILY #90 tabs 07/24/24 cefdinir 300 mg capsule 300 mg PO BID 10 days #20 caps 05/01/25 Allergies Allergy/AdvReac Type Severity Reaction Status Date / Time codeine Allergy ALGY-Anaphy Verified 01/16/25 07:45 laxis hydromorphone (From Dilaudid) Allergy ALGY-Anaphy Verified 01/16/25 07:45 laxis morphine Allergy ALGY-Anaphy Verified 01/16/25 07:45 laxis Review of Systems Narrative: Constitutional symptoms: Negative except as documented in HPI. Skin symptoms: Negative except as documented in HPI. Eye symptoms: Negative except as documented in HPI. ENMT symptoms: Negative except as documented in HPI. Respiratory symptoms: Negative except as documented in HPI. Cardiovascular symptoms: Negative except as documented in HPI. Gastrointestinal symptoms: Negative except as documented in HPI. Genitourinary symptoms: Negative except as documented in HPI. Musculoskeletal symptoms: Negative except as documented in HPI. Neurologic symptoms: Negative except as documented in HPI. Psychiatric symptoms: Negative except as documented in HPI. Endocrine symptoms: Negative except as documented in HPI. PFS ED PFSH: Medical History (Updated 05/01/25 @ 15:44 by Brianna Allen MD) TIA (transient ischemic attack) Cervical cancer Kidney calculus SUE (obstructive sleep apnea) Skin cancer Diabetes Atrophic gastritis Sigmoid diverticulitis Bilateral carotid artery stenosis Type 2 diabetes mellitus Hyperparathyroidism Femur fracture right Urinary retention Hyperlipidemia Hypertension History of colon cancer Surgical History Hx of tubal ligation Hx of shoulder surgery Hx of tonsillectomy History of back surgery Hx of appendectomy History of hip surgery S/P percutaneous endoscopic gastrostomy (PEG) tube placement (09/23/21) H/O: hysterectomy S/P colon resection Family History Mother , at age 87 Heart attack CAD (coronary artery disease), Onset Age: 60 OR Diabetes Father , at age 86 Cancer prostate Brother Cancer CAD (coronary artery disease), Onset Age: 50 Diabetes Dementia Sister Diabetes Cancer CAD (coronary artery disease), Onset Age: 50 Dementia Suicide Sister Diabetes Denies family history of Clotting disorder Chronic kidney disease (CKD) Anesthesia complication Bleeding disorder Lung disease Stroke Social History Smoking and tobacco/nicotine status: unknown if used tobacco/nicotine Quit status (tobacco/nicotine): has quit using Alcohol intake: never Substance/Drug Use: never Adopted: No Marital status: service: No Physical Exam Narrative: EXAM NARRATIVE: General: Alert, no acute distress. Skin: Warm, dry. Head: Normocephalic, atraumatic. Neck: Supple, trachea midline. Eye: Extraocular movements are intact. Ears, nose, mouth and throat: mucosa moist. Cardiovascular: Regular, Normal peripheral perfusion. Respiratory: Lungs are clear to auscultation, respirations are non-labored, breath sounds are equal, Symmetrical chest wall expansion. Gastrointestinal: Soft, Nontender, Non distended Musculoskeletal: Normal ROM, no deformity. Back: She does have some paraspinal muscle tenderness in the lumbar area Neurological: Alert pleasantly confused, no focal neurological deficit observed. Psychiatric: Cooperative, appropriate mood & affect. Course Vital Signs: Vital signs: Vital Signs Temperature 98.8 F 05/01/25 13:32 Pulse Rate 74 05/01/25 15:15 Blood Pressure 156/60 05/01/25 15:15 Pulse Oximetry 91 05/01/25 15:15 Oxygen Delivery Me thod Room Air 05/01/25 15:15 MDM - Fall Medical Decision Making Medical decision making: Differential diagnosis including but not limited to and based on the above HPI, review of systems and physical exam: In this patient with altered mental status: Stroke. Hypoglycemia. Metabolic encephalopathy. Infections such as pneumonia, urinary tract infection, Covid-19, Influenza. Electrolyte abnormalities such as hypernatremia. Renal failure / uremia. Hepatic encephalopathy. Hypoxemia. Hypercapnic respiratory failure. Psychosis. Drug or alcohol intoxication. Medication overdose. Orders placed to evaluate differential diagnosis based on the above differential, HPI and physical exam Also will evaluate her low back with CT scan to rule out any compression fractures etc. Chest x-ray: No acute process. No infiltrate. No pneumothorax. This was reviewed and interpreted by myself the emergency room physician. I also reviewed the radiology report. CT of the lumbar spine: Transverse process fracture. Degenerative changes. This was reviewed and interpreted by myself the emergency room physician. I also reviewed the radiology report. CT head: No acute intracranial process. no intracranial hemorrhage, no evidence of infarct. no evidence of acute fracture.This was reviewed and interpreted by myself the ER physician. Lab Review: Laboratory results were reviewed and interpreted by myself the emergency room physician. No leukocytosis. No anemia. No renal failure. Urinalysis is significant for greater than 100 reds and 50-100 whites with 4+ bacteria and leukocyte esterase. CT of the lumbar spine: No fracture. Good alignment. No step-offs. This was reviewed and interpreted by myself the emergency room physician. I reviewed the patient's medical record. Reexamination: Patient remained stable. No increased work of breathing. No altered mental status. No focal motor deficits. Patient does have fentanyl from the custodial. Assessment and plan: Urinary tract infection Encephalopathy Lumbar transverse process fracture Dementia ? IV Rocephin in the emergency room. - Discharged home - Discussed plan with patient. Answered any questions. - Evaluation and treatment of this problem were appropriate in the emergency setting. Lab Data 05/01/25 14:00 05/01/25 14:00 Radiology Impressions Chest X-Ray 05/01/25 13:40 IMPRESSION: 1. Negative chest. Head CT 05/01/25 13:40 IMPRESSION: 1. No evidence of intracranial hemorrhage or mass effect. 2. No acute intracranial findings. Lumbar Spine CT 05/01/25 13:40 IMPRESSION: 1. Osteopenia. 2. Small nondisplaced RIGHT L2 transverse process fracture. 3. No acute appearing compression fractures. 4. Mild central canal stenosis L3-L4 and L4-L5. 5. Moderate RIGHT L4-5 foraminal narrowing. Laboratory Results WBC 8.32 10^3/uL (3.29-11.43) 05/01/25 14:00 RBC 3.75 10^6/uL (3.85-5.65) L 05/01/25 14:00 Hgb 12.00 g/dL (11.27-16.99) 05/01/25 14:00 Hct 38.4 % (36-47) 05/01/25 14:00 MCV 102.4 fl (85-98) H 05/01/25 14:00 MCH 32.0 pg (27-33) 05/01/25 14:00 MCHC 31.3 g/dL (30-55) 05/01/25 14:00 RDW 15.5 % (12.1-15.1) H 05/01/25 14:00 Plt Count 199 10^3/cmm (157-399) 05/01/25 14:00 MPV 11.0 fL (7.4-10.4) H 05/01/25 14:00 Neut % (Auto) 65.6 % 05/01/25 14:00 Lymph % (Auto) 19.1 % 05/01/25 14:00 Ware % (Auto) 12.0 % 05/01/25 14:00 Eos % (Auto) 2.2 % 05/01/25 14:00 Baso % (Auto) 0.4 % 05/01/25 14:00 Neut # (Auto) 5.46 10^3/uL (1.8-7.7) 05/01/25 14:00 Lymph # (Auto) 1.6 10^3/uL (0.8-4.8) 05/01/25 14:00 Ware # (Auto) 1.0 10^3/uL (0.2-0.9) H 05/01/25 14:00 Eos # (Auto) 0.2 10^3/uL (0.0-0.8) 05/01/25 14:00 Baso # (Auto) 0.0 10^3/uL (0.0-0.1) 05/01/25 14:00 Nucleated RBC % (auto) 0 % 05/01/25 14:00 Nucleated RBCs # 0.0 /100WBC 05/01/25 14:00 Sodium 141 mmol/L (136-145) 05/01/25 14:00 Potassium 4.4 mmol/L (3.5-5.1) 05/01/25 14:00 Chloride 106 mmol/L (98-107) 05/01/25 14:00 Carbon Dioxide 25 mmol/L (22-29) 05/01/25 14:00 Anion Gap 14.4 (5-19) 05/01/25 14:00 BUN 16 mg/dL (8-23) 05/01/25 14:00 Creatinine 1.0 mg/dL (0.5-0.9) H 05/01/25 14:00 GFR Calculation Not Reportable 05/01/25 14:00 Glucose 149 mg/dL (65-115) H 05/01/25 14:00 Calculated Osmolality 296 mOsm/kg (285-295) H 05/01/25 14:00 Lactic Acid 1.3 mmol/L (0.5-2.2) 05/01/25 14:00 Calcium 9.5 mg/dL (8.5-10.5) 05/01/25 14:00 Total Bilirubin 0.8 mg/dL (0.15-1.2) 05/01/25 14:00 AST 25 U/L (0-32) 05/01/25 14:00 ALT 21 U/L (0-33) 05/01/25 14:00 Alkaline Phosphatase 98 U/L (35-105) 05/01/25 14:00 C-Reactive Protein 5.3 mg/L (0.0-4.9) H 05/01/25 14:00 Total Protein 7.1 g/dL (6.6-8.7) 05/01/25 14:00 Albumin 3.3 g/dL (3.5-5.2) L 05/01/25 14:00 Globulin 3.8 g/dL (1.3-4.6) 05/01/25 14:00 Urine Color [place] (Yellow) A 05/01/25 13:43 Urine Appearance Cloudy (CLEAR) A 05/01/25 13:43 Urine pH 5.5 (5-7) 05/01/25 13:43 Ur Specific [place] 1.019 (1.005-1.030) 05/01/25 13:43 Urine Protein 3+ (Negative) A 05/01/25 13:43 Urine Glucose (UA) Negative (Normal) 05/01/25 13:43 Urine Ketones Negative (Negative) 05/01/25 13:43 Urine Blood 3+ (Negative) A 05/01/25 13:43 Urine Nitrate Negative (Negative) 05/01/25 13:43 Urine Bilirubin Negative (Negative) 05/01/25 13:43 Urine Urobilinogen 1.0 mg/dL (Negative) 05/01/25 13:43 Ur Leukocyte Esterase 1+ (Negative) A 05/01/25 13:43 Urine RBC >100 /hpf (0-2) H 05/01/25 13:43 Urine WBC 51-100 /hpf (0-5) H 05/01/25 13:43 Ur Squamous Epith Cells 0-5 /hpf (0-5) 05/01/25 13:43 Amorphous Sediment Not Reportable 05/01/25 13:43 Urine Bacteria 4+ /hpf (NONE) H 05/01/25 13:43 Hyaline Casts 4.61 /lpf 05/01/25 13:43 All radiology interpretation(s) finalized by discharge Discharge Plan Discharge Patient Disposition: Home Clinical Impression: Urinary tract infection, Lumbar transverse process fracture Condition: Stable Prescriptions: New cefdinir 300 mg capsule 300 mg PO BID 10 Days Qty: 20 0RF No Action clopidogrel 75 mg tablet 75 mg PO QAM atorvastatin 40 mg tablet 40 mg PO QPM pantoprazole 40 mg tablet,delayed release (DR/EC) 40 mg PO BID sennosides-docusate sodium [Stimulant Laxative Plus] 8.6-50 mg tablet 1 tab-cap PO DAILY PRN (Reason: constipation) furosemide [Lasix] 40 mg tablet 40 mg PO DAILY PRN (Reason: edema) 30 Days Qty: 90 3RF (DME) Blood Glucose Test Strip See Rx Instructions .Route Qty: 50 0RF Rx Instructions: As directed lisinopril 40 mg tablet 40 mg PO DAILY Qty: 90 3RF allopurinol 300 mg tablet 300 mg PO QAM naproxen sodium [Aleve] 220 mg Tablet 440 mg PO Q12H PRN (Reason: Pain) donepezil 10 mg tablet 10 mg PO BEDTIME tramadol 50 mg tablet 50 mg PO QID PRN (Reason: Pain) lorazepam 0.5 mg tablet 0.5 mg PO DAILY PRN (Reason: Anxiety) ferrous sulfate [FeroSul] 325 mg (65 mg iron) tablet 325 mg PO .QOD fentanyl 25 mcg/hr patch 72 hour 1 patch topical .Q3DAYS escitalopram oxalate 20 mg tablet 20 mg PO QAM insulin lispro [Humalog KwikPen Insulin] 100 unit/mL insulin pen 30 unit SUBCUT TID Rx Instructions: max of 75 units DAILY insulin glargine [Lantus Solostar U-100 Insulin] 100 unit/mL (3 mL) insulin pen 50 unit SUBCUT QPM cholecalciferol (vitamin D3) 50 mcg (2,000 unit) capsule 50 mcg PO QAM Discharge Orders: Discharge ED (Routine); Ordered 05/01/25 Ordered By: Brianna Allen Referrals: Jasmina Moreno DO [Primary Care Provider, Family Practice] Patient Instructions: Urinary Tract Infection in Older Adults (ED), Transverse Process Fracture (ED), Opioid Safety, Pain Management, Patient Portal & Emely Instructions Activity Restrictions/Additional Instructions: Thank you for choosing [facility] for your healthcare needs today. You have been screened and evaluated and felt safe for discharge. Health conditions do change or evolve sometimes and as such it is important that you follow up with your Primary Doctor to be re checked, 3-5 days is a general good time frame for follow up. You are always welcome to return to the ED for re assessment if your symptoms are worsening or you have new concerns Print Language: Mongolian Coding Level of Care Code ED Human Resources Project Coordinator for Trina Concepcion
[2025-05-01 13:45] VITALS: BP 170/77; PULSE 64; O2SAT 91
[2025-05-01 13:57] LABS: Glucose Urine UA Negative (Normal); Nitrate Urine Negative (Negative); Specific Gravity, Urine 1.019 (1.005-1.030)
[2025-05-01 14:18] LABS: Hematocrit 38.4 % (36-47); Hemoglobin 12.00 g/dL (11.27-16.99); Mean Corpuscular HGB Conc 31.3 g/dL (30-55); Mean Corpuscular Hemoglobin 32.0 pg (27-33); Mean Corpuscular Volume 102.4 fl (85-98); Nucleated Red Blood Cells % 0 %; Platelet Count 199 10^3/cmm (157-399); Red Blood Count 3.75 10^6/uL (3.85-5.65); White Blood Count 8.32 10^3/uL (3.29-11.43)
[2025-05-01 14:26] LABS: UA Slide Review UA Slide Review Perf
[2025-05-01 14:35] LABS: Alanine Aminotransferase 21 U/L (0-33); Albumin Level 3.3 g/dL (3.5-5.2); Alkaline Phosphatase 98 U/L (35-105); Anion Gap 14.4 (5-19); Aspartate Amino Transferase 25 U/L (0-32); Blood Urea Nitrogen 16 mg/dL (8-23); Calcium 9.5 mg/dL (8.5-10.5); Carbon Dioxide 25 mmol/L (22-29); Chloride 106 mmol/L (98-107); Creatinine Clr Calc Pharmacy 45.5312; Globulin 3.8 g/dL (1.3-4.6); Glucose 149 mg/dL (65-115); Lactic Sepsis W/Reflex 1.3 mmol/L (0.5-2.2); Osmolality Calculated 296 mOsm/kg (285-295); Potassium 4.4 mmol/L (3.5-5.1); Sodium 141 mmol/L (136-145); Total Protein 7.1 g/dL (6.6-8.7)
[2025-05-01] MEDS: cefTRIAXone 1,000 mg SDV 1000 MG IVP (15:07)
[2025-05-01 15:15] VITALS: BP 156/60; PULSE 74; O2SAT 91
[2025-05-01 16:00] VITALS: BP 149/68; PULSE 80; O2SAT 90
[2025-05-01 16:32] VITALS: BP 149/68; PULSE 77; O2SAT 91
== END 2025-05-01 16:33 | disposition home or self-care (01) ==
PROVIDERS: Emergency Provider Emergency Medicine; PCP Family Medicine
DX: N39.0 Urinary tract infection, site not specified (principal); S32.028A Other fracture of second lumbar vertebra, initial encounter for closed fracture; Z79.02 Long term (current) use of antithrombotics/antiplatelets; Z79.4 Long term (current) use of insulin; E11.9 Type 2 diabetes mellitus without complications; Z86.73 Personal history of transient ischemic attack (TIA), and cerebral infarction without residual deficits; Z85.828 Personal history of other malignant neoplasm of skin; E78.5 Hyperlipidemia, unspecified; Z85.038 Personal history of other malignant neoplasm of large intestine; I10 Essential (primary) hypertension; W19.XXXA Unspecified fall, initial encounter
CPT/HCPCS: 36415; 70450; 71045; 72131; 80053; 81001; 83605; 85025; 86140; 87040; 87077; 87086; 87186; 96374; 99285; J0696

== ENCOUNTER 2025-05-05 15:18 | Inpatient (IN) | payer MEDICARE, OTHER, SELFPAY ==
[2025-05-05] VITALS (9 sets, daily range): BP systolic 150–191; BP diastolic 71–94; PULSE 88–96; RESP 16–18; TEMP 36.4–37; O2SAT 86–99; BMI 29.0
--- NOTE | 2025-05-05 15:21 | XR_ITS ---
WS: [id number] XR chest 1V portable [id number] REASON FOR EXAM: Weakness FINDINGS: Chest is unchanged compared to 04/11/2025. Mild tortuosity of the thoracic aorta with normal heart size. Calcified granulomas disease bilaterally. No acute pulmonary parenchymal or pleural abnormality. Mild degenerative spondylosis in the mid and lower thoracic spine. 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 XR/XR chest 1V portable [id number] IMPRESSION: Stable chest without acute abnormality.
--- OUTSIDE RECORDS SUMMARY | 2025-05-05 15:28 | XMS_ITS | Encounter Summary ---
Author Organization [facility] Address [address] [place] [address] Care Team Providers Care Lead Systems Developer Name Role Phone Jasmina Moreno DO Primary Care Provider Encounter Details Date Type Department Care Team (Latest Contact Info) Description 10/27/2005 Outpatient Historical [facility] Medicine [address] [address] Milind Shanks DO NO ADDRESS ON FILE Pain in Limb (Primary Dx); DM w/o Complication Type II (CMS/HCC) Social History Tobacco Use Types Packs/Day Years Used Date Smoking Tobacco: Never Assessed Comments Unknown Sex and Gender Information Value Date Recorded Sex Assigned at Not on file 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
--- OUTSIDE RECORDS SUMMARY | 2025-05-05 15:28 | XMS_ITS | Encounter Summary ---
Author Organization [facility] Address [address] [place] [address] Care Team Providers Care Guard Immigration Name Role Phone Jasmina Moreno DO Primary Care Provider Encounter Details Date Type Department Care Team (Latest Contact Info) Description 04/15/2007 Outpatient Historical [facility] Medicine [address] [address] Milind Shanks DO NO ADDRESS ON FILE Superficial Injury NEC (Primary Dx); Contusion of Multiple Sites, not Elsewhere Classified Social History Tobacco Use Types Packs/Day Years Used Date Smoking Tobacco: Never Assessed Comments Unknown Sex and Gender Information Value Date Recorded Sex Assigned at Not on file 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
--- OUTSIDE RECORDS SUMMARY | 2025-05-05 15:28 | XMS_ITS | Encounter Summary ---
Author Organization [facility] Address [address] [place] [address] Care Team Providers Care Check Out Cashier Name Role Phone Jasmina Moreno DO Primary Care Provider [phone] Encounter Details Date Type Department Care Team (Late st Contact Info) Description 08/20/2007 Outpatient Historical [facility] Medicine [address] [address] Milind Shanks DO NO ADDRESS ON FILE Social History Tobacco Use Types Packs/Day Years Used Date Smoking Tobacco: Never Assessed Comments Unknown Sex and Gender Information Value Date Recorded Sex Assigned at Not on file 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
--- OUTSIDE RECORDS SUMMARY | 2025-05-05 15:28 | XMS_ITS | Encounter Summary ---
Author Organization [facility] Address [address] [place] [address] Care Team Providers Care Solar Systems Designer Name Role Phone Jasmina Moreno DO Primary Care Provider Encounter Details Date Type Department Care Team (Latest Contact Info) Description 03/28/2007 Outpatient Historical [facility] [address] 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 Gender Identity Not on file Sexual Orientation Not on file documented as of this encounter Plan of Treatment Not on file documented as of this encounter Visit Diagnoses Diagnosis Injury, other and unspecified, hip and thigh- Primary documented in this encounter Additional Health Concerns Infection Onset Date Last Indicated Resolved Time MRSA Comment:Rony 03/23/16 03/24/2016 03/24/2016 documented as of this encounter Care Teams Solar Systems Designer Relationship Specialty Start Date End Date Jasmina Moreno DO [address] [place] [phone] PCP - General Family Practice 12/17/13 documented as of this encounter
--- OUTSIDE RECORDS SUMMARY | 2025-05-05 15:28 | XMS_ITS | Encounter Summary ---
Author Organization [facility] Address [address] [facility] [place] [address] Care Team Providers Care Branch Operations Coordinator Name Role Phone Jasmina Moreno DO Primary Care Provider Encounter Details Date Type Department Care Team (Late st Contact Info) Description 06/21/2001 Outpatient Historical [facility] Thaddeus Upton MD [address] [facility] [address] [address] MALIG NEOPLASM SKIN FACE NEC (Primary Dx) Social History Tobacco Use Types Packs/Day Years Used Date Smoking Tobacco: Never Assessed Comments Unknown Sex and Gender Information Value Date Recorded Sex Assigned at Not on file 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
--- OUTSIDE RECORDS SUMMARY | 2025-05-05 15:28 | XMS_ITS | Encounter Summary ---
Author Organization [facility] Address [address] [place] [address] Care Team Providers Care Billet Straightener Name Role Phone Jasmina Moreno DO Primary Care Provider [phone] Encounter Details Date Type Department Care Team (Latest Contact Info) Description 01/02/[address] 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 Gender Identity Not on file Sexual Orientation Not on file documented as of this encounter Plan of Treatment Not on file documented as of this encounter Visit Diagnoses Diagnosis Acute serous otitis media- Primary documented in this encounter Additional Health Concerns Infection Onset Date Last Indicated Resolved Time MRSA Comment:Rony 03/23/16 03/24/2016 03/24/2016 documented as of this encounter Care Teams Billet Straightener Relationship Specialty Start Date End Date Jasmina Moreno DO [address] [place] [phone] PCP - General Family Practice 12/17/13 documented as of this encounter
--- OUTSIDE RECORDS SUMMARY | 2025-05-05 15:28 | XMS_ITS | Encounter Summary ---
Author Organization [facility] Address [address] [place] [address] Care Team Providers Care Bellhop Service Captain Name Role Phone Jasmina Moreno DO Primary Care Provider [phone] Encounter Details Date Type Department Care Team (Latest Contact Info) Description 02/18/2007 Outpatient Historical [facility] Medicine [address] [address] Milind Shanks DO NO ADDRESS ON FILE Actinic Keratosis (Primary Dx); Unspecified Hypertrophic and Atrophic Condition of Skin Social History Tobacco Use Types Packs/Day Years Used Date Smoking Tobacco: Never Assessed Comments Unknown Sex and Gender Information Value Date Recorded Sex Assigned at Not on file 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
--- OUTSIDE RECORDS SUMMARY | 2025-05-05 15:28 | XMS_ITS | Encounter Summary ---
Author Organization [facility] Address [address] 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
--- OUTSIDE RECORDS SUMMARY | 2025-05-05 15:28 | XMS_ITS | Encounter Summary ---
Author Organization [facility] Address [address] [place] [address] Care Team Providers Care Cardiology Clinical Consultant Name Role Phone Jasmina Moreno DO Primary Care Provider Encounter Details Date Type Department Care Team (Latest Contact Info) Description 08/25/2002 Outpatient Historical [facility] Medicine [address] [address] Chaitanya Padron MD Benign clotilde lg bowel (Primary Dx); PERS HX OF GI MALIGNANCY NOS Social History Tobacco Use Types Packs/Day Years Used Date Smoking Tobacco: Never Assessed Comments Unknown Sex and Gender Information Value Date Recorded Sex Assigned at Not on file 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
--- OUTSIDE RECORDS SUMMARY | 2025-05-05 15:28 | XMS_ITS | Encounter Summary ---
Author Organization [facility] Address [address] [place] [address] Care Team Providers Care Healthcare Consultant Name Role Phone Jasmina Moreno DO Primary Care Provider +1- [phone] Encounter Details Date Type Department Care Team (Latest Contact Info) Description 05/31/2001 Outpatient Historical [facility] Family Medicine [address] [address] Milind Shanks DO NO ADDRESS ON FILE Chest pain, unspecified (Primary Dx) Social History Tobacco Use Types Packs/Day Years Used Date Smoking Tobacco: Never Assessed Comments Unknown Sex and Gender Information Value Date Recorded Sex Assigned at Not on file 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
--- OUTSIDE RECORDS SUMMARY | 2025-05-05 15:28 | XMS_ITS | Encounter Summary ---
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 Date Signed: 03/14/06 [facility] Procedure Note Provider, Historical - 06/24/2009 [...] By: Srinivas Guerrero D.O. Date Signed: 03/14/06 [facility] Milind Shanks DO MR ORDERABLES Final Result documented in this encounter Visit Diagnoses Not on filedocumented in this encounter Additional Health Concerns Infection Onset Date Last Indicated Resolved Time MRSA Comment:Rony 03/23/16 03/24/2016 03/24/2016 documented as of this encounter Care Teams Va Underwriter Relationship Specialty Start Date End Date Jasmina Moreno DO [address] [place] [address] PCP - General Family Practice 12/17/13 documented as of this encounter
--- OUTSIDE RECORDS SUMMARY | 2025-05-05 15:28 | XMS_ITS | Encounter Summary ---
Author Organization [facility] Address [address] [place] [address] Care Team Providers Care Buckle Sewer Name Role Phone Jasmina Moreno DO Primary Care Provider [phone]- [phone] Encounter Details Date Type Department Care Team (Latest Contact Info) Description 08/27/2002 Outpatient Historical [facility] Medicine [address] [address] Milind Shanks DO NO ADDRESS ON FILE DIABETES UNCOMPL ADULT-TYPE II (CMS/HCC) (Primary Dx) Social History Tobacco Use Types Packs/Day Years Used Date Smoking Tobacco: Never Assessed Comments Unknown Sex and Gender Information Value Date Recorded Sex Assigned at Not on file 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
--- OUTSIDE RECORDS SUMMARY | 2025-05-05 15:28 | XMS_ITS | Encounter Summary ---
Author Organization [facility] Address [address] [place] [address] Care Team Providers Care Roll Winder Name Role Phone Jasmina Moreno DO Primary Care Provider Encounter Details Date Type Department Care Team (Latest Contact Info) Description 04/01/2007 Outpatient Historical [facility] Medicine [address] [address] Milind Shanks DO NO ADDRESS ON FILE Contusion of Multiple Sites, not Elsewhere Classified (Primary Dx); Abrasion NEC Social History Tobacco Use Types Packs/Day Years Used Date Smoking Tobacco: Never Assessed Comments Unknown Sex and Gender Information Value Date Recorded Sex Assigned at Not on file 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
--- OUTSIDE RECORDS SUMMARY | 2025-05-05 15:28 | XMS_ITS | Encounter Summary ---
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 QA AUTOMATION ENGINEER Gender Identity Not on file Sexual Orientation Not on file documented as of this encounter Plan of Treatment Not on file documented as of this encounter Procedures Procedure Name Priority Date/Time Associated Diagnosis Comments CEA Routine 08/25/2004 8:20 AM SENIOR QA AUTOMATION ENGINEER documented in this encounter Results * CEA (08/25/2004 8:20 AM SENIOR QA AUTOMATION ENGINEER) CEA .9 0.0 - 3.0 ng/mL INTERFACE SYSTEM Comment: Normal Ranges: Smokers 0-5.0 ng/ml Non-Smokers 0-3.0 ng/ml 08/25/2004 8:20 AM SENIOR QA AUTOMATION ENGINEER us Devon Alvarado MD CHEMISTRY ORDERABLES Final R esult INTERFACE SYSTEM Refer to clinic/hospital department documented in this encounter Visit Diagnoses Not on filedocumented in this encounter Additional Health Concerns Infection Onset Date Last Indicated Resolved Time MRSA Comment:Rony 03/23/16 03/24/2016 03/24/2016 documented as of this encounter Care Teams Blunger Relationship Specialty Start Date End Date Jasmina Moreno DO [address] [place] [address] PCP - General Family Practice 12/17/13 documented as of this encounter
--- OUTSIDE RECORDS SUMMARY | 2025-05-05 15:28 | XMS_ITS | Encounter Summary ---
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
--- OUTSIDE RECORDS SUMMARY | 2025-05-05 15:28 | XMS_ITS | Encounter Summary ---
Author Organization [facility] Address [address] [place] [address] Care Team Providers Care A And P Mechanic Name Role Phone Jasmina Moreno DO Primary Care Provider Encounter Details Date Type Department Care Team (Late st Contact Info) Description 06/21/2015 Ancillary Orders [facility]- [place] [address] [place] [address] Jasmina Moreno DO [address] [place] [address] Midline low back pain with [...] on file Legal Sex Female 5:13 AM BACCARAT DEALER Gender Identity Not on file Sexual Orientation Not on file Occupation Industry Job Start Date Job End Date Not on file Not on file Not on file Not on file documented as of this encounter Plan of Treatment Not on file documented as of this encounter Results * XR HIPS BI 2 VW W AP PELVIS (06/21/2015 1:55 PM BACCARAT DEALER) Anatomical Region Laterality Modality Lower Extremity Computed Radiogr aphy 06/21/2015 1:42 PM BACCARAT DEALER Narrative 06/22/2015 9:09 AM BACCARAT DEALER PROCEDURE XR BILATERAL HIP, 4 views, 21 [...] as of this encounter Care Teams A And P Mechanic Relationship Specialty Start Date End Date Jasmina Moreno DO [address] [place] [address] PCP - General Family Practice 12/17/13 documented as of this encounter
--- OUTSIDE RECORDS SUMMARY | 2025-05-05 15:28 | XMS_ITS | Encounter Summary ---
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 Exam was auto-finalized. Procedure Note Phyllis Arevalo, RT - 05/01/2013 Order information only. Exam was auto-finalized. [facility] Cornel Dixon MD DIAGNOSTIC IMAG ING ORDERABLES Final Result documented in this encounter Visit Diagnoses Diagnosis Breast CA screening- Primary Other screening mammogram Breast CA screening Other screening mammogram documented in this encounter Additional Health Concerns Infection Onset Date Last Indicated Resolved Time MRSA Comment:Rony 03/23/16 03/24/2016 03/24/2016 documented as of this encounter Care Teams Scoop Driver Relationship Specialty Start Date End Date Jasmina Moreno DO [address] [place] [address] PCP - General Family Practice 12/17/13 documented as of this encounter
--- OUTSIDE RECORDS SUMMARY | 2025-05-05 15:28 | XMS_ITS | Encounter Summary ---
Author Organization [facility] Address [address] [place] [address] Care Team Providers Care Intelligence Research Specialist Name Role Phone Jasmina Moreno DO Primary Care Provider +[phone]- [phone] Encounter Details Date Type Department Care Team (Latest Contact Info) Description 04/11/2001 Outpatient Historical [facility] Medicine [address] [address] Milind Shanks DO NO ADDRESS ON FILE Urinary tract infection, site not specified (Primary Dx); Hematuria Social History Tobacco Use Types Packs/Day Years Used Date Smoking Tobacco: Never Assessed Comments Unknown Sex and Gender Information Value Date Recorded Sex Assigned at Not on file Legal Sex Female 5:13 AM FLUMER Gender Identity Not on file Sexual Orientation Not on file documented as of this encounter Plan of Treatment Not on file documented as of this encounter Visit Diagnoses Diagnosis Urinary tract infection, site not specified- Primary Hematuria documented in this encounter Additional Health Concerns Infection Onset Date Last Indicated Resolved Time MRSA Comment:Rony 03/23/16 03/24/2016 03/24/2016 documented as of this encounter Care Teams Intelligence Research Specialist Relationship Specialty Start Date End Date Jasmina Moreno DO [address] [place] [address] PCP - General Family Practice 12/17/13 documented as of this encounter
--- OUTSIDE RECORDS SUMMARY | 2025-05-05 15:28 | XMS_ITS | Encounter Summary ---
Author Organization [facility] Address [address] [place] [address] Care Team Providers Care Physician'S Aide Name Role Phone Jasmina Moreno DO Primary Care Provider [phone]- [phone] Encounter Details Date Type Department Care Team (Latest Contact Info) Description 09/18/2002 Outpatient Historical [facility] Family Medicine [address] [address] Pretty Scales MD NO ADDRESS ON FILE ACUTE BRONCHITIS (Primary Dx) Social History Tobacco Use Types Packs/Day Years Used Date Smoking Tobacco: Never Assessed Comments Unknown Sex and Gender Information Value Date Recorded Sex Assigned at Not on file 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
--- OUTSIDE RECORDS SUMMARY | 2025-05-05 15:28 | XMS_ITS | Encounter Summary ---
Author Organization [facility] Address [address] [facility] Attn: Epic Prelude ADT FADUMO ZIEGLER [address] Care Team Providers Care Marble Carver Name Role Phone Jasmina Moreno DO Primary Care Provider Encounter Details Date Type Department Care Team (Late st Contact Info) Description 01/20/2000 Outpatient Historical Chaitanya Padron MD Social History Tobacco Use Types Packs/Day Years Used Date Smoking Tobacco: Never Assessed Comments Unknown Sex and Gender Information Value Date Recorded Sex Assigned at Not on file Legal Sex Female 5:13 AM PICKER Gender Identity Not on file Sexual Orientation Not on file documented as of this encounter Plan of Treatment Not on file documented as of this encounter Visit Diagnoses Not on filedocumented in this encounter Additional Health Concerns Infection Onset Date Last Indicated Resolved Time MRSA Comment:Rony 03/23/16 03/24/2016 03/24/2016 documented as of this encounter Care Teams Marble Carver Relationship Specialty Start Date End Date Jasmina Moreno DO [address] [facility] [place] [address] PCP - General Family Practice 12/17/13 documented as of this encounter
--- OUTSIDE RECORDS SUMMARY | 2025-05-05 15:28 | XMS_ITS | Encounter Summary ---
Author Organization [facility] Address [address] [place] [address] Care Team Providers Care Security Systems Installer Name Role Phone Jasmina Moreno DO Primary Care Provider +1- [phone] Encounter Details Date Type Department Care Team (Latest Contact Info) Description 08/05/2002 Outpatient Historical [facility] Medicine [address] [address] Chaitanya Padron MD Benign clotilde lg bowel (Primary Dx) Social History Tobacco Use Types Packs/Day Years Used Date Smoking Tobacco: Never Assessed Comments Unknown Sex and Gender Information Value Date Recorded Sex Assigned at Not on file 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
--- OUTSIDE RECORDS SUMMARY | 2025-05-05 15:28 | XMS_ITS | Encounter Summary ---
Author Organization [facility] Address [address] [place] [address] Care Team Providers Care Tow Driver Name Role Phone Jasmina Moreno DO Primary Care Provider +[phone]- [phone] Encounter Details Date Type Department Care Team (Latest Contact Info) Description 01/04/2000 Outpatient Historical [facility] Medicine [address] [address] Milind Shanks DO NO ADDRESS ON FILE Abdominal pain, unspecified site (Primary Dx); Constipation Social History Tobacco Use Types Packs/Day Years Used Date Smoking Tobacco: Never Assessed Comments Unknown Sex and Gender Information Value Date Recorded Sex Assigned at Not on file Legal Sex Female 5:13 AM SOFTWARE VERIFICATION ENGINEER Gender Identity Not on file Sexual Orientation Not on file documented as of this encounter Plan of Treatment Not on file documented as of this encounter Visit Diagnoses Diagnosis Abdominal pain, unspecified site- Primary Constipation documented in this encounter Additional Health Concerns Infection Onset Date Last Indicated Resolved Time MRSA Comment:Rony 03/23/16 03/24/2016 03/24/2016 documented as of this encounter Care Teams Tow Driver Relationship Specialty Start Date End Date Jasmina Moreno DO [address] [place] [address] PCP - General Family Practice 12/17/13 documented as of this encounter
--- OUTSIDE RECORDS SUMMARY | 2025-05-05 15:28 | XMS_ITS | Encounter Summary ---
Author Organization [facility] Address [address] [place] [address] Care Team Providers Care Securities Adviser Name Role Phone Jasmina Moreno DO Primary Care Provider Encounter Details Date Type Department Care Team (Latest Contact Info) Description 06/10/2003 Outpatient Historical [facility] Medicine [address] [address] Milind Shanks DO NO ADDRESS ON FILE URIN TRACT INFECTION NOS (Primary Dx) Social History Tobacco Use Types Packs/Day Years Used Date Smoking Tobacco: Never Assessed Comments Unknown Sex and Gender Information Value Date Recorded Sex Assigned at Not on file Legal Sex Female 5:13 AM 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 Gender Identity Not on file Sexual Orientation Not on file documented as of this encounter Plan of Treatment Not on file documented as of this encounter Visit Diagnoses Diagnosis Urinary tract infection, site not specified- Primary documented in this encounter Additional Health Concerns Infection Onset Date Last Indicated Resolved Time MRSA Comment:Rony 03/23/16 03/24/2016 03/24/2016 documented as of this encounter Care Teams Securities Adviser Relationship Specialty Start Date End Date Jasmina Moreno DO [address] [place] [address] PCP - General Family Practice 12/17/13 documented as of this encounter
--- OUTSIDE RECORDS SUMMARY | 2025-05-05 15:28 | XMS_ITS | Encounter Summary ---
Author Organization [facility] Address [address] [place] [address] Care Team Providers Care Housing Management Officer Name Role Phone Jasmina Moreno DO Primary Care Provider Encounter Details Date Type Department Care Team (Late st Contact Info) Description 02/18/2003 Outpatient Historical [facility] Devon Alvarado MD [address] [place] [address] Social History Tobacco Use Types Packs/Day Years Used Date Smoking Tobacco: Never Assessed Comments Unknown Sex and Gender Information Value Date Recorded Sex Assigned at Not on file Legal Sex Female 5:13 AM MEDICAL OR SURGICAL INSTRUMENT MAKER Gender Identity Not on file Sexual Orientation Not on file documented as of this encounter Plan of Treatment Not on file documented as of this encounter Visit Diagnoses Not on filedocumented in this encounter Additional Health Concerns Infection Onset Date Last Indicated Resolved Time MRSA Comment:Rony 03/23/16 03/24/2016 03/24/2016 documented as of this encounter Care Teams Housing Management Officer Relationship Specialty Start Date End Date Jasmina Moreno DO [address] [place] [address] PCP - General Family Practice 12/17/13 documented as of this encounter
--- OUTSIDE RECORDS SUMMARY | 2025-05-05 15:28 | XMS_ITS | Encounter Summary ---
Author Organization [facility] Address [address] [place] [address] Care Team Providers Care Restrictive Preparation Operator Name Role Phone TiffanieJasmina calles Willy ARIAS Primary Care Provider [phone] Encounter Details Date Type Department Care Team (Latest Contact Info) Description 03/06/2006 Outpatient Historical [facility] Medicine [address] [address] Milind Shanks DO NO ADDRESS ON FILE Unspecified Backache (Primary Dx); Pain in Limb; Generalized Osteoarthrosis, Involving Multiple Sites; DM w/o Complication Type II (CMS/HCC) Social History Tobacco Use Types Packs/Day Years Used Date Smoking Tobacco: Never Assessed Comments Unknown Sex and Gender Information Value Date Recorded Sex Assigned at Not on file Legal Sex Female 5:13 AM FOREIGN EXCHANGE TRADER Gender Identity Not on file Sexual Orientation [...] documented as of this encounter Care Teams Restrictive Preparation Operator Relationship Specialty Start Date End Date Jasmina Moreno DO [address] [place] [phone] PCP - General Family Practice 12/17/13 documented as of this encounter
--- OUTSIDE RECORDS SUMMARY | 2025-05-05 15:28 | XMS_ITS | Encounter Summary ---
Author Organization [facility] Address [address] [place] [address] Care Team Providers Care Filter Screen Cleaner Name Role Phone Jasmina Moreno DO Primary Care Provider Encounter Details Date Type Department Care Team (Latest Contact Info) Description 09/21/1998 Outpatient Historical [facility] Family Medicine [place] [address] [facility] [address] [place] [address] Richard Barney MD [address] [address] Acute sinusitis, unspecified (Primary Dx) Social History Tobacco Use Types Packs/Day Years Used Date Smoking Tobacco: Never Assessed Comments Unknown Sex and Gender Information Value Date Recorded Sex Assigned at Not on file Legal Sex Female 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
--- OUTSIDE RECORDS SUMMARY | 2025-05-05 15:28 | XMS_ITS | Encounter Summary ---
Author Organization [facility] Address [address] [place] [address] Care Team Providers Care Ocean Freight Forwarder Name Role Phone Jasmina Moreno DO Primary Care Provider +1- [phone] Encounter Details Date Type Department Care Team (Latest Contact Info) Description 02/16/2004 Outpatient Historical [facility] Medicine [address] [address] Milind Shanks DO NO ADDRESS ON FILE DIABETES UNCOMPL ADULT-TYPE II (CMS/HCC) (Primary Dx) Social History Tobacco Use Types Packs/Day Years Used Date Smoking Tobacco: Never Assessed Comments Unknown Sex and Gender Information Value Date Recorded Sex Assigned at Not on file 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
--- OUTSIDE RECORDS SUMMARY | 2025-05-05 15:28 | XMS_ITS | Encounter Summary ---
Author Organization [facility] Address [address] [facility] [place] [address] Care Team Providers Care Sales And Merchandising Representative Name Role Phone Jasmina Moreno DO Primary Care Provider [phone] Encounter Details Date Type Department Care Team (Late st Contact Info) Description 12/18/2002 Outpatient Historical [facility] Hugo Ray MD [address] 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
--- OUTSIDE RECORDS SUMMARY | 2025-05-05 15:28 | XMS_ITS | Encounter Summary ---
Author Organization [facility] Address [address] [place] [address] Care Team Providers Care Law Researcher Name Role Phone Jasmina Moreno DO Primary Care Provider +1- [phone] Encounter Details Date Type Department Care Team (Latest Contact Info) Description 10/08/2002 Outpatient Historical 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 Gender Identity Not on file Sexual Orientation Not on file documented as of this encounter Plan of Treatment Not on file documented as of this encounter Visit Diagnoses Diagnosis Acute sinusitis, unspecified- Primary Acute bronchitis documented in this encounter Additional Health Concerns Infection Onset Date Last Indicated Resolved Time MRSA Comment:Rony 03/23/16 03/24/2016 03/24/2016 documented as of this encounter Care Teams Law Researcher Relationship Specialty Start Date End Date Jasmina Moreno DO [address] [place] [address] PCP - General Family Practice 12/17/13 documented as of this encounter
--- OUTSIDE RECORDS SUMMARY | 2025-05-05 15:28 | XMS_ITS | Encounter Summary ---
Author Organization [facility] Address [address] [place] [address] Care Team Providers Care Agent Name Role Phone Jasmina Moreno DO Primary Care Provider [phone]- [phone] Encounter Details Date Type Department Care Team (Latest Contact Info) Description 05/31/1998 Outpatient Historical [facility] Medicine [address] [address] Milind Shanks DO NO ADDRESS ON FILE Pain in joint, site unspecified (Primary Dx) Social History Tobacco Use Types Packs/Day Years Used Date Smoking Tobacco: Never Assessed Comments Unknown Sex and Gender Information Value Date Recorded Sex Assigned at Not on file 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
--- OUTSIDE RECORDS SUMMARY | 2025-05-05 15:28 | XMS_ITS | Encounter Summary ---
Author Organization [facility] Address [address] [place] [address] Care Team Providers Care Motorized Squad Sergeant Name Role Phone Jasmina Moreno DO Primary Care Provider Encounter Details Date Type Department Care Team (Late st Contact Info) Description 07/10/2001 Outpatient Historical [facility]IC [facility] Thaddeus Upton MD [address] [facility] [address] [address] MALIG NEOPLASM SKIN FACE NEC (Primary Dx) Social History Tobacco Use Types Packs/Day Years Used Date Smoking Tobacco: Never Assessed Comments Unknown Sex and Gender Information Value Date Recorded Sex Assigned at Not on file 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
--- OUTSIDE RECORDS SUMMARY | 2025-05-05 15:28 | XMS_ITS | Encounter Summary ---
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
--- OUTSIDE RECORDS SUMMARY | 2025-05-05 15:28 | XMS_ITS | Encounter Summary ---
Author Organization [facility] Address [address] [place] [address] Care Team Providers Care Electric Sign Assembler Name Role Phone Jasmina Moreno DO Primary Care Provider +1- [phone] Encounter Details Date Type Department Care Team (Latest Contact Info) Description 02/13/2002 Outpatient Historical [facility] Family Medicine [address] [address] Milind Shanks DO NO ADDRESS ON FILE ACUTE BRONCHITIS (Primary Dx) Social History Tobacco Use Types Packs/Day Years Used Date Smoking Tobacco: Never Assessed Comments Unknown Sex and Gender Information Value Date Recorded Sex Assigned at Not on file Legal Sex Female 5:13 AM TIEDOWN OPERATOR Gender Identity Not on file Sexual Orientation Not on file documented as of this encounter Plan of Treatment Not on file documented as of this encounter Visit Diagnoses Diagnosis Acute bronchitis- Primary documented in this encounter Additional Health Concerns Infection Onset Date Last Indicated Resolved Time MRSA Comment:Rony 03/23/16 03/24/2016 03/24/2016 documented as of this encounter Care Teams Electric Sign Assembler Relationship Specialty Start Date End Date Jasmina Moreno DO [address] [place] [phone] PCP - General Family Practice 12/17/13 documented as of this encounter
--- OUTSIDE RECORDS SUMMARY | 2025-05-05 15:28 | XMS_ITS | Encounter Summary ---
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
--- OUTSIDE RECORDS SUMMARY | 2025-05-05 15:28 | XMS_ITS | Encounter Summary ---
Author Organization [facility] Address [address] [place] [address] Care Team Providers Care Senior Procurement Manager Name Role Phone Jasmina Moreno DO Primary Care Provider Encounter Details Date Type Department Care Team (Latest Contact Info) Description 01/24/2007 Outpatient Historical [facility] Medicine [address] [address] Milind Shanks DO NO ADDRESS ON FILE DM w/o Complication Type II (CMS/HCC) (Primary Dx); Other and Unspecified Hyperlipidemia; Unspecified Backache Social History Tobacco Use Types Packs/Day Years Used Date Smoking Tobacco: Never Assessed Comments Unknown Sex and Gender Information Value Date Recorded Sex Assigned at Not on file 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
--- OUTSIDE RECORDS SUMMARY | 2025-05-05 15:28 | XMS_ITS | Encounter Summary ---
Author Organization [facility] Address [address] [place] [address] Care Team Providers Care Tactical Air Defense Controller Name Role Phone Jasmina Moreno DO Primary Care Provider +1- [phone] Encounter Details Date Type Department Care Team (Latest Contact Info) Description 10/27/2002 Outpatient Historical [facility] Medicine [address] [address] Milind Shanks DO NO ADDRESS ON FILE ACUTE SEROUS OTITIS MEDIA (Primary Dx); ACUTE SINUSITIS NOS Social History Tobacco Use Types Packs/Day Years Used Date Smoking Tobacco: Never Assessed Comments Unknown Sex and Gender Information Value Date Recorded Sex Assigned at Not on file 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
--- OUTSIDE RECORDS SUMMARY | 2025-05-05 15:28 | XMS_ITS | Encounter Summary ---
Author Organization [facility] Address [address] [place] [address] Care Team Providers Care Tensioning Machine Operator Name Role Phone Jasmina Moreno DO Primary Care Provider Encounter Details Date Type Department Care Team (Latest Contact Info) Description 10/11/2004 Outpatient Historical [facility] General Surgery [address] [address] [address] [place] [address] [place] [address] [facility] [address] [place] [address] SURGERY FOLLOWUP, UNSPEC (Primary Dx) Social History Tobacco Use Types Packs/Day Years Used Date Smoking Tobacco: Never Assessed Comments Unknown Sex and Gender Information Value Date Recorded Sex Assigned at Not on file 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 Gender Identity Not on file Sexual Orientation Not on file documented as of this encounter Plan of Treatment Not on file documented as of this encounter Visit Diagnoses Diagnosis Follow-up examination, following unspecified surgery- Primary documented in this encounter Additional Health Concerns Infection Onset Date Last Indicated Resolved Time MRSA Comment:Rony 03/23/16 03/24/2016 03/24/2016 documented as of this encounter Care Teams Tensioning Machine Operator Relationship Specialty Start Date End Date Jasmina Moreno DO [address] [place] [address] PCP - General Family Practice 12/17/13 documented as of this encounter
--- OUTSIDE RECORDS SUMMARY | 2025-05-05 15:28 | XMS_ITS | Encounter Summary ---
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
--- OUTSIDE RECORDS SUMMARY | 2025-05-05 15:28 | XMS_ITS | Encounter Summary ---
Author Organization [facility] Address [address] [place] [address] Care Team Providers Care Outside Machinist Supervisor Name Role Phone Jasmina Moreno DO Primary Care Provider Encounter Details Date Type Department Care Team (Latest Contact Info) Description 09/30/2001 Outpatient Historical [facility] Urology- [address], 3[address] [place] [address] Oleg Horta MD NO ADDRESS ON FILE URINARY FREQUENCY (Primary Dx) Social History Tobacco Use Types Packs/Day Years Used Date Smoking Tobacco: Never Assessed Comments Unknown Sex and Gender Information Value Date Recorded Sex Assigned at Not on file Legal Sex Female 5:13 AM DIRECTOR SURGICAL Gender Identity Not on file Sexual Orientation Not on file documented as of this encounter Plan of Treatment Not on file documented as of this encounter Visit Diagnoses Diagnosis Urinary frequency- Primary documented in this encounter Additional Health Concerns Infection Onset Date Last Indicated Resolved Time MRSA Comment:Rony 03/23/16 03/24/2016 03/24/2016 documented as of this encounter Care Teams Outside Machinist Supervisor Relationship Specialty Start Date End Date Jasmina Moreno DO [address] [place] [address] PCP - General Family Practice 12/17/13 documented as of this encounter
--- OUTSIDE RECORDS SUMMARY | 2025-05-05 15:28 | XMS_ITS | Encounter Summary ---
Author Organization [facility] Address [address] [place] [address] Care Team Providers Care Director Of Student Aid Name Role Phone Jasmina Moreno DO Primary Care Provider +1- [phone] Encounter Details Date Type Department Care Team (Latest Contact Info) Description 07/17/2001 Outpatient Historical [facility] Medicine [address] [address] Milind Shanks DO NO ADDRESS ON FILE POSTSURGICAL STATES NEC (Primary Dx) Social History Tobacco Use Types Packs/Day Years Used Date Smoking Tobacco: Never Assessed Comments Unknown Sex and Gender Information Value Date Recorded Sex Assigned at Not on file Legal Sex Female 5:13 AM DIRECTOR OF DATABASE MARKETING Gender Identity Not on file Sexual Orientation Not on file documented as of this encounter Plan of Treatment Not on file documented as of this encounter Visit Diagnoses Diagnosis Other postprocedural status(V45.89)- Primary Other postprocedural status documented in this encounter Additional Health Concerns Infection Onset Date Last Indicated Resolved Time MRSA Comment:Rony 03/23/16 03/24/2016 03/24/2016 documented as of this encounter Care Teams Director Of Student Aid Relationship Specialty Start Date End Date Jasmina Moreno DO [address] [place] [address] PCP - General Family Practice 12/17/13 documented as of this encounter
--- OUTSIDE RECORDS SUMMARY | 2025-05-05 15:28 | XMS_ITS | Encounter Summary ---
Author Organization [facility] Address [address] [place] [address] Care Team Providers Care Peanut Cleaner Name Role Phone Jasmina Moreno DO Primary Care Provider +1- [phone] Encounter Details Date Type Department Care Team (Latest Contact Info) Description 02/24/2002 Outpatient Historical [facility] Medicine [address] [address] Chaitanya Padron MD ABDOMINAL PAIN OTHER SPEC SITE (Primary Dx) Social History Tobacco Use Types Packs/Day Years Used Date Smoking Tobacco: Never Assessed Comments Unknown Sex and Gender Information Value Date Recorded Sex Assigned at Not on file 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 Female 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 DRESSER Gender Identity Not on file Sexual Orientation Not on file documented as of this encounter Plan of Treatment Not on file documented as of this encounter Visit Diagnoses Diagnosis Abdominal pain, other specified site- Primary documented in this encounter Additional Health Concerns Infection Onset Date Last Indicated Resolved Time MRSA Comment:Rony 03/23/16 03/24/2016 03/24/2016 documented as of this encounter Care Teams Peanut Cleaner Relationship Specialty Start Date End Date Jasmina Moreno DO [address] [place] [address] PCP - General Family Practice 12/17/13 documented as of this encounter
--- OUTSIDE RECORDS SUMMARY | 2025-05-05 15:28 | XMS_ITS | Encounter Summary ---
Author Organization [facility] Address [address] [place] [address] Care Team Providers Care Tile And Mottle Supervisor Name Role Phone Jasmina Moreno DO Primary Care Provider Encounter Details Date Type Department Care Team (Late st Contact Info) Description 05/01/2013 Ancillary Orders [facility] Medicine [place] [address] [address] Jose M Long MD NO [...] on file Legal Sex Female 5:13 AM SILK SOAKER Gender Identity Not on file Sexual Orientation Not on file Occupation Industry Job Start Date Job End Date Not on file Not on file Not on file Not on file documented as of this encounter Plan of Treatment Not on file documented as of this encounter Results * MAMMO DIGITIZED STUDY (07/22/2008 11:36 AM SILK SOAKER) Narrative Phyllis Arevalo, RT - 05/01/2013 12:36 PM CDT Order information only. Exam was auto-finalized. Procedure Note Phyllis Arevalo, RT - 05/01/2013 Order information only. Exam was auto-finalized. [facility] Cornel Dixon MD DIAGNOSTIC IMAG ING ORDERABLES Final Result documented in this encounter Visit Diagnoses Diagnosis Breast CA screening- Primary Other screening mammogram Breast CA screening Other screening mammogram documented in this encounter Additional Health Concerns Infection Onset Date Last Indicated Resolved Time MRSA Comment:Rony 03/23/16 03/24/2016 03/24/2016 documented as of this encounter Care Teams Tile And Mottle Supervisor Relationship Specialty Start Date End Date Jasmina Moreno DO [address] [place] [phone] PCP - General Family Practice 12/17/13 documented as of this encounter
--- OUTSIDE RECORDS SUMMARY | 2025-05-05 15:28 | XMS_ITS | Encounter Summary ---
Author Organization 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
--- OUTSIDE RECORDS SUMMARY | 2025-05-05 15:28 | XMS_ITS | Encounter Summary ---
Author Organization [facility] Address [address] [place] [address] Care Team Providers Care Drip Pumper Name Role Phone Jasmina Moreno Primary Care Provider +- [phone] Encounter Details Date Type Department Care Team (Late st Contact Info) Description 05/05/2025 Orders Only [facility] HIM [address] 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 DEVELOPER Gender Identity Not on file Sexual Orientation Not on file documented as of this encounter Plan of Treatment Upcoming Encounters Date Type Department Care Team (Late st Contact Info) Description 06/04/2025 11:00 AM CDT Office [facility] [address] [facility] [address] [place] [address] Grace Mathis, COTTON TIER [address] [facility] [address] [place] [address] 07/07/2025 9:20 AM MICROSOFT DEVELOPER Office Visit [facility] Family Medicine [place] [address] [place] [address] Jasmina Moreno, [address] [place] [address] 07/08/2025 2:30 PM MICROSOFT DEVELOPER Office Visit [facility] [address] [place] [address] Ivette Riley DO [address] [address] documented as of this encounter Procedures Procedure Name Priority Date/Time Associated Diagnosis Comments COMPREHENSIVE METABOLIC PANEL Routine 05/01/2025 10:55 AM CDT documented in this encounter Results * COMPREHENSIVE METABOLIC PANEL (05/01/2025 10:55 AM CDT) Blood us Abstract Provider CHEMISTRY ORDERABLES Final Res ult documented in this encounter Visit Diagnoses Not on filedocumented in this encounter Care Teams Drip Pumper Relationship Specialty Start Date End Date Jasmina Moreno DO [address] [place] [address] PCP - General Family Practice 12/17/13 documented as of this encounter
--- OUTSIDE RECORDS SUMMARY | 2025-05-05 15:28 | XMS_ITS | Encounter Summary ---
Author Organization [facility] Address [address] [place] [address] Care Team Providers Care Cardroom Hand Name Role Phone Jasmina Moreno Willy ARIAS Primary Care Provider Encounter Details Date Type Department Care Team (Late st Contact Info) Description 06/05/2001 Outpatient Historical [facility] Dermatology- [address] [place] 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
--- OUTSIDE RECORDS SUMMARY | 2025-05-05 15:28 | XMS_ITS | Encounter Summary ---
Author Organization [facility] Address [address] [place] [address] Care Team Providers Care Personal Protection Specialist Name Role Phone Jasmina Moreno DO Primary Care Provider +1- [phone] Encounter Details Date Type Department Care Team (Latest Contact Info) Description 04/15/2003 Outpatient Historical [facility] Medicine [address] [address] Milind Shanks DO NO ADDRESS ON FILE CYSTITIS NOS (Primary Dx); ACTINIC KERATOSIS Social History Tobacco Use Types Packs/Day Years Used Date Smoking Tobacco: Never Assessed Comments Unknown Sex and Gender Information Value Date Recorded Sex Assigned at Not on file 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 Gender Identity Not on file Sexual Orientation Not on file documented as of this encounter Plan of Treatment Not on file documented as of this encounter Visit Diagnoses Diagnosis Cystitis, unspecified- Primary Actinic keratosis documented in this encounter Additional Health Concerns Infection Onset Date Last Indicated Resolved Time MRSA Comment:Rony 03/23/16 03/24/2016 03/24/2016 documented as of this encounter Care Teams Personal Protection Specialist Relationship Specialty Start Date End Date Jasmina Moreno DO [address] [place] [address] PCP - General Family Practice 12/17/13 documented as of this encounter
--- OUTSIDE RECORDS SUMMARY | 2025-05-05 15:28 | XMS_ITS | Encounter Summary ---
Author Organization [facility] Address [address] [place] [address] Care Team Providers Care Hand Finisher Name Role Phone Jasmina Moreno DO Primary Care Provider Encounter Details Date Type Department Care Team (Latest Contact Info) Description 2004 Outpatient Historical [facility] General Surgery [address] [address] [address] [place] [address] [place] [address] [facility] [address] [place] [address] SURGERY FOLLOWUP, UNSPEC (Primary Dx) Social History Tobacco Use Types Packs/Day Years Used Date Smoking Tobacco: Never Assessed Comments Unknown Sex and Gender Information Value Date Recorded Sex Assigned at Not on file Legal Sex Female 5:13 AM 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 WORKER Gender Identity Not on file Sexual Orientation Not on file documented as of this encounter Plan of Treatment Not on file documented as of this encounter Visit Diagnoses Diagnosis Follow-up examination, following unspecified surgery- Primary documented in this encounter Additional Health Concerns Infection Onset Date Last Indicated Resolved Time MRSA Comment:Rony 03/23/16 03/24/2016 03/24/2016 documented as of this encounter Care Teams Hand Finisher Relationship Specialty Start Date End Date Jasmina Moreno DO [address] [place] [address] PCP - General Family Practice 12/17/13 documented as of this encounter
--- OUTSIDE RECORDS SUMMARY | 2025-05-05 15:28 | XMS_ITS | Encounter Summary ---
Author Organization [facility] Address [address] [place] [address] Care Team Providers Care Stencil Inspector Name Role Phone Jasmina Moreno Primary Care Provider Encounter Details Date Type Department Care Team (Late st Contact Info) Description 07/08/2008 Outpatient Historical [facility] Endoscopy Niesha [address] [place] [address] Sai De La Paz MD [address] [facility] [address] [place] [address] Social History Tobacco Use Types Packs/Day Years Used Date Smoking Tobacco: Never Assessed Comments No Sex and Gender Information Value Date Recorded Sex Assigned at Not on file Legal Sex Female 5:13 AM BAG MAKER Gender Identity Not on file Sexual Orientation Not on file documented as of this encounter Plan of Treatment Not on file documented as of this encounter Procedures Procedure Name Priority Date/Time Associated Diagnosis Comments PATHOLOGY Routine 07/24/2008 3:53 PM BAG MAKER documented in this encounter Results * PATHOLOGY (07/24/2008 3:53 PM BAG MAKER) PATHOLOGY/CYT OLOGY REPORT [facility] [address] [facility] [address] Patient: KARINA AREVALO Accn No: [id number] Collected: 07/24/2008 3:53:00 PM SURGICAL PATHOLOGY FINAL [...] A1. DLS/WLS INTERFACE SYSTEM 07/24/2008 3:53 PM BAG MAKER us Sai De La Paz MD PATHOLOGY/CYTOLOGY ORDERABL ES Final Result INTERFACE SYSTEM Refer to clinic/hospital department documented in this encounter Visit Diagnoses Not on filedocumented in this encounter Additional Health Concerns Infection Onset Date Last Indicated Resolved Time MRSA Comment:Rony 03/23/16 03/24/2016 03/24/2016 documented as of this encounter Care Teams Stencil Inspector Relationship Specialty Start Date End Date Jasmina Moreno DO [address] [place] [address] PCP - General Family Practice 12/17/13 documented as of this encounter
--- OUTSIDE RECORDS SUMMARY | 2025-05-05 15:28 | XMS_ITS | Encounter Summary ---
Author Organization [facility] Address [address] [place] [address] Care Team Providers Care Competency Evaluated Nurse Aide Name Role Phone Jasmina Moreno DO Primary Care Provider +1- [phone] Encounter Details Date Type Department Care Team (Latest Contact Info) Description 03/10/2002 Outpatient Historical [facility] Family Medicine [address] [address] Chaitanya Padron MD ABDOMINAL PAIN UNSPEC SITE (Primary Dx) Social History Tobacco Use Types Packs/Day Years Used Date Smoking Tobacco: Never Assessed Comments Unknown Sex and Gender Information Value Date Recorded Sex Assigned at Not on file 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 Gender Identity Not on file Sexual Orientation Not on file documented as of this encounter Plan of Treatment Not on file documented as of this encounter Visit Diagnoses Diagnosis Abdominal pain, unspecified site- Primary documented in this encounter Additional Health Concerns Infection Onset Date Last Indicated Resolved Time MRSA Comment:Rony 03/23/16 03/24/2016 03/24/2016 documented as of this encounter Care Teams Competency Evaluated Nurse Aide Relationship Specialty Start Date End Date Jasmina Moreno DO [address] [place] [phone] PCP - General Family Practice 12/17/13 documented as of this encounter
--- OUTSIDE RECORDS SUMMARY | 2025-05-05 15:28 | XMS_ITS | Encounter Summary ---
Author Organization [facility] Address [address] [place] [address] Care Team Providers Care Public School Teacher Name Role Phone Jasmina Moreno DO Primary Care Provider [phone]- [phone] Encounter Details Date Type Department Care Team (Latest Contact Info) Description 01/09/2003 Outpatient Historical [facility] Family Medicine [address] [address] Milind Shanks DO NO ADDRESS ON FILE OTITIS MEDIA NOS (Primary Dx) Social History Tobacco Use Types Packs/Day Years Used Date Smoking Tobacco: Never Assessed Comments Unknown Sex and Gender Information Value Date Recorded Sex Assigned at Not on file Legal Sex Female 5:13 AM ADMINISTRATIVE SERVICES COORDINATOR Gender Identity Not on file Sexual Orientation Not on file documented as of this encounter Plan of Treatment Not on file documented as of this encounter Visit Diagnoses Diagnosis Unspecified otitis media- Primary documented in this encounter Additional Health Concerns Infection Onset Date Last Indicated Resolved Time MRSA Comment:Rony 03/23/16 03/24/2016 03/24/2016 documented as of this encounter Care Teams Public School Teacher Relationship Specialty Start Date End Date Jasmina Moreon DO [address] [place] [address] PCP - General Family Practice 12/17/13 documented as of this encounter
--- OUTSIDE RECORDS SUMMARY | 2025-05-05 15:28 | XMS_ITS | Encounter Summary ---
Author Organization [facility] Address [address] [place] [address] Care Team Providers Care Mobile Qa Tester Name Role Phone Jasmina Moreno DO Primary Care Provider [phone] Encounter Details Date Type Department Care Team (Latest Contact Info) Description 09/03/2001 Outpatient Historical [facility] Medicine [address] [address] Milind Shanks DO NO ADDRESS ON FILE URIN TRACT INFECTION NOS (Primary Dx) Social History Tobacco Use Types Packs/Day Years Used Date Smoking Tobacco: Never Assessed Comments Unknown Sex and Gender Information Value Date Recorded Sex Assigned at Not on file 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 Sex Female 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 Gender Identity Not on file Sexual Orientation Not on file documented as of this encounter Plan of Treatment Not on file documented as of this encounter Visit Diagnoses Diagnosis Urinary tract infection, site not specified- Primary documented in this encounter Additional Health Concerns Infection Onset Date Last Indicated Resolved Time MRSA Comment:Rony 03/23/16 03/24/2016 03/24/2016 documented as of this encounter Care Teams Mobile Qa Tester Relationship Specialty Start Date End Date Jasmina Moreno DO [address] [place] [address] PCP - General Family Practice 12/17/13 documented as of this encounter
--- OUTSIDE RECORDS SUMMARY | 2025-05-05 15:28 | XMS_ITS | Encounter Summary ---
Author Organization [facility] Address [address] [place] [address] Care Team Providers Care Kiln Pusher Name Role Phone Jasmina Moreno DO Primary Care Provider Encounter Details Date Type Department Care Team (Late st Contact Info) Description 05/01/2013 Ancillary Orders [facility] Medicine [place] [address] [address] Jose M Long MD NO [...] on file Legal Sex Female 5:13 AM HEATING AND BLENDING SUPERVISOR Gender Identity Not on file Sexual Orientation Not on file Occupation Industry Job Start Date Job End Date Not on file Not on file Not on file Not on file documented as of this encounter Plan of Treatment Not on file documented as of this encounter Results * MAMMO DIGITIZED STUDY (07/10/2006 11:39 AM HEATING AND BLENDING SUPERVISOR) Narrative Phyllis Arevalo, RT - 05/01/2013 12:39 PM CDT Order information only. Exam was auto-finalized. Procedure Note Phyllis Arevalo, RT - 05/01/2013 Order information only. Exam was auto-finalized. [facility] Cornel Dixon MD DIAGNOSTIC IMAG ING ORDERABLES Final Result documented in this encounter Visit Diagnoses Diagnosis Breast CA screening- Primary Other screening mammogram Breast CA screening Other screening mammogram documented in this encounter Additional Health Concerns Infection Onset Date Last Indicated Resolved Time MRSA Comment:Rony 03/23/16 03/24/2016 03/24/2016 documented as of this encounter Care Teams Kiln Pusher Relationship Specialty Start Date End Date Jasmina Moreno DO [address] [place] [phone] PCP - General Family Practice 12/17/13 documented as of this encounter
--- OUTSIDE RECORDS SUMMARY | 2025-05-05 15:28 | XMS_ITS | Encounter Summary ---
Author Organization [facility] Address [address] [place] [address] Care Team Providers Care Implementation Project Coordinator Name Role Phone Jasmina Moreno DO Primary Care Provider [phone]- [phone] Encounter Details Date Type Department Care Team (Latest Contact Info) Description 08/21/2007 Outpatient Historical [facility] Medicine [address] [address] Milind Shanks DO NO ADDRESS ON FILE Routine Gynecological Examination Social History Tobacco Use Types Packs/Day Years Used Date Smoking Tobacco: Never Assessed Comments Unknown Sex and Gender Information Value Date Recorded Sex Assigned at Not on file Legal Sex Female 5:13 AM ICING MIXER Gender Identity Not on file Sexual Orientation Not on file documented as of this encounter Plan of Treatment Not on file documented as of this encounter Visit Diagnoses Diagnosis Routine gynecological examination documented in this encounter Additional Health Concerns Infection Onset Date Last Indicated Resolved Time MRSA Comment:Rony 03/23/16 03/24/2016 03/24/2016 documented as of this encounter Care Teams Implementation Project Coordinator Relationship Specialty Start Date End Date Jasmina Moreno DO [address] [place] [address] PCP - General Family Practice 12/17/13 documented as of this encounter
--- OUTSIDE RECORDS SUMMARY | 2025-05-05 15:29 | XMS_ITS ---
Author Organization [facility] Address [address] [place] [address] Care Team Providers Care Virtualization Consultant Name Role Phone Tiffanei Jasmina L DO Primary Care Provider Active [...]
--- OUTSIDE RECORDS SUMMARY | 2025-05-05 15:29 | XMS_ITS | Encounter Summary ---
Author Organization [facility] Address [address] [place] [address] Care Team Providers Care Playback Operator Name Role Phone Jasmina Moreno DO Primary Care Provider Encounter Details Date Type Department Care Team (Latest Contact Info) Description 08/03/2004 Outpatient Historical [facility] General Surgery [address] [address] [address] [place] [address] [place] [address] [facility] [address] [place] [address] UNCERTAIN BEHAV NEOPL SKIN (Primary Dx); SEBACEOUS CYST Social History Tobacco Use Types Packs/Day Years Used Date Smoking Tobacco: Never Assessed Comments Unknown Sex and Gender Information Value Date Recorded Sex Assigned at Not on file 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
--- OUTSIDE RECORDS SUMMARY | 2025-05-05 15:29 | XMS_ITS | Encounter Summary ---
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 Female 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
--- OUTSIDE RECORDS SUMMARY | 2025-05-05 15:29 | XMS_ITS | Encounter Summary ---
Author Organization [facility] Address [address] [facility] [address] Attn: Epic Prelude ADT FADUMO ZIEGLER [address] Care Team Providers Care Rubber Press Tender Name Role Phone Jasmina Moreno Primary Care Provider Encounter Details Date Type Department Care Team (Late st Contact Info) Description 08/23/2005 Outpatient Historical Devon Alvarado MD [address] [place] [address] Social History Tobacco Use Types Packs/Day Years Used Date Smoking Tobacco: Never Assessed Comments Unknown Sex and Gender Information Value Date Recorded Sex Assigned at Not on file Legal Sex Female 5:13 AM SEGMENTAL WALL INSTALLER Gender Identity Not on file Sexual Orientation Not on file documented as of this encounter Plan of Treatment Not on file documented as of this encounter Procedures Procedure Name Priority Date/Time Associated Diagnosis Comments CEA Routine 08/23/2005 9:19 AM SEGMENTAL WALL INSTALLER documented in this encounter Results * CEA (08/23/2005 9:19 AM SEGMENTAL WALL INSTALLER) CEA .9 0.0 - 5.0 ng/mL INTERFACE SYSTEM Comment: As of 05 at 11:30 p.m. [facility] has changed the methodology for CEA, and with this change the reference range has changed from 0.0-3.0 to 0.0-5.0 ng/ml. 08/23/2005 9:19 AM SEGMENTAL WALL INSTALLER us Devon Alvarado MD CHEMISTRY ORDERABLES Final R esult INTERFACE SYSTEM Refer to clinic/hospital department documented in this encounter Visit Diagnoses Not on filedocumented in this encounter Additional Health Concerns Infection Onset Date Last Indicated Resolved Time MRSA Comment:Rony 03/23/16 03/24/2016 03/24/2016 documented as of this encounter Care Teams Rubber Press Tender Relationship Specialty Start Date End Date Jasmina Moreno DO [address] [place] [address] PCP - General Family Practice 12/17/13 documented as of this encounter
--- OUTSIDE RECORDS SUMMARY | 2025-05-05 15:29 | XMS_ITS | Encounter Summary ---
Author Organization [facility] Address [address] [place] [address] Care Team Providers Care Manager Recruiting Name Role Phone TiffanieJasmina tsang DO Primary Care Provider Reason for Referral * Outpatient Services (Routine) - Closed Specialty Diagnoses / Procedures Referred By Keila huntley Referred To Contact Radiology Diagnoses Other screening mammogram Family history of breast cancer in sister Procedures MAMMO DIGITIZED STUDY Aaron Simmons MD NO ADDRESS ON FILE [facility] [address] [address] Phone: tel: fax: Referral ID Status Reason Start Date Expiration Date Visits Re quested Visits Authorized [id number] Closed 03/27/2012 03/27/2013 1 1 Encounter Details Date Type Department Care Team (Late st Contact Info) Description 03/27/2012 Ancillary Orders [facility] Medicine [place] [address] [facility] [address] [place] [address] Aaron Simmons MD NO ADDRESS [...] on file Legal Sex Female 5:13 AM LANDSCAPE TECHNICIAN Gender Identity Not on file Sexual Orientation Not on file documented as of this encounter Plan of Treatment Not on file documented as of this encounter Results * MAMMO DIGITIZED STUDY (07/16/2007 1:05 PM LANDSCAPE TECHNICIAN) Narrative Phyllis Arevalo, RT - 03/27/2012 1:05 [...] documented as of this encounter Care Teams Manager Recruiting Relationship Specialty Start Date End Date Jasmina Moreno DO [address] [place] [address] PCP - General Family Practice 12/17/13 documented as of this encounter
--- OUTSIDE RECORDS SUMMARY | 2025-05-05 15:29 | XMS_ITS | Encounter Summary ---
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
--- OUTSIDE RECORDS SUMMARY | 2025-05-05 15:29 | XMS_ITS | Encounter Summary ---
Author Organization [facility] Address [address] [place] [address] Care Team Providers Care Steel Shot Header Operator Name Role Phone Jasmina Moreno DO Primary Care Provider [phone] Encounter Details Date Type Department Care Team (Latest Contact Info) Description 06/05/2005 Outpatient Historical [facility] Medicine [address] [address] Milind Shanks DO NO ADDRESS ON FILE DIABETES MELLITUS TYPE II-UNCOMPL (CMS/HCC) (Primary Dx); BUNION; HYPERLIPIDEMIA NEC/NOS Social History Tobacco Use Types Packs/Day Years Used Date Smoking Tobacco: Never Assessed Comments Unknown Sex and Gender Information Value Date Recorded Sex Assigned at Not on file Legal Sex Female 5:13 AM HR CONSULTANT Gender Identity Not on file Sexual [...] as of this encounter Care Teams Steel Shot Header Operator Relationship Specialty Start Date End Date Jasmina Moreno DO [address] [place] [address] PCP - General Family Practice 12/17/13 documented as of this encounter
--- OUTSIDE RECORDS SUMMARY | 2025-05-05 15:29 | XMS_ITS | Encounter Summary ---
Author Organization [facility] Address [address] [place] [address] Care Team Providers Care Reviewer Sales Name Role Phone Jasmina Moreno DO Primary Care Provider Encounter Details Date Type Department Care Team (Latest Contact Info) Description 07/17/2003 Outpatient Historical [facility] Urology- [address] Entrance B, 3rd [place] [address] Oleg Horta MD NO ADDRESS ON FILE URIN TRACT INFECTION NOS (Primary Dx) Social History Tobacco Use Types Packs/Day Years Used Date Smoking Tobacco: Never Assessed Comments Unknown Sex and Gender Information Value Date Recorded Sex Assigned at Not on file Legal Sex Female 5:13 AM CITRIX ENGINEER Gender Identity Not on file Sexual Orientation Not on file documented as of this encounter Plan of Treatment Not on file documented as of this encounter Visit Diagnoses Diagnosis Urinary tract infection, site not specified- Primary documented in this encounter Additional Health Concerns Infection Onset Date Last Indicated Resolved Time MRSA Comment:Rony 03/23/16 03/24/2016 03/24/2016 documented as of this encounter Care Teams Reviewer Sales Relationship Specialty Start Date End Date Jasmina Moreno DO [address] [place] [address] PCP - General Family Practice 12/17/13 documented as of this encounter
--- OUTSIDE RECORDS SUMMARY | 2025-05-05 15:29 | XMS_ITS | Encounter Summary ---
Author Organization [facility] Address [address] [place] [facility] [place] [address] Care Team Providers Care Coal Pulverizing Operator Name Role Phone Jasmina Moreno DO Primary Care Provider [phone] Encounter Details Date Type Department Care Team (Late st Contact Info) Description 06/12/2003 Outpatient Historical [facility] FY06 Milind Shanks DO NO ADDRESS ON FILE Social History Tobacco Use Types Packs/Day Years Used Date Smoking Tobacco: Never Assessed Comments Unknown Sex and Gender Information Value Date Recorded Sex Assigned at Not on file Legal Sex Female 5:13 AM IMPORT CLERK Gender Identity Not on file Sexual Orientation Not on file documented as of this encounter Plan of Treatment Not on file documented as of this encounter Visit Diagnoses Not on filedocumented in this encounter Additional Health Concerns Infection Onset Date Last Indicated Resolved Time MRSA Comment:Rony 03/23/16 03/24/2016 03/24/2016 documented as of this encounter Care Teams Coal Pulverizing Operator Relationship Specialty Start Date End Date Jasmina Moreno DO [address] [place] [facility] [place] [address] PCP - General Family Practice 12/17/13 documented as of this encounter
--- OUTSIDE RECORDS SUMMARY | 2025-05-05 15:29 | XMS_ITS | Encounter Summary ---
Author Organization [facility] Address [address] [place] [address] Care Team Providers Care Maintenance Services Dispatcher Name Role Phone Jasmina Moreno DO Primary Care Provider Encounter Details Date Type Department Care Team (Latest Contact Info) Description 07/24/2005 Outpatient Historical [facility] General Surgery [address] [address] [address] [place] [address] Devon Francois MD [address] [facility] [address] [place] [address] PERS HX OF COLONIC MALIGNANCY (Primary Dx) Social History Tobacco Use Types Packs/Day Years Used Date Smoking Tobacco: Never Assessed Comments Unknown Sex and Gender Information Value Date Recorded Sex Assigned at Not on file Legal Sex Female 5:13 AM UTILITY TECH Gender Identity Not on file Sexual Orientation [...] documented as of this encounter Care Teams Maintenance Services Dispatcher Relationship Specialty Start Date End Date Jasmina Moreno DO [address] [place] [address] PCP - General Family Practice 12/17/13 documented as of this encounter
--- OUTSIDE RECORDS SUMMARY | 2025-05-05 15:29 | XMS_ITS | Encounter Summary ---
Author Organization [facility] Address [address] [place] [address] Care Team Providers Care Assistant Infant Toddler Teacher Name Role Phone Jasmina Moreno DO Primary Care Provider Encounter Details Date Type Department Care Team (Latest Contact Info) Description 06/16/2004 Outpatient Historical [facility] Medicine [address] [address] Milind Shanks DO NO ADDRESS ON FILE DIABETES MELLITUS TYPE II-UNCOMPL (CMS/HCC) (Primary Dx); SEBACEOUS CYST; BONE/SKIN NEOPLASM NOS Social History Tobacco Use Types Packs/Day Years Used Date Smoking Tobacco: Never Assessed Comments Unknown Sex and Gender Information Value Date Recorded Sex Assigned at Not on file Legal Sex Female 5:13 AM TIE LAYER Gender Identity Not on file Sexual Orientation [...] documented as of this encounter Care Teams Assistant Infant Toddler Teacher Relationship Specialty Start Date End Date Jasmina Moreno DO [address] [place] [address] PCP - General Family Practice 12/17/13 documented as of this encounter
--- OUTSIDE RECORDS SUMMARY | 2025-05-05 15:29 | XMS_ITS | Encounter Summary ---
Author Organization [facility] Address [address] [place] [address] Care Team Providers Care Safekeeping Clerk Name Role Phone Jasmina Moreno DO Primary Care Provider Encounter Details Date Type Department Care Team (Late st Contact Info) Description 08/03/2004 Outpatient Historical [facility] [place] [address] [facility] [address] [place] [address] Social History Tobacco Use Types Packs/Day Years Used Date Smoking Tobacco: Never Assessed Comments Unknown Sex and Gender Information Value Date Recorded Sex Assigned at Not on file Legal Sex Female 5:13 AM PLANISHING PRESS OPERATOR Gender Identity Not on file Sexual Orientation Not on file documented as of this encounter Plan of Treatment Not on file documented as of this encounter Visit Diagnoses Not on filedocumented in this encounter Additional Health Concerns Infection Onset Date Last Indicated Resolved Time MRSA Comment:Rony 03/23/16 03/24/2016 03/24/2016 documented as of this encounter Care Teams Safekeeping Clerk Relationship Specialty Start Date End Date Jasmina Moreno DO [address] [place] [phone] PCP - General Family Practice 12/17/13 documented as of this encounter
--- OUTSIDE RECORDS SUMMARY | 2025-05-05 15:29 | XMS_ITS | Encounter Summary ---
Author Organization [facility] Address [address] [place] [address] Care Team Providers Care Pediatric Assistant Name Role Phone Jasmina Moreno DO Primary Care Provider Encounter Details Date Type Department Care Team (Late st Contact Info) Description 10/01/2009 Ancillary Orders [facility] Medicine [place] [address] [address] Milind Shanks DO NO ADDRESS ON FILE Screening Mammogram Social History Tobacco Use Types Packs/Day Years Used Date Smoking Tobacco: Never Assessed Comments No Sex and Gender Information Value Date Recorded Sex Assigned at Not on file Legal Sex Female 5:13 AM INDEPENDENT BEAUTY CONSULTANT Gender Identity Not on file Sexual Orientation Not on file documented as of this encounter Plan of Treatment Not on file documented as of this encounter Results * MAMMO SCREENING BILAT (10/01/2009 11:21 AM INDEPENDENT BEAUTY CONSULTANT) Anatomical Region Laterality Modality Breast Bilateral Mammography Narrative 10/04/2009 9:36 AM INDEPENDENT BEAUTY CONSULTANT Bilateral Mammogram Reason for Exam: Screening Comparison: [...] documented as of this encounter Care Teams Pediatric Assistant Relationship Specialty Start Date End Date Jasmina Moreno DO [address] [place] [address] PCP - General Family Practice 12/17/13 documented as of this encounter
--- OUTSIDE RECORDS SUMMARY | 2025-05-05 15:29 | XMS_ITS | Encounter Summary ---
Author Organization [facility] Address [address] [place] [address] Care Team Providers Care Cyber Incident Analyst Name Role Phone TiffanieJasmina tsang DO Primary Care Provider Reason for Referral * Outpatient Services (Routine) - Closed Specialty Diagnoses / Procedures Referred By Keila huntley Referred To Contact Radiology Diagnoses Other screening mammogram Family history of breast cancer in sister Procedures MAMMO DIGITIZED STUDY Aaron Simmons MD NO ADDRESS ON FILE [facility] [address] [address] Phone: tel: fax: Referral ID Status Reason Start Date Expiration Date Visits Re quested Visits Authorized [id number] Closed 03/27/2012 03/27/2013 1 1 Encounter Details Date Type Department Care Team (Late st Contact Info) Description 03/27/[address] [facility] [place] [address] [facility] [address] [place] [address] Aaron Simmons MD NO ADDRESS [...] on file Legal Sex Female 5:13 AM INSURANCE AGENCY MANAGER Gender Identity Not on file Sexual Orientation Not on file documented as of this encounter Plan of Treatment Not on file documented as of this encounter Results * MAMMO DIGITIZED STUDY (09/30/2009 1:03 PM INSURANCE AGENCY MANAGER) Narrative Phyllis Arevalo, RT - 03/27/2012 [...] documented as of this encounter Care Teams Cyber Incident Analyst Relationship Specialty Start Date End Date Jasmina Moreno DO [address] [place] [address] PCP - General Family Practice 12/17/13 documented as of this encounter
--- OUTSIDE RECORDS SUMMARY | 2025-05-05 15:29 | XMS_ITS | Encounter Summary ---
Author Organization [facility] Address [address] [place] [address] Care Team Providers Care Well Driller Helper Name Role Phone Jasmina Moreno DO Primary Care Provider Encounter Details Date Type Department Care Team (Latest Contact Info) Description 07/06/2005 Outpatient Historical [facility] General Surgery [address] [address] [address] [place] [address] Devon Francois MD [address] [facility] [address] [place] [address] PERS HX OF COLONIC MALIGNANCY (Primary Dx) Social History Tobacco Use Types Packs/Day Years Used Date Smoking Tobacco: Never Assessed Comments Unknown Sex and Gender Information Value Date Recorded Sex Assigned at Not on file Legal Sex Female 5:13 AM FLIGHT READINESS TECHNICIAN Gender Identity Not on file Sexual [...] documented as of this encounter Care Teams Well Driller Helper Relationship Specialty Start Date End Date Jasmina Moreno DO [address] [place] [address] PCP - General Family Practice 12/17/13 documented as of this encounter
--- OUTSIDE RECORDS SUMMARY | 2025-05-05 15:29 | XMS_ITS | Clinical Summary ---
Author Organization [facility] Address [address] [place] [address] Care Team Providers Care In Tube Conversion Technician Name Role Phone Jasmina Moreno Willy ARIAS [...] mg TabletIndications:Ce rebrovascular accident (CVA), unspecified mechanism (CMS/HCC) Take 1 Tablet (75 mg) by mouth daily. 90 Tablet 4 07/03/20 23 Active donepeziL (ARICEPT) 10 mg tablet Take 1 Tablet (10 mg) by mouth daily at bedtime. 90 Tablet 4 04/24/20 24 Active FreeStyle Paige 2 [place] MiscIndications:Type 2 diabetes mellitus with hyperglycemia, with long-term current use of insulin USE TO MONITOR GLUCOSE CONTINUOUSLY 1 Each 05/07/20 Active FreeStyle Paige 2 Sensor KitIndications:Type 2 diabetes mellitus with hyperglycemia, with long-term current use of insulin USE TO MONITOR GLUCOSE CONTINUOUSLY. REPLACE SENSOR EVERY 14 DAYS 6 Each 05/07/20 Active pantoprazole (PROTONIX) 40 mg Tablet, Delayed Release (E.C.) Take 1 Tablet (40 mg) by mouth 2 times daily. 180 Tablet 4 06/28/20 Active furosemide (LASIX) 40 mg tablet Take 1 Tablet (40 mg) by mouth daily. 30 Tablet 2 06/28/20 Active Additional Information Patient taking differently:40 mg [...] 25 Active Blood-Glucose Meter,Continuous (FreeStyle Paige 3 [place])Indications:T ype 2 diabetes mellitus with hyperglycemia, with long-term current use of insulin,Type 2 diabetes mellitus with cardiac complication Use with sensor to monitor glucose continuously. 1 Each 04/14/20 25 Active Blood-Glucose Sensor (FreeStyle Paige 3 Sensor) DeviceIndications:Ty pe 2 diabetes mellitus with hyperglycemia, with long-term current use of insulin,Type 2 diabetes mellitus with cardiac complication Use to monitor glucose continuously. Change every [...] Mixed hyperlipidemia 06/02/2009 Overview (12/02/2020): LDL: 77 (2/13); 85 (7) HDL: 39 (2/13); 49 (3/) T (2/); 149 (7/) Type 2 diabetes mellitus with cardiac complicati on 06/05/2008 Overview (12/01/2020): A1C: 7.3 (09/18); 7.6 (02/14); 8.0 (10/15); 7.8 (07/16); 7.3 (02/13) Microalbumin: 2 (borderline); 3 (positive) Retinal exam: 03/17 (no retinopathy) Dr. [...] Encounters Date Type Department Care Team Description 05/05/2025 Orders Only [facility] HIM [address] [place] [address] Provider, Abstract 04/21/2025 Medication Prior Auth Encounter [facility] Prescription Management Dept [address] [place] [address] [place] [address] Mar Taylor, PHARMACIST 02/12/2025 Patient Outreach [facility] [address] [place] [address] Jasmina Moreno, Primary Care Outreach ([facility]) 02/04/2025 Telephone [facility] [address] [place] [address] Jasmina Moreno, DO Provider Call from Last [...] on file Legal Sex Female 5:07 PM REGISTERED DENTAL ASSISTANT RDA Gender Identity Not on file Sexual Orientation [...] Description 06/04/2025 11:00 AM CDT Office Visit [facility] [place] [address] [address] Grace Mathis, TEA [address] [address] 07/07/2025 9:20 AM REGISTERED DENTAL ASSISTANT RDA Office Visit [facility] [place] [address] [place] [address] Jasmina Moreno, DO [address] [facility] [place] [address] 07/08/2025 2:30 PM REGISTERED DENTAL ASSISTANT RDA Office Visit [facility] [place] [address] [place] [address] Ivette Riley, DO [address] [facility] [address] [place] [address] Health Maintenance Due Date Last [...] 07/02/2023, 05/10/2023, Additional history exists COVID-19 Vaccine ( - 2024-2 6 season) 2025 07/15/2021, 10/23/2020, [...] 05/08/2013, 05/08/2013 Medical Devices Implanted Type Area Mingler Operator Device Identifier Shelf Expiration Date Model / Serial / Lot [place] Dax Bio Swvlck 4.75x24.5mm [id number] - Sna Implanted:Qty: 1 on 04/23/2012 [place] Left: Shoulder [employer] 03/05/2014 [id number] / NA / [id number] [place] Dax Bio Swvlck 4.75x24.5mm [id number] - Sna Implanted:Qty: 2 on 04/23/2012 [place] Left: Shoulder [employer] 03/05/2014 AR-[id number] / NA / [id number] Hemostatic Gelfoam Powder 1gm [id number] - Sna Implanted:Qty: 1 on 04/11/2016 by Edita Okeefe MD Hemostatic N/A: Spine Lumbar PFIZER- PHARM 09/05/2018 [id number] / NA / [id number] Stem Fem Actis Hi Colr Sz5 1010--050 - [id number] Implanted:Qty: 1 on 02/25/2022 by Dony Watts MD at [facility] Hip N/A: Hip J[employer]J- [employer] [id number] 01/04/2032 1010-12-050 / / [id number] Head Bipolar Slf-Cntr [id number] 1035-47-000 - [id number] Implanted:Qty: 1 on 02/25/2022 by Dony Watts MD at [facility] Hip N/A: Hip J&J- [employer] [id number] 07/05/2026 1035-47-000 / / [id number] Head Fem Art/Enrique Cocr Sz28 1365-12-000 - [id number] Implanted:Qty: 1 on 02/25/2022 by Dony Watts MD at [facility] Hip N/A: Hip J[employer]- [employer] [id number] 11/03/2026 1365-12-000 / / [id number] Nail Intertan 10s [id number] [facility] 4956-0426 - [id number] Implanted:Qty: 1 on 08/03/2021 by Kody Carrasco MD at [facility] Nail Right: Hip GUZMÁN NEPHEW [employer]O [id number] 12/20/2030 [id number] / / [id number] Screw Trgn Lp 5.0x32.5mm 6664-0647 - [id number] Implanted:Qty: 1 on 08/03/2021 by Kody Carrasco MD at [facility] Screw Right: Hip [employer]W [employer]O [id number] / / Screw Lag/Comp 90/85 4632-9821 - [id number] Implanted:Qty: 1 on 08/03/2021 by Kody Carrasco MD at [facility] Screw Right: Hip GU[employer]W [employer]O [id number] 10/18/2030 [id number] / / [id number] [employer]is, Biocomposite Implanted:Qty: 1 on 04/23/2012 Shoulder Left: Shoulder 01/03/2014 [id number] / NA / [id number] Procedures Procedure Name Priority Date/Time Associated Diagnosis Comments COMPREHENSIVE METABOLIC PANEL Routine 05/01/2025 10:55 AM CDT LIPID PANEL Routine 11/27/2024 2:52 PM CDT Type 2 diabetes mellitus with hyperglycemia, with long-term current use of insulin ([facility]) History of CVA with residual [...] hyperglycemia, with long-term current use of insulin (CMS/HCC) History of CVA with residual deficit Essential hypertension Chronic anemia 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 behavioral disturbance, psychotic disturbance, mood disturbance, or anxiety (CMS/HCC) Type 2 diabetes mellitus with cardiac complication (CMS/HCC) Mixed hyperlipidemia Idiopathic chronic gout of multiple sites without tophus Recurrent UTI Panic attack Facial weakness MICROALBUMIN/CREATINI NE RATIO, RANDOM UR Routine 04/24/2024 4:18 PM CDT Type 2 diabetes mellitus with hyperglycemia, with long-term current use of insulin ([facility]) HM DIABETES EYE EXAM Routine 06/22/2023 10:27 AM REGISTERED DENTAL ASSISTANT RDA ENDOSCOPY, COLON, DIAGNOSTIC Routine 06/06/2021 XR DEXA BONE DENSITY AXIAL 1 OR MORE SITES Routine 05/08/2013 12:51 PM CDT Osteoporosis from Last 3 Months or Most Recently Relevant to Health Maintenance Results * COMPREHENSIVE METABOLIC PANEL (05/01/2025 10:55 AM CDT) Blood us Abstract Provider CHEMISTRY ORDERABLES Final Res ult * (ABNORMAL) HEMOGLOBIN A1C (11/27/2024 2:52 PM CDT) HEMOGLOBIN A1C 9.5(H) <5.7 % [facility] Comment: For someone without known diabetes, [...] children. ESTIMATED AVERAGE GLUCOSE (MG/DL) 226 mg/dL [facility] ESTIMATED AVERAGE GLUCOSE (MMOL/L) 12.5 mmol/L [facility] Comment: FASTING:UNKNOWN FASTING: UNKNOWN Test Performed at: [facility] [address] [address] Altagracia Mo MD Blood 11/27/2024 2:52 PM CDT 11/27/2024 2:52 PM CDT Jasmina L Tiffanie DO CHEMISTRY ORDERABLES Final Result [facility] [phone] [facility] [address] [address] * (ABNORMAL) LIPID PANEL (11/27/2024 2:52 PM CDT) CHOLESTEROL 169 <200 mg/dL [facility] HDL 35(L) > OR = 50 mg/dL [facility] TRIGLYCERIDE 504(H) <150 mg/dL [facility] Comment: If a non-fasting specimen was collected, consider repeat triglyceride testing on a fasting specimen if clinically indicated. Anderson et al. J. of Clin. Lipidol. 2015;9:129-169. There is increased risk of pancreatitis when the triglyceride concentration is very high (> or = 500 mg/dL, especially if > or = 1000 mg/dL). Anderson et al. J. of Clin. Lipidol. 2015;9:129-169. LDL CALCULATED mg/dL (calc) [facility] Comment: LDL cholesterol not calculated. Triglyceride levels greater than 400 mg/dL invalidate calculated LDL results. Reference range: <100 Desirable range <100 mg/dL for primary prevention; <70 mg/dL for patients with CHD or diabetic patients with > or = 2 CHD risk factors. LDL-C is now calculated using the Brandon-Ty calculation, which is a validated novel method providing better accuracy than the Friedewald equation in the estimation of LDL-C. Brandon SS et al. CHALINO. 2013;310(19): 1263-4046 (http://education.[employer] (STIE).Tranzlogic/faq/FMY864) CHOL/HDL RATIO 4.8 <5.0 (calc) [facility] NON-HDL CHOLESTEROL 134(H) <130 mg/dL (calc) [facility] Comment: For patients with diabetes plus 1 major ASCVD risk factor, treating to a non-HDL-C goal of <100 mg/dL (LDL-C of <70 mg/dL) is considered a therapeutic option. Test Performed at: [facility] [address] [address] Altagracia Mo MD Blood 11/27/2024 2:52 PM CDT 11/27/2024 2:52 PM CDT us Jasmina Moreno DO CHEMISTRY ORDERABLES Final Result [facility] [phone] [facility] [address] [place] [address] * (ABNORMAL) MICROALBUMIN/CREATININE RATIO, RANDOM UR (04/24/2024 4:18 PM CDT) Creatinine, Urine 46 20 - 275 mg/dL [facility] MICROALBUMIN, URINE 2.7 See Note: mg/dL [facility] Comment: Reference Range: Reference Range Not established MICROALBUMIN/CREAT RATIO, UR 59(H) <30 mg/g creat [facility] Comment: The ADA defines abnormalities in albumin excretion as follows: Albuminuria Category Result (mg/g creatinine) Normal to Mildly increased <30 Moderately increased 30-299 Severely increased > OR = 300 The ADA recommends that at least two of three specimens collected within a 3-6 month period be abnormal before considering a patient to be within a diagnostic category. Test Performed at: [facility] [address] [place] [address] Altagracia Mo MD Urine URINE SPECIMEN OBTAINED BY CLEAN CATCH PROCEDURE / Unknown 04/24/2024 4:18 PM CDT 04/25/2024 6:49 AM CDT us Jasmina Moreno DO URINE ORDERABLES Final Resu lt [facility] [phone] [employer] [address] [place] [address] * HM DIABETES EYE EXAM (06/22/2023 10:27 AM REGISTERED DENTAL ASSISTANT RDA) us Abstract Provider HEALTH MAINTENANCE Final Resul [...] -1.7. IMPRESSION osteopenia, with increased fracture risk Faroese Cornel Dixon MD DIAGNOSTIC IMAG ING ORDERABLES Final Result from Last 3 Months or Most Recently Relevant to Health Maintenance Insurance [facility] [address] [address] MEDICARE PART A AND B [facility] [id number] RX [employer] RX Member Subscriber Plan / Payer (Ef fective 2019-Present) Name:Karina Ceballos Jluis Relation to Subscriber:Self Name:Karina Ceballos Payer ID:Not on file Group ID:[id number] Type:RX Commercial Address: [address] Advance Directives For more information, please contact: [phone] * Full Code (Latest Code Status on File) Date Activated Date Inactivated Comments 02/25/2022 9:23 AM 02/27/2022 4:53 PM * Full Code Date Activated Date Inactivated Comments 02/24/2022 12:37 AM 02/25/2022 9:22 AM * Default Full Code - Needs Discussion Date Activated Date Inactivated Comments 08/02/2021 5:18 PM 08/05/2021 4:46 PM Care Teams In Tube Conversion Technician Relationship Specialty Start Date End Date Jasmina Moreno DO [address] [place] [address] PCP - General Family Practice 12/17/13
--- OUTSIDE RECORDS SUMMARY | 2025-05-05 15:29 | XMS_ITS | Clinical Summary ---
Author Organization [facility] tone Address [address] [place] [address] Care Team Providers Care Paper Coater Name Role Phone Jasmina Moreno Willy ARIAS Primary Care Provider [phone] Allergies Active Allergy Reactions Criticality Noted Date [...] hyperglycemia, without long-term current use of insulin TAKE 1 TABLET BY MOUTH TWICE DAILY [...] Tablet 4 1 Active blood sugar diagnostic (Yikuaiqu Ultra Blue Test Strip) Strip USE 1 [...] Idiopathic chronic gout of multiple sites withou yuko kaur 03/11/2014 Osteopenia 05/20/2013 Rotator cuff tear, left 03/26/2012 Overview (03/26/2012): MRI: 03/17 Family history of breast cancer in sister 2011 Essential hypertension 09/04/2010 Mixed hyperlipidemia 06/02/2009 Overview (09/25/2012): LDL: 77 (2); 85 (02/14) HDL: 39 (2/); 49 (10/16) T (2); 149 (02/14) Type 2 diabetes mellitus wit [...] on file Legal Sex Female 5:13 AM 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 Gender Identity Not on file Sexual [...] Additional history exists INFLUENZA VACCINE (#1) 2025 , 06/10/2019, 05/02/2018, Additional history exists COVID-19 Vaccine (2024-2 6 season) 2025 10/23/2020, 09/25/2020 COLORECTAL SCREENING 06/06/2026 06/06/2021, 08/13/2013, 08/08/2013, Additional history exists Medical Devices Implanted Type Area Ross Furnace Operator Device Identifier Shelf Expiration Date Model / Serial / Lot Stout Sut Bio Swvlck 4.75x24.5mm [id number] - Sna Implanted:Qty: 1 on 04/23/2012 at [facility] Stout Left: Shoulder [employer] 03/05/2014 [id number] / NA / [id number] Stout Sut Bio Swvlck 4.75x24.5mm Ar-2324bcm - Sna Implanted:Qty: 2 on 04/23/2012 at [facility] Stout Left: Shoulder [employer] 03/05/2014 AR-[id number] / NA / [id number] Hemostatic Gelfoam Powder 1gm [id number] - Sna Implanted:Qty: 1 on 04/11/2016 by Edita Okeefe MD at [facility] Hemostatic N/A: Spine Lumbar PFI[employer]ER- [employer]ARM 09/05/2018 [id number] / NA / [id number] Swivellock Tenodesis, Biocomposite Implanted:Qty: 1 on 04/23/2012 at [facility] Shoulder Left: Shoulder 01/03/2014 [id number] / NA / [id number] Procedures Procedure Name Priority Date/Time Associated Diagnosis Comments LIPID PANEL Routine 11/23/2020 10:37 AM CDT Type 2 diabetes mellitus with hyperglycemia, without long-term current use of insulin ([facility]) HEMOGLOBIN A1C Routine 11/23/2020 10:37 AM CDT Type 2 diabetes mellitus with hyperglycemia, without long-term current use of insulin ([facility]) DIABETES EYE EXAM Routine 05/12/2020 MICROALBUMIN/CREATIN INE RATIO, RANDOM UR Routine 10/06/2016 9:49 AM 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 Type 2 diabetes mellitus with hyperglycemia, without long-term current use of insulin ([facility]) MAMMO SCREEN BILAT W OR WO CAD Routine 06/09/2014 12:03 PM 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 Other screening mammogram XR DEXA BONE DENSITY AXIAL 1 OR MORE SITES Routine 05/08/2013 12:51 PM CDT Osteoporosis ENDOSCOPY, COLON, DIAGNOSTIC Routine 07/24/2008 Cancer, Colon ([facility]) from Last 3 Months or Most Recently Relevant to Health Maintenance Results * (ABNORMAL) HEMOGLOBIN A1C (11/23/2020 10:37 AM CDT) HEMOGLOBIN A1C 8.5(H) See Comment % 11/23/2020 8:50 PM CDT [facility] EST. AVG GLUCOSE, A1C 197 mg/dL 11/23/2020 8:50 PM CDT [facility] Blood Venipuncture / Unknown 11/23/2020 10:37 AM CDT 11/23/2020 8:23 PM CDT Narrative [facility] - 11/23/2020 8:50 PM CDT HGB A1C INTERPRETATION NORMAL: <5.7% PRE-DIABETES: 5.7 - 6.4% DIABETES: 6.5% OR GREATER Falsely low A1C measurements can occur when: 1. Anemia and/or hemolytic anemia is present. 2. Hemoglobin variants present. 3. Renal failure. 4. Transfusion of blood product in the last 120 days. We recommend ordering a fructosamine test([id number]) to more accurately assess glycemic status if any of the above conditions are present. Jasmina Moreno DO CHEMISTRY ORDERABLES Final Result [facility] CLIA# [id number] [address] [place] [address] * (ABNORMAL) LIPID PANEL (11/23/2020 10:37 AM CDT) CHOLESTEROL 162 <200 mg/dL 11/23/2020 9:20 PM CDT [facility] TRIGLYCERIDE 240(H) <150 mg/dL 11/23/2020 9:20 PM CDT [facility] HDL 42 40 - 59 mg/dL 11/23/2020 9:20 PM CDT [facility] LDL CALCULATED 72 <100 mg/dL 11/23/2020 9:20 PM CDT [facility] NON-HDL CHOLESTEROL 120 <130 mg/dL 11/23/2020 9:20 PM CDT [facility] Blood Venipuncture / Unknown 11/23/2020 10:37 AM CDT 11/23/2020 8:22 PM CDT Narrative [facility] - 11/23/2020 9:20 PM [...] Jasmina Moreno DO CHEMISTRY ORDERABLES Final Result [facility] CLIA# [id number] [address] [place] [address] * DIABETES EYE EXAM (05/12/2020) Abstract Spg Provider HEALTH MAINTENANCE Final R esult * (ABNORMAL) MICROALBUMIN/CREATININE RATIO, RANDOM UR (10/06/2016 9:49 AM 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) MICROALBUMIN, URINE 3.4 No Reference Range mg/dL 10/06/2016 9:22 PM 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 [facility] CREATININE, URINE 33.8 29.0 - 226.0 mg/dL 10/06/2016 9:22 PM [facility] Comment: Reference Range varies with fluid intake and diet. MICROALBUMIN/ CREAT RATIO, UR 100.6(H) <25.0 mg/g Creatinine 10/06/2016 9:22 PM [facility] Urine URINE SPECIMEN OBTAINED BY CLEAN CATCH PROCEDURE / Unknown Collection / Unknown 10/06/2016 9:49 AM 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 10/06/2016 8:39 PM 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 Narrative [facility] - 10/06/2016 9:22 PM 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 Condition Microalbumin/Creat ratio Normal Males <17 Normal Females <25 Microalbuminuria Males 17-299 Microalbuminuria Females 25-299 Overt proteinuria >=300 us Jasmina Moreno DO URINE ORDERABLES Final Resu lt [facility] [employer] [facility]# [id number] [address] [place] [address] * MAMMO DIGITAL SCREEN BILAT (06/09/2014 12:03 PM 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) Anatomical Region Laterality Modality Breast Bilateral Mammography Narrative 06/14/2014 3:51 PM 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 Bilateral Mammogram Reason for Exam: Screening Comparison: [...] significant new findings since the prior mammogram(s). Jasmina Moreno DO MAMMO ORDERABLES Final Resu [...] Result * ENDOSCOPY, COLON, DIAGNOSTIC (07/24/2008) Milind Shanks DO GI PROCEDURE ORDERABLES Final R esult from Last 3 Months or Most Recently Relevant to Health Maintenance Additional Health Concerns Infection Onset Date Last Indicated MRSA Comment:Rony 03/23/16 03/24/2016 03/24/2016 Insurance MEDICARE PART A AND B DECORATING [employer]ACHINE [employer]PER[employer] Advance Directives For more information, please contact: [phone] Documents on File Type Date Recorded Patient News Internship Expl anation Advance Directive POA 03/03/2014 9:15 [...] 6:47 AM 04/23/2012 6:56 AM Care Teams Paper Coater Relationship Specialty Start Date End Date Jasmina Moreno DO [address] [place] [address] PCP - General Family Practice 12/17/13
--- NOTE | 2025-05-05 15:31 | W.ED.NAVMDI ---
HPI - Nausea/Vomiting/Diarrhea General: Chief complaint: Nausea/Vomiting/Diarrhea Stated complaint: N/v Time Seen by Provider: 05/05/25 15:18 History of Present Illness: 79-year-old female with a history of diabetes, TIA, obstructive sleep apnea, diverticulosis, carotid artery stenosis, hyperlipidemia and hypertension who presents emergency room from home by ambulance after having had an episode of nausea vomiting, weakness and some mildly altered mental status. Apparently she was not able to eat her breakfast and started vomiting. Was found that her sugar was low. EMS reports she has had some recent falls. No known fevers. No chest pain. No abdominal pain. Currently she is awake and oriented. Related Data Home Medications ?Medication ?Instructions ?Recorded ?Confirmed allopurinol 300 mg tablet 300 mg PO QAM 02/27/21 05/05/25 naproxen sodium 220 mg tablet 440 mg PO Q12H PRN Pain 06/01/21 05/05/25 (Aleve) atorvastatin 40 mg tablet 40 mg PO QPM 12/22/21 05/05/25 clopidogrel 75 mg tablet 75 mg PO QAM 12/22/21 05/05/25 pantoprazole 40 mg tablet,delayed 40 mg PO BID 12/22/21 05/05/25 release sennosides 8.6 mg-docusate sodium 1 tab-cap PO DAILY PRN constipation 06/08/22 05/05/25 50 mg tablet (Stimulant Laxative Plus) cholecalciferol (vitamin D3) 50 50 mcg PO QAM 05/01/25 05/05/25 mcg (2,000 unit) capsule donepezil 10 mg tablet 10 mg PO BEDTIME 05/01/25 05/05/25 escitalopram oxalate 20 mg tablet 20 mg PO QAM 05/01/25 05/05/25 fentanyl 25 mcg/hr transdermal 1 patch topical .Q3DAYS 05/01/25 05/01/25 patch ferrous sulfate 325 mg (65 mg 325 mg PO .QOD 05/01/25 05/05/25 iron) tablet (FeroSul) insulin glargine 100 unit/mL (3 50 unit SUBCUT QPM 05/01/25 05/05/25 mL) subcutaneous pen (Lantus Solostar U-100 Insulin) insulin lispro 100 unit/mL 30 unit SUBCUT TID 05/01/25 05/05/25 subcutaneous pen (Humalog KwikPen (U-100) Insulin) lorazepam 0.5 mg tablet 0.5 mg PO DAILY PRN Anxiety 05/01/25 05/05/25 tramadol 50 mg tablet 50 mg PO QID PRN Pain 05/01/25 05/05/25 Previous Rx's ?Medication ?Instructions ?Recorded blood sugar diagnostic (Blood #50 ea 05/15/23 Glucose Test strips) furosemide 40 mg tablet (Lasix) 40 mg PO DAILY PRN edema 30 days 07/12/23 #90 tabs lisinopril 40 mg tablet 40 mg PO DAILY #90 tabs 07/24/24 cefdinir 300 mg capsule 300 mg PO BID 10 days #20 caps 05/01/25 ondansetron 8 mg disintegrating 8 mg PO Q6H #14 tabs 05/05/25 tablet Allergies Allergy/AdvReac Type Severity Reaction Status Date / Time codeine Allergy ALGY-Anaphy Verified 01/16/25 07:45 laxis hydromorphone (From Dilaudid) Allergy ALGY-Anaphy Verified 01/16/25 07:45 laxis morphine Allergy ALGY-Anaphy Verified 01/16/25 07:45 laxis Review of Systems Narrative: Constitutional symptoms: Negative except as documented in HPI. Skin symptoms: Negative except as documented in HPI. Eye symptoms: Negative except as documented in HPI. ENMT symptoms: Negative except as documented in HPI. Respiratory symptoms: Negative except as documented in HPI. Cardiovascular symptoms: Negative except as documented in HPI. Gastrointestinal symptoms: Negative except as documented in HPI. Genitourinary symptoms: Negative except as documented in HPI. Musculoskeletal symptoms: Negative except as documented in HPI. Neurologic symptoms: Negative except as documented in HPI. Psychiatric symptoms: Negative except as documented in HPI. Endocrine symptoms: Negative except as documented in HPI. PFSH ED PFSH: Medical History (Updated 05/05/25 @ 19:03 by Brianna Allen MD) TIA (transient ischemic attack) Cervical cancer Kidney calculus SUE (obstructive sleep apnea) Skin cancer Diabetes Atrophic gastritis Sigmoid diverticulitis Bilateral carotid artery stenosis Type 2 diabetes mellitus Hyperparathyroidism Femur fracture right Urinary retention Hyperlipidemia Hypertension History of colon cancer Surgical History Hx of tubal ligation Hx of shoulder surgery Hx of tonsillectomy History of back surgery Hx of appendectomy History of hip surgery S/P percutaneous endoscopic gastrostomy (PEG) tube placement (09/23/21) H/O: hysterectomy S/P colon resection Family History Mother , at age 87 Heart attack CAD (coronary artery disease), Onset Age: 60 [place] Diabetes Father , at age 86 Cancer prostate Brother Cancer CAD (coronary artery disease), Onset Age: 50 Diabetes Dementia Sister Diabetes Cancer CAD (coronary artery disease), Onset Age: 50 Dementia Suicide Sister Diabetes Denies family history of Clotting disorder Chronic kidney disease (CKD) Anesthesia complication Bleeding disorder Lung disease Stroke Social History Smoking and tobacco/nicotine status: unknown if used tobacco/nicotine Quit status (tobacco/nicotine): has quit using Alcohol intake: never Substance/Drug Use: never Adopted: No Marital status: service: No Physical Exam Narrative: EXAM NARRATIVE: General: Alert, no acute distress. Skin: Warm, dry. Head: Normocephalic, atraumatic. Neck: Supple, trachea midline. Eye: Extraocular movements are intact. Ears, nose, mouth and throat: mucosa moist. Cardiovascular: Regular, Normal peripheral perfusion. Respiratory: Lungs are clear to auscultation, respirations are non-labored, breath sounds are equal, Symmetrical chest wall expansion. Gastrointestinal: Soft, Nontender, Non distended Musculoskeletal: Normal ROM, no deformity. Neurological: Alert and oriented, No focal neurological deficit observed. Psychiatric: Cooperative, appropriate mood & affect. Course Vital Signs: Vital signs: Vital Signs Temperature 97.6 F 05/05/25 15:20 Pulse Rate 88 05/05/25 17:30 Respiratory Rate 16 05/05/25 15:20 Blood Pressure 178/94 05/05/25 17:30 Pulse Oximetry 99 05/05/25 18:33 Oxygen Delivery Me thod Nasal Cannula 05/05/25 18:33 Oxygen Flow Rate 2 05/05/25 18:33 MDM - Nausea/Vomiting/Diarrhea Medical Decision Making Medical decision making: Differential diagnosis for patient presenting with generalized weakness including but not limited to and based on the above HPI, review of systems and physical exam: Sepsis. Dehydration. Renal failure. Electrolyte abnormalities. Anemia. Congestive heart failure. Hypotension. Coronary syndrome. Hepatitis. Cirrhosis. Infections such as pneumonia, urinary tract infection, Tick bourne illness, Cellulitis, Viral infections including influenza and Covid-19. Workup: labwork and lab/exam driven imaging ordered to evaluate, rule in and rule out above pathologies. EKG: Time 1534. Rate 92. Normal sinus rhythm, No ST-T changes, no ectopy, right bundle branch block, This was reviewed and interpreted by myself the ER physician at 1540. Repeat EKG: Time 1733. Rate 88. Normal sinus rhythm, No ST-T changes, no ectopy, right bundle branch block, This was reviewed and interpreted by myself the ER physician at 1740. No significant changes from EKG done previously in the ER today. Chest x-ray: No acute process. No infiltrate. No pneumothorax. This was reviewed and interpreted by myself the emergency room physician. I also reviewed the radiology report. CT head: No acute intracranial process. No intracranial hemorrhage, no evidence of infarct. No evidence of acute fracture. This was reviewed and interpreted by myself the emergency room physician. I also reviewed the radiology report. Lab Review: Laboratory results were reviewed and interpreted by myself the emergency room physician. Mild leukocytosis. No anemia. No renal failure. Lipase is negative. Urinalysis still does show some infection but seems much improved over previous. Review of cultures showed that she is growing an E. coli that should be sensitive to Omnicef. I reviewed the patient's medical record. 79-year-old female with a history of diabetes, TIA, obstructive sleep apnea, diverticulosis, carotid artery stenosis, hyperlipidemia and hypertension. Recent cultures grew E. coli that was sensitive to cephalosporins Reexamination: Patient remained stable. No increased work of breathing. No altered mental status. No focal motor deficits. Consultation I spoke with Dr. Amaya who agrees to admission but requested a CT scan of the abdomen to make sure she does not have any urinary obstructive issues since she continues to have a urinary tract infection with appropriate treatment. I also did a CTA of her chest. CTA chest: No pulmonary emboli. No infiltrates. This was reviewed and interpreted by myself the emergency room physician. I also reviewed the radiology report. CT abdomen pelvis with contrast: No acute process. Chronic issues as listed below. This was reviewed and interpreted by myself the emergency room physician. I also reviewed the radiology report. Assessment and plan: Urinary tract infection Dehydration Vomiting Possible hypoglycemia ?IV fluids and IV Zofran in the emergency room ?Patient still requiring some oxygen. Family is worried about her going home. I agree. She is being admitted. -I discussed the patient with the hospitalist on-call who is admitting the patient. - Discussed findings and plan with patient. Answered any questions. - All laboratory values were reviewed and interpreted personally by myself, the ER physician - All imaging was reviewed and interpreted personally by myself, the ER physician. - Evaluation and treatment of this problem were appropriate in the emergency setting Lab Data 05/05/25 15:32 05/05/25 15:32 Radiology Impressions Chest X-Ray 05/05/25 15:21 IMPRESSION: Stable chest without acute abnormality. Head CT 05/05/25 15:33 IMPRESSION: No acute intracranial abnormality. If symptoms persist, consider further evaluation with MRI, if there are no contraindications to obtaining a MRI scan. Chest/Abdomen/Pelvis CT 05/05/25 17:46 IMPRESSION: 1. No obvious pulmonary embolism, however, evaluation of distal subsegmental pulmonary arteries is limited. Recommend clinical correlation and follow-up imaging as clinically warranted. 2. No thoracic aortic aneurysm or dissection. 3. No focal lung consolidation. IMPRESSION: 1. Stable 3.1 cm right adrenal nodule. 2. Air is seen within the bladder. Correlate with any history of recent instrumentation. Cystitis cannot be excluded. 3. Cholelithiasis. 4. Stable 0.8 cm cyst within the pancreatic body. Recommend clinical correlation and follow-up imaging as clinically warranted. Laboratory Results WBC 12.38 10^3/uL (3.29-11.43) H 05/05/25 15:32 RBC 4.01 10^6/uL (3.85-5.65) 05/05/25 15:32 Hgb 12.90 g/dL (11.27-16.99) 05/05/25 15:32 Hct 41.7 % (36-47) 05/05/25 15:32 MCV 104.0 fl (85-98) H 05/05/25 15:32 MCH 32.2 pg (27-33) 05/05/25 15:32 MCHC 30.9 g/dL (30-55) 05/05/25 15: RDW 15.2 % (12.1-15.1) H 05/05/25 15:32 Plt Count 225 10^3/cmm (157-399) 05/05/25 15:32 MPV 10.9 fL (7.4-10.4) H 05/05/25 15:32 Neut % (Auto) 78.5 % 05/05/25 15:32 Lymph % (Auto) 9.4 % 05/05/25 15:32 [place] % (Auto) 9.9 % 05/05/25 15:32 Eos % (Auto) 1.6 % 05/05/25 15:32 Baso % (Auto) 0.2 % 05/05/25 15: Neut # (Auto) 9.72 10^3/uL (1.8-7.7) H 05/05/25 15:32 Lymph # (Auto) 1.2 10^3/uL (0.8-4.8) 05/05/25 15:32 [place] # (Auto) 1.2 10^3/uL (0.2-0.9) H 05/05/25 15:32 Eos # (Auto) 0.2 10^3/uL (0.0-0.8) 05/05/25 15:32 Baso # (Auto) 0.0 10^3/uL (0.0-0.1) 05/05/25 15: Nucleated RBC % (auto) 0 % 05/05/25: Nucleated RBCs # 0.0 /100WBC 05/05/25 15:32 Specimen Type Arterial 05/05/25 15:30 Sample Site Radial, left 05/05/25 15:30 ABG pH 7.35 (7.35-7.45) 05/05/25 15:30 ABG pCO2 50.2 mmHg (35-45) H 05/05/25 15:30 ABG pO2 72.9 mmHg (80.0-100.0) L 05/05/25 15:30 ABG HCO3 28.0 mmol/L (22-26) H 05/05/25 15:30 ABG O2 Saturation 93.0 05/05/25 15:30 ABG Base Excess 1.6 mmol/L (-2.0-2.0) 05/05/25 15:30 Nikolai Test Pos 05/05/25 15:30 A-a O2 Gradient 2.0 mmHg (5-10) L 05/05/25 15:30 Hematocrit 41.3 % (37-47) 05/05/25 15:30 Hgb O2 Saturation 91.7 % (95-100) L 05/05/25 15:30 Carboxyhemoglobin 0.4 %THgb (0.4-20.1) 05/05/25 15:30 Methemoglobin 1.0 % (0.4-1.5) 05/05/25 15:30 Total Hemoglobin 13.5 g/dL (12-16) 05/05/25 15:30 Sodium 146.0 mmol/L (131-143) H 05/05/25 15:30 Potassium 3.9 mmol/L (3.5-5.0) 05/05/25 15:30 Glucose 112.0 mg/dL (70-115) 05/05/25 15:30 Ionized Calcium 1.3 mmol/L (1.1-1.4) 05/05/25 15:30 O2 Delivery Device Nc 05/05/25 15:30 O2 Liters/Min 2.0 % 05/05/25 15:30 Skin Care Technician ID [place] 05/05/25 15:30 Sodium 143 mmol/L (136-145) 05/05/25 15:32 Potassium 4.2 mmol/L (3.5-5.1) 05/05/25 15:32 Chloride 107 mmol/L (98-107) 05/05/25 15:32 Carbon Dioxide 25 mmol/L (22-29) 05/05/25 15:32 Anion Gap 15.2 (5-19) 05/05/25 15:32 BUN 22 mg/dL (8-23) 05/05/25 15:32 Creatinine 1.0 mg/dL (0.5-0.9) H 05/05/25 15:32 GFR Calculation Not Reportable 05/05/25 15:32 Glucose 109 mg/dL (65-115) 05/05/25 15:32 POC Glucose 97 mg/dL (70-110) 05/05/25 15:35 Calculated Osmolality 300 mOsm/kg (285-295) H 05/05/25 15:32 Lactic Acid 1.8 mmol/L (0.5-2.2) 05/05/25 15:32 Calcium 10.2 mg/dL (8.5-10.5) 05/05/25 15:32 Total Bilirubin 1.2 mg/dL (0.15-1.2) 05/05/25 15:32 AST 26 U/L (0-32) 05/05/25 15:32 ALT 17 U/L (0-33) 05/05/25 15:32 Alkaline Phosphatase 118 U/L (35-105) H 05/05/25 15:32 Troponin T Baseline 23 ng/L (0-10) H 05/05/25 15:32 Troponin T 120 Minute 21.58 ng/L (0-10) H 05/05/25 17:28 Delta Troponin T -1.42 ABS# (0-10) L 05/05/25 17:28 Total Protein 7.7 g/dL (6.6-8.7) 05/05/25 15:32 Albumin 3.9 g/dL (3.5-5.2) 05/05/25 15:32 Globulin 3.8 g/dL (1.3-4.6) 05/05/25 15:32 Lipase 10 U/L (13-60) L 05/05/25 15:32 Urine Color Yellow (Yellow) 05/05/25 15:40 Urine Appearance Cloudy (CLEAR) A 05/05/25 15:40 Urine pH 5.5 (5-7) 05/05/25 15:40 Ur Specific [place] 1.019 (1.005-1.030) 05/05/25 15:40 Urine Protein 3+ (Negative) A 05/05/25 15:40 Urine Glucose (UA) 1+ (Normal) H 05/05/25 15:40 Urine Ketones Negative (Negative) 05/05/25 15:40 Urine Blood 1+ (Negative) A 05/05/25 15:40 Urine Nitrate Negative (Negative) 05/05/25 15:40 Urine Bilirubin Negative (Negative) 05/05/25 15:40 Urine Urobilinogen 1.0 mg/dL (Negative) 05/05/25 15:40 Ur Leukocyte Esterase 1+ (Negative) A 05/05/25 15:40 Urine RBC 5-10 /hpf (0-2) H 05/05/25 15:40 Urine WBC 15-25 /hpf (0-5) H 05/05/25 15:40 Ur Squamous Epith Cells 0-4 /hpf (0-5) H 05/05/25 15:40 Amorphous Sediment Not Reportable 05/05/25 15:40 Urine Bacteria Trace /hpf (NONE) 05/05/25 15:40 Urine Mucus Trace /hpf 05/05/25 15:40 Urine Yeast 3+ /hpf H 05/05/25 15:40 Influenza A (PCR) Negative (Negative) 05/05/25 13:45 Influenza Type B (PCR) Negative (Negative) 05/05/25 13:45 RSV (PCR) Negative (Negative) 05/05/25 13:45 SARS-CoV-2 (PCR) Negative (Negative) 05/05/25 13:45 All radiology interpretation(s) finalized by discharge Discharge Plan Discharge Patient Disposition: Admitted As Inpatient Admit Provider: Inge Amaya Clinical Impression: Urinary tract infection, Acute metabolic encephalopathy, Dehydration, Hypoglycemia, Hypoxemia Condition: Stable Discharge Diet: Usual diet Discharge Activity: Increase activity as tolerated Coding Level of Care Code ED [employer] for Trina Concepcion
--- NOTE | 2025-05-05 15:33 | CTR_ITS ---
PROCEDURE INFORMATION: Exam: CT Head Without Contrast Exam date and time: 05/05/2025 3:56 PM Age: 79 years old Clinical indication: Weakness, extremity; Bilateral TECHNIQUE: Imaging protocol: Computed tomography of the head without contrast. Radiation optimization: All CT scans at this facility use at least one of these dose optimization techniques: automated exposure control; mA and/or kV adjustment per patient size (includes targeted exams where dose is matched to clinical indication); or iterative reconstruction. COMPARISON: CT head wo con* [id number] 05/01/2025 2:26 PM RADIATION DOSE METRICS: Total DLP (mGy-cm): 2018. FINDINGS: Brain: Moderate nonspecific white matter low attenuation which may be related to microvascular ischemic changes. No acute confluent lobar ischemic infarct. No acute intracranial hemorrhage. Cerebral ventricles: The ventricles and sulci are prominent in size compatible with moderate atrophy. Paranasal sinuses: No fluid levels. Mastoid air cells: Sclerotic left mastoid air cells. Bones: No acute calvarial fracture. Soft tissues: Visualized soft tissues are unremarkable. CT/CT head wo con* [id number] IMPRESSION: No acute intracranial abnormality. If symptoms persist, consider further evaluation with MRI, if there are no contraindications to obtaining a MRI scan.
--- NOTE | 2025-05-05 15:34 | ECG_ITS ---
[facility] Test Date: 2025-05-05 Pat Name: Karina Ceballos Department: Room: Gender: Female Flask Pusher: : 1945 Requested By: Brianna Aguilera Order Number: [id number] Yepez MD: Paul Brown M.D. Measurements Intervals [place] Rate: 92 P: 11 MA: 148 QRS: 17 QRSD: 125 T: -2 QT: 406 QTc: 504 Interpretive Statements SINUS RHYTHM RIGHT BUNDLE BRANCH BLOCK [120+ ms QRS DURATION, UPRIGHT V1, 40+ ms S IN I/aVL/V4/V5/V6] Compared to ECG 09/22/2021 04:37:28 Right bundle-branch block now present Sinus tachycardia no longer present ST (T wave) deviation no longer present Electronically Signed On 05-07-2025 08:38:52 CDT by Paul Brown M.D. [email or web address] [id number]
[2025-05-05 15:41] LABS: ABG PCO2 50.2 mmHg (35-45); ABG PH Result 7.35 (7.35-7.45); Alveolar-Arterial Oxygen Gradi 2.0 mmHg (5-10); Arterial Blood Gas Hematocrit 41.3 % (37-47); Blood Gas Allen Test Pos; Blood Gas LPM 2.0 %; Blood Gas Operator Identificat WALCI; Blood Gas Sample Site Radial, left; Blood Gas Sample Type Arterial; Carboxyhemoglobin 0.4 %THgb (0.4-20.1); Glucose Level-ABG 112.0 mg/dL (70-115); HCO3 ABG 28.0 mmol/L (22-26); Ionized Calcium Level - ABG 1.3 mmol/L (1.1-1.4); Methemoglobin 1.0 % (0.4-1.5); Oxygen Saturation ABG 93.0; PO2 ABG 72.9 mmHg (80.0-100.0); Potassium Level - ABG 3.9 mmol/L (3.5-5.0); Sodium Level - ABG 146.0 mmol/L (131-143)
[2025-05-05 15:48] LABS: Hematocrit 41.7 % (36-47); Hemoglobin 12.90 g/dL (11.27-16.99); Mean Corpuscular HGB Conc 30.9 g/dL (30-55); Mean Corpuscular Hemoglobin 32.2 pg (27-33); Mean Corpuscular Volume 104.0 fl (85-98); Nucleated Red Blood Cells % 0 %; Platelet Count 225 10^3/cmm (157-399); Red Blood Count 4.01 10^6/uL (3.85-5.65); White Blood Count 12.38 10^3/uL (3.29-11.43)
[2025-05-05 16:01] LABS: Glucose Urine UA 1+ (Normal); Nitrate Urine Negative (Negative); Specific Gravity, Urine 1.019 (1.005-1.030)
[2025-05-05 16:08] LABS: Troponin(5th) Baseline 23 ng/L (0-10)
[2025-05-05 16:09] LABS: Lactic Sepsis W/Reflex 1.8 mmol/L (0.5-2.2)
[2025-05-05 16:10] LABS: Alanine Aminotransferase 17 U/L (0-33); Albumin Level 3.9 g/dL (3.5-5.2); Alkaline Phosphatase 118 U/L (35-105); Aspartate Amino Transferase 26 U/L (0-32); Blood Urea Nitrogen 22 mg/dL (8-23); Calcium 10.2 mg/dL (8.5-10.5); Carbon Dioxide 25 mmol/L (22-29); Chloride 107 mmol/L (98-107); Creatinine Clr Calc Pharmacy 42.6244; Globulin 3.8 g/dL (1.3-4.6); Glucose 109 mg/dL (65-115); Lipase 10 U/L (13-60); Osmolality Calculated 300 mOsm/kg (285-295); Sodium 143 mmol/L (136-145); Total Protein 7.7 g/dL (6.6-8.7)
[2025-05-05 16:31] LABS: Anion Gap 15.2 (5-19); Potassium 4.2 mmol/L (3.5-5.1)
[2025-05-05 16:39] LABS: Respiratory Syncytial Virus Ce NEGATIVE (Negative); SARS-CoV-2 PCR NEGATIVE (Negative)
--- NOTE | 2025-05-05 17:33 | ECG_ITS ---
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 Measurements Intervals [place] Rate: 88 P: 30 [place]: 159 QRS: 32 QRSD: 137 T: 26 QT: 434 QTc: 527 Interpretive Statements SINUS RHYTHM RIGHT BUNDLE BRANCH BLOCK [120+ ms QRS DURATION, UPRIGHT V1, 40+ ms S IN I/aVL/V4/V5/V6] Compared to ECG 05/05/2025 15:34:47 No significant changes Electronically Signed On 05-07-2025 09:00:31 CDT by Paul Brown M.D. [email or web address] [id number]
--- NOTE | 2025-05-05 17:46 | CTR_ITS ---
PROCEDURE INFORMATION: Exam: CTA Chest With Contrast Exam date and time: 05/05/2025 6:05 PM Age: 79 years old Clinical indication: Other: SOB; Hypoxemia; Shortness of breath; Additional info: SOB, hypoxemia TECHNIQUE: Imaging protocol: Computed tomographic angiography of the chest with contrast. Exam focused on the arteries. 3D rendering (Not supervised by radiologist): MIP and/or 3D reconstructed images were created by the technologist. Radiation optimization: All CT scans at this facility use at least one of these dose optimization techniques: automated exposure control; mA and/or kV adjustment per patient size (includes targeted exams where dose is matched to clinical indication); or iterative reconstruction. Contrast material: OMNIPAQUE 350; Contrast volume: 100 ml; Contrast route: INTRAVENOUS (IV); COMPARISON: CR XR chest 1V portable [id number] 05/05/2025 3:22 PM RADIATION DOSE METRICS: Total DLP (mGy-cm): 1298.4 FINDINGS: Pulmonary arteries: No filling defects identified within the central and segmental pulmonary arteries to suggest pulmonary embolism. Evaluation of distal subsegmental pulmonary arteries is limited. Aorta: No thoracic aortic aneurysm or dissection. Lungs: No focal lung consolidation. Mild bibasilar atelectasis/scar. Pleural spaces: No pneumothorax. No pleural effusion. Heart: No cardiomegaly. No pericardial effusion. Mediastinal space: Visualized trachea and esophagus are unremarkable in appearance. Lymph nodes: No mediastinal or hilar lymphadenopathy. Bones/joints: No acute bony abnormality. Soft tissues: Subcutaneous soft tissues are unremarkable. PROCEDURE INFORMATION: Exam: CT Abdomen And Pelvis With Contrast Exam date and time: 05/05/2025 6:05 PM Age: 79 years old Clinical indication: Other: SOB; Hypoxemia; Shortness of breath; Additional info: SOB, hypoxemia TECHNIQUE: Imaging protocol: Computed tomography of the abdomen and pelvis with contrast. Radiation optimization: All CT scans at this facility use at least one of these dose optimization techniques: automated exposure control; mA and/or kV adjustment per patient size (includes targeted exams where dose is matched to clinical indication); or iterative reconstruction. Contrast material: OMNIPAQUE 350; Contrast volume: 100 ml; Contrast route: INTRAVENOUS (IV); COMPARISON: CT abdomen pelvis w con* [id number] 06/01/2021 6:53 PM RADIATION DOSE METRICS: Total DLP (mGy-cm): 1298.4 FINDINGS: Liver: The liver is unremarkable in appearance. Gallbladder and biliary ducts: Cholelithiasis. Multiple radiopaque stones are noted within a nondistended gallbladder. Pancreas: Stable 0.8 cm cyst within the pancreatic body. Spleen: The spleen is normal in size and contour. Adrenal glands: Stable 3.1 cm right adrenal nodule. Kidneys and ureters: Kidneys and ureters are unremarkable in appearance. No hydronephrosis. No radio-opaque stone. Redemonstration of bilateral renal cysts. Stomach and bowel: Extensive sigmoid diverticulosis. No evidence of bowel obstruction. Appendix: Appendix is not seen, however, there are no secondary signs of appendicitis. Intraperitoneal space: No ascites. Vasculature: Calcified plaque is seen involving the abdominal aorta. Lymph nodes: No abdominal or pelvic lymphadenopathy. Urinary bladder: Air is seen within the bladder. Reproductive: Uterus not identified. Bones/joints: Left total hip arthroplasty. Right hip hardware fixation. Metallic artifact limits evaluation of the pelvis. Soft tissues: Bilateral inguinal hernias containing fat. CT/CT angio chest w abd pel w con IMPRESSION: 1. No obvious pulmonary embolism, however, evaluation of distal subsegmental pulmonary arteries is limited. Recommend clinical correlation and follow-up imaging as clinically warranted. 2. No thoracic aortic aneurysm or dissection. 3. No focal lung consolidation. IMPRESSION: 1. Stable 3.1 cm right adrenal nodule. 2. Air is seen within the bladder. Correlate with any history of recent instrumentation. Cystitis cannot be excluded. 3. Cholelithiasis. 4. Stable 0.8 cm cyst within the pancreatic body. Recommend clinical correlation and follow-up imaging as clinically warranted.
[2025-05-05] MEDS: cefTRIAXone 1,000 mg SDV 1000 MG IVP (18:03)
[2025-05-05] MEDS: iohexol 350 mg/mL 500 mL Btl (per mL) IV (18:12)
--- NOTE | 2025-05-05 18:33 | PC.NURSE ---
Pt baseline is room air, pt was brought in on 3LNC, per Dr. Allen try room air to see if O2 sat maintains, PT O2 went down to 87%, Pt placed on 2L NC and currently satting on 98%.
[2025-05-05 18:46] LABS: Troponin 5 2HR 21.58 ng/L (0-10); Troponin 5 2HR Delta -1.42 ABS# (0-10)
[2025-05-05 20:23] LABS: Procalcitonin 0.10 ng/mL (0-0.5); Thyroid Stimulating Hormone 2.83 uIU/mL (0.27-4.20)
--- NOTE | 2025-05-05 23:31 | PM.HP ---
Providers/Chief Complaint Admitting Physician: Shukri Holt MD Primary Care Provider: Jasmina Moreno DO Chief Complaint: N/v History of Present Illness As per the previous retrospective and the patient, the patient is a poor historian however able to give some information about her current clinical condition. No family around or collateral history obtained Karina Ceballos is a 79 year old female with a history of diabetes, TIA, obstructive sleep apnea, diverticulosis, carotid artery stenosis, hyperlipidemia and hypertension who presents emergency room from home by ambulance after having had an episode of nausea vomiting, weakness and some mildly altered mental status. However during history taking the patient mentation seems appropriate. He mentioned that she had an episode of vomiting yesterday and was feeling weak. Did not report any fevers chills chest pain chest pressure abdominal pain shortness of breath lower leg swellings or any other review of system was unremarkable Review of Systems General: Reports: 10 or more systems reviewed and unremarkable except in HPI and below Medications/Allergies Home Medications ?Medication ?Instructions ?Recorded ?Confirmed ?Last Taken ?Type allopurinol 300 mg tablet 300 mg PO QAM 02/27/21 05/05/25 05/05/25 History naproxen sodium 220 mg tablet 440 mg PO Q12H PRN Pain 06/01/21 05/05/25 Unknown History (Aleve) atorvastatin 40 mg tablet 40 mg PO QPM 12/22/21 05/05/25 05/04/25 History clopidogrel 75 mg tablet 75 mg PO QAM 12/22/21 05/05/25 05/05/25 History pantoprazole 40 mg tablet,delayed 40 mg PO BID 12/22/21 05/05/25 05/05/25 History release sennosides 8.6 mg-docusate sodium 1 tab-cap PO DAILY PRN constipation 06/08/22 05/05/25 Unknown History 50 mg tablet (Stimulant Laxative Plus) blood sugar diagnostic (Blood #50 ea 05/15/23 05/05/25 Unknown Rx Glucose Test strips) furosemide 40 mg tablet (Lasix) 40 mg PO DAILY PRN edema 30 days 07/12/23 05/05/25 Unknown Rx #90 tabs lisinopril 40 mg tablet 40 mg PO DAILY #90 tabs 07/24/24 05/05/25 05/05/25 Rx cefdinir 300 mg capsule 300 mg PO BID 10 days #20 caps 05/01/25 05/05/25 05/05/25 Rx cholecalciferol (vitamin D3) 50 50 mcg PO QAM 05/01/25 05/05/25 05/05/25 History mcg (2,000 unit) capsule donepezil 10 mg tablet 10 mg PO BEDTIME 05/01/25 05/05/25 05/04/25 History escitalopram oxalate 20 mg tablet 20 mg PO QAM 05/01/25 05/05/25 05/05/25 History fentanyl 25 mcg/hr transdermal 1 patch topical .Q3DAYS 05/01/25 05/01/25 04/30/25 History patch ferrous sulfate 325 mg (65 mg 325 mg PO .QOD 05/01/25 05/05/25 05/04/25 History iron) tablet (FeroSul) insulin glargine 100 unit/mL (3 50 unit SUBCUT QPM 05/01/25 05/05/25 05/04/25 History mL) subcutaneous pen (Lantus Solostar U-100 Insulin) insulin lispro 100 unit/mL 30 unit SUBCUT TID 05/01/25 05/05/25 05/05/25 History subcutaneous pen (Humalog KwikPen (U-100) Insulin) lorazepam 0.5 mg tablet 0.5 mg PO DAILY PRN Anxiety 05/01/25 05/05/25 Unknown History tramadol 50 mg tablet 50 mg PO QID PRN Pain 05/01/25 05/05/25 05/05/25 History ondansetron 8 mg disintegrating 8 mg PO Q6H #14 tabs 05/05/25 Unknown Rx tablet Allergies Allergy/AdvReac Type Severity Reaction Status Date / Time codeine Allergy ALGY-Anaphy Verified 01/16/25 07:45 laxis hydromorphone (From Dilaudid) Allergy ALGY-Anaphy Verified 01/16/25 07:45 laxis morphine Allergy ALGY-Anaphy Verified 01/16/25 07:45 laxis PFSH Acute PFSH: Medical History (Updated 05/05/25 @ 19:03 by Brianna Allen MD) TIA (transient ischemic attack) Cervical cancer Kidney calculus SUE (obstructive sleep apnea) Skin cancer Diabetes Atrophic gastritis Sigmoid diverticulitis Bilateral carotid artery stenosis Type 2 diabetes mellitus Hyperparathyroidism Femur fracture right Urinary retention Hyperlipidemia Hypertension History of colon cancer Surgical History Hx of tubal ligation Hx of shoulder surgery Hx of tonsillectomy History of back surgery Hx of appendectomy History of hip surgery S/P percutaneous endoscopic gastrostomy (PEG) tube placement (09/23/21) H/O: hysterectomy S/P colon resection Family History Mother , at age 87 Heart attack CAD (coronary artery disease), Onset Age: 60 [place] Diabetes Father , at age 86 Cancer prostate Brother Cancer CAD (coronary artery disease), Onset Age: 50 Diabetes Dementia Sister Diabetes Cancer CAD (coronary artery disease), Onset Age: 50 Dementia Suicide Sister Diabetes Denies family history of Clotting disorder Chronic kidney disease (CKD) Anesthesia complication Bleeding disorder Lung disease Stroke Social History Smoking and tobacco/nicotine status: unknown if used tobacco/nicotine Quit status (tobacco/nicotine): has quit using Alcohol intake: never Substance/Drug Use: never Adopted: No Marital status: service: No Vitals/I&O/Wt Last Vital Signs Temp 98.3 F 05/05/25 20:00 Pulse 96 05/05/25 20:00 Resp 16 05/05/25 20:00 BP 167/71 05/05/25 20:00 Pulse Ox 96 05/05/25 20:00 O2 Del Method Nasal Cannula 05/05/25 20:00 O2 Flow Rate 2 05/05/25 20:00 05/05/25 05/05/25 05/06/25 14:59 22:59 06:59 Intake Total 1000 / 1000 Balance 1000 / 1000 Weight last 48 hrs Weight 77.111 kg Weight 74.389 kg Physical Exam Narrative: General: Alert and oriented to place person and partially to time, lying comfortably without any distress HEENT: Normocephalic, atraumatic, grossly unremarkable exam Cardio: normal rate rhythm, normal S1-S2 without any murmurs, rubs, or gallops and JVD normal Respiratory: normal vascular breathing on auscultation without any wheezes, stridor, rhonchi GI: Abdomen soft, nontender, mild gaseous distention, normoactive bowel sounds present all 4 quadrants, no organomegaly. Neuro: Grossly unremarkable neurological exam. No focal deficit appreciated Behavior: Appropriate and cooperative Extremities: Adequate palpable pulses, mild trace edema Skin: Some mild bruises barreto on the abdomen was found likely related to subcut insulin shots Data 05/05/25 15:32 05/05/25 15:32 Micro: Microbiology 05/05/25 15:40 Blood Culture - Preliminary Blood SPECIMEN COLLECTED 05/05/25 15:32 Blood Culture - Preliminary Blood SPECIMEN COLLECTED A&P Assessment and plan 1. Hypoxemia: Patient had mild leukocytosis, and in the light of vomiting could have been aspiration Oxygen supplementation as per protocol Continue levofloxacin 750 mL daily Patient need speech and swallow assessment before initiating diet 2. Dehydration: Continue Ringer lactate 100 mL/h for 10 hours and reassess Patient to have history of heart failure with preserved ejection fraction therefore to be cautious with the fluids 3. Urinary tract infection: Past medical history of UTIAnd recently discharged from ER with cefdinir for 10 days, current UA still showing possible UTI. To further cultures Continue levofloxacin daily 4. (HFpEF) heart failure with preserved ejection fraction: Patient currently euvolemic Resume antihypertensive medication Adequate intake and output monitoring 5. Diabetes: The patient has low sugars yesterday and is on high dose of insulin and last year HbA1c was 9.2% HbA1c repeat Insulin sliding scale and blood glucose monitoring 6. Hyperlipidemia: Continue atorvastatin 40 mg daily 7. Hypertension: Continue home dose lisinopril 40 mg daily 8. CVA (cerebral vascular accident): Continue clopidogrel 75 mg daily and atorvastatin 40 mg daily 9. Aspiration pneumonia: Past history of aspiration pneumonia Speech and swallow assessment Aspiration precautions PDMP PDMP Reviewed: Not Reviewed Attestations Medical Necessity Statement*: Karina Ceballos's hospital stay will require greater than 2 midnights for management of possible aspiration pneumonia leading to hypoxemia and UTI Time Spent in Patient Care: 16 - 35 minutes (>than 50% of time spent in counselling and/or direct pt care on unit). Other Attestations: Patient condition has been discussed at length with the patient/family, I have independently reviewed the chart labs imaging/diagnostics/EKG. the goals of care and code status with the patient/family/NOK/legal claims customer service representative, and documented accordingly. The patient/family has been informed about the current condition and further plan of care. Agreed with the plan of care and understood without any language barrier. Every effort was made to ensure accuracy of washerette machine operator. Any obvious errors or omissions should be clarified with the author of the document. Coding Level of Care Code 76749 Diagnoses Hypoxemia R09.02 Dehydration E86.0 Urinary tract infection N39.0 (HFpEF) heart failure with preserved ejection fraction I50.30 Diabetes E11.9 Hyperlipidemia E78.5 Hypertension I10 CVA (cerebral vascular accident) I63.9 Aspiration pneumonia J69.0
[2025-05-06] VITALS (8 sets, daily range): BP systolic 126–162; BP diastolic 61–83; PULSE 82–110; RESP 16–20; TEMP 36.9–37.1; O2SAT 91–97
[2025-05-06] MEDS: levofloxacin-dextrose 5 % 750 MG/150 ML PREMIX 100 MG IV (00:40)
[2025-05-06] MEDS: heparin 5,000 unit/mL INJ 1 mL 5000 UNIT SUBCUT ×3 (00:40→23:09)
[2025-05-06 01:06] LABS: Estmated Average Glucose 200; Hemoglobin A1C 8.6 % (4.0-6.0)
[2025-05-06 04:55] LABS: Hematocrit 36.5 % (36-47); Hemoglobin 11.20 g/dL (11.27-16.99); Mean Corpuscular HGB Conc 30.7 g/dL (30-55); Mean Corpuscular Hemoglobin 31.9 pg (27-33); Mean Corpuscular Volume 104.0 fl (85-98); Nucleated Red Blood Cells % 0 %; Platelet Count 192 10^3/cmm (157-399); Red Blood Count 3.51 10^6/uL (3.85-5.65); White Blood Count 9.31 10^3/uL (3.29-11.43)
[2025-05-06 05:15] LABS: Alanine Aminotransferase 14 U/L (0-33); Albumin Level 3.3 g/dL (3.5-5.2); Alkaline Phosphatase 100 U/L (35-105); Anion Gap 11.2 (5-19); Aspartate Amino Transferase 20 U/L (0-32); Blood Urea Nitrogen 16 mg/dL (8-23); Calcium 9.3 mg/dL (8.5-10.5); Carbon Dioxide 27 mmol/L (22-29); Chloride 106 mmol/L (98-107); Creatinine Clr Calc Pharmacy 48.2031; Globulin 3.8 g/dL (1.3-4.6); Glucose 170 mg/dL (65-115); Osmolality Calculated 295 mOsm/kg (285-295); Potassium 4.2 mmol/L (3.5-5.1); Sodium 140 mmol/L (136-145); Total Protein 7.1 g/dL (6.6-8.7)
[2025-05-06] MEDS: ferrous sulfate EC 325 mg Tablet PO (08:59)
--- NOTE | 2025-05-06 09:17 | PC.CHAP ---
Pastoral Care Encounter/Spiritual Assessment Type of Contact [] Declined sales assistants and salespersons visit [] Patient/Family/Request visit [] Outpatient visit [] Follow-up visit [] Physician referral [] Code/Alert [x] Routine visit [] Staff referral [] Actively dying [] Patient sleeping [] Family support [] [] Out of room [] Palliative care [] [] Receiving care in room [] Pre-surgical visit [] Trauma [] Long length of stay [] ICU visit [] Other: Relational/Emotional Strength [x] Patient feels connected with others/family/visitors/staff [] Distress [] Loneliness/isolation [] Abandonment Spirituality of Patient [x] Person of Amanda [] Attends Baptism of their Amanda [x] Believes in Prayer [] Reads Bible or Buddhist materials [] There are Spiritual issues to be addressed Bull Fiddle Player Interventions [x] Prayer [x] Active listening [x] Non-anxious presence [x] Spiritual/emotional support [] Crisis/trauma care [] Spiritual counseling [] Bereavement support [] Provided bereavement packet [] Provided Bible/devotional materials [] Provided toy/stuffed animal, coloring book to patient or family member [] Provided Communion [] Anointing/[place] [] Salvation [x] Completed spiritual assessment [] Other: Impact on Illness or Injury [] Angry [] Fearful [] Anxious [] Often cries [] Exhaustion [] Unable to work [] Unable to attend jewish [] Unable to walk/stand [] Unable to read [] Unable to drive [] Unable to eat/drink [] Unable to sleep [] Unable to be with family [] Patient intubated [] Other: Summary Time spent with patient 5 min
--- NOTE | 2025-05-06 15:39 | P.PN_ITS ---
Subjective 2 Subjective: Patient was seen this morning, currently alert oriented x 2, following all commands, denies any fevers, no chills, no cough, no abdominal pain, she did fall, she does have some bruising along her left flank, denies any lightheadedness, no dizziness she is quite anxious, reports feeling anxious, has generalized weakness, no focal weakness, facial droop, slurring words Vitals/I&O/Wt Last Vital Signs Temp 98.8 F 05/06/25 11:20 Pulse 110 H 05/06/25 11:20 Resp 17 05/06/25 11:20 BP 126/83 05/06/25 11:20 Pulse Ox 93 05/06/25 11:20 O2 Del Method Room Air 05/06/25 11:20 O2 Flow Rate 2 05/06/25 03:45 05/06/25 05/06/25 05/06/25 06:59 14:59 22:59 Intake Total 150 / 1150 480 / 480 Output Total 300 / 300 Balance 150 / 1150 180 / 180 Weight last 48 hrs Weight 77.111 kg Weight 77.111 kg Weight 74.389 kg Physical Exam 2 Const: COMMON NORMALS: no acute distress ORIENTATION/CONSCIOUSNESS: Yes awake, Yes oriented to person, Yes oriented to place and Yes confused; not oriented to time Eye: COMMON NORMALS: Equal, round and reactive pupils present PUPIL: Yes Equal, round and reactive pupils present Resp: COMMON NORMALS: normal respiratory effort, No retractions, No use of accessory muscles and clear to auscultation bilaterally AUSCULTATION: clear to auscultation bilaterally Cardio: COMMON NORMALS: regular rate, regular rhythm, S1 normal heart sound present and S2 normal heart sound present RATE: regular rate RHYTHM: r egular rhythm HEART SOUNDS: S1 normal heart sound present and S2 normal heart sound present GI: COMMON NORMALS: Normal to inspection, nondistended, normoactive bowel sounds present and non-tender Back/Pelvis: OTHER: Superficial bruising, left flank Extremity: COMMON NORMALS: no calf tenderness and no pedal edema Neuro: SENSORIUM/ORIENTATION: Yes oriented to person, Yes oriented to place and No oriented to time Data 05/06/25 04:14 05/06/25 04:14 Micro: Microbiology 05/05/25 15:40 Urine Culture - Preliminary Urine,Clean Catch 05/05/25 15:40 Blood Culture - Preliminary Blood SPECIMEN COLLECTED 05/05/25 15:32 Blood Culture - Preliminary Blood SPECIMEN COLLECTED A&P Assessment and plan 1. Hypoxemia: 2. Dehydration: 3. Urinary tract infection: 4. (HFpEF) heart failure with preserved ejection fraction: 5. Diabetes: 6. Hyperlipidemia: Continue atorvastatin 40 mg daily 7. Hypertension: Continue home dose lisinopril 40 mg daily 8. CVA (cerebral vascular accident): 9. Aspiration pneumonia: 10. Acute encephalopathy: Plan: Acute encephalopathy CT/CT head wo con* [id number] IMPRESSION: No acute intracranial abnormality. If symptoms persist, consider further evaluation with MRI, if there are no contraindications to obtaining a MRI scan. -Secondary to UTI, aspiration - Neurochecks - NIH stroke scale Anxiety - Continue lorazepam Aspiration pneumonia CT chest CT/CT angio chest w abd pel w con IMPRESSION: 1. No obvious pulmonary embolism, however, evaluation of distal subsegmental pulmonary arteries is limited. Recommend clinical correlation and follow-up imaging as clinically warranted. 2. No thoracic aortic aneurysm or dissection. 3. No focal lung consolidation. Plan - Continue Levaquin Urinary tract infection IMPRESSION: 1. Stable 3.1 cm right adrenal nodule. 2. Air is seen within the bladder. Correlate with any history of recent instrumentation. Cystitis cannot be excluded. 3. Cholelithiasis. 4. Stable 0.8 cm cyst within the pancreatic body. Recommend clinical correlation and follow-up imaging as clinically warranted. Plan -Levaquin History of CVA - Continue Plavix, statin Type 2 diabetes mellitus - Low-dose sliding scale Heart failure with preserved ejection fraction Patient is on hospice? - 25mcg fentanyl patch, started 04/30, removed off patient in the emergency room - Will have to clarify why patient is on hospice PDMP PDMP Reviewed: Last Reviewed 05/06/25 16:29 by Danie Hercules MD Attestations 2 Medical Necessity Statement*: Patient requires hospitalization for acute encephalopathy, UTI, aspiration, anxiety Diagnoses Hypoxemia R09.02 Dehydration E86.0 Urinary tract infection N39.0 (HFpEF) heart failure with preserved ejection fraction I50.30 Diabetes E11.9 Hyperlipidemia E78.5 Hypertension I10 CVA (cerebral vascular accident) I63.9 Aspiration pneumonia J69.0 Acute encephalopathy G93.40
--- NOTE | 2025-05-06 19:31 | PC.NURSE ---
Notified Dr. Hercules patient cannot follow commands to do the NIH Stroke scale. Patient has strength in hand to squeeze and pull. Will also throw legs over the sides of bed.
[2025-05-07 04:00] VITALS: BP 114/71; PULSE 103; RESP 20; TEMP 36.7; O2SAT 89
[2025-05-07 04:47] LABS: Hematocrit 43.6 % (36-47); Hemoglobin 12.90 g/dL (11.27-16.99); Mean Corpuscular HGB Conc 29.6 g/dL (30-55); Mean Corpuscular Hemoglobin 32.9 pg (27-33); Mean Corpuscular Volume 111.2 fl (85-98); Nucleated Red Blood Cells % 0 %; Platelet Count 172 10^3/cmm (157-399); Red Blood Count 3.92 10^6/uL (3.85-5.65); White Blood Count 8.75 10^3/uL (3.29-11.43)
[2025-05-07 05:00] VITALS: O2SAT 93
[2025-05-07 05:15] LABS: Anion Gap 17.9 (5-19); Blood Urea Nitrogen 23 mg/dL (8-23); Calcium 9.7 mg/dL (8.5-10.5); Carbon Dioxide 22 mmol/L (22-29); Chloride 103 mmol/L (98-107); Creatinine Clr Calc Pharmacy 33.6629; Glucose 256 mg/dL (65-115); Osmolality Calculated 300 mOsm/kg (285-295); Potassium 3.9 mmol/L (3.5-5.1); Sodium 139 mmol/L (136-145)
[2025-05-07 07:23] VITALS: BP 105/61; PULSE 91; RESP 14; TEMP 36.6; O2SAT 90
[2025-05-07 11:24] VITALS: BP 128/76; PULSE 93; RESP 16; TEMP 36.8; O2SAT 95
[2025-05-07] MEDS: heparin 5,000 unit/mL INJ 1 mL 5000 UNIT SUBCUT ×2 (11:56→23:55)
--- NOTE | 2025-05-07 12:40 | CT_ITS ---
WS: [id number] CT HEAD TECHNIQUE: Noncontrast CT of the head obtained from the skullbase to the vertex. CLINICAL INFORMATION: ams COMPARISON: None. DLP: 1205.[address] scans at [facility] use at least one of these dose optimization techniques: automated exposure control; mA and/or kV adjustment per patient size (includes targeted exams where dose is matched to clinical indication); or iterative reconstruction. FINDINGS: No evidence of intracranial hemorrhage or mass effect. Ventricular system and basal cisterns are patent. Moderate small vessel changes with moderate parenchymal volume loss. No extra-axial fluid collections. No evidence of mass or mass effect. Dense vascular calcification. Tiny chronic lacunar infarct RIGHT caudate. Chronic lacunar infarcts anterior limb RIGHT internal capsule. Mucosal thickening LEFT mastoid air cells. Trace mucosal thickening ethmoid air cells. CT/CT head wo con* [id number] IMPRESSION: 1. No evidence of intracranial hemorrhage or mass effect. 2. No acute intracranial findings.
--- NOTE | 2025-05-07 12:40 | USCV_ITS ---
Karina Ceballos Age: 79 Gender: F : 1945 Exam Date: 05/07/2025 17:07 Ordering Phys: Danie Hercules MD Technologist: Exam Location: [facility] [place], [place] Indication: AMS Risk Factors: Previous Vascular Surgery: Right Brachial BP: / Left Brachial BP: / Right Left Velocity (cm/s) Spectral Plaque Velocity (cm/s) Spectral Plaque Syst/Diast Broadening Syst/Diast Broadening 60.40/ 10.00 Prox CCA 71.70 / 14.00 65.90/ 12.10 Mid CCA 58.10 / 14.40 45.90/ 12.10 Distal CCA 49.70 / 11.20 46.10/ 10.60 Prox ICA 56.20 / 17.20 55.70/ 15.00 Mid ICA 62.80 / 18.20 52.20/ 15.90 Distal ICA 40.50 / 13.70 118.30 ECA 88.60 1.00 ICA/CCA 1.10 Antegrade Vertebral Antegrade 46.90/ 9.70 cm/s 57.50/ 10.30 cm/s Tri Subclavian Bi 86.50 104.8 0 FINDINGS Comparison: none available. No significant elevation of systolic or diastolic velocities. Waveforms are normal. Mixture of calcified and noncalcified plaque in the bifurcations. CONCLUSIONS Bilateral ICA stenosis less than 50%. Dr. Bernadine Lehman DO (Electronically Signed) Final Date: 08 May 2025 13:48 S
--- NOTE | 2025-05-07 12:41 | P.PN_ITS ---
Subjective 2 Subjective: patient was seen this moring, she is alert to person, to place, no to time, she follows commands, no facial droop, no focal weakness, no parasthesias, she moves upper and lower extremities, has episodes of confusion during conversation, can follows commands,but coutinues at times has global enecphalopathy, no facial droop, does have diffuse tremor at time, no seizure Vitals/I&O/Wt Last Vital Signs Temp 98.3 F 05/07/25 11:24 Pulse 93 05/07/25 11:24 Resp 16 05/07/25 11:24 BP 128/76 05/07/25 11:24 Pulse Ox 95 05/07/25 11:24 O2 Del Method Nasal Cannula 05/07/25 11:24 O2 Flow Rate 2 05/06/25 03:45 05/06/25 05/07/25 05/07/25 22:59 06:59 14:59 Intake Total 1060 / 1540 120 / 120 Output Total 650 / 950 400 / 1350 Balance 410 / 590 -400 / 190 120 / 120 Weight last 48 hrs Weight 78.471 kg Weight 77.111 kg Weight 77.111 kg Weight 74.389 kg Physical Exam 2 Const: COMMON NORMALS: no acute distress ORIENTATION/CONSCIOUSNESS: Yes awake, Yes oriented to person and Yes confused; not oriented to place and not oriented to time Eye: COMMON NORMALS: Equal, round and reactive pupils present and EOMs intact bilaterally PUPIL: Yes Equal, round and reactive pupils present Resp: COMMON NORMALS: normal respiratory effort, No retractions, No use of accessory muscles and clear to auscultation bilaterally AUSCULTATION: clear to auscultation bilaterally Cardio: COMMON NORMALS: regular rate, regular rhythm, S1 normal heart sound present and S2 normal heart sound present RATE: regular rate RHYTHM: r egular rhythm HEART SOUNDS: S1 normal heart sound present and S2 normal heart sound present GI: COMMON NORMALS: Normal to inspection, nondistended, normoactive bowel sounds present and non-tender Extremity: COMMON NORMALS: no calf tenderness and no pedal edema Neuro: COMMON NORMALS: CN's II-XII intact bilaterally, moves all extremities and no focal motor deficits SENSORIUM/ORIENTATION: Yes oriented to person, No oriented to place and No oriented to time Psych: COMMON NORMALS: mental status grossly normal Data 05/07/25 04:07 05/07/25 04:07 Micro: Microbiology 05/05/25 15:40 Urine Culture - Preliminary Urine,Clean Catch Yeast species 05/05/25 15:40 Blood Culture - Preliminary Blood NEGATIVE TO DATE 05/05/25 15:32 Blood Culture - Preliminary Blood NEGATIVE TO DATE A&P Assessment and plan 1. Hypoxemia: 2. Dehydration: 3. Urinary tract infection: 4. (HFpEF) heart failure with preserved ejection fraction: 5. Diabetes: 6. Hyperlipidemia: Continue atorvastatin 40 mg daily 7. Hypertension: Continue home dose lisinopril 40 mg daily 8. CVA (cerebral vascular accident): 9. Aspiration pneumonia: 10. Acute encephalopathy: Plan: Acute encephalopathy CT/CT head wo con* [id number] IMPRESSION: No acute intracranial abnormality. If symptoms persist, consider further evaluation with MRI, if there are no contraindications to obtaining a MRI scan. -history of cva, on hospice -cant discern any focal weakness, has more global encephalopathy plan -will repeat ct head, will carotid ultrasound -Secondary to UTI, aspiration - Neurochecks - NIH stroke scale Anxiety - Continue lorazepam Aspiration pneumonia CT chest CT/CT angio chest w abd pel w con IMPRESSION: 1. No obvious pulmonary embolism, however, evaluation of distal subsegmental pulmonary arteries is limited. Recommend clinical correlation and follow-up imaging as clinically warranted. 2. No thoracic aortic aneurysm or dissection. 3. No focal lung consolidation. Plan - Continue Levaquin Urinary tract infection IMPRESSION: 1. Stable 3.1 cm right adrenal nodule. 2. Air is seen within the bladder. Correlate with any history of recent instrumentation. Cystitis cannot be excluded. 3. Cholelithiasis. 4. Stable 0.8 cm cyst within the pancreatic body. Recommend clinical correlation and follow-up imaging as clinically warranted. Plan -Levaquin -started IV Diflucan History of CVA - Continue Plavix, statin Type 2 diabetes mellitus - Low-dose sliding scale Heart failure with preserved ejection fraction Patient is on hospice? -patient is on ultram 50mg q6h scheduled - 25mcg fentanyl patch, started 04/30, removed off patient in the emergency room - Will have to clarify why patient is on hospice, according to csm and family she is on hospice due to history of cva full code heparin for dvt prophylaxis PDMP PDMP Reviewed: Last Reviewed 05/06/25 18:00 by Danie Hercules MD Attestations 2 Medical Necessity Statement*: patient requires hospitalization for acute encephalopathy, aspiration pneumonia, uti, hisotry of cva Diagnoses Hypoxemia R09.02 Dehydration E86.0 Urinary tract infection N39.0 (HFpEF) heart failure with preserved ejection fraction I50.30 Diabetes E11.9 Hyperlipidemia E78.5 Hypertension I10 CVA (cerebral vascular accident) I63.9 Aspiration pneumonia J69.0 Acute encephalopathy G93.40
[2025-05-07] MEDS: fluconazole premix 100 MG in empty flexible container 1 EACH 50 MG IV (13:34)
[2025-05-07 15:30] VITALS: BP 112/62; PULSE 81; RESP 16; TEMP 36.8; O2SAT 95
[2025-05-07 16:11] LABS: Ammonia 30 umol/L (11-51)
[2025-05-07 20:00] VITALS: BP 124/73; PULSE 84; RESP 15; TEMP 36.7; O2SAT 95
[2025-05-07] MEDS: levofloxacin-dextrose 5 % 750 MG/150 ML PREMIX 100 MG IV (20:04)
[2025-05-08 01:00] VITALS: BP 143/72; PULSE 78; RESP 17; TEMP 37; O2SAT 96
[2025-05-08 04:00] VITALS: BP 120/65; PULSE 76; RESP 17; TEMP 36.4; O2SAT 97
[2025-05-08 04:43] LABS: Hematocrit 34.7 % (36-47); Hemoglobin 10.70 g/dL (11.27-16.99); Mean Corpuscular HGB Conc 30.8 g/dL (30-55); Mean Corpuscular Hemoglobin 33.0 pg (27-33); Mean Corpuscular Volume 107.1 fl (85-98); Nucleated Red Blood Cells % 0 %; Platelet Count 167 10^3/cmm (157-399); Red Blood Count 3.24 10^6/uL (3.85-5.65); White Blood Count 5.74 10^3/uL (3.29-11.43)
[2025-05-08 05:05] LABS: Blood Urea Nitrogen 35 mg/dL (8-23); Calcium 8.9 mg/dL (8.5-10.5); Carbon Dioxide 23 mmol/L (22-29); Chloride 105 mmol/L (98-107); Creatinine Clr Calc Pharmacy 27.3511; Glucose 357 mg/dL (65-115); Osmolality Calculated 310 mOsm/kg (285-295); Sodium 139 mmol/L (136-145)
[2025-05-08 05:14] LABS: Anion Gap 15.6 (5-19); Potassium 4.6 mmol/L (3.5-5.1)
[2025-05-08 07:54] VITALS: BP 121/63; PULSE 81; RESP 14; TEMP 36.6; O2SAT 95
[2025-05-08] MEDS: ferrous sulfate EC 325 mg Tablet PO (08:59)
[2025-05-08 11:21] VITALS: BP 124/66; PULSE 79; RESP 16; TEMP 36.4; O2SAT 93
[2025-05-08] MEDS: heparin 5,000 unit/mL INJ 1 mL 5000 UNIT SUBCUT (12:39)
--- NOTE | 2025-05-08 13:22 | P.PN_ITS ---
Subjective 2 Subjective: Patient was seen this morning, currently alert oriented x 2, following all commands, has no complaints I cannot discern any focal weakness, she moves bilateral upper and lower extremities, equal strength bilaterally, she is able to track, able to smile for me, I cannot discern a facial droop, she does have some persistent encephalopathy, Vitals/I&O/Wt Last Vital Signs Temp 97.5 F L 05/08/25 11:21 Pulse 79 05/08/25 11:21 Resp 16 05/08/25 11:21 BP 124/66 05/08/25 11:21 Pulse Ox 93 05/08/25 11:21 O2 Del Method Nasal Cannula 05/08/25 11:21 O2 Flow Rate 2 05/06/25 03:45 05/07/25 05/08/25 05/08/25 22:59 06:59 14:59 Intake Total 270 / 440 600 / 1040 360 / 360 Output Total 220 / 220 Balance 50 / 220 600 / 820 360 / 360 Weight last 48 hrs Weight 78.471 kg Weight 78.471 kg Physical Exam 2 Const: COMMON NORMALS: no acute distress and patient oriented x3 Resp: COMMON NORMALS: normal respiratory effort, No retractions, No use of accessory muscles and clear to auscultation bilaterally AUSCULTATION: clear to auscultation bilaterally Cardio: COMMON NORMALS: regular rate, regular rhythm, S1 normal heart sound present and S2 normal heart sound present RATE: regular rate RHYTHM: r egular rhythm HEART SOUNDS: S1 normal heart sound present and S2 normal heart sound present GI: COMMON NORMALS: Normal to inspection, nondistended, normoactive bowel sounds present and non-tender Extremity: COMMON NORMALS: no calf tenderness and no pedal edema Neuro: COMMON NORMALS: patient oriented x3, CN's II-XII intact bilaterally and moves all extremities Psych: COMMON NORMALS: mental status grossly normal Data 05/08/25 04:27 05/08/25 04:27 Micro: Microbiology 05/05/25 15:40 Urine Culture - Preliminary Urine,Clean Catch Yeast species A&P Assessment and plan 1. Hypoxemia: 2. Dehydration: 3. Urinary tract infection: 4. (HFpEF) heart failure with preserved ejection fraction: 5. Diabetes: 6. Hyperlipidemia: Continue atorvastatin 40 mg daily 7. Hypertension: Continue home dose lisinopril 40 mg daily 8. CVA (cerebral vascular accident): 9. Aspiration pneumonia: 10. Acute encephalopathy: Plan: Acute encephalopathy CT/CT head wo con* [id number] IMPRESSION: No acute intracranial abnormality. If symptoms persist, consider further evaluation with MRI, if there are no contraindications to obtaining a MRI scan. -history of cva, on hospice -cant discern any focal weakness, has more global encephalopathy plan -will repeat ct head no acute findings, will carotid ultrasound pending -Secondary to UTI, aspiration - Neurochecks - NIH stroke scale Anxiety - Continue lorazepam Aspiration pneumonia CT chest CT/CT angio chest w abd pel w con IMPRESSION: 1. No obvious pulmonary embolism, however, evaluation of distal subsegmental pulmonary arteries is limited. Recommend clinical correlation and follow-up imaging as clinically warranted. 2. No thoracic aortic aneurysm or dissection. 3. No focal lung consolidation. Plan - Continue Levaquin Urinary tract infection IMPRESSION: 1. Stable 3.1 cm right adrenal nodule. 2. Air is seen within the bladder. Correlate with any history of recent instrumentation. Cystitis cannot be excluded. 3. Cholelithiasis. 4. Stable 0.8 cm cyst within the pancreatic body. Recommend clinical correlation and follow-up imaging as clinically warranted. Plan -Levaquin -started IV Diflucan History of CVA - Continue Plavix, statin Type 2 diabetes mellitus - Low-dose sliding scale Heart failure with preserved ejection fraction Patient is on hospice? Patient is on hospice according to daughter because of a history of CVAs/failure to thrive -patient is on ultram 50mg q6h scheduled, will de-escalate to tramadol 50 mg every 6 hours - 25mcg fentanyl patch, started 04/30, removed off patient in the emergency room - Will have to clarify why patient is on hospice, according to csm and family she is on hospice due to history of cva full code heparin for dvt prophylaxis Plan for today monitor mentation, IV Diflucan, PT OT, PDMP PDMP Reviewed: Last Reviewed 05/06/25 18:00 by Danie Hercules MD Attestations 2 Medical Necessity Statement*: Patient requires hospitalization for acute encephalopathy, aspiration ammonia, UTI Diagnoses Hypoxemia R09.02 Dehydration E86.0 Urinary tract infection N39.0 (HFpEF) heart failure with preserved ejection fraction I50.30 Diabetes E11.9 Hyperlipidemia E78.5 Hypertension I10 CVA (cerebral vascular accident) I63.9 Aspiration pneumonia J69.0 Acute encephalopathy G93.40
[2025-05-08] MEDS: fluconazole premix 100 MG in empty flexible container 1 EACH 50 MG IV (14:34)
[2025-05-08 16:00] VITALS: BP 134/70; PULSE 84; RESP 16; TEMP 36.8; O2SAT 96
[2025-05-08 21:00] VITALS: BP 154/69; PULSE 93; RESP 17; TEMP 36.6; O2SAT 94
[2025-05-09] MEDS: heparin 5,000 unit/mL INJ 1 mL 5000 UNIT SUBCUT ×2 (00:14→13:18)
[2025-05-09 00:41] VITALS: BP 121/66; PULSE 81; RESP 16; TEMP 36.6; O2SAT 97
[2025-05-09 04:15] LABS: Hematocrit 34.7 % (36-47); Hemoglobin 10.60 g/dL (11.27-16.99); Mean Corpuscular HGB Conc 30.5 g/dL (30-55); Mean Corpuscular Hemoglobin 32.5 pg (27-33); Mean Corpuscular Volume 106.4 fl (85-98); Nucleated Red Blood Cells % 0 %; Platelet Count 161 10^3/cmm (157-399); Red Blood Count 3.26 10^6/uL (3.85-5.65); White Blood Count 6.71 10^3/uL (3.29-11.43)
[2025-05-09 04:42] LABS: Anion Gap 11.1 (5-19); Blood Urea Nitrogen 33 mg/dL (8-23); Calcium 9.2 mg/dL (8.5-10.5); Carbon Dioxide 26 mmol/L (22-29); Chloride 106 mmol/L (98-107); Glucose 350 mg/dL (65-115); Osmolality Calculated 309 mOsm/kg (285-295); Potassium 4.1 mmol/L (3.5-5.1); Sodium 139 mmol/L (136-145)
[2025-05-09 05:02] LABS: Creatinine Clr Calc Pharmacy 33.6629
[2025-05-09 05:54] VITALS: BP 146/69; PULSE 76; RESP 16; TEMP 36.7; O2SAT 97
[2025-05-09 07:25] VITALS: BP 139/68; PULSE 77; RESP 16; TEMP 36.2; O2SAT 97
[2025-05-09 11:33] VITALS: BP 125/63; PULSE 80; RESP 14; TEMP 36.4; O2SAT 93
--- NOTE | 2025-05-09 12:35 | P.DS_ITS ---
Discharge Providers Date of Admission: 05/05/25 19:02 Date of Discharge: May 09, 2025 Attending Provider at Admission: Inge Amaya MD Attending Provider at Discharge: Danie Hercules MD Primary Care Provider: Jasmina Moreno DO Diagnoses at Discharge Discharge Diagnosis 1. Hypoxemia: 2. Dehydration: 3. Urinary tract infection: 4. Chronic heart failure with preserved ejection fraction: 5. Other specified diabetes mellitus without complication, without long-term current use of insulin: 6. Mixed hyperlipidemia: 7. Primary hypertension: 8. CVA (cerebral vascular accident): 9. Aspiration pneumonia: 10. Acute encephalopathy: Reason for Visit Reason for Visit: N/v Hospital Course Hospital Course This is a 79-year-old female currently on hospice for history of CVA/failure to thrive, type 2 diabetes mellitus, who presents to [facility] for acute encephalopathy Acute encephalopathy, head CT no acute findings, no focal weakness, likely secondary to aspiration pneumonia, UTI. Patient received broad-spectrum antibiotic therapy, antifungal therapy, overall clinically improved. There was concern for polypharmacy with patient's Ultram, dose was decreased to 50 mg every 6 hours. Overall mentation is clinically proved on discharge she is alert to person, to place, not time but does follow commands, discharged on p.o. Zyprexa For generalized weakness, deconditioning, she is on hospice for CVA/failure to thrive, discharged on hospice For UTI, managed with IV antibiotics, discharged on p.o. antibiotics For aspiration pneumonia, received IV antibiotics, discharged on p.o. antibiotics Patient has a stable 0.8 cm cyst in the pancreatic body, patient's family is aware of this, and want medical management In terms of her hospice - Due to concern for polypharmacy with narcotics I would avoid fentanyl - I managed patient with Ultram 25 mg p.o. every 6 hours as needed which she can continue - We discussed possibly hydrocodone or oxycodone however she does have a codeine allergy, and she has done so well with Ultram 25 mg p.o. every 6 hours I would continue this on discharge For history of CVA continue Plavix, statin Can Physical Exam Const: COMMON NORMALS: no acute distress ORIENTATION/CONSCIOUSNESS: Yes awake, Yes oriented to person and Yes oriented to place; not oriented to time Resp: COMMON NORMALS: normal respiratory effort, No retractions, No use of accessory muscles and clear to auscultation bilaterally AUSCULTATION: clear to auscultation bilaterally Cardio: COMMON NORMALS: regular rate, regular rhythm, S1 normal heart sound present and S2 normal heart sound present RATE: regular rate RHYTHM: regular rhythm HEART SOUNDS: S1 normal heart sound present and S2 normal heart sound present GI: COMMON NORMALS: Normal to inspection, nondistended, normoactive bowel sounds present, Soft to palpation and non-tender PALPATION: Yes Soft to palpation Extremity: COMMON NORMALS: no calf tenderness and no pedal edema Neuro: SENSORIUM/ORIENTATION: Yes oriented to person, Yes oriented to place and No oriented to time Psych: COMMON NORMALS: mental status grossly normal Discharge Data Studies Completed and Pending Completed Studies During Hospitalization Category Date Time Status CT Angio Chest + Abdomen Pelvis w/ contrast; [id number] + Cat Scan 05/05/25 17:[id number] head wo con* [id number] Routine Cat Scan 05/07/25 12:[address] head wo con* [id number] Stat Cat Scan 05/05/25 15:33 Completed XR chest 1V portable [id number] Stat Exams 05/05/25 15:21 Completed CV carotid duplex BI* [id number] Routine Ultrasound 05/07/25 12:40 Completed Pending at discharge Category Date Time Status Blood Culture Stat Lab 05/05/25 15:40 Results Urine Culture Stat Lab 05/05/25 15:40 Results Radiology Impressions Chest X-Ray 05/05/25 15:21 IMPRESSION: Stable chest without acute abnormality. Chest/Abdomen/Pelvis CT 05/05/25 17:46 IMPRESSION: 1. No obvious pulmonary embolism, however, evaluation of distal subsegmental pulmonary arteries is limited. Recommend clinical correlation and follow-up imaging as clinically warranted. 2. No thoracic aortic aneurysm or dissection. 3. No focal lung consolidation. IMPRESSION: 1. Stable 3.1 cm right adrenal nodule. 2. Air is seen within the bladder. Correlate with any history of recent instrumentation. Cystitis cannot be excluded. 3. Cholelithiasis. 4. Stable 0.8 cm cyst within the pancreatic body. Recommend clinical correlation and follow-up imaging as clinically warranted. Head CT 05/07/25 12:40 IMPRESSION: 1. No evidence of intracranial hemorrhage or mass effect. 2. No acute intracranial findings. Laboratory Results WBC 6.71 10^3/uL (3.29-11.43) 05/09/25 02:43 RBC 3.26 10^6/uL (3.85-5.65) L 05/09/25 02:43 Hgb 10.60 g/dL (11.27-16.99) L 05/09/25 02:43 Hct 34.7 % (36-47) L 05/09/25 02:43 MCV 106.4 fl (85-98) H 05/09/25 02:43 MCH 32.5 pg (27-33) 05/09/25 02:43 MCHC 30.5 g/dL (30-55) 05/09/25 02:43 RDW 14.6 % (12.1-15.1) 05/09/25 02:43 Plt Count 161 10^3/cmm (157-399) 05/09/25 02:43 MPV 11.7 fL (7.4-10.4) H 05/09/25 02:43 Neut % (Auto) 58.7 % 05/09/25 02:43 Lymph % (Auto) 26.7 % 05/09/25 02:43 [place] % (Auto) 11.5 % 05/09/25 02:43 Eos % (Auto) 2.7 % 05/09/25 02:43 Baso % (Auto) 0.1 % 05/09/25 02:43 Neut # (Auto) 3.94 10^3/uL (1.8-7.7) 05/09/25 02:43 Lymph # (Auto) 1.8 10^3/uL (0.8-4.8) 05/09/25 02:43 [place] # (Auto) 0.8 10^3/uL (0.2-0.9) 05/09/25 02:43 Eos # (Auto) 0.2 10^3/uL (0.0-0.8) 05/09/25 02:43 Baso # (Auto) 0.0 10^3/uL (0.0-0.1) 05/09/25 02:43 Nucleated RBC % (auto) 0 % 05/09/25 02:43 Nucleated RBCs # 0.0 /100WBC 05/09/25 02:43 Specimen Type Arterial 05/05/25 15:30 Sample Site Radial, left 05/05/25 15:30 ABG pH 7.35 (7.35-7.45) 05/05/25 15:30 ABG pCO2 50.2 mmHg (35-45) H 05/05/25 15:30 ABG pO2 72.9 mmHg (80.0-100.0) L 05/05/25 15:30 ABG HCO3 28.0 mmol/L (22-26) H 05/05/25 15:30 ABG O2 Saturation 93.0 05/05/25 15:30 ABG Base Excess 1.6 mmol/L (-2.0-2.0) 05/05/25 15:30 Nikolai Test Pos 05/05/25 15:30 A-a O2 Gradient 2.0 mmHg (5-10) L 05/05/25 15:30 Hematocrit 41.3 % (37-47) 05/05/25 15:30 Hgb O2 Saturation 91.7 % (95-100) L 05/05/25 15:30 Carboxyhemoglobin 0.4 %THgb (0.4-20.1) 05/05/25 15:30 Methemoglobin 1.0 % (0.4-1.5) 05/05/25 15:30 Total Hemoglobin 13.5 g/dL (12-16) 05/05/25 15:30 Sodium 146.0 mmol/L (131-143) H 05/05/25 15:30 Potassium 3.9 mmol/L (3.5-5.0) 05/05/25 15:30 Glucose 112.0 mg/dL (70-115) 05/05/25 15:30 Ionized Calcium 1.3 mmol/L (1.1-1.4) 05/05/25 15:30 O2 Delivery Device Nc 05/05/25 15:30 O2 Liters/Min 2.0 % 05/05/25 15:30 Script Editor ID [place] 05/05/25 15:30 Sodium 139 mmol/L (136-145) 05/09/25 02:43 Potassium 4.1 mmol/L (3.5-5.1) 05/09/25 02:43 Chloride 106 mmol/L (98-107) 05/09/25 02:43 Carbon Dioxide 26 mmol/L (22-29) 05/09/25 02:43 Anion Gap 11.1 (5-19) 05/09/25 02:43 BUN 33 mg/dL (8-23) H 05/09/25 02:43 Creatinine 1.3 mg/dL (0.5-0.9) H 05/09/25 02:43 GFR Calculation Not Reportable 05/09/25 02:43 Glucose 350 mg/dL (65-115) H 05/09/25 02:43 POC Glucose 324 mg/dL (70-110) H 05/09/25 10:49 Estimat Average Glucose 200 05/05/25 15:32 Hemoglobin A1c 8.6 % (4.0-6.0) H 05/05/25 15:32 Calculated Osmolality 309 mOsm/kg (285-295) H 05/09/25 02:43 Lactic Acid 1.8 mmol/L (0.5-2.2) 05/05/25 15:32 Calcium 9.2 mg/dL (8.5-10.5) 05/09/25 02:43 Total Bilirubin 0.9 mg/dL (0.15-1.2) 05/06/25 04:14 AST 20 U/L (0-32) 05/06/25 04:14 ALT 14 U/L (0-33) 05/06/25 04:14 Alkaline Phosphatase 100 U/L (35-105) 05/06/25 04:14 Ammonia 30 umol/L (11-51) 05/07/25 15:50 Troponin T Baseline 23 ng/L (0-10) H 05/05/25 15:32 Troponin T 120 Minute 21.58 ng/L (0-10) H 05/05/25 17:28 Delta Troponin T -1.42 ABS# (0-10) L 05/05/25 17:28 Total Protein 7.1 g/dL (6.6-8.7) 05/06/25 04:14 Albumin 3.3 g/dL (3.5-5.2) L 05/06/25 04:14 Globulin 3.8 g/dL (1.3-4.6) 05/06/25 04:14 Lipase 10 U/L (13-60) L 05/05/25 15:32 Procalcitonin 0.10 ng/mL (0-0.5) 05/05/25 15:32 TSH 2.83 uIU/mL (0.27-4.20) 05/05/25 15:32 Urine Color Yellow (Yellow) 05/05/25 15:40 Urine Appearance Cloudy (CLEAR) A 05/05/25 15:40 Urine pH 5.5 (5-7) 05/05/25 15:40 Ur Specific [place] 1.019 (1.005-1.030) 05/05/25 15:40 Urine Protein 3+ (Negative) A 05/05/25 15:40 Urine Glucose (UA) 1+ (Normal) H 05/05/25 15:40 Urine Ketones Negative (Negative) 05/05/25 15:40 Urine Blood 1+ (Negative) A 05/05/25 15:40 Urine Nitrate Negative (Negative) 05/05/25 15:40 Urine Bilirubin Negative (Negative) 05/05/25 15:40 Urine Urobilinogen 1.0 mg/dL (Negative) 05/05/25 15:40 Ur Leukocyte Esterase 1+ (Negative) A 05/05/25 15:40 Urine RBC 5-10 /hpf (0-2) H 05/05/25 15:40 Urine WBC 15-25 /hpf (0-5) H 05/05/25 15:40 Ur Squamous Epith Cells 0-4 /hpf (0-5) H 05/05/25 15:40 Amorphous Sediment Not Reportable 05/05/25 15:40 Urine Bacteria Trace /hpf (NONE) 05/05/25 15:40 Urine Mucus Trace /hpf 05/05/25 15:40 Urine Yeast 3+ /hpf H 05/05/25 15:40 Influenza A (PCR) Negative (Negative) 05/05/25 13:45 Influenza Type B (PCR) Negative (Negative) 05/05/25 13:45 RSV (PCR) Negative (Negative) 05/05/25 13:45 SARS-CoV-2 (PCR) Negative (Negative) 05/05/25 13:45 Vitals Last Vital Signs Temp 97.5 F L 05/09/25 11:33 Pulse 80 05/09/25 11:33 Resp 14 05/09/25 11:33 BP 125/63 05/09/25 11:33 Pulse Ox 93 05/09/25 11:33 O2 Del Method Nasal Cannula 05/09/25 11:33 O2 Flow Rate 1 05/09/25 08:39 Discharge Plan Discharge Patient Disposition: Home Condition: Stable Prescriptions: New ondansetron 8 mg tablet,disintegrating 8 mg PO Q6H Qty: 14 0RF Rx Instructions: Take 1/2-1 tab every 6 hours as needed for nausea and vomiting olanzapine 5 mg Tablet,Disintegrating 5 mg PO BEDTIME 30 Days Qty: 30 0RF fluconazole 100 mg tablet 100 mg PO DAILY 7 Days Qty: 7 0RF amoxicillin-pot clavulanate 875-125 mg tablet 1 tab PO BID 7 Days Qty: 14 0RF Continued clopidogrel 75 mg tablet 75 mg PO QAM atorvastatin 40 mg tablet 40 mg PO QPM pantoprazole 40 mg tablet,delayed release (DR/EC) 40 mg PO BID sennosides-docusate sodium [Stimulant Laxative Plus] 8.6-50 mg tablet 1 tab-cap PO DAILY PRN (Reason: constipation) furosemide [Lasix] 40 mg tablet 40 mg PO DAILY PRN (Reason: edema) 30 Days Qty: 90 3RF (DME) Blood Glucose Test Strip See Rx Instructions .Route Qty: 50 0RF Rx Instructions: As directed lisinopril 40 mg tablet 40 mg PO DAILY Qty: 90 3RF allopurinol 300 mg tablet 300 mg PO QAM naproxen sodium [Aleve] 220 mg Tablet 440 mg PO Q12H PRN (Reason: Pain) donepezil 10 mg tablet 10 mg PO BEDTIME lorazepam 0.5 mg tablet 0.5 mg PO DAILY PRN (Reason: Anxiety) ferrous sulfate [FeroSul] 325 mg (65 mg iron) tablet 325 mg PO .QOD escitalopram oxalate 20 mg tablet 20 mg PO QAM cholecalciferol (vitamin D3) 50 mcg (2,000 unit) capsule 50 mcg PO QAM Changed tramadol 50 mg tablet 25 mg PO QID PRN (Reason: Pain) 30 Days Qty: 0 0RF insulin lispro [Humalog KwikPen Insulin] 100 unit/mL insulin pen See Rx Instructions .ROUTE .COMPLEX 30 Days Qty: 15 0RF Rx Instructions: Inject, subcut, 3 times daily, after meals, based on low-dose sliding scale insulin glargine [Lantus Solostar U-100 Insulin] 100 unit/mL (3 mL) insulin pen 10 unit SUBCUT QPM 30 Days Qty: 3 0RF Discontinued fentanyl 25 mcg/hr patch 72 hour 1 patch topical .Q3DAYS cefdinir 300 mg capsule 300 mg PO BID 10 Days Qty: 20 0RF Discharge Order = DC NOW: Discharge Order (Routine); Ordered 05/09/25 Ordered By: Danie Hercules Referrals: Jasmina Moreno DO [Primary Care Provider, Family Practice] - 4-7 days Referral Note: You will need to contact your primary care provider Sunday to get a hospital discharge follow up in 4-7 days. Discharge Diet: Usual diet Discharge Activity: Increase activity as tolerated Patient Instructions: Urinary Tract Infection in Older Adults (ED), Opioid Safety, Pain Management, Patient Portal & Emely Instructions Activity Restrictions/Additional Instructions: Thank you for choosing [facility] for your healthcare needs today. You have been screened and evaluated and felt safe for discharge. Health conditions do change or evolve sometimes and as such it is important that you follow up with your Primary Doctor to be re checked, 3-5 days is a general good time frame for follow up. You are always welcome to return to the ED for re assessment if your symptoms are worsening or you have new concerns Discharge Attestations Time Spent in Discharge Care*: greater than 30 min Status at Discharge: Cognitive status at discharge: cognitively intact , Behavioral status at discharge: cooperative , Quality Metrics Clinical Quality Measures [ No reported AMI, CVA or VTE this stay] Coding Level of Care Code 41291 Total time (in minutes) for Discharge: 45 Diagnoses Hypoxemia R09.02 Dehydration E86.0 Urinary tract infection N39.0 Chronic heart failure with preserved ejection fraction I50.32 Heart failure chronicity: chronic Other specified diabetes mellitus without complication, without long-term current use of insulin E13.9 Diabetes mellitus complication status: without complication Diabetes mellitus intermediate insulin use: without superintendent [employer] use Diabetes mellitus type: other specified (including OMAYRA) Mixed hyperlipidemia E78.2 Hyperlipidemia type: mixed hyperlipidemia Primary hypertension I10 Hypertension type: primary hypertension CVA (cerebral vascular accident) I63.9 Aspiration pneumonia J69.0 Acute encephalopathy G93.40
[2025-05-09] MEDS: fluconazole premix 100 MG in empty flexible container 1 EACH 50 MG IV (13:18)
--- NOTE | 2025-05-09 14:39 | PC.NURSE ---
wilson catheter removed at 1325 per order
[2025-05-09 15:12] VITALS: BP 176/69; PULSE 84; RESP 16; TEMP 37; O2SAT 92
[2025-05-09 16:54] VITALS: BP 176/69; PULSE 84; RESP 16; TEMP 37; O2SAT 92
== END 2025-05-09 16:55 | disposition home or self-care (01) | DRG 689 ==
LOC: ER 17:43 → MEDSURG 19:02
PROVIDERS: Student in an Organized Health Care Education/Training Program; Admitting Provider Student in an Organized Health Care Education/Training Program; Emergency Provider Emergency Medicine; PCP Family Medicine; Visit Provider Family Medicine
DX: N39.0 Urinary tract infection, site not specified (principal); J69.0 Pneumonitis due to inhalation of food and vomit; G93.40 Encephalopathy, unspecified; I50.32 Chronic diastolic (congestive) heart failure; E11.9 Type 2 diabetes mellitus without complications; Z79.4 Long term (current) use of insulin; Z86.79 Personal history of other diseases of the circulatory system; I65.29 Occlusion and stenosis of unspecified carotid artery; Z90.49 Acquired absence of other specified parts of digestive tract; Z90.710 Acquired absence of both cervix and uterus; Z83.3 Family history of diabetes mellitus; R09.02 Hypoxemia; E86.0 Dehydration; F41.9 Anxiety disorder, unspecified; Z51.5 Encounter for palliative care; R62.7 Adult failure to thrive; Z68.30 Body mass index [BMI] 30.0-30.9, adult; Z85.038 Personal history of other malignant neoplasm of large intestine; Z85.828 Personal history of other malignant neoplasm of skin; Z85.41 Personal history of malignant neoplasm of cervix uteri; E78.2 Mixed hyperlipidemia; I11.0 Hypertensive heart disease with heart failure; G47.33 Obstructive sleep apnea (adult) (pediatric); Z79.02 Long term (current) use of antithrombotics/antiplatelets
CPT/HCPCS: 36415; 36416; 36600; 70450; 71045; 71275; 74177; 80048; 80051; 80053; 81001; 82140; 82330; 82805; 82962; 83036; 83605; 83690; 84145; 84443; 84484; 85025; 87040; 87086; 87106; 87637; 92507; 92523; 92526; 92610; 93005; 93880; 96361; 96372; 96374; 97163; 97167; 97530; 97535; 99285; J0696; J1450; J1644; J1815; J1956; J7030; J7120; J9999

== ENCOUNTER → 2025-07-22 13:00 | Outpatient (BNVA) | payer MEDICARE, OTHER, SELFPAY | PROVIDERS: PCP Family Medicine; Visit Provider Internal Medicine Endocrinology, Diabetes & Metabolism | DX: E11.9 Type 2 diabetes mellitus without complications (principal); M81.0 Age-related osteoporosis without current pathological fracture; E21.0 Primary hyperparathyroidism; E55.9 Vitamin D deficiency, unspecified; E03.8 Other specified hypothyroidism | CPT/HCPCS: 99213 ==